=== PATIENT | female | born 1945 | race Caucasian/White ===

== ENCOUNTER 2017-05-23 20:39 | Inpatient (IN) | payer OTHER ==
[~2017-05-23] VITALS: Ht 149.9 cm; Wt 59.0 kg
[~2017-05-23 20:39] MED LIST: AMLO5TAB4 PO; AMOX1TAB43 PO; APR25 PO; ASPI-435 PO; ATOR-26 PO; CHOL1TAB76 PO; CLOP1TAB15 PO; COEN1CAP17 PO; FOLI1TAB8 PO; GEMF600T PO; GLC500 PO; GLIM2TAB2 PO; HYDR25TA4 PO; LSN5 PO; MAGN100T PO; METO50TA16 PO; NRN/300 PO; OMEG1CAP71 PO; ROPI5TAB PO; SITA1TAB27 PO; SOLI5TAB2 PO
[2017-05-23] MEDS ORDERED: SODIUM CHLORIDE 0.9% 1000ML 1,000 ML IV SCH (20:42)
[2017-05-23] MEDS ORDERED: DEXTROSE 50% 50 ML SYR ONE (20:50)
[2017-05-23] MEDS ORDERED: DEXTROSE 50% 50 ML SYR IV STA (20:52)
[2017-05-23] MEDS ORDERED: GLUCOSE 40% GEL 15 GM TUBE ONE (20:54)
[2017-05-23] MEDS ORDERED: SODIUM CHLORIDE 0.9% 1000ML 1,000 ML IV STA (20:58)
[2017-05-23] MEDS ORDERED: OPTIRAY 320 IV PRN (21:00)
--- NOTE | 2017-05-23 21:02 | EMERGENCY ROOM VISIT NOTE ---
History Report prepared by Denisse: Neha Elizondo Under the Supervision of: Dr. Zachary Huston M.D. First contact with patient: 20:42 Chief Complaint: UNRESPONSIVE Stated Complaint: UNRESPONSIVE, TRIES TO TALK CAN'T TALK, SOB History of Present Illness The patient is a 71 year old female who presents to the Emergency Room with complaints of persistent unresponsiveness beginning today. Per the patient's , the patient has old left leg weakness from previous CVAs. He reports that last night the patient was last noted to be normal. Today he notes that the patient has been mostly unresponsive all day and he has been carrying her around today. He states that his daughter visited today and called an ambulance for the patient. The complains of shortness of breath and inability to talk. He denies any new left leg weakness. HPI limited secondary to unresponsiveness. Source of History: patient History Limited By: other (unresponsive) Onset: today Position: other (global) Quality: other (unresponsiveness) Timing: constant Associated Symptoms: + SOB Note: Pt has inability to talk. Pt denies new left leg weakness. Review of Systems See HPI for pertinent positives & negatives. ROS limited secondary to unresponsiveness. Past Medical & Surgical Medical Problems: (1) Diabetes (2) Heart disease (3) History of stroke (4) SVT (supraventricular tachycardia) (5) transient unresponsiveness Surgical Problems: (1) Hx of appendectomy (2) Hx of tonsillectomy Family History No pertinent family history stated. Social History Smoking Status: Never Smoker Drug Use: none Marital Status: Housing Status: lives with family Occupation Status: retired Current/Historical Medications Scheduled Aspirin (Aspirin 81), 81 MG PO QPM Atorvastatin (Lipitor), 80 MG PO DAILY Calcitriol (Calcitriol), 0.25 MG PO 2XWK Calcium Carbonate-Vitamin D (Calcium + D3 600-200 mg-Unit), 1 TAB PO DAILY Clopidogrel (Plavix), 75 MG PO DAILY Coenzyme Q10 (Ubidecarenone) (Co Q 10), 100 MG PO DAILY Folic Acid (Folvite), 1 MG PO QAM Gabapentin (Neurontin), 300 MG PO HS Gabapentin (Neurontin), 300 MG PO QDD Gemfibrozil (Lopid), 600 MG PO BID Glimepiride (Amaryl), 3 MG PO QAM Hydralazine HCl (Hydralazine HCl), 50 MG PO TID Hydrochlorothiazide (Hctz), 25 MG PO DAILY Isosorbide Mononitrate (Isosorbide Mononitrate ER), 60 MG PO QAM Lisinopril (Lisinopril), 10 MG PO DAILY Metformin HCl (Metformin HCl ER), 500 MG PO QDD Metoprolol Tartrate (Lopressor) (Lopressor), 75 MG PO QAM [place] 3 Fatty Acids-[place] 6 Fa ([place] 3-6-9 Complex), 1 CAP PO QAM [place] 3 Fatty Acids-[place] 6 Fa ([place] 3-6-9 Complex), 2 CAP PO QPM Ropinirole (Requip), 5 MG PO HS Sitagliptin (Januvia), 50 MG PO DAILY Scheduled PRN Ropinirole HCl (Ropinirole HCl), 2.5 MG PO DAILY PRN for RESTLESS LEG Allergies Coded Allergies: Niacin (Verified Allergy, Mild, RASH, 05/23/17) Clonidine (Verified Allergy, Unknown, RASH, 05/23/17) Spironolactone (Verified Allergy, Unknown, RASH, 05/23/17) Physical Exam Vital Signs Date Time Temp Pulse Resp B/P (MAP) Pulse Ox O2 Delivery O2 Flow Rate FiO2 05/23/17 22:50 188/90 05/23/17 22:46 76 18 184/101 100 Room Air 05/23/17 21:03 98 Room Air 05/23/17 21:01 55 17 154/65 98 Room Air 05/23/17 20:51 52 Physical Exam GENERAL: Patient is a well-nourished female HEAD: Normocephalic atraumatic EYES: Ocular movements intact pupils equal and react to light OROPHARYNX mucous membranes are moist no exudates present no erythema or edema present NECK: Supple no nuchal rigidity CHEST: Good equal expansion LUNGS: Clear and equal to auscultation CARDIAC: Normal S1 and S2 ABDOMEN: Soft nontender no guarding BACK: No CVA tenderness EXTREMITIES: No pain upon palpation normal muscle strength in all groups no clubbing cyanosis or edema NEURO: Patient is unresponsive and not following commands. Medical Decision & Procedures ER Provider Diagnostic Interpretation: Radiology results as stated below per my review and radiologist interpretation: HEAD WITHOUT CONTRAST (CT). FINDINGS: Gradall Operator topogram: Unremarkable. Proportional ventricular and sulcal prominence, likely age-related parenchymal volume loss. Periventricular and subcortical white matter hypoattenuation, nonspecific but likely indicative of chronic small vessel ischemic change. Lacunar infarcts in the right basal ganglia. No mass effect or midline shift. No hemorrhage or acute territorial infarct. No extra-axial fluid collection. Paranasal sinuses and mastoid air cells clear. Calvarium intact. IMPRESSION: 1. Chronic small vessel ischemic change. No acute intracranial abnormality. Electronically signed by: Daniel Bowen M.D. 05/23/2017 9:36 PM Dictated Date/Time: 05/23/2017 9:34 PM CHEST ONE VIEW PORTABLE FINDINGS: Median sternotomy wires intact. Atherosclerosis of aortic arch. Prominence of the azygos vein. Cardiac silhouette mildly enlarged. This was present on prior exam. Lungs and pleural spaces clear. Osseous structures normal. Upper abdomen normal. IMPRESSION: 1. Cardiomegaly with possible volume overload. Otherwise no acute cardiopulmonary disease. Electronically signed by: Daniel Bowen M.D. 05/23/2017 9:27 PM Dictated Date/Time: 05/23/2017 9:26 PM Laboratory Results 05/23/17 20:56 Red Blood Count 4.69, Mean Corpuscular Volume 87.0, Mean Corpuscular Hemoglobin 29.2, Mean Corpuscular Hemoglobin Concent 33.6, Mean Platelet Volume 10.5, Neutrophils (%) (Auto) 85.5, Lymphocytes (%) (Auto) 8.9, Monocytes (%) (Auto) 5.1, Eosinophils (%) (Auto) 0.1, Basophils (%) (Auto) 0.1, Neutrophils # (Auto) 7.37, Lymphocytes # (Auto) 0.77, Monocytes # (Auto) 0.44, Eosinophils # (Auto) 0.01, Basophils # (Auto) 0.01 05/23/17 20:56 Test 05/23/17 00:00 05/23/17 20:56 05/23/17 21:20 05/23/17 22:02 Influenza Type A Antigen Neg for Influ A (NEG) Influenza Type B Antigen Neg for Influ B (NEG) White Blood Count 8.63 K/uL (4.8-10.8) Red Blood Count 4.69 M/uL (4.2-5.4) Hemoglobin 13.7 g/dL (12.0-16.0) Hematocrit 40.8 % (37-47) Mean Corpuscular Volume 87.0 fL (80-100) Mean Corpuscular Hemoglobin 29.2 pg (25-34) Mean Corpuscular Hemoglobin Concent 33.6 g/dl (32-36) Platelet Count 227 K/uL (130-400) Mean Platelet Volume 10.5 fL (7.4-10.4) Neutrophils (%) (Auto) 85.5 % Lymphocytes (%) (Auto) 8.9 % Monocytes (%) (Auto) 5.1 % Eosinophils (%) (Auto) 0.1 % Basophils (%) (Auto) 0.1 % Neutrophils # (Auto) 7.37 K/uL (1.4-6.5) Lymphocytes # (Auto) 0.77 K/uL (1.2-3.4) Monocytes # (Auto) 0.44 K/uL (0.11-0.59) Eosinophils # (Auto) 0.01 K/uL (0-0.5) Basophils # (Auto) 0.01 K/uL (0-0.2) RDW Standard Deviation 47.6 fL (36.4-46.3) RDW Coefficient of Variation 14.9 % (11.5-14.5) Immature Granulocyte % (Auto) 0.3 % Immature Granulocyte # (Auto) 0.03 K/uL (0.00-0.02) Prothrombin Time 10.2 SECONDS (9.0-12.0) Prothromb Time International Ratio 1.0 (0.9-1.1) Activated Partial Thromboplast Time 28.5 SECONDS (21.0-31.0) Partial Thromboplastin Ratio 1.1 Anion Gap 9.0 mmol/L (3-11) Est Creatinine Clear Calc Drug Dose 28.9 ml/min Estimated GFR () 44.2 Estimated GFR (Non- 38.1 BUN/Creatinine Ratio 21.4 (10-20) Calcium Level 9.3 mg/dl (8.5-10.1) Magnesium Level 2.4 mg/dl (1.8-2.4) Total Creatine Kinase 237 U/L (26-192) Creatine Kinase MB 18.1 ng/ml (0.5-3.6) Creatine Kinase MB Ratio 7.6 (0-3.0) Bedside Glucose 141 mg/dl (70-90) Labs reviewed by ED physician. Medications Administered Medications (Trade) Dose Ordered Sig/Frankie Route Start Time Stop Time Status Last Admin Dose Admin Dextrose (Dextrose 50% 50ML Syringe) 50 ml NOW STAT IV 05/23/17 20:52 05/23/17 20:53 DC 05/23/17 20:52 50 ML Glucose (Glucose 40% Gel) 15 gm STK-MED ONCE .ROUTE 05/23/17 20:54 05/23/17 20:55 DC 05/23/17 20:54 15 GM Sodium Chloride 1,000 ml @ 999 mls/hr Q1H1M STAT IV 05/23/17 20:58 05/23/17 21:58 DC 05/23/17 21:39 999 MLS/HR Potassium Chloride (Antoinette Ciel Elix) 40 meq NOW STAT PO 05/23/17 21:39 05/23/17 21:40 DC 05/23/17 22:08 40 MEQ ECG Indication: weakness Rate (beats per minute): 55 Rhythm: sinus bradycardia Findings: LBBB, no acute ischemic change, no ectopy Comparison ECG Date: 26-DEC-2015 Change: no significant change ED Course 2041: Past medical records reviewed. The patient was evaluated in room B1. A complete history and physical examination was performed. 2041: Sodium Chloride 1000 ml @ 50 mls/hr IV. 2049: Dextrose 50ml, Dextrose 50ml IV. 2053: Glucose 15gm 2138: Antoinette Ciel Elix 40meq PO. 2149: I discussed the patient's case with Dr. Roberto, he has agreed to evaluate the patient for further management and care. 2158: Upon reexamination the patient is doing well. I discussed results and treatment plan with the patient. She verbalizes agreement and understanding. I spoke with Dr. Roberto from the [facility]. The patient will be evaluated for further management. Medical Decision Differential diagnosis: Etiologies such as metabolic, infection, hypo/hyperglycemia, electrolyte abnormalities, cardiac sources, intracerebral event, toxicologic, neurologic, as well as others were entertained. This is a 71-year-old female who presents emergency department is an altered mental status. The patient cannot move the left side of her body and is unable to talk. Due to these findings a stroke alert was initiated however the patient sugar was found to be 28. She was given oral Coke as well as D50. Repeat examination revealed much improvement in the patient's symptoms. The patient was found to be dehydrated and does have a slight elevation in her troponin. I suspect she has been hypoglycemic for an extended amount of time. She was sent for CAT scan of the head which was found to be normal. I did discuss the case with the hospitalist service who agreed to admit the patient. Patient and family were in agreement with the treatment plan. Medication Reconcilliation Current Medication List: was personally reviewed by me Blood Pressure Screening Patient's blood pressure: Elevated blood pressure Blood pressure disposition: Elevated BP felt to be situational Consults Time Called: 2144 Consulting Physician: Dr. Pardeep Arellano Returned Call: 2149 I discussed the patient's case with Dr. Roberto, he has agreed to evaluate the patient for further management and care. Impression Primary Impression: Unresponsive Additional Impressions: Hypoglycemia Dehydration Scribe Attestation The scribe's documentation has been prepared under my direction and personally reviewed by me in its entirety. I confirm that the note above accurately reflects all work, treatment, procedures, and medical decision making performed by me. Departure Information Dispostion Being Evaluated By Hospitalist Referrals Asad Roberts M.D.(MELODIE) (PCP) Patient Instructions [facility] Problem Qualifiers
[2017-05-23 21:11] LABS: BASO % 0.1 %; BASO ABS # 0.01 K/uL (0-0.2); EOS % 0.1 %; EOS ABS # 0.01 K/uL (0-0.5); HEMATOCRIT 40.8 % (37-47); HEMOGLOBIN 13.7 g/dL (12.0-16.0); IG# 0.03 K/uL (0.00-0.02); LYMPH % 8.9 %; LYMPH ABS # 0.77 K/uL (1.2-3.4); MEAN CORPUSCULAR HEMOGLOBIN 29.2 pg (25-34); MEAN CORPUSCULAR HGB CONC 33.6 g/dl (32-36); MEAN PLATELET VOLUME 10.5 fL (7.4-10.4); MONO % 5.1 %; MONO ABS # 0.44 K/uL (0.11-0.59); NEUT % 85.5 %; NEUT ABS # 7.37 K/uL (1.4-6.5); PLATELET COUNT 227 K/uL (130-400); RED CELL DISTRIBUTION WIDTH CV 14.9 % (11.5-14.5); RED CELL DISTRIBUTION WIDTH SD 47.6 fL (36.4-46.3); WHITE BLOOD COUNT 8.63 K/uL (4.8-10.8)
--- NOTE | 2017-05-23 21:29 | DIAGNOSTIC IMAGING REPORT ---
CHEST ONE VIEW PORTABLE CLINICAL HISTORY: 71 years-old Female presenting with Stroke. TECHNIQUE: Portable upright AP view of the chest was obtained. COMPARISON: 12/24/2015. FINDINGS: Median sternotomy wires intact. Atherosclerosis of aortic arch. Prominence of the azygos vein. Cardiac silhouette mildly enlarged. This was present on prior exam. Lungs and pleural spaces clear. Osseous structures normal. Upper abdomen normal. IMPRESSION: 1. Cardiomegaly with possible volume overload. Otherwise no acute cardiopulmonary disease. Electronically signed by: Daniel Bowen M.D. 05/23/2017 9:27 PM Dictated Date/Time: 05/23/2017 9:26 PM
[2017-05-23] MEDS ORDERED: GLIM1TAB PO (21:35)
[2017-05-23] MEDS ORDERED: SITA50TA3 PO (21:35)
[2017-05-23] MEDS ORDERED: ISOS-10 PO (21:35)
[2017-05-23] MEDS ORDERED: ROPI5TAB9 PO (21:35)
[2017-05-23] MEDS ORDERED: APR50 PO (21:35)
[2017-05-23] MEDS ORDERED: LISI-461 PO (21:35)
[2017-05-23] MEDS ORDERED: [UNRECOGNIZED DRUG - CODE] PO (21:35)
[2017-05-23] MEDS ORDERED: GABA-113 PO (21:35)
[2017-05-23] MEDS ORDERED: CALC1CAP36 PO (21:35)
[2017-05-23] MEDS ORDERED: CALC-388 PO (21:35)
[2017-05-23 21:36] LABS: CALCIUM 9.3 mg/dl (8.5-10.1); CKMB 18.1 ng/ml (0.5-3.6); CREATININE 1.38 mg/dl (0.60-1.20); POTASSIUM 3.1 mmol/L (3.5-5.1)
--- NOTE | 2017-05-23 21:38 | DIAGNOSTIC IMAGING REPORT ---
HEAD WITHOUT CONTRAST (CT) CLINICAL HISTORY: 71 years-old Female presenting with Stroke, unresponsive, aphasia, shortness of breath. TECHNIQUE: Multidetector CT imaging of the head was performed without the use of intravenous contrast. IV contrast: None. A dose lowering technique was used consistent with the principles of ALARA (as low as reasonably achievable). COMPARISON: 04/29/2013. CT DOSE (mGy.cm): The estimated cumulative dose is 537.48 mGy.cm. FINDINGS: Impregnating Machine Operator topogram: Unremarkable. Proportional ventricular and sulcal prominence, likely age-related parenchymal volume loss. Periventricular and subcortical white matter hypoattenuation, nonspecific but likely indicative of chronic small vessel ischemic change. Lacunar infarcts in the right basal ganglia. No mass effect or midline shift. No hemorrhage or acute territorial infarct. No extra-axial fluid collection. Paranasal sinuses and mastoid air cells clear. Calvarium intact. IMPRESSION: 1. Chronic small vessel ischemic change. No acute intracranial abnormality. Electronically signed by: Daniel Bowen M.D. 05/23/2017 9:36 PM Dictated Date/Time: 05/23/2017 9:34 PM
[2017-05-23] MEDS ORDERED: POTASSIUM CHLORIDE 20 MEQ/15 ML UDC PO STA (21:39)
[2017-05-23 21:52] LABS: PTT PATIENT 28.5 SECONDS (21.0-31.0)
[2017-05-23 22:56] LABS: INFLUENZA B ANTIGEN Neg for Influ B (NEG)
[2017-05-23] MEDS ORDERED: IV FLUIDS COMPLETED PRN (23:00)
[2017-05-23] MEDS ORDERED: INSULIN ASPART 100 UNITS/ML 3 ML PEN SC ONE (23:16)
[2017-05-23] MEDS ORDERED: CLOPIDOGREL BISULFATE 75 MG TAB PO ONE (23:16)
[2017-05-23] MEDS ORDERED: ASPIRIN 81 MG ECTAB PO ONE (23:16)
[2017-05-23] MEDS ORDERED: NITROGLYCERIN 0.4 MG SL PER TAB CHARGE SL PRN (23:30)
[2017-05-23] MEDS ORDERED: GLUCOSE 10 TABS/TUBE PO PRN (23:30)
[2017-05-23] MEDS ORDERED: PROCHLORPERAZINE INJ 5 MG in SYRINGE 4 ML IV PRN (23:30)
[2017-05-23] MEDS ORDERED: DEXTROSE 50% 50 ML SYR IV PRN (23:30)
[2017-05-23] MEDS ORDERED: OXYCODONE/ACETAMINOPHEN 5-325 TAB PO PRN (23:30)
[2017-05-23] MEDS ORDERED: HYDROmorphone INJ 0.5 MG/0.5 ML SYR IV PRN (23:30)
[2017-05-23] MEDS ORDERED: ACETAMINOPHEN 325 MG TAB PO PRN (23:30)
[2017-05-23] MEDS ORDERED: GLUCAGON FOR INJ 1 MG VIAL SQ PRN (23:30)
[2017-05-23] MEDS ORDERED: GLUCOSE 40% GEL 15 GM TUBE PO PRN (23:30)
[2017-05-23 23:38] VITALS: BP_SYST 198; BP_SYST 207; BP_DIAS 78; BP_DIAS 88; PULSE 79; TEMP 36.5; O2SAT 100; BMI 27.2
[2017-05-24] VITALS (11 sets, daily range): BP systolic 151–180; BP diastolic 66–77; PULSE 69–94; TEMP 36.6–37.6; O2SAT 95–98; Ht 149.9 cm; Wt 59.0 kg
[2017-05-24] MEDS: ROPINIROLE HCL 5 MG TAB PO PRN ×2 (03:25→21:02)
[2017-05-24 05:14] LABS: INFLUENZA A PCR Neg for Influ A (NEG); INFLUENZA B PCR Neg for Influ B (NEG)
[2017-05-24] MEDS ORDERED: ACETAMINOPHEN 325 MG TAB PO ONE (05:16)
[2017-05-24] MEDS: HEPARIN SOD 5000 UNIT/0.5 ML CARP SQ SCH ×3 (05:46→21:07)
[2017-05-24] MEDS: CEFTRIAXONE SOD INJ 1 GM in DEXTROSE 5% ADD-VANTAGE 50ML 50 ML IV SCH (06:08)
[2017-05-24] MEDS: INSULIN ASPART 100 UNITS/ML 3 ML PEN SC SCH ×4 (07:00→21:00)
[2017-05-24] MEDS: ALBUT/IPRATROP 3MG/0.5MG NEB 3 ML VIAL INH SCH ×4 (07:05→19:32)
[2017-05-24 07:14] LABS: HEMOGLOBIN A1C 6.1 % (4.5-5.6)
[2017-05-24 07:18] LABS: BASO % 0.3 %; BASO ABS # 0.02 K/uL (0-0.2); EOS % 0.7 %; EOS ABS # 0.05 K/uL (0-0.5); HEMATOCRIT 35.1 % (37-47); HEMOGLOBIN 11.7 g/dL (12.0-16.0); IG# 0.01 K/uL (0.00-0.02); LYMPH % 14.3 %; LYMPH ABS # 1.01 K/uL (1.2-3.4); MEAN CELL VOLUME 87.1 fL (80-100); MEAN CORPUSCULAR HGB CONC 33.3 g/dl (32-36); MEAN PLATELET VOLUME 11.1 fL (7.4-10.4); MONO % 5.7 %; NEUT % 78.9 %; NEUT ABS # 5.56 K/uL (1.4-6.5); PLATELET COUNT 219 K/uL (130-400); RED CELL DISTRIBUTION WIDTH CV 15.1 % (11.5-14.5); RED CELL DISTRIBUTION WIDTH SD 48.3 fL (36.4-46.3); WHITE BLOOD COUNT 7.05 K/uL (4.8-10.8)
[2017-05-24 07:50] LABS: CALCIUM 8.3 mg/dl (8.5-10.1); CREATININE 1.31 mg/dl (0.60-1.20); POTASSIUM 3.6 mmol/L (3.5-5.1)
[2017-05-24] MEDS: METOPROLOL TARTRATE 25 MG TAB PO SCH ×2 (07:56→21:01)
[2017-05-24] MEDS: GEMFIBROZIL 600 MG TAB PO SCH ×2 (07:57→21:01)
[2017-05-24] MEDS: LISINOPRIL 10 MG TAB PO SCH (07:57)
[2017-05-24] MEDS: CLOPIDOGREL BISULFATE 75 MG TAB PO SCH (07:57)
[2017-05-24] MEDS: ATORVASTATIN 40 MG TAB PO SCH (07:57)
[2017-05-24] MEDS: ISOSORBIDE MONONITRATE 60 MG TABCR PO SCH (07:58)
--- NOTE | 2017-05-24 08:41 | HISTORY & PHYSICAL EXAMINATION ---
DATE OF ADMISSION: 05/23/2017 PRIMARY CARE DOCTOR: Asad Roberts MD. CHIEF COMPLAINT: Unresponsive. HISTORY OF PRESENT ILLNESS: History obtained from patient, family, records. Medical history significant for history of CVA, CAD, HTN, hx HOCM sp myomectomy, SVT as per records, intermittent left bundle branch block, hypertension, hyperlipidemia, DM2 on oral meds, chronic renal insufficiency (baseline creatinine 1.3), history of stress and urge incontinence per records. Recent confinement last December 2015 for non-ST elevation MO. Occluded RCA on diagnostic cardiac cath. Medical management given completed infarct as per notes. Patient noted dry cough symptoms last few days, sick contacts. No chest pain, no shortness of breath. Weight stable. Patient had fallen at home about 2 days ago as per . Unwitnessed event, patient could not remember circumstance. No tongue biting, no unusual urinary incontinence. Early this morning, around 3 a.m. today, the patient's helped her to get upstairs to sleep. Patient noted to be a little disoriented. Around 11:00 a.m. today, the patient not very responsive, blood sugar not checked. As per family, old lip asymmetry from old stroke little more prominent than usual. Patient brought to the Emergency Room. Blood sugars noted to be in the 20s. Patient perked up after given dextrose. Blood sugar currently 141. Patient compliant with diabetes meds. No recent changes w/ medication regimen as per patient. Rare hypoglycemic events though despite habit of not eat breakfast or lunch. MEDICAL HISTORY: As above. A 2D echo from December 2015 showed EF 55%, severe inferior wall hypokinesis. SURGERIES: She has had myomectomy, appendectomy, tonsillectomy, carpal tunnel surgery, shoulder surgery. HOME MEDICATIONS: Include aspirin, Lipitor, calcitriol, Plavix, Folvite, gabapentin, Lopid, Amaryl, Neurontin, HCTZ, omega 3, ropinirole, Requip, Januvia, hydralazine, silver nitrate, lisinopril, metformin, Lopressor. ALLERGIES: CLONIDINE, NIACIN, SPIRONOLACTONE. FAMILY HISTORY: Heart disease. PERSONAL SOCIAL HISTORY: Nonsmoker, no chronic intake of alcoholic beverages. Retired stenographer secretary. REVIEW OF SYSTEMS: As per HPI, all 10 systems reviewed. All other ROS negative. PHYSICAL EXAMINATION: VITAL SIGNS: Blood pressure was noted to be 184/101 later 154/60, pulse rate 55 , RR 17, temperature 36.5, sats 98 on room air. GENERAL: Noted to be pleasant, no respiratory distress. SKIN: Normal color. Warm. HEENT: [place] palpebral conjunctivae. No ptosis. Dry mucosa. Minimal lip symmetry (chronic as per family) NECK: Short neck. No tenderness. CHEST: Healed sternal scar. Clear to auscultation. No tenderness. HEART: Bradycardic. No murmur. ABDOMEN: Soft, nontender. EXTREMITIES: Minimal LE edema, no tenderness. No gross deformities. NEUROLOGIC: Coherent, old lip asymmetry. Gait and stance not assessed. LABORATORY DATA: Hemoglobin was noted to be 13.7, hematocrit 40, white blood cell count 8.6, platelet 227. Sodium noted to be 140, potassium 3.1, chloride 109, CO2 25, BUN 30, creatinine 0.8, glucose 26. Troponin 0.818. Hemoglobin A1c March 2017 was 6.7. EKG as per my interpretation showed rate 55, sinus bradycardia, left bundle branch block. CT head: Old lacunar infarcts. Chest x-ray, cardiomegaly, congestion. ASSESSMENT: 1. Transient unresponsiveness secondary to hypoglycemia. DM2 on oral meds well controlled as of recent outpatient HgA1c. Patient takes an oral hypoglycemic in AM, however does not have meals until later in the day. possibly precipitated by viral respiratory tract infection, no sepsis. 2. possible syncope from a few days ago Unwitnessed fall as per of which patient has no recollection (rule out seizures, cardiac dysfunction, orthostasis) 3. Chronic renal insufficiency, creatinine at baseline. 4. Hx HOCM sp surgery 5. Nonocclusive coronary artery disease as per record. 6. Asymptomatic troponin elevation Multifactorial : Elevated BP, CKD 7. Old cerebrovascular accident. 8. Hypokalemia secondary to poor p.o. intake, home hypoglycemic, diuretics. PLAN: Observation PCU Appropriate to hold oral hypoglycemic meds for now ISS BG goal 140-180, Check hemoglobin A1c. Follow troponin, facilitate home BP meds syncope workup : 2D echo. EEG.; Check orthostatic vitals Decrease home beta blessing dose given bradycardia noted ER vitals. PT, OT evaluation DVT prophylaxis. Heparin subQ. Full code. Patient's requesting updates from providers. Mr. Jacob Kamara at [phone]. [facility]
--- NOTE | 2017-05-24 14:46 | ECHOCARDIOGRAM REPORT ---
*NOTICE TO RECEIVING REPUBLICAN AGENCY This information is strictly Confidential and protected under [place] law. [place] law prohibits you from making any further disclosure of this information unless further disclosure is expressly permitted by the written consent of the person to whom it pertains or is authorized by law. A general authorization for the release of medical or other information is not sufficient for this purpose. Hospital accepts no responsibility if the information is made available to any other person, INCLUDING THE PATIENT. Interpretation Summary * Name: ZACK RIBEIRO Study Date: 05/24/2017 07:17 AM BP: 157/77 mmHg * Patient Location: C.2T\S\S240\S\1 HR: 86 * : 1945 (M/d/yyyy) Gender: Female Height: 59 in * Age: 71 yrs Ethnicity: [place] Weight: 130 lb * Ordering Physician: Homero Roberto * Referring Physician: Self, Referred * Performed By: Ashley Montesinos RDCS * * Reason For Study: Syncope * BSA: 1.5 m2 * -- Conclusions -- * Compared to previous study of 12/24/15: LV chamber is now underfilled, no other changes. * Normal LV chamber size with mild concentric LVH. * Normal LV systolic function, EF 55-60%. * Moderate to severe inferior wall hypokinesis, otherwise, normal/hyperdynamic wall function. * Grade I diastolic dysfunction. * Aortic valve sclerosis mild, without significant aortic valvular stenosis. * Mild to moderate mitral regurgitation. Procedure Details * A complete two-dimensional transthoracic echocardiogram was performed (2D, M-mode, Doppler and color flow Doppler). Left Ventricle * The left ventricular cavity is small. * There is mild concentric left ventricular hypertrophy. * Ejection Fraction = 55-60%. * Left ventricular systolic function is normal. * Moderate to severe inferior wall hypokinesis, otherwise, normal/hyperdynamic wall function. Right Ventricle * The right ventricular cavity size is normal (basal dimension <4.2 cm in right ventricular apical 4-chamber view). * The right ventricular systolic function is normal as assessed by tricuspid annular plane systolic excursion (TAPSE) (normal >1.5 cm). Atria * The left atrial size is normal. * Right atrial size is normal. * No ASD detected; PFO is not assessed. Mitral Valve * There is mild mitral annular calcification. * There is no mitral valve stenosis. * There is mild to moderate mitral regurgitation. Tricuspid Valve * The tricuspid valve is normal in structure and function. Aortic Valve * The aortic valve is trileaflet. * Aortic valve sclerosis mild, without significant aortic valvular stenosis. * There is no significant aortic regurgitation. Pulmonic Valve * The pulmonary valve is not well seen, but the Doppler examination is normal without significant regurgitation or stenosis. Great Vessels * The aortic root and proximal ascending aorta are normal sized. Pericardium/Pleural * There is no pericardial effusion. Left Ventricular Diastolic Function * Grade I diastolic dysfunction, (abnormal relaxation pattern). MMode 2D Measurements and Calculations IVSd 1.1 cm LVIDd 3.8 cm LVIDs 2.8 cm LVPWd 0.97 cm IVS/LVPW 1.1 FS 25.5 % EDV(Teich) 61.7 ml ESV(Teich) 30.2 ml EF(Teich) 51.0 % EDV(cubed) 54.6 ml ESV(cubed) 22.6 ml EF(cubed) 58.6 % LV mass(C)d 123.8 grams LV mass(C)dI 80.6 grams/m\S\2 SV(Teich) 31.5 ml SI(Teich) 20.5 ml/m\S\2 SV(cubed) 32.0 ml SI(cubed) 20.8 ml/m\S\2 Ao root diam 2.3 cm Ao root area 4.2 cm\S\2 ACS 1.5 cm LA dimension 2.7 cm asc Aorta Diam 2.0 cm LA/Ao 1.2 LVAd ap4 28.1 cm\S\2 LVLd ap4 7.9 cm EDV(MOD-sp4) 80.3 ml EDV(sp4-el) 85.0 ml LVAs ap4 15.4 cm\S\2 LVLs ap4 6.5 cm ESV(MOD-sp4) 31.1 ml ESV(sp4-el) 31.1 ml EF(MOD-sp4) 61.2 % EF(sp4-el) 63.4 % LVAd ap2 29.2 cm\S\2 LVLd ap2 8.8 cm EDV(MOD-sp2) 84.5 ml EDV(sp2-el) 82.0 ml LVAs ap2 15.5 cm\S\2 LVLs ap2 6.4 cm ESV(MOD-sp2) 35.1 ml ESV(sp2-el) 32.0 ml EF(MOD-sp2) 58.5 % EF(sp2-el) 61.0 % LVLd %diff 10.5 % EDV(MOD-bp) 85.1 ml LVLs %diff -1.81 % ESV(MOD-bp) 32.5 ml EF(MOD-bp) 61.8 % SV(MOD-sp4) 49.1 ml SI(MOD-sp4) 32.0 ml/m\S\2 SV(MOD-sp2) 49.4 ml SI(MOD-sp2) 32.2 ml/m\S\2 SV(MOD-bp) 52.6 ml SI(MOD-bp) 34.3 ml/m\S\2 SV(sp4-el) 53.9 ml SI(sp4-el) 35.1 ml/m\S\2 SV(sp2-el) 50.0 ml SI(sp2-el) 32.6 ml/m\S\2 Doppler Measurements and Calculations MV E max pritesh 124.0 cm/sec MV A max pritesh 207.2 cm/sec MV E/A 0.60 MV V2 max 237.5 cm/sec MV max PG 22.6 mmHg MV V2 mean 134.9 cm/sec MV mean PG 8.8 mmHg MV V2 VTI 51.8 cm MV dec time 0.40 sec Ao V2 max 184.2 cm/sec Ao max PG 13.6 mmHg Ao max PG (full) 5.0 mmHg LV V1 max PG 8.6 mmHg LV V1 max 146.7 cm/sec PA V2 max 138.5 cm/sec PA max PG 7.7 mmHg PA acc slope 547.3 cm/sec\S\2 PA acc time 0.13 sec TR max pritesh 252.0 cm/sec PA pr(Accel) 20.4 mmHg
--- NOTE | 2017-05-24 16:54 | Progress Note ---
Medicine Progress Note Date & Time of Visit: May 24, 2017 at 14:47. Subjective 71 yo F presents to the ER after unresponsiveness at home overnight. Found to have UTI and severe hypoglycemia. Recent syncopal episode described 3-4 days ago. Has h/o SVT. Pt feels well today, tolerating PO, denies CP, lightheadedness, numbness, tingling, stroke symptoms, or UTI symptoms. Denies back pain. Family at bedside-all questions were answered. Objective Last 8 Hrs Date Time Temp Pulse Resp B/P (MAP) Pulse Ox O2 Delivery O2 Flow Rate FiO2 05/24/17 12:00 Room Air 05/24/17 11:47 36.8 89 18 180/73 (108) 95 Room Air 05/24/17 11:22 73 16 97 Room Air 05/24/17 08:06 37.5 84 18 152/69 (96) 95 Room Air 05/24/17 08:00 Room Air 05/24/17 07:20 78 16 95 Room Air Physical Exam: GEN: WNWD, in no acute distress, alert and appropriate HEENT: NC/AT, PERRL, normal sclerae, EOMI, MMM CARDIO: reg rate, S1/2 heard without m/g/r LUNGS: CTA bilaterally, no crackles, rales or wheezes, good diaphragmatic excursion ABD: soft, non-tender, non-distended, no rebound or guarding, +BS EXTREMITY: RP and DP palpable 2+ bilat, no LE swelling or edema, extremities are warm and well-perfused NEURO: CN 2-12 intact, sensation intact throughout, no gross focal deficits. MUSC: 5/5 strength throughout, no focal deficits noted on exam SKIN: warm and dry Laboratory Results: 05/24/17 06:56 Red Blood Count 4.03, Mean Corpuscular Volume 87.1, Mean Corpuscular Hemoglobin 29.0, Mean Corpuscular Hemoglobin Concent 33.3, Mean Platelet Volume 11.1, Neutrophils (%) (Auto) 78.9, Lymphocytes (%) (Auto) 14.3, Monocytes (%) (Auto) 5.7, Eosinophils (%) (Auto) 0.7, Basophils (%) (Auto) 0.3, Neutrophils # (Auto) 5.56, Lymphocytes # (Auto) 1.01, Monocytes # (Auto) 0.40, Eosinophils # (Auto) 0.05, Basophils # (Auto) 0.02 05/24/17 06:56 Test 05/23/17 00:00 05/23/17 20:56 05/23/17 23:20 05/23/17 23:55 Influenza Type A Antigen Neg for Influ A (NEG) Influenza Type B Antigen Neg for Influ B (NEG) Prothrombin Time 10.2 SECONDS (9.0-12.0) Prothromb Time International Ratio 1.0 (0.9-1.1) Activated Partial Thromboplast Time 28.5 SECONDS (21.0-31.0) Partial Thromboplastin Ratio 1.1 Magnesium Level 2.4 mg/dl (1.8-2.4) Total Creatine Kinase 237 U/L (26-192) Creatine Kinase MB 18.1 ng/ml (0.5-3.6) Creatine Kinase MB Ratio 7.6 (0-3.0) Thyroid Stimulating Hormone (TSH) 0.823 uIu/ml (0.300-4.500) Urine Color YELLOW Urine Appearance CLEAR (CLEAR) Urine pH 5.0 (4.5-7.5) Urine Specific [place] 1.017 (1.000-1.030) Urine Protein 1+ (NEG) Urine Glucose (UA) 1+ (NEG) Urine Ketones NEG (NEG) Urine Occult Blood NEG (NEG) Urine Nitrite POS (NEG) Urine Bilirubin NEG (NEG) Urine Urobilinogen NEG (NEG) Urine Leukocyte Esterase MODERATE (NEG) Urine WBC (Auto) 10-30 /hpf (0-5) Urine RBC (Auto) 0-4 /hpf (0-4) Urine Hyaline Casts (Auto) 1-5 /lpf (0-5) Urine Epithelial Cells (Auto) 5-10 /lpf (0-5) Urine Bacteria (Auto) 3+ (NEG) Estimated Average Glucose 128 mg/dl Hemoglobin A1c 6.1 % (4.5-5.6) Troponin I 0.653 ng/ml (0-0.045) Test 05/24/17 00:00 05/24/17 06:56 05/24/17 16:22 Influenza Type A (RT-PCR) Neg for Influ A (NEG) Influenza Type B (RT-PCR) Neg for Influ B (NEG) White Blood Count 7.05 K/uL (4.8-10.8) Red Blood Count 4.03 M/uL (4.2-5.4) Hemoglobin 11.7 g/dL (12.0-16.0) Hematocrit 35.1 % (37-47) Mean Corpuscular Volume 87.1 fL (80-100) Mean Corpuscular Hemoglobin 29.0 pg (25-34) Mean Corpuscular Hemoglobin Concent 33.3 g/dl (32-36) Platelet Count 219 K/uL (130-400) Mean Platelet Volume 11.1 fL (7.4-10.4) Neutrophils (%) (Auto) 78.9 % Lymphocytes (%) (Auto) 14.3 % Monocytes (%) (Auto) 5.7 % Eosinophils (%) (Auto) 0.7 % Basophils (%) (Auto) 0.3 % Neutrophils # (Auto) 5.56 K/uL (1.4-6.5) Lymphocytes # (Auto) 1.01 K/uL (1.2-3.4) Monocytes # (Auto) 0.40 K/uL (0.11-0.59) Eosinophils # (Auto) 0.05 K/uL (0-0.5) Basophils # (Auto) 0.02 K/uL (0-0.2) RDW Standard Deviation 48.3 fL (36.4-46.3) RDW Coefficient of Variation 15.1 % (11.5-14.5) Immature Granulocyte % (Auto) 0.1 % Immature Granulocyte # (Auto) 0.01 K/uL (0.00-0.02) Anion Gap 11.0 mmol/L (3-11) Est Creatinine Clear Calc Drug Dose 30.4 ml/min Estimated GFR () 47.0 Estimated GFR (Non- 40.6 BUN/Creatinine Ratio 21.2 (10-20) Calcium Level 8.3 mg/dl (8.5-10.1) Hepatitis C Antibody Screen NEG (NEG) Bedside Glucose 134 mg/dl (70-90) Date/Time Source Procedure Growth Status 05/23/17 23:20 Urine , Random Urine Culture Pending Received Last 24 Hours Test 05/23/17 20:52 05/23/17 20:56 05/23/17 21:20 05/23/17 23:20 Bedside Glucose 30 mg/dl 141 mg/dl White Blood Count 8.63 K/uL Red Blood Count 4.69 M/uL Hemoglobin 13.7 g/dL Hematocrit 40.8 % Mean Corpuscular Volume 87.0 fL Mean Corpuscular Hemoglobin 29.2 pg Mean Corpuscular Hemoglobin Concent 33.6 g/dl Platelet Count 227 K/uL Mean Platelet Volume 10.5 fL Neutrophils (%) (Auto) 85.5 % Lymphocytes (%) (Auto) 8.9 % Monocytes (%) (Auto) 5.1 % Eosinophils (%) (Auto) 0.1 % Basophils (%) (Auto) 0.1 % Neutrophils # (Auto) 7.37 K/uL Lymphocytes # (Auto) 0.77 K/uL Monocytes # (Auto) 0.44 K/uL Eosinophils # (Auto) 0.01 K/uL Basophils # (Auto) 0.01 K/uL RDW Standard Deviation 47.6 fL RDW Coefficient of Variation 14.9 % Immature Granulocyte % (Auto) 0.3 % Immature Granulocyte # (Auto) 0.03 K/uL Prothrombin Time 10.2 SECONDS Prothromb Time International Ratio 1.0 Activated Partial Thromboplast Time 28.5 SECONDS Partial Thromboplastin Ratio 1.1 Sodium Level 143 mmol/L Potassium Level 3.1 mmol/L Chloride Level 109 mmol/L Carbon Dioxide Level 25 mmol/L Anion Gap 9.0 mmol/L Blood Urea Nitrogen 30 mg/dl Creatinine 1.38 mg/dl Est Creatinine Clear Calc Drug Dose 28.9 ml/min Estimated GFR () 44.2 Estimated GFR (Non- 38.1 BUN/Creatinine Ratio 21.4 Random Glucose 26 mg/dl Calcium Level 9.3 mg/dl Magnesium Level 2.4 mg/dl Total Creatine Kinase 237 U/L Creatine Kinase MB 18.1 ng/ml Creatine Kinase MB Ratio 7.6 Troponin I 0.818 ng/ml Thyroid Stimulating Hormone (TSH) 0.823 uIu/ml Urine Color YELLOW Urine Appearance CLEAR Urine pH 5.0 Urine Specific [place] 1.017 Urine Protein 1+ Urine Glucose (UA) 1+ Urine Ketones NEG Urine Occult Blood NEG Urine Nitrite POS Urine Bilirubin NEG Urine Urobilinogen NEG Urine Leukocyte Esterase MODERATE Urine WBC (Auto) 10-30 /hpf Urine RBC (Auto) 0-4 /hpf Urine Hyaline Casts (Auto) 1-5 /lpf Urine Epithelial Cells (Auto) 5-10 /lpf Urine Bacteria (Auto) 3+ Test 05/23/17 23:55 05/24/17 00:00 05/24/17 00:43 05/24/17 05:39 Estimated Average Glucose 128 mg/dl Hemoglobin A1c 6.1 % Troponin I 0.653 ng/ml Influenza Type A (RT-PCR) Neg for Influ A Influenza Type B (RT-PCR) Neg for Influ B Bedside Glucose 232 mg/dl 62 mg/dl Test 05/24/17 06:01 05/24/17 06:16 05/24/17 06:56 05/24/17 11:09 Bedside Glucose 63 mg/dl 141 mg/dl 117 mg/dl White Blood Count 7.05 K/uL Red Blood Count 4.03 M/uL Hemoglobin 11.7 g/dL Hematocrit 35.1 % Mean Corpuscular Volume 87.1 fL Mean Corpuscular Hemoglobin 29.0 pg Mean Corpuscular Hemoglobin Concent 33.3 g/dl Platelet Count 219 K/uL Mean Platelet Volume 11.1 fL Neutrophils (%) (Auto) 78.9 % Lymphocytes (%) (Auto) 14.3 % Monocytes (%) (Auto) 5.7 % Eosinophils (%) (Auto) 0.7 % Basophils (%) (Auto) 0.3 % Neutrophils # (Auto) 5.56 K/uL Lymphocytes # (Auto) 1.01 K/uL Monocytes # (Auto) 0.40 K/uL Eosinophils # (Auto) 0.05 K/uL Basophils # (Auto) 0.02 K/uL RDW Standard Deviation 48.3 fL RDW Coefficient of Variation 15.1 % Immature Granulocyte % (Auto) 0.1 % Immature Granulocyte # (Auto) 0.01 K/uL Sodium Level 144 mmol/L Potassium Level 3.6 mmol/L Chloride Level 112 mmol/L Carbon Dioxide Level 21 mmol/L Anion Gap 11.0 mmol/L Blood Urea Nitrogen 28 mg/dl Creatinine 1.31 mg/dl Est Creatinine Clear Calc Drug Dose 30.4 ml/min Estimated GFR () 47.0 Estimated GFR (Non- 40.6 BUN/Creatinine Ratio 21.2 Random Glucose 137 mg/dl Calcium Level 8.3 mg/dl Hepatitis C Antibody Screen NEG Date/Time Source Procedure Growth Status 12/17/17 23:20 Urine , Random Urine Culture Pending Received Assessment & Plan 71 yo F presents to the ER after unresponsiveness at home overnight. Found to have UTI and severe hypoglycemia. Recent syncopal episode described 3-4 days ago. Has h/o SVT. Pt feels well today, tolerating PO, denies CP, lightheadedness, numbness, tingling, stroke symptoms, or UTI symptoms. Denies back pain. Family at bedside-all questions were answered. 1. Metabolic encephalopathy 2/2 diabetic [id number] is on metformin, januvia and glipizide as outpatient and reports typically not eating breakfast or lunch. She is improved with dextrose and food today, now with normal mentation. She reports falling last night and remembers falling and hitting her head on the shower. Her found her and said she was not down very long. He and daughters carried her to the ER. Cont ISS as inpatient. Pt is tolerating PO. Would suggest holding/stopping glipizide on discharge to avoid future hypoglycemic events at home and follow-up w PCP. Of note, this event was also in the context of a UTI. 2. UTI-chronic incontinence, no fevers, chills, flank pain, dysuria or other symptoms at this time. No CVA tenderness on exam. 3. Syncope-3-4 days ago, pt doesn't remember the fall. No h/o seizure--EEG performed this morning. Has h/o stroke but no new stroke symptoms at this time and CT head revealed no acute abnormality. Troponins were elevated, intermittent SVT on telemetry, and there were some wall motion abnormalities on echo performed today so Cardiology was consulted for formal evaluation and recs. Pt has a h/o HOCM. 4. KASSANDRA on CKD III-baseline creat 1.0 (GFR 40s) Improved with some IVF. PRP in am. 5. CAD/CVD-cont medical management. 6. h/o CVA-pt has some residual L sided weakness in arm and leg that is chronic , not much different than baseline. Some mouth droop also at baseline. DVT proph: heparin Full Code Dispo: cont telemetry Shilpa Montgomery DO [facility] Hospitalist Current Inpatient Medications: Current Inpatient Medications Medications (Trade) Dose Ordered Sig/Frankie Route Start Time Stop Time Status Last Admin Dose Admin Ioversol (Optiray 320) 100 ml UD PRN IV 05/23/17 21:00 05/27/17 20:59 Miscellaneous (Iv Fluids Completed) 1 ea PRN PRN N/A 05/23/17 23:00 05/23/18 22:59 Aspirin (Ecotrin Tab) 81 mg QPM PO 05/24/17 21:00 06/23/17 20:59 Atorvastatin Calcium (Lipitor Tab) 80 mg DAILY PO 05/24/17 09:00 06/23/17 08:59 05/24/17 07:57 80 MG Clopidogrel Bisulfate (plAVix TAB) 75 mg DAILY PO 05/24/17 12:00 06/23/17 11:59 05/24/17 07:57 75 MG Folic Acid (Folvite Tab) 1 mg QAM PO 05/24/17 09:00 06/23/17 08:59 05/24/17 07:57 1 MG Gabapentin (Neurontin Cap) 300 mg HS PO 05/24/17 21:00 06/23/17 20:59 Gabapentin (Neurontin Cap) 300 mg QDD PO 05/24/17 18:00 06/23/17 17:59 Gemfibrozil (Lopid Tab) 600 mg BID PO 05/24/17 09:00 06/23/17 08:59 05/24/17 07:57 600 MG Hydralazine HCl (Apresoline Tab) 50 mg TID PO 05/24/17 09:00 06/23/17 08:59 05/24/17 14:09 50 MG Isosorbide Mononitrate (Imdur Ext Rel Tab) 60 mg QAM PO 05/24/17 09:00 06/23/17 08:59 05/24/17 07:58 60 MG Lisinopril (Zestril Tab) 10 mg DAILY PO 05/24/17 09:00 06/23/17 08:59 05/24/17 07:57 10 MG Ropinirole HCl (Requip Tab) 5 mg HS PO 05/24/17 21:00 06/23/17 20:59 Ropinirole HCl (Requip Tab) 2.5 mg DAILY PRN PO 05/23/17 23:30 06/22/17 23:29 05/24/17 03:25 2.5 MG Hydromorphone HCl (Dilaudid Inj) 0.5 mg Q3H PRN IV 05/23/17 23:30 06/06/17 23:29 Oxycodone/ Acetaminophen (Percocet 5-325mg Tab) 1 tab Q6H PRN PO 05/23/17 23:30 06/06/17 23:29 Prochlorperazine Edisylate 5 mg/ Syringe 5 ml @ 5 mls/min Q6H PRN IV 05/23/17 23:30 06/22/17 23:29 Albuterol/ Ipratropium (Duoneb) 3 ml QIDR INH 05/24/17 08:00 06/23/17 07:59 05/24/17 11:09 3 ML Heparin Sodium (Porcine) (Heparin Sq 5000 Unit/0.5ml) 5,000 unit Q8 SQ 05/24/17 06:00 06/23/17 05:59 05/24/17 14:11 5,000 UNIT Acetaminophen (Tylenol Tab) 650 mg Q4H PRN PO 05/23/17 23:30 06/22/17 23:29 Nitroglycerin (Nitrostat Tab) 0.4 mg UD PRN SL 05/23/17 23:30 06/22/17 23:29 Insulin Aspart (novoLOG ASPART) SLIDING SCALE If C... ACHS SC 05/24/17 07:00 06/23/17 06:59 Glucose (Glucose 40% Gel) 15-30 GRAMS 15 GRAMS... UD PRN PO 05/23/17 23:30 06/22/17 23:29 Glucose (Glucose Chew Tab) 4-8 Tablets 4 Tabl... UD PRN PO 05/23/17 23:30 06/22/17 23:29 05/24/17 05:44 4 TABS Dextrose (Dextrose 50% 50ML Syringe) 25-50ML OF 50% DW IV FOR... UD PRN IV 05/23/17 23:30 06/22/17 23:29 05/24/17 06:09 25 ML Glucagon (Glucagon Inj) 1 mg UD PRN SQ 05/23/17 23:30 06/22/17 23:29 Metoprolol Tartrate (Lopressor Tab) 12.5 mg BID PO 05/24/17 09:00 06/23/17 08:59 05/24/17 07:56 12.5 MG Ceftriaxone Sodium 1 gm/ Dextrose 50 ml @ 100 mls/hr Q24H IV 05/24/17 06:00 06/03/17 05:59 05/24/17 06:08 100 MLS/HR
[2017-05-24] MEDS: GABAPENTIN 300 MG CAP PO SCH ×2 (18:33→21:02)
[2017-05-24] MEDS: ASPIRIN 81 MG ECTAB PO SCH (21:02)
[2017-05-24] MEDS: ROPINIROLE HCL 5 MG TAB PO SCH (21:02)
[2017-05-24] MEDS: GUAIFENESIN 600 MG TABCR PO SCH (21:02)
[2017-05-25] VITALS (11 sets, daily range): BP systolic 139–180; BP diastolic 64–78; PULSE 67–88; TEMP 36.6–37.8; O2SAT 92–98
[2017-05-25] MEDS ORDERED: METOPROLOL TARTRATE 25 MG TAB PO ONE (04:20)
[2017-05-25] MEDS: CEFTRIAXONE SOD INJ 1 GM in DEXTROSE 5% ADD-VANTAGE 50ML 50 ML IV SCH (05:37)
[2017-05-25] MEDS: HEPARIN SOD 5000 UNIT/0.5 ML CARP SQ SCH ×3 (05:57→20:20)
[2017-05-25] MEDS: INSULIN ASPART 100 UNITS/ML 3 ML PEN SC SCH ×4 (07:00→20:09)
--- NOTE | 2017-05-25 07:02 | ELECTROENCEPHALOGRAPH REPORT ---
FOR: Homero Roberto MD CLINICAL DIAGNOSIS: Syncope. EEG DIAGNOSIS: Essentially normal during wakefulness. DESCRIPTION OF TRACING: This EEG was done as a bedside recording. With photic stimulation a simultaneous video analysis of patient movement and behavior was also obtained. During wakefulness, there is evidence for a background alpha rhythm of about 9-10 Hz of maximum frequency and 30 microvolts of maximum amplitude which is maximum in posterior head regions bilaterally symmetrical. Polymorphic mid frequency theta activity is seen over all head regions without clear focal or regional predominance. Anterior head region maximum bilaterally symmetrical low voltage fast activity in the beta range is present. Early on the tracing, there were some bursts of high amplitude activity seemingly originating from T5 and P3 electrodes, and the T5 electrode continues to demonstrate some mild artifacts throughout the remainder of the tracing, but further activity of this type is not seen again and is likely artifactual. Otherwise, the tracing is free of any paroxysmal behavior and certainly reveals no evidence for potentially epileptogenic activity either during photic stimulation or during wakefulness. INTERPRETATION: This EEG is essentially normal during wakefulness without evidence for focal or generalized encephalopathy and without evidence for potentially epileptogenic activity.
[2017-05-25] MEDS: ALBUT/IPRATROP 3MG/0.5MG NEB 3 ML VIAL INH SCH ×4 (07:27→19:12)
[2017-05-25 07:37] LABS: HEMATOCRIT 35.1 % (37-47); HEMOGLOBIN 11.2 g/dL (12.0-16.0); MEAN CELL VOLUME 88.2 fL (80-100); MEAN CORPUSCULAR HEMOGLOBIN 28.1 pg (25-34); MEAN CORPUSCULAR HGB CONC 31.9 g/dl (32-36); MEAN PLATELET VOLUME 11.1 fL (7.4-10.4); PLATELET COUNT 212 K/uL (130-400); RED CELL DISTRIBUTION WIDTH CV 15.3 % (11.5-14.5); RED CELL DISTRIBUTION WIDTH SD 50.1 fL (36.4-46.3); WHITE BLOOD COUNT 6.33 K/uL (4.8-10.8)
[2017-05-25] MEDS: CLOPIDOGREL BISULFATE 75 MG TAB PO SCH (07:38)
[2017-05-25] MEDS: GEMFIBROZIL 600 MG TAB PO SCH ×2 (07:39→20:17)
[2017-05-25] MEDS: ATORVASTATIN 40 MG TAB PO SCH (07:39)
[2017-05-25] MEDS: ISOSORBIDE MONONITRATE 60 MG TABCR PO SCH (07:39)
[2017-05-25] MEDS: GUAIFENESIN 600 MG TABCR PO SCH ×2 (07:40→20:17)
[2017-05-25] MEDS: LISINOPRIL 10 MG TAB PO SCH (07:40)
[2017-05-25 08:03] LABS: CALCIUM 8.8 mg/dl (8.5-10.1); CREATININE 1.48 mg/dl (0.60-1.20)
[2017-05-25] MEDS ORDERED: CLOPIDOGREL BISULFATE 75 MG TAB PO SCH (09:00)
--- NOTE | 2017-05-25 10:02 | Clinical Documentation Query ---
QUERY 1 OF [address] JIMÉNEZ, In your clinical opinion is this patient being managed for: ( x ) Metabolic encephalopathy due to diabetic hypoglycemia ( ) Not Agree ( ) Other explanation of clinical findings (Please Explain) ( ) Unable to determine (Please Define) ( ) Need to Discuss The medical record reflects the following clinical findings, treatment, and risk factors. Clinical Indicators: 71 yo female presenting with unresponsiveness and found to have severe hypoglycemia with glucose of 26. CT head without acute findings Treatment: D50 IV, glucose tabs, hold metformin, A1C, CT head Risk Factors: hypoglycemia QUERY 2 OF 2 In your clinical opinion is this patient being managed for: ( x ) Chronic kidney disease, stage 3 ( ) Not Agree ( ) Other explanation of clinical findings (Please Explain) ( ) Unable to determine (Please Define) ( ) Need to Discuss The medical record reflects the following clinical findings, treatment, and risk factors. Clinical Indicators: 71 yo female presenting with hypoglycemia and UTI. H/P indicates pt with chronic renal insufficiency. Review of GFR range of 35-68.1 over the past 2 years Treatment: monitor PRP's, treat comorbid conditions Risk Factors: DM, HTN, CAD, CVA Please clarify and document your clinical opinion in the progress notes and discharge summary. Terms such as "probable", "suspected", "likely", "questionable", "possible", or "still to be ruled out" are acceptable. IF IN AGREEMENT, YOU MUST DOCUMENT ABOVE DIAGNOSTIC STATEMENT IN DAILY PROGRESS NOTES AND DISCHARGE SUMMARY. This document is not part of the patient's record. Thank You, Katie Weeks, JAYSON [phone]
--- NOTE | 2017-05-25 15:50 | CARDIOLOGY CONSULTATION ---
DATE OF CONSULTATION: 05/25/2017 DATE OF CONSULTATION: 05/25/2017 REASON FOR CONSULTATION: Abnormal echocardiogram and syncope. HISTORY OF PRESENT ILLNESS: Mrs. Kamara is a very pleasant 71-year-old woman who normally follows with Dr. Andre of our cardiology practice. She presented to [facility] on 05/24/2017 with report of syncopal event. Upon arrival to the Emergency Room, her blood sugar was found to be in the 20s. She was given dextrose then quickly returned to her normal mental state. The patient was noted to have a syncopal event approximately 2 days prior at home as well that was noted by her ; however, the patient states that she does not remember these episodes at all. She also did not check her blood sugars at home when these happened. Currently, she states that she feels fine. She denies any recent complaints of chest pain, shortness of breath, lightheadedness, dizziness or palpitations. She states that now her blood sugars are back under control she feels fine. PAST SURGICAL HISTORY: 1. Septal myomectomy for hypertrophic obstructive cardiomyopathy in the year 1999. 2. Diagnostic cardiac catheterization in 2005. 3. Appendectomy. 4. Tonsillectomy. 5. Shoulder surgery. 6. Carpal tunnel surgery. MEDICAL ILLNESSES: 1. Hypertrophic obstructive cardiomyopathy, status post septal myomectomy. 2. 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 3. Diabetes. 4. History of CVA. 5. Hypertension. 6. History of paroxysmal SVT. 7. Intermittent left bundle branch block. 8. Chronic renal sufficiency. 9. Hypertension. 10. Urinary incontinence. FAMILY HISTORY: Noncontributory. SOCIAL HISTORY: Denies any alcohol, tobacco or recreational drug use. She is ; she lives at home with her . She is a retired private secretary. REVIEW OF SYSTEMS: As per HPI. All other review of systems reviewed and negative at this time. ALLERGIES: 1. SPIRONOLACTONE. 2. NIACIN. 3. CLONIDINE. MEDICATIONS OUTPATIENT: 1. Aspirin 81 mg daily. 2. Plavix 75 mg daily. 3. Lisinopril 10 mg daily. 4. Gemfibrozil 600 mg b.i.d. 5. Atorvastatin 80 mg daily. 6. Metoprolol tartrate 75 mg q.a.m. and 50 mg q.p.m. 7. Hydrochlorothiazide 25 mg daily. 8. Hydralazine 50 mg 3 times a day. 9. Imdur 60 mg daily. 10. Amaryl daily. 11. Metformin daily. 12. Januvia daily. 13. Neurontin as needed. PHYSICAL EXAMINATION: VITAL SIGNS: Temperature 36.8, pulse 74, respiratory rate 12, blood pressure 139/68. GENERAL: Awake, alert, oriented x3. No acute distress. HEAD, EYES, EARS, NOSE, AND THROAT: Normocephalic, atraumatic. Pupils equal, round and react to light and accommodation. Extraocular muscles intact. Anicteric sclerae. Moist mucous membranes. NECK: No JVD, no bruit. HEART: Regular, positive S4. Normal S1, S2, no S3. No murmurs or rubs. PULMONARY: Clear to auscultation bilaterally. No rales, rhonchi or wheezing. ABDOMEN: Bowel sounds x4, soft. No rebound, guarding, tenderness, or organomegaly. EXTREMITIES: No clubbing, cyanosis or edema. +2 pedal pulses bilaterally. SKIN: Warm and dry. TEST RESULTS: 2D echocardiogram performed 05/24/2017 was read as compared to previous study of 12/24/2015, LV chamber is now under filled, no other changes, normal LV chamber size with mild concentric LVH, normal LV systolic function, EF 55-60%, moderate to severe inferior wall hypokinesis, otherwise normal/hyperdynamic wall function, grade 1 diastolic dysfunction, mild aortic valve sclerosis without stenosis, mild to moderate mitral regurgitation. LABORATORY STUDIES OF SIGNIFICANCE: Point of care glucose upon presentation of 30. A 12-lead EKG performed in the Emergency Department independently reviewed at this time shows normal sinus rhythm with first degree AV block, left bundle branch block, no significant change compared to previous studies. IMPRESSION: 1. Syncope secondary to hypoglycemia 2. Coronary artery disease with inferior wall hypokinesis on echocardiogram unchanged. 3. History of hypertrophic cardiomyopathy status post myomectomy, stable. 4. Hypertension, controlled. RECOMMENDATIONS: It was my pleasure to see Mrs. Kamara in consultation today. From a cardiac standpoint the patient was counseled that her hypoglycemic events easily explain her syncope especially given her profound hypoglycemia upon presentation here in the Emergency Department so no further cardiac testing or intervention is necessary at this time. Her telemetry monitoring has been unremarkable except for short 9-beat run of nonsustained ventricular tachycardia, but again I believe the hypoglycemia explains her syncope. Otherwise, her echocardiogram was unchanged as it was listed in the report so no further changes are necessary at this time. No further cardiac testing or intervention is necessary. It is okay to discharge the patient home from a cardiac standpoint. She is to follow up as an outpatient on a regular scheduled basis.
[2017-05-25] MEDS: GABAPENTIN 300 MG CAP PO SCH ×2 (17:16→20:17)
--- NOTE | 2017-05-25 17:55 | Progress Note ---
Internal Med Progress Note Date of Service: May 25, 2017. Provider Documentation: SUBJECTIVE: resting comfortably on the chair has some cough afebrile eating ok slept ok OBJECTIVE: Vital Signs-as noted below Exam: General-alert and oriented. not in distress ENT-Normal hearing Neck-no neck masses Lungs-Cta b/l no wheezing or crackles Heart-S1 and S2 heard regular No murmurs Abdomen-Soft Bowel sounds present Non tender No distension Extremities-No edema No erythema Neuro-alert and awake moves extremities Lab data as noted below. ASSESSMENT & PLAN: 71 yo F presents to the ER after unresponsiveness at home overnight. Found to have UTI and severe hypoglycemia. Recent syncopal episode described 3-4 days ago. Has h/o SVT. 1. Transient unresponsiveness 2/2 hypoglycemic event-pt is on metformin, januvia and glipizide as outpatient and reports typically not eating breakfast or lunch. Improved now. Hba1c 6.1. Will d/c glipizide and Januvia and ff/u with pcp. 2. UTI-chronic incontinence, e.coli. on roceohin. 3. Syncope-3-4 days ago, pt doesn't remember the fall. No h/o seizure--EEG unremarkable.. CT head revealed no acute abnormality. Pt has a h/o HOCM.Seen by cardiology and thinks hypoglycemia is the culprit. 4. KASSANDRA -baseline creat 1.0. Improved with some IVF. PRP in am. 5. CAD/CVD-cont medical management. 6. h/o CVA-pt has some residual L sided weakness in arm and leg that is chronic , not much different than baseline. Some mouth droop also at baseline. DVT proph: heparin Full Code Dispo: cont telemetry pt/ot possible d/c in am Vital Signs: Date Time Temp Pulse Resp B/P (MAP) Pulse Ox O2 Delivery O2 Flow Rate FiO2 05/25/17 16:00 Room Air 05/25/17 15:25 72 14 98 Room Air 05/25/17 15:23 36.6 80 18 165/71 (102) 95 Room Air 05/25/17 12:00 Room Air 05/25/17 11:43 36.8 74 18 139/68 (91) 96 05/25/17 11:19 67 15 98 Room Air 12/19/17 08:00 Room Air 05/25/17 07:27 73 16 97 Room Air 05/25/17 07:19 37.2 73 18 157/73 (101) 92 05/25/17 04:00 Room Air 05/25/17 03:38 37.8 81 18 156/74 (101) 96 Room Air 05/25/17 01:23 88 180/64 (102) 05/25/17 00:05 Room Air 05/24/17 23:38 37.6 86 18 175/72 (106) 97 Room Air 05/24/17 20:00 Room Air 05/24/17 19:45 36.9 94 20 170/70 (103) 96 Room Air 05/24/17 19:32 90 16 98 Room Air Lab Results: Results Past 24 Hours Test 05/24/17 20:43 05/25/17 06:20 05/25/17 07:09 05/25/17 11:56 Range/Units Bedside Glucose 160 95 104 70-90 mg/dl White Blood Count 6.33 4.8-10.8 K/uL Red Blood Count 3.98 4.2-5.4 M/uL Hemoglobin 11.2 12.0-16.0 g/dL Hematocrit 35.1 37-47 % Mean Corpuscular Volume 88.2 80-100 fL Mean Corpuscular Hemoglobin 28.1 25-34 pg Mean Corpuscular Hemoglobin Concent 31.9 32-36 g/dl RDW Standard Deviation 50.1 36.4-46.3 fL RDW Coefficient of Variation 15.3 11.5-14.5 % Platelet Count 212 130-400 K/uL Mean Platelet Volume 11.1 7.4-10.4 fL Sodium Level 139 136-145 mmol/L Potassium Level 4.0 3.5-5.1 mmol/L Chloride Level 109 98-107 mmol/L Carbon Dioxide Level 22 21-32 mmol/L Anion Gap 8.0 3-11 mmol/L Blood Urea Nitrogen 28 7-18 mg/dl Creatinine 1.48 0.60-1.20 mg/dl Est Creatinine Clear Calc Drug Dose 27.3 ml/min Estimated GFR () 40.6 Estimated GFR (Non- 35.0 BUN/Creatinine Ratio 18.6 10-20 Random Glucose 94 70-99 mg/dl Calcium Level 8.8 8.5-10.1 mg/dl
[2017-05-25] MEDS: ASPIRIN 81 MG ECTAB PO SCH (20:17)
[2017-05-25] MEDS: ROPINIROLE HCL 5 MG TAB PO SCH (20:18)
[2017-05-25] MEDS: ROPINIROLE HCL 5 MG TAB PO PRN (20:18)
[2017-05-25] MEDS ORDERED: METOPROLOL TARTRATE 25 MG TAB PO SCH (21:00)
[2017-05-25] MEDS ORDERED: ASPIRIN 81 MG ECTAB PO SCH (21:00)
[2017-05-26] VITALS (8 sets, daily range): BP systolic 144–209; BP diastolic 72–94; PULSE 61–73; TEMP 36.6–37.2; O2SAT 94–98
[2017-05-26] MEDS: CEFTRIAXONE SOD INJ 1 GM in DEXTROSE 5% ADD-VANTAGE 50ML 50 ML IV SCH (05:10)
[2017-05-26] MEDS: HEPARIN SOD 5000 UNIT/0.5 ML CARP SQ SCH ×3 (05:15→21:01)
--- NOTE | 2017-05-26 06:27 | Clinical Documentation Query ---
CLINICAL DOCUMENTATION QUERY Dr. 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 Montgomery on 05/24. These diagnoses have not been carried through on subsequent progress notes and risk not being coded in the final record. In your clinical opinion, is this patient being treated for: ( ) Metabolic encephalopathy due to diabetic hypoglycemia ( ) CKD stage III ( ) Not Agree ( ) Other explanation of clinical findings (Please Explain) ( ) Unable to determine (Please Define) ( ) Need to Discuss Please clarify and document your clinical opinion in the progress notes and discharge summary. Terms such as "probable", "suspected", "likely", "questionable", "possible", or "still to be ruled out" are acceptable. IF IN AGREEMENT, YOU MUST DOCUMENT ABOVE DIAGNOSTIC STATEMENT IN DAILY PROGRESS NOTES AND DISCHARGE SUMMARY. This document is not part of the patient's record. Thank You, Katie Weeks, RN [phone]
[2017-05-26] MEDS: INSULIN ASPART 100 UNITS/ML 3 ML PEN SC SCH ×4 (07:00→20:58)
[2017-05-26] MEDS: ALBUT/IPRATROP 3MG/0.5MG NEB 3 ML VIAL INH SCH (07:08)
[2017-05-26 07:27] LABS: CALCIUM 9.1 mg/dl (8.5-10.1); CREATININE 1.64 mg/dl (0.60-1.20); POTASSIUM 3.9 mmol/L (3.5-5.1)
[2017-05-26] MEDS ORDERED: AMLODIPINE BESYLATE 5 MG TAB PO SCH (09:00)
[2017-05-26] MEDS ORDERED: METOPROLOL SUCC 25MG EXT REL TAB PO SCH (09:00)
[2017-05-26] MEDS: GUAIFENESIN 600 MG TABCR PO SCH ×2 (09:07→20:57)
[2017-05-26] MEDS: GEMFIBROZIL 600 MG TAB PO SCH ×2 (09:07→20:57)
[2017-05-26] MEDS: CLOPIDOGREL BISULFATE 75 MG TAB PO SCH (09:07)
[2017-05-26] MEDS: ATORVASTATIN 40 MG TAB PO SCH (09:07)
[2017-05-26] MEDS: ISOSORBIDE MONONITRATE 60 MG TABCR PO SCH (09:07)
--- NOTE | 2017-05-26 09:21 | DIAGNOSTIC IMAGING REPORT ---
CHEST ONE VIEW PORTABLE CLINICAL HISTORY: cough COMPARISON STUDY: 05/23/2017 FINDINGS: The heart is mildly enlarged. There are postsurgical changes of midline sternotomy. There is no focal pulmonary consolidation. There is no overt failure. There are no pleural effusions.[ IMPRESSION: Mild cardiomegaly. No acute findings. Electronically signed by: Rip Lantigua M.D. 05/26/2017 9:20 AM Dictated Date/Time: 05/26/2017 9:19 AM
[2017-05-26] MEDS ORDERED: METOPROLOL TARTRATE 25 MG TAB PO ONE (09:28)
[2017-05-26] MEDS ORDERED: AMLODIPINE BESYLATE 5 MG TAB PO ONE (09:30)
[2017-05-26] MEDS: LEVOFLOXACIN 750 MG TAB PO SCH (10:20)
[2017-05-26] MEDS: SODIUM CHLORIDE 0.9% 1000ML 1,000 ML IV SCH (10:21)
--- NOTE | 2017-05-26 10:34 | Cardiology Follow-Up ---
Subjective Subjective Date of Service: May 26, 2017. Pt evaluation today including: conversation w/ patient, physical exam, chart review, lab review, review of studies, review of inpatient medication list Additional Details: Pt seen and examined, states that she feels well. Blood sugars well controlled. Denies cp, sob, palpitations, lightheadedness or dizziness. Tele reviewed: sinus rhythm without arrhythmia or significant ectopy. Problem List Medical Problems: (1) Dehydration Status: Acute (2) Elevated troponin Status: Acute (3) Hypoglycemia Status: Acute (4) Substernal chest pain Status: Acute (5) Unresponsive Status: Acute Review of Systems Respiratory: No see HPI, No cough, No sputum, No wheezing, No shortness of breath, No dyspnea on exertion, No dyspnea at rest, No hemoptysis, No problem reported Cardiac: No see HPI, No chest pain, No orthopnea, No PND, No edema, No claudication, No palpitations, No problem reported Neurologic: + see HPI, + weakness, + numbness/tingling, + balance problems Objective Vital Signs Last Vital Signs Documentation Date Time Temp Pulse Resp B/P (MAP) Pulse Ox O2 Delivery O2 Flow Rate FiO2 05/26/17 08:00 Room Air 05/26/17 07:09 37.0 72 19 195/94 (127) 95 Physical Exam: General Appearance: WD/WN, no apparent distress Eyes: bilateral eyes normal inspection, bilateral eyes PERRL, bilateral eyes EOMI ENT: normal ENT inspection, hearing grossly normal, pharynx normal Neck: supple, no adenopathy, thyroid normal, no JVD, no carotid bruits, trachea midline Respiratory/Chest: chest non-tender, lungs clear, normal breath sounds, no respiratory distress, no accessory muscle use Cardiovascular: regular rate, rhythm, no edema, no JVD, no murmur, + gallop/S4 Abdomen: normal bowel sounds, non tender, soft, no organomegaly, no pulsatile mass Extremities: normal inspection, no pedal edema, no calf tenderness Neurologic/Psychiatric: double end sewer II-XII nml as tested, no motor/sensory deficits, alert, normal mood/affect, oriented x 3 Skin: normal color, warm/dry, no rash Lymphatic: no adenopathy Assessment and Plan 1. HTN uncontrolled I restarted outpatient metoprolol dose will give amlodipine this AM HCTZ held due to creat increase cont imdur/hydralazine can uptitrate amlodipine or hydralazine as necessary.
[2017-05-26] MEDS: IPRATROPIUM BROMIDE/ALBUTEROL respimat INH INH SCH ×3 (11:05→20:55)
[2017-05-26] MEDS: GABAPENTIN 300 MG CAP PO SCH ×2 (16:36→20:58)
--- NOTE | 2017-05-26 17:22 | Progress Note ---
Internal Med Progress Note Date of Service: May 26, 2017. Provider Documentation: SUBJECTIVE: resting comfortably denies any sob or chest pain afebrile eating ok no complaints OBJECTIVE: Vital Signs-as noted below Exam: General-alert and oriented. not in distress ENT-Normal hearing Neck-no neck masses Lungs-Cta b/l no wheezing or crackles Heart-S1 and S2 heard regular No murmurs Abdomen-Soft Bowel sounds present Non tender No distension Extremities-No edema No erythema Neuro-alert and awake moves extremities Lab data as noted below. ASSESSMENT & PLAN: 71 yo F presents to the ER after unresponsiveness at home overnight. Found to have UTI and severe hypoglycemia. Recent syncopal episode described 3-4 days ago. Has h/o SVT. 1. Transient unresponsiveness 2/2 hypoglycemic event-pt is on metformin, januvia and glipizide as outpatient and reports typically not eating breakfast or lunch. Improved now. Hba1c 6.1. Will d/c glipizide and Januvia and ff/u with pcp.Stable currently 2. UTI-chronic incontinence, e.coli. was on Rocephin.currently on Levaquin 3. Syncope-3-4 days ago, pt doesn't remember the fall. No h/o seizure--EEG unremarkable.. CT head revealed no acute abnormality. Pt has a h/o HOCM.Seen by cardiology and thinks hypoglycemia is the culprit.Stable 4. KASSANDRA -baseline creat 1.0. Cr 1.6 today. On gentle fluids. PRP in am. 5. HTN elevated today. continue home meds, hydralazine, Imdur. Lopressor dose adjustment . holding lisinopril/hctz for arf and amlodipine given. will monitor 5. CAD/CVD-cont medical management. 6. h/o CVA-pt has some residual L sided weakness in arm and leg that is chronic , not much different than baseline. Some mouth droop also at baseline. DVT proph: heparin Full Code Dispo: cont telemetry pt/ot possible d/c in am if stable Vital Signs: Date Time Temp Pulse Resp B/P (MAP) Pulse Ox O2 Delivery O2 Flow Rate FiO2 05/26/17 15:35 36.7 61 18 144/74 (97) 98 Room Air 05/26/17 12:00 Room Air 05/26/17 10:41 36.6 72 20 163/80 (107) 94 Room Air 05/26/17 08:00 Room Air 05/26/17 07:09 37.0 72 19 195/94 (127) 95 05/26/17 07:08 68 16 96 Room Air 05/26/17 04:00 Room Air 05/26/17 03:18 37.2 69 18 167/79 (108) 94 Room Air 05/26/17 00:05 Room Air 05/25/17 23:58 37.3 82 16 171/78 (109) 95 Room Air 05/25/17 20:00 Room Air 05/25/17 19:23 37.1 77 16 178/77 (110) 98 Room Air 05/25/17 19:13 85 14 98 Room Air Lab Results: Results Past 24 Hours Test 05/25/17 20:00 05/26/17 06:21 05/26/17 06:28 05/26/17 11:13 Range/Units Bedside Glucose 135 94 125 70-90 mg/dl Sodium Level 135 136-145 mmol/L Potassium Level 3.9 3.5-5.1 mmol/L Chloride Level 106 98-107 mmol/L Carbon Dioxide Level 23 21-32 mmol/L Anion Gap 6.0 3-11 mmol/L Blood Urea Nitrogen 31 7-18 mg/dl Creatinine 1.64 0.60-1.20 mg/dl Est Creatinine Clear Calc Drug Dose 24.6 ml/min Estimated GFR () 35.8 Estimated GFR (Non- 30.9 BUN/Creatinine Ratio 18.8 10-20 Random Glucose 94 70-99 mg/dl Calcium Level 9.1 8.5-10.1 mg/dl Test 05/26/17 16:03 Range/Units Bedside Glucose 106 70-90 mg/dl
[2017-05-26] MEDS: ROPINIROLE HCL 5 MG TAB PO SCH (20:02)
[2017-05-26] MEDS: ROPINIROLE HCL 5 MG TAB PO PRN (20:04)
[2017-05-26] MEDS: ASPIRIN 81 MG ECTAB PO SCH (20:56)
[2017-05-26] MEDS ORDERED: METOPROLOL TARTRATE 50 MG TAB PO SCH (21:00)
[2017-05-26] MEDS: HydrALAZINE HCL 20 MG/ML VIAL IV. PRN (23:43)
[2017-05-27] VITALS (11 sets, daily range): BP systolic 150–178; BP diastolic 64–80; PULSE 54–66; TEMP 36.3–36.9; O2SAT 93–96
[2017-05-27] MEDS: SODIUM CHLORIDE 0.9% 1000ML 1,000 ML IV SCH (06:00)
[2017-05-27] MEDS: HEPARIN SOD 5000 UNIT/0.5 ML CARP SQ SCH ×3 (06:01→22:13)
[2017-05-27] MEDS: INSULIN ASPART 100 UNITS/ML 3 ML PEN SC SCH ×4 (07:35→20:38)
[2017-05-27] MEDS: IPRATROPIUM BROMIDE/ALBUTEROL respimat INH INH SCH ×4 (08:04→20:34)
[2017-05-27] MEDS: ATORVASTATIN 40 MG TAB PO SCH (08:05)
[2017-05-27] MEDS: ISOSORBIDE MONONITRATE 60 MG TABCR PO SCH (08:06)
[2017-05-27] MEDS: GUAIFENESIN 600 MG TABCR PO SCH ×2 (08:06→20:37)
[2017-05-27] MEDS: GEMFIBROZIL 600 MG TAB PO SCH ×2 (08:06→20:36)
[2017-05-27] MEDS: CLOPIDOGREL BISULFATE 75 MG TAB PO SCH (08:07)
[2017-05-27 08:17] LABS: BASO % 0.3 %; BASO ABS # 0.02 K/uL (0-0.2); EOS % 3.5 %; EOS ABS # 0.22 K/uL (0-0.5); HEMATOCRIT 39.2 % (37-47); HEMOGLOBIN 12.8 g/dL (12.0-16.0); IG# 0.02 K/uL (0.00-0.02); LYMPH % 28.5 %; LYMPH ABS # 1.79 K/uL (1.2-3.4); MEAN CELL VOLUME 87.9 fL (80-100); MEAN CORPUSCULAR HEMOGLOBIN 28.7 pg (25-34); MEAN CORPUSCULAR HGB CONC 32.7 g/dl (32-36); MEAN PLATELET VOLUME 10.9 fL (7.4-10.4); MONO % 6.7 %; MONO ABS # 0.42 K/uL (0.11-0.59); NEUT % 60.7 %; NEUT ABS # 3.82 K/uL (1.4-6.5); PLATELET COUNT 236 K/uL (130-400); RED CELL DISTRIBUTION WIDTH CV 14.8 % (11.5-14.5); RED CELL DISTRIBUTION WIDTH SD 47.3 fL (36.4-46.3); WHITE BLOOD COUNT 6.29 K/uL (4.8-10.8)
[2017-05-27 08:51] LABS: CALCIUM 9.5 mg/dl (8.5-10.1); CREATININE 1.52 mg/dl (0.60-1.20)
[2017-05-27] MEDS ORDERED: AMLODIPINE BESYLATE 5 MG TAB PO SCH (09:00)
[2017-05-27] MEDS ORDERED: METOPROLOL TARTRATE 25 MG TAB PO SCH (09:00)
[2017-05-27] MEDS ORDERED: AMLODIPINE BESYLATE 5 MG TAB PO ONE (09:04)
--- NOTE | 2017-05-27 10:51 | Cardiology Follow-Up ---
Subjective Subjective Date of Service: May 27, 2017. Pt evaluation today including: conversation w/ patient, physical exam, chart review, lab review, review of studies, review of inpatient medication list Additional Details: Pt seen and examined, states that she feels well. Denies cp, sob, palpitations, lightheadedness or dizziness. Tele reviewed: sinus rhythm without arrhythmia or significant ectopy. Problem List Medical Problems: (1) Dehydration Status: Acute (2) Elevated troponin Status: Acute (3) Hypoglycemia Status: Acute (4) Substernal chest pain Status: Acute (5) Unresponsive Status: Acute Review of Systems Respiratory: No see HPI, No cough, No sputum, No wheezing, No shortness of breath, No dyspnea on exertion, No dyspnea at rest, No hemoptysis, No problem reported Cardiac: No see HPI, No chest pain, No orthopnea, No PND, No edema, No claudication, No palpitations, No problem reported Neurologic: + see HPI, + weakness, + numbness/tingling, + balance problems Objective Vital Signs Last Vital Signs Documentation Date Time Temp Pulse Resp B/P (MAP) Pulse Ox O2 Delivery O2 Flow Rate FiO2 05/27/17 10:39 36.3 54 20 167/77 (107) 96 Room Air Physical Exam: General Appearance: WD/WN, no apparent distress Eyes: bilateral eyes normal inspection, bilateral eyes PERRL, bilateral eyes EOMI ENT: normal ENT inspection, hearing grossly normal, pharynx normal Neck: supple, no adenopathy, thyroid normal, no JVD, no carotid bruits, trachea midline Respiratory/Chest: chest non-tender, lungs clear, normal breath sounds, no respiratory distress, no accessory muscle use Cardiovascular: regular rate, rhythm, no edema, no JVD, no murmur, + gallop/S4 Abdomen: normal bowel sounds, non tender, soft, no organomegaly, no pulsatile mass Extremities: normal inspection, no pedal edema, no calf tenderness Neurologic/Psychiatric: stars specialist II-XII nml as tested, no motor/sensory deficits, alert, normal mood/affect, oriented x 3 Skin: normal color, warm/dry, no rash Lymphatic: no adenopathy Assessment and Plan 1. HTN remains uncontrolled will uptitrate amlodipine to 10mg now creat at 1.5 today outpatient hctz held if bp does not improve with higher dose amlodipine would recommend nephrology eval given CKD ok to d/c to home once bp relatively controlled.
--- NOTE | 2017-05-27 16:20 | Progress Note ---
Internal Med Progress Note Date of Service: May 27, 2017. Provider Documentation: SUBJECTIVE: resting comfortably slept ok afebrile denies any pain denies any complaints OBJECTIVE: Vital Signs-as noted below Exam: General-alert and oriented. not in distress ENT-Normal hearing Neck-no neck masses Lungs-Cta b/l no wheezing or crackles Heart-S1 and S2 heard regular No murmurs Abdomen-Soft Bowel sounds present Non tender No distension Extremities-No edema No erythema Neuro-alert and awake moves extremities Lab data as noted below. ASSESSMENT & PLAN: 71 yo F presents to the ER after unresponsiveness at home overnight. Found to have UTI and severe hypoglycemia. Recent syncopal episode described 3-4 days ago. Has h/o SVT. 1. Transient unresponsiveness 2/2 hypoglycemic event-pt is on metformin, januvia and glipizide as outpatient and reports typically not eating breakfast or lunch. Improved now. Hba1c 6.1. Will d/c glipizide and Januvia and ff/u with pcp.Stable currently 2. Cough. bronchitis. on Levaquin 3. UTI-chronic incontinence, e.coli. was on Rocephin.currently on Levaquin 3. Syncope-3-4 days ago, pt doesn't remember the fall. No h/o seizure--EEG unremarkable.. CT head revealed no acute abnormality. Pt has a h/o HOCM.Seen by cardiology and thinks hypoglycemia is the culprit.Stable 4. KASSANDRA -baseline creat 1.0. Cr 1.5 today. On gentle fluids. PRP in am. 5. HTN elevated today. continue home meds, hydralazine, Imdur. Lopressor dose adjustment . holding lisinopril/hctz for arf and amlodipine given. will monitor.Amlodipine dose incesded to 10mg . continue to monitor 5. CAD/CVD-cont medical management. 6. h/o CVA-pt has some residual L sided weakness in arm and leg that is chronic , not much different than baseline. Some mouth droop also at baseline. DVT proph: heparin Full Code Dispo: cont telemetry pt/ot possible d/c in am if BP stable Vital Signs: Date Time Temp Pulse Resp B/P (MAP) Pulse Ox O2 Delivery O2 Flow Rate FiO2 05/27/17 15:07 36.5 57 18 153/64 (93) 96 Room Air 05/27/17 13:25 61 150/70 (96) 05/27/17 12:00 Room Air 05/27/17 10:39 36.3 54 20 167/77 (107) 96 Room Air 05/27/17 09:36 58 162/69 (100) 05/27/17 08:00 Room Air 05/27/17 07:26 36.9 61 20 178/74 (108) 96 Room Air 05/27/17 04:00 Room Air 05/27/17 03:15 36.5 66 18 163/65 (97) 96 Room Air 05/27/17 00:02 64 18 157/80 (105) 95 Room Air 05/27/17 00:01 Room Air 05/26/17 23:15 36.7 65 20 209/72 (117) 96 Room Air 05/26/17 20:00 96 Room Air 05/26/17 19:01 36.6 73 19 173/94 (120) 96 Room Air Lab Results: Results Past 24 Hours Test 05/26/17 20:01 05/27/17 06:49 05/27/17 07:45 05/27/17 09:29 Range/Units Bedside Glucose 111 93 70-90 mg/dl White Blood Count 6.29 4.8-10.8 K/uL Red Blood Count 4.46 4.2-5.4 M/uL Hemoglobin 12.8 12.0-16.0 g/dL Hematocrit 39.2 37-47 % Mean Corpuscular Volume 87.9 80-100 fL Mean Corpuscular Hemoglobin 28.7 25-34 pg Mean Corpuscular Hemoglobin Concent 32.7 32-36 g/dl Platelet Count 236 130-400 K/uL Mean Platelet Volume 10.9 7.4-10.4 fL Neutrophils (%) (Auto) 60.7 % Lymphocytes (%) (Auto) 28.5 % Monocytes (%) (Auto) 6.7 % Eosinophils (%) (Auto) 3.5 % Basophils (%) (Auto) 0.3 % Neutrophils # (Auto) 3.82 1.4-6.5 K/uL Lymphocytes # (Auto) 1.79 1.2-3.4 K/uL Monocytes # (Auto) 0.42 0.11-0.59 K/uL Eosinophils # (Auto) 0.22 0-0.5 K/uL Basophils # (Auto) 0.02 0-0.2 K/uL RDW Standard Deviation 47.3 36.4-46.3 fL RDW Coefficient of Variation 14.8 11.5-14.5 % Immature Granulocyte % (Auto) 0.3 % Immature Granulocyte # (Auto) 0.02 0.00-0.02 K/uL Sodium Level 135 136-145 mmol/L Potassium Level 3.7 3.5-5.1 mmol/L Chloride Level 106 98-107 mmol/L Carbon Dioxide Level 20 21-32 mmol/L Anion Gap 9.0 3-11 mmol/L Blood Urea Nitrogen 30 7-18 mg/dl Creatinine 1.52 0.60-1.20 mg/dl Est Creatinine Clear Calc Drug Dose 26.4 ml/min Estimated GFR () 39.3 Estimated GFR (Non- 33.9 BUN/Creatinine Ratio 19.9 10-20 Random Glucose 96 70-99 mg/dl Calcium Level 9.5 8.5-10.1 mg/dl Test 05/27/17 10:59 05/27/17 15:52 Range/Units Bedside Glucose 125 109 70-90 mg/dl
[2017-05-27] MEDS: GABAPENTIN 300 MG CAP PO SCH ×2 (16:31→20:38)
[2017-05-27] MEDS: ASPIRIN 81 MG ECTAB PO SCH (20:35)
[2017-05-27] MEDS: METOPROLOL TARTRATE 50 MG TAB PO SCH (20:37)
[2017-05-27] MEDS: ROPINIROLE HCL 5 MG TAB PO SCH (20:38)
[2017-05-27] MEDS: HydrALAZINE HCL 20 MG/ML VIAL IV. PRN (23:51)
[2017-05-28] VITALS (7 sets, daily range): BP systolic 142–185; BP diastolic 69–80; PULSE 50–54; TEMP 36.4–36.6; O2SAT 95–97
[2017-05-28] MEDS: SODIUM CHLORIDE 0.9% 1000ML 1,000 ML IV SCH (00:43)
[2017-05-28] MEDS: HEPARIN SOD 5000 UNIT/0.5 ML CARP SQ SCH ×2 (06:09→12:59)
[2017-05-28] MEDS: INSULIN ASPART 100 UNITS/ML 3 ML PEN SC SCH ×2 (07:00→11:00)
[2017-05-28 07:31] LABS: CALCIUM 9.6 mg/dl (8.5-10.1); CREATININE 1.56 mg/dl (0.60-1.20); POTASSIUM 3.8 mmol/L (3.5-5.1)
[2017-05-28] MEDS: IPRATROPIUM BROMIDE/ALBUTEROL respimat INH INH SCH ×2 (07:41→12:59)
[2017-05-28] MEDS: CLOPIDOGREL BISULFATE 75 MG TAB PO SCH (07:41)
[2017-05-28] MEDS: ATORVASTATIN 40 MG TAB PO SCH (07:41)
[2017-05-28] MEDS: GEMFIBROZIL 600 MG TAB PO SCH (07:42)
[2017-05-28] MEDS: METOPROLOL TARTRATE 50 MG TAB PO SCH (07:42)
[2017-05-28] MEDS: GUAIFENESIN 600 MG TABCR PO SCH (07:42)
[2017-05-28] MEDS: ISOSORBIDE MONONITRATE 60 MG TABCR PO SCH (07:42)
[2017-05-28] MEDS ORDERED: AMLODIPINE BESYLATE 5 MG TAB PO SCH (09:00)
[2017-05-28] MEDS ORDERED: LISINOPRIL 10 MG TAB PO SCH (09:15)
--- NOTE | 2017-05-28 09:50 | NEPHROLOGY CONSULTATION ---
DATE OF CONSULTATION: 05/28/2017 DATE OF CONSULTATION: 05/28/2017 ATTENDING OF RECORD: Dr. Gonzalez. REASON FOR CONSULTATION: Hypertension and KASSANDRA. HISTORY OF PRESENT ILLNESS: This is a 71-year-old female who follows with me for CKD stage III, last seen in March of this year, CKD stage III with proteinuria with creatinine of 1.4 with 300 mg of proteinuria with a right kidney of 11.1 cm and the left kidney 11.3 cm with normal size and echogenicity. The patient with history of diabetes for about 10 years with hemoglobin A1c in the low 8s who also has heart disease with hypertrophic obstructive cardiomyopathy with a myomectomy in 1999 in [place], has had 3 strokes in the past in 2007, 2011 and 2012 with some left-sided weakness and has had hypertension for about 10 years. Did have a stent to her heart in the summer of last year. No tobacco, no NSAIDs. At the time that I saw the patient, creatinine was around 1.3 to 1.4. Blood pressure was good at 132/74 on Lisinopril 10 mg a day, Norvasc 2.5 mg a day, hydralazine 50 mg t.i.d., Lopressor 75 mg a day, and hydrochlorothiazide 25 mg a day, Imdur 60 mg a day. The patient presents to this hospital with episode of unresponsiveness secondary to low blood sugars. The patient's blood pressures have been difficult to control in the 180s to 200s. This morning it is 185/70. Cardiology has been following. Currently on Norvasc 10 mg a day, Lopressor 50 mg p.o. b.i.d., hydralazine 50 mg t.i.d., Imdur 60 mg a day. The patient's creatinine was 1.3, trended up to 1.64, is now 1.56. The patient is comfortable and hoping to go home today. PAST MEDICAL HISTORY: Hypertrophic obstructive cardiomyopathy, history of stroke, CKD stage III with baseline creatinine of 1.5, hypertension, urinary incontinence, diabetes. PAST SURGICAL HISTORY: Septal myomectomy in 1999, appendectomy, tonsillectomy, carpal tunnel surgery. FAMILY HISTORY: No renal disease in family. SOCIAL HISTORY: No smoking, alcohol or tobacco or drugs. Lives at home with family. CURRENT MEDICATIONS: Reviewed. REVIEW OF SYSTEMS: No headaches. No blurry vision. No chest pain, no nausea or vomiting, no dysphagia. No diarrhea, no constipation. No rash. No itching. All other review of systems otherwise negative. PHYSICAL EXAMINATION: VITAL SIGNS: Temperature is 36.4, pulse 51, respiratory rate 18, blood pressure 185/70, satting 95% on room air. GENERAL: Awake, alert, oriented x3. EYES: No scleral icterus. EARS, NOSE, THROAT: Moist mucous membranes. NECK: Supple. PULMONARY: Clear to auscultation. CARDIAC: Regular rate and rhythm. 2/6 systolic murmur ABDOMEN: Bowel sounds positive, soft, nontender, nondistended. EXTREMITIES: No clubbing, cyanosis or edema. NEUROLOGICALLY: Nonfocal. DERM: No rash or ulcers noted. LABORATORY DATA: Sodium level is 138, potassium 3.8, chloride is 109, bicarbonate is 20, BUN is 35, creatinine is 1.56, glucose 109, calcium is 9.6, white count 6.29, H&H 12 and 39, platelet count is 236. ASSESSMENT AND PLAN: Chronic kidney disease stage III, baseline creatinine more 1.3 to 1.5. Okay with a creatinine of 1.5 and feel the patient needs tighter blood pressure control, currently on Norvasc 10 mg a day, Lopressor 50 mg p.o. b.i.d., hydralazine 50 mg p.o. t.i.d., and Imdur 60 mg a day. The patient was on lisinopril 10 mg a day as well as hydrochlorothiazide. I would like to restart the lisinopril 10 mg a day. Okay with creatinine at the current rate and would recommend repeat BMP in about a week on the lisinopril to see if we can get the blood pressure down under 150/90 dimas, preferably eventually under the 130s over 80s. I did speak with cardiology who is in agreement with the plan. Will give lisinopril 10 mg a day this morning and stop the IV fluids which are not helping with the blood pressure. Appreciate consultation. LUPE
[2017-05-28] MEDS: LEVOFLOXACIN 750 MG TAB PO SCH (11:26)
[2017-05-28] MEDS ORDERED: AMLO-114 PO (13:30)
[2017-05-28] MEDS ORDERED: METO50TA16 PO (13:30)
[2017-05-28] MEDS ORDERED: LVQ750 PO (13:30)
--- NOTE | 2017-05-28 13:38 | Discharge Instructions ---
Discharge Instructions Date of Service May 28, 2017. Admission Reason for Admission: Transient Unresponsiveness; Unresponsive Discharge Discharge Diagnosis / Problem: Unresponsiveness, syncope, hypoglcemia, uncontrolled htn Discharge Goals Goal(s): Decrease discomfort, Improve function Activity Recommendations Activity Limitations: resume your previous activity . Instructions / Follow-Up Instructions / Follow-Up FOLLOWUP WITH FAMILY DOCTOR Asad Miles ON May AT 10:45AM. FOLLOWUP BLOOD PRESSURE AND DIABETES WITH FAMILY DOCTOR. STOPPING GLIPIZIDE AND JANUVIA BECAUSE OF LOW BLOOD SUGARS( HYPOGLYCEMIA LEADING TO SYNCOPE)ON PRESENTATION. HBA1C 6.1 TO CONTINUE METFORMIN. TO CHECK BLOOD SEGARD TWICE DAILY BEFORE BREAKFAST, LUNCH OR DINNER OR BEFORE GOING TO SLEEP AND NOT THE READINGS ON A LOG BOOK AD SHOW TO FAMILY DOCTOR. TO CALL FAMILY DOCTOR IF BLOOD SUGARS GREATER THAN 300 OR LESS THAN 80. IF BLOOD SUGARS LESS THAN 80 TO TAKE ORANGE JUICE OR SUGAR AND TO CALL FAMILY DOCTOR. BLOOD PRESSURE MEDICATIONS ADJUSTED. PLEASE GO THOUGH MEDICATIONS CAREFULLY. CHANGED LOPRESSOR TO 50MG TWICE DAILY ADDED AMLODIPINE 10MG DAILY STOPPED HCTZ(HYDROCHLOROTHIAZIDE) ANTIBIOTIC LEVAQUIN 750MG EVERY OTHER DAY ( TWO MORE DOSES) FOR URINARY TRACT INFECTION AND BRONCHITIS. LAB: BMP IN ONE WEEK AND FOLLOW RESULTS WITH FAMILY DOCTOR AND NEPHROLOGY. Current Hospital Diet Patient's current hospital diet: Diabetes Type 2 Diet, AHA Diet (Heart Healthy) Discharge Diet Recommended Diet: AHA Diet (Heart Healthy), Diabetes Type 2 Diet Pending Studies Studies pending at discharge: no Laboratory Results Hemoglobin A1c Test 05/23/17 23:55 Range/Units Estimated Average Glucose 128 mg/dl Hemoglobin A1c 6.1 H 4.5-5.6 % Medical Emergencies . Who to Call and When: Medical Emergencies: If at any time you feel your situation is an emergency, please call 911 immediately. . Non-Emergent Contact Non-Emergency issues call your: Primary Care Provider . . "Provider Documentation" section prepared by Felipe Gonzalez. . VTE Core Measure Inpt VTE Proph given/why not?: Unfractionated heparin SQ (REFUSED)
--- NOTE | 2017-05-28 19:13 | Progress Note ---
Internal Med Progress Note Date of Service: May 28, 2017. Provider Documentation: SUBJECTIVE: resting comfortably denies any pain or sob want to go home OBJECTIVE: Vital Signs-as noted below Exam: General-alert and oriented. not in distress ENT-Normal hearing Neck-no neck masses Lungs-Cta b/l no wheezing or crackles Heart-S1 and S2 heard regular No murmurs Abdomen-Soft Bowel sounds present Non tender No distension Extremities-No edema No erythema Neuro-alert and awake moves extremities Lab data as noted below. ASSESSMENT & PLAN: 71 yo F presents to the ER after unresponsiveness at home overnight. Found to have UTI and severe hypoglycemia. Recent syncopal episode described 3-4 days ago. Has h/o SVT. 1. Transient unresponsiveness 2/2 hypoglycemic event-pt is on metformin, januvia and glipizide as outpatient and reports typically not eating breakfast or lunch. Improved now. Hba1c 6.1. Will d/c glipizide and Januvia and continue metformin ff/u with pcp.Stable currently 2. Cough. bronchitis. on Levaquin. to complete one week course 3. UTI-chronic incontinence, e.coli. was on Rocephin.currently on Levaquin 3. Syncope-3-4 days ago, pt doesn't remember the fall. No h/o seizure--EEG unremarkable.. CT head revealed no acute abnormality. Pt has a h/o HOCM.Seen by cardiology and thinks hypoglycemia is the culprit.Stable 4. KASSANDRA -baseline creat around 1.5. Cr 1.5 today. seen by nephrology. f/u bmp in one week 5. HTN elevated today. continue home meds, hydralazine, Imdur. Lopressor dose adjustment 50mg bid .Started on amlodipine 10mg daily. restarted lisnopril 10mg daily. stopped hctz. f/u with pcp. 5. CAD/CVD-cont medical management. 6. h/o CVA-pt has some residual L sided weakness in arm and leg that is chronic , not much different than baseline. Some mouth droop also at baseline. discharged home with home health Vital Signs: Date Time Temp Pulse Resp B/P (MAP) Pulse Ox O2 Delivery O2 Flow Rate FiO2 05/28/17 13:59 36.5 50 18 95 Room Air 05/28/17 12:00 95 Room Air 05/28/17 11:57 50 96 05/28/17 11:03 36.5 50 18 154/69 (97) 95 Room Air 05/28/17 08:00 95 Room Air 05/28/17 07:42 36.4 51 18 185/70 (108) 95 Room Air 05/28/17 03:00 Room Air 05/28/17 02:52 36.6 54 19 142/76 (98) 97 Room Air 05/27/17 23:40 36.6 54 17 175/77 (109) 93 Room Air 05/27/17 23:10 Room Air 05/27/17 20:00 94 Room Air 05/27/17 19:48 36.6 60 18 177/76 (109) 94 Room Air Lab Results: Results Past 24 Hours Test 05/27/17 20:21 05/28/17 06:27 05/28/17 06:37 05/28/17 11:02 Range/Units Bedside Glucose 109 102 129 70-90 mg/dl Sodium Level 138 136-145 mmol/L Potassium Level 3.8 3.5-5.1 mmol/L Chloride Level 109 98-107 mmol/L Carbon Dioxide Level 20 21-32 mmol/L Anion Gap 9.0 3-11 mmol/L Blood Urea Nitrogen 35 7-18 mg/dl Creatinine 1.56 0.60-1.20 mg/dl Est Creatinine Clear Calc Drug Dose 25.5 ml/min Estimated GFR () 38.1 Estimated GFR (Non- 32.9 BUN/Creatinine Ratio 22.4 10-20 Random Glucose 109 70-99 mg/dl Calcium Level 9.6 8.5-10.1 mg/dl
--- NOTE | 2017-05-28 19:23 | Discharge Summary ---
Discharge Summary Date of Service May 28, 2017. Discharge Summary Admission Date: May 24, 2017 at 17:45 Discharge Date: May 28, 2017 Discharge Disposition: Home with services Principal Diagnosis: SYNCOPE HYPOGLYCEMIA UNCONTROLLED HTN Secondary Diagnoses/Problems: of CVA, CAD, HTN, hx HOCM sp myomectomy, SVT as per records, intermittent left bundle branch block, hypertension, hyperlipidemia, DM2 on oral meds, chronic renal insufficiency (baseline creatinine 1.3), history of stress and urge incontinence per records. Procedures: CT HEAD: . Chronic small vessel ischemic change. No acute intracranial abnormality CXR: 1. Cardiomegaly with possible volume overload. Otherwise no acute cardiopulmonary disease. Consultations: CARDIOLOGY NEPHROLOGY Medication Reconciliation New Medications: Amlodipine (Norvasc) 10 Mg Tab 10 MG PO DAILY, #30 TAB 1 Refill Levofloxacin (Levofloxacin) 750 Mg Tab 750 MG PO Q2D@1100, #2 TAB Metoprolol Tartrate (Lopressor) (Lopressor) 50 Mg Tab 50 MG PO BID, #60 TAB 1 Refill Continued Medications: Aspirin (Aspirin 81) 81 Mg Tab 81 MG PO QPM Atorvastatin (Lipitor) 80 Mg Tab 80 MG PO DAILY Calcitriol (Calcitriol) 0.25 Mcg Cap 0.25 MG PO 2XWK Calcium Carbonate-Vitamin D (Calcium + D3 600-200 mg-Unit) 1 Tab Tab 1 TAB PO DAILY Clopidogrel (Plavix) 75 Mg Tab 75 MG PO DAILY, 0 Refills Coenzyme Q10 (Ubidecarenone) (Co Q 10) 100 Mg Cap 100 MG PO DAILY Folic Acid (Folvite) 1 Mg Tab 1 MG PO QAM Gabapentin (Neurontin) 300 Mg Cap 300 MG PO HS Gabapentin (Neurontin) 300 Mg Cap 300 MG PO QDD, CAP Gemfibrozil (Lopid) 600 Mg Tab 600 MG PO BID Hydralazine HCl (Hydralazine HCl) 50 Mg Tab 50 MG PO TID Isosorbide Mononitrate (Isosorbide Mononitrate ER) 60 Mg Tabcr 60 MG PO QAM Lisinopril (Lisinopril) 10 Mg Tab 10 MG PO DAILY Metformin HCl (Metformin HCl ER) 500 Mg Tab 500 MG PO QDD [place] 3 Fatty Acids-[place] 6 Fa ([place] 3-6-9 Complex) 1 Cap Cap 1 CAP PO QAM [place] 3 Fatty Acids-[place] 6 Fa ([place] 3-6-9 Complex) 1 Cap Cap 2 CAP PO QPM Ropinirole (Requip) 5 Mg Tab 5 MG PO HS MAY ADD 1/2 TABLET NEEDED FOR RLS Ropinirole HCl (Ropinirole HCl) 5 Mg Tab 2.5 MG PO DAILY PRN for RESTLESS LEG Discontinued Medications: Glimepiride (Amaryl) 1 Mg Tab 3 MG PO QAM, TAB Hydrochlorothiazide (Hctz) 25 Mg Tab 25 MG PO DAILY Metoprolol Tartrate (Lopressor) (Lopressor) 50 Mg Tab 75 MG PO QAM 1 & 1/2 TABLET DOSE Sitagliptin (Januvia) 50 Mg Tab 50 MG PO DAILY, TAB Admission Information HPI (per Admitting provider): History obtained from patient, family, records. Medical history significant for history of CVA, CAD, HTN, hx HOCM sp myomectomy, SVT as per records, intermittent left bundle branch block, hypertension, hyperlipidemia, DM2 on oral meds, chronic renal insufficiency (baseline creatinine 1.3), history of stress and urge incontinence per records. Recent confinement last December 2015 for non-ST elevation MT. Occluded RCA on diagnostic cardiac cath. Medical management given completed infarct as per notes. Patient noted dry cough symptoms last few days, sick contacts. No chest pain, no shortness of breath. Weight stable. Patient had fallen at home about 2 days ago as per . Unwitnessed event, patient could not remember circumstance. No tongue biting, no unusual urinary incontinence. Early this morning, around 3 a.m. today, the patient's helped her to get upstairs to sleep. Patient noted to be a little disoriented. Around 11:00 a.m. today, the patient not very responsive, blood sugar not checked. As per family, old lip asymmetry from old stroke little more prominent than usual. Patient brought to the Emergency Room. Blood sugars noted to be in the 20s. Patient perked up after given dextrose. Blood sugar currently 141. Patient compliant with diabetes meds. No recent changes w/ medication regimen as per patient. Rare hypoglycemic events though despite habit of not eat breakfast or lunch. Physical Exam (per Admitting): VITAL SIGNS: Blood pressure was noted to be 184/101 later 154/60, pulse rate 55 , RR 17, temperature 36.5, sats 98 on room air. GENERAL: Noted to be pleasant, no respiratory distress. SKIN: Normal color. Warm. HEENT: [place] palpebral conjunctivae. No ptosis. Dry mucosa. Minimal lip symmetry (chronic as per family) NECK: Short neck. No tenderness. CHEST: Healed sternal scar. Clear to auscultation. No tenderness. HEART: Bradycardic. No murmur. ABDOMEN: Soft, nontender. EXTREMITIES: Minimal LE edema, no tenderness. No gross deformities. NEUROLOGIC: Coherent, old lip asymmetry. Gait and stance not assessed Hospital Course 71 yo F presents to the ER after unresponsiveness at home overnight. Found to have UTI and severe hypoglycemia. Recent syncopal episode described 3-4 days ago. Has h/o SVT. 1. Transient unresponsiveness 2/2 hypoglycemic event-pt is on metformin, januvia and glipizide as outpatient and reports typically not eating breakfast or lunch. Improved now. Hba1c 6.1. Will d/c glipizide and Januvia and continue metformin ff/u with pcp.Stable currently 2. Cough. bronchitis. on Levaquin. to complete one week course 3. UTI-chronic incontinence, e.coli. was on Rocephin.currently on Levaquin 3. Syncope-3-4 days ago, pt doesn't remember the fall. No h/o seizure--EEG unremarkable.. CT head revealed no acute abnormality. Pt has a h/o HOCM.Seen by cardiology and thinks hypoglycemia is the culprit.Stable 4. KASSANDRA -baseline creat around 1.5. Cr 1.5 today. seen by nephrology. f/u bmp in one week 5. HTN elevated today. continue home meds, hydralazine, Imdur. Lopressor dose adjustment 50mg bid .Started on amlodipine 10mg daily. restarted lisnopril 10mg daily. stopped hctz. f/u with pcp. 5. CAD/CVD-cont medical management. 6. h/o CVA-pt has some residual L sided weakness in arm and leg that is chronic , not much different than baseline. Some mouth droop also at baseline. discharged home with home health Total time spent on discharge = 35MINUTES This includes examination of the patient, discharge planning, medication reconciliation, and communication with other providers. Discharge Instructions Discharge Instructions Date of Service May 28, 2017. Admission Reason for Admission: Transient Unresponsiveness; Unresponsive Discharge Discharge Diagnosis / Problem: Unresponsiveness, syncope, hypoglcemia, uncontrolled htn Discharge Goals Goal(s): Decrease discomfort, Improve function Activity Recommendations Activity Limitations: resume your previous activity . Instructions / Follow-Up Instructions / Follow-Up FOLLOWUP WITH FAMILY DOCTOR Asad Miles ON May AT 10:45AM. FOLLOWUP BLOOD PRESSURE AND DIABETES WITH FAMILY DOCTOR. STOPPING GLIPIZIDE AND JANUVIA BECAUSE OF LOW BLOOD SUGARS( HYPOGLYCEMIA LEADING TO SYNCOPE)ON PRESENTATION. HBA1C 6.1 TO CONTINUE METFORMIN. TO CHECK BLOOD SEGARD TWICE DAILY BEFORE BREAKFAST, LUNCH OR DINNER OR BEFORE GOING TO SLEEP AND NOT THE READINGS ON A LOG BOOK AD SHOW TO FAMILY DOCTOR. TO CALL FAMILY DOCTOR IF BLOOD SUGARS GREATER THAN 300 OR LESS THAN 80. IF BLOOD SUGARS LESS THAN 80 TO TAKE ORANGE JUICE OR SUGAR AND TO CALL FAMILY DOCTOR. BLOOD PRESSURE MEDICATIONS ADJUSTED. PLEASE GO THOUGH MEDICATIONS CAREFULLY. CHANGED LOPRESSOR TO 50MG TWICE DAILY ADDED AMLODIPINE 10MG DAILY STOPPED HCTZ(HYDROCHLOROTHIAZIDE) ANTIBIOTIC LEVAQUIN 750MG EVERY OTHER DAY ( TWO MORE DOSES) FOR URINARY TRACT INFECTION AND BRONCHITIS. LAB: BMP IN ONE WEEK AND FOLLOW RESULTS WITH FAMILY DOCTOR AND NEPHROLOGY. Current Hospital Diet Patient's current hospital diet: Diabetes Type 2 Diet, AHA Diet (Heart Healthy) Discharge Diet Recommended Diet: AHA Diet (Heart Healthy), Diabetes Type 2 Diet Pending Studies Studies pending at discharge: no Laboratory Results Hemoglobin A1c Test 05/23/17 23:55 Range/Units Estimated Average Glucose 128 mg/dl Hemoglobin A1c 6.1 H 4.5-5.6 % Medical Emergencies . Who to Call and When: Medical Emergencies: If at any time you feel your situation is an emergency, please call 911 immediately. . Non-Emergent Contact Non-Emergency issues call your: Primary Care Provider . . "Provider Documentation" section prepared by Felipe Gonzalez. . VTE Core Measure Inpt VTE Proph given/why not?: Unfractionated heparin SQ (REFUSED)
== END 2017-05-28 14:18 | disposition home health service (06) | DRG 637 ==
LOC: C.EDB 20:40 → C.2T 22:41 → ENRESERV 22:52 → OBSVTOIN 05-24 17:45
PROVIDERS: ADMIT Hospitalist; ATTEND Internal Medicine
DX: E11.649 Type 2 diabetes mellitus with hypoglycemia without coma (principal); G93.41 Metabolic encephalopathy; N39.0 Urinary tract infection, site not specified; I42.2 Other hypertrophic cardiomyopathy; G81.94 Hemiplegia, unspecified affecting left nondominant side; I25.10 Atherosclerotic heart disease of native coronary artery without angina pectoris; E86.0 Dehydration; I12.9 Hypertensive chronic kidney disease with stage 1 through stage 4 chronic kidney disease, or unspecified chronic kidney disease; E78.5 Hyperlipidemia, unspecified; N39.46 Mixed incontinence; E87.6 Hypokalemia; I25.2 Old myocardial infarction; B96.20 Unspecified Escherichia coli [E. coli] as the cause of diseases classified elsewhere; N17.9 Acute kidney failure, unspecified; N18.3 Chronic kidney disease, stage 3 (moderate); Z79.84 Long term (current) use of oral hypoglycemic drugs; Z86.73 Personal history of transient ischemic attack (TIA), and cerebral infarction without residual deficits

== ENCOUNTER 2018-08-01 16:38 | Observation (INO) ==
[2018-08-01] MEDS ORDERED: SODIUM CHLORIDE 0.9% 1000ML 1,000 ML IV SCH (17:15)
[2018-08-01 17:46] LABS: Basophils # (auto) 0.03 K/uL (0-0.2); Basophils % (auto) 0.3 %; Eosinophils # (auto) 0.16 K/uL (0-0.5); Eosinophils % (auto) 1.8 %; Hematocrit (blood only) 38.3 % (37-47); Immature Granulocytes # (auto) 0.02 K/uL (0.00-0.02); Immature Granulocytes % (auto) 0.2 %; Lymphocytes # (auto) 2.05 K/uL (1.2-3.4); Lymphocytes % (auto) 22.9 %; Mean Corpuscular Hgb Conc 33.9 g/dL (32-36); Mean Corpuscular Volume 86.1 fL (80-100); Mean Platelet Volume 10.7 fL (7.4-10.4); Monocytes % (auto) 5.6 %; Neutrophils # (auto) 6.21 K/uL (1.4-6.5); Neutrophils % (auto) 69.2 %; Platelet Count 236 K/uL (130-400); RDW Coefficient of Variation 13.5 % (11.5-14.5); RDW Standard Deviation 42.7 fL (36.4-46.3); Red Blood Count 4.45 M/uL (4.2-5.4); White Blood Count 8.97 K/uL (4.8-10.8)
--- NOTE | 2018-08-01 17:59 | XRay Report ---
SINGLE VIEW CHEST CLINICAL HISTORY: Generalized weakness. FINDINGS: An AP, portable, upright chest radiograph is compared to study dated 05/26/2017. The examin ation is degraded by portable technique and apical lordotic positioning. The patient is status post midline sternotomy. The heart is enlarged and there is atherosclerotic calcification of the thoracic aorta. The pulmonary vasculature is noncongested. Chronic interstitial thickening is similar to previ ous. There is mild bibasilar atelectasis. No airspace consolidation or large pleural effusion is iden tified. No pneumothorax is seen. The skeletal structures are osteopenic. The bony thorax is grossly i ntact. Arthritic change is noted in the shoulders. IMPRESSION: Cardiomegaly with no active disease in the chest. Electronically signed by: Gilson Ramesh M.D. 08/01/2018 5:58 PM
--- NOTE | 2018-08-01 18:02 | CT Scan Report ---
CT SCAN OF THE BRAIN WITHOUT IV CONTRAST CLINICAL HISTORY: Diplopia. Dizziness. COMPARISON STUDY: CT of the brain dated 05/23/2017. TECHNIQUE: Unenhanced axial CT scan of the brain is performed from the vertex to the skull base. A do se lowering technique was utilized adhering to the principles of ALARA. CT DOSE: 537.48 mGy.cm FINDINGS: Brain parenchyma: There are age-related involutional changes noting mild subcortical and periventric ular microangiopathic change. A chronic lacunar infarct is noted in the anterior limb of the right in ternal capsule. There is no hemorrhage, mass effect, or evidence of acute territorial ischemia by CT criteria. Law-white matter differentiation is preserved. No extra-axial fluid collection is seen. Ventricles, sulci, cisterns: Prominent secondary to involutional change. Intracranial vasculature: There is atherosclerotic calcification of the cavernous carotid and vertebr al arteries. Calvarium: Unremarkable. Sinuses and mastoids: The visualized paranasal sinuses are clear. The mastoid air cells are well pneu matized. Orbits: The bony orbits are grossly intact. IMPRESSION: There is no hemorrhage, mass effect, or evidence of acute territorial ischemia by CT julián angela. Electronically signed by: Gilson Ramesh M.D. 08/01/2018 6:01 PM
[2018-08-01 18:06] LABS: Alanine Aminotransferase 25 U/L (12-78); Albumin Level 3.7 gm/dl (3.4-5.0); Aspartate Aminotransferase 17 U/L (15-37); BUN Creatinine Ratio 14.5 (10-20); Blood Urea Nitrogen 24 mg/dl (7-18); Calcium 9.4 mg/dl (8.5-10.1); Carbon Dioxide 27 mmol/L (21-32); Chloride 103 mmol/L (98-107); Est GFR (African American) 36.1; Est GFR (Non-African American) 31.2; Glucose 134 mg/dl (70-99); Magnesium 2.1 mg/dl (1.8-2.4); Potassium 3.8 mmol/L (3.5-5.1); Sodium 136 mmol/L (136-145)
[2018-08-01 18:17] LABS: Alkaline Phosphatase 91 U/L (45-117); Bilirubin,Total 0.5 mg/dl (0.2-1); Globulin 3.8 gm/dl (2.5-4.0); Total Protein 7.5 gm/dl (6.4-8.2); Troponin I 0.019 ng/ml (0-0.045)
--- NOTE | 2018-08-01 18:38 | Emergency Department Note ---
Entered by Ila Mercer acting as a scribe for Hayden Gonzalez MD ED Provider Note CHIEF COMPLAINT: Blurred vision HISTORY OF PRESENT ILLNESS: The patient is a 72 year old female presenting to the Emergency Department complaining of an episode of blurred vision starting 5 hours ago. The patient reports that she had an episode of blurred, double vision that lasted 30 minutes. She states that she was dizzy [employer] and that her head still �feels funny. � The patient reports that she has had 3 strokes in the past with the most recent being April of 2013. She states that the symptoms she experienced earlier today were the same that she experienced when she had her first stroke. She notes that nothing worsens her symptoms. She notes that she sees Dr. Alejandra Arellano PCP. She adds that she regularly takes Clopidogrel and Aspirin. Pt denies LOC, fevers, chills, diaphoresis, neck pain, chest pain, breathing difficulties, nausea, vomiting, abdominal pain, back pain, melena, hematochezia , urinary symptoms, numbness, lymphadenopathy, rash, or other complaints. REVIEW OF SYSTEMS: See HPI for pertinent positives and negatives. A total of ten systems were reviewed and were otherwise negative. PMHx/PSHx: Heart disease, DM, CVA. Tonsillectomy, appendectomy. SOCIAL HISTORY: Patient lives at home. Never a smoker. PHYSICAL EXAM: GENERAL: Awake, alert, well-appearing, in no distress HENT: Normocephalic, atraumatic. Oropharynx unremarkable. Mild lateral nystagmus. EYES: Normal conjunctiva. Sclera non-icteric. NECK: Inspection normal. Non-tender. Supple. No nuchal rigidity. FROM. No masses. RESPIRATORY: Clear to auscultation. No wheezes. No rales. Normal respiratory effort. CARDIAC: Bradycardic rate. Normal rhythm. No murmurs. No rubs. Extremities warm and well perfused. Pulses equal. No JVD. GI: Soft, non-distended. No tenderness to palpation. No rebound or guarding. No masses. RECTAL: Deferred. MUSCULOSKELETAL: Atraumatic. Chest examination reveals no tenderness. The back is symmetrical on inspection without obvious abnormality. There is no CVA tenderness to palpation. No joint edema. LOWER EXTREMITIES: Calves are equal size bilaterally and non-tender. No discoloration. 1+ lower extremity edema. NEURO: Normal sensorium. No sensory or motor deficits noted. SKIN: No rash or jaundice noted. EMERGENCY DEPARTMENT COURSE: 1712: Past medical records reviewed. The patient was evaluated in room C7, and a complete history and physical examination were performed. 1839: I reevaluated the patient at this time and updated she and her family on her disposition. 1899: I reviewed the patient's case with Dr. Heath Arellano Hospitalist. He will evaluate the patient for further management. MEDICAL DECISION MAKING: Prior records/ancillary studies reviewed. Prior CVA. Nursing notes reviewed and agree them. Additional history obtained from the patient's . The patient's history was concerning for dizziness and double vision. Differential diagnosis: Etiologies such as CVA, TIA, metabolic, infection, hypo/hyperglycemia, electrolyte abnormalities, cardiac sources, intracerebral event, toxicologic, neurologic, as well as others were entertained. Physical examination: As above. ER treatment provided: IV Lock Oral aspirin On reassessment the patient felt well Diagnostics interpretation by me: ECG: Sinus bradycardia. The labs revealed an unremarkable CBC and chemistry panel. Imaging studies: Chest x-ray negative. CT scan of the head was negative for acute pathology. Old appearing infarct noted. The patient has a significant history for TIA and CVA. Given her symptoms mimicking a prior stroke this is concerning. I discussed further management and workup in the hospital. The patient was in agreement. Consultation: A consultation was placed with the hospitalist. The case was discussed and diagnostics were reviewed. The patient was evaluated in the ER for further treatment. IMPRESSION: Dizziness Double vision History of CVA PLAN: Admit The scribe's documentation has been prepared under my direction and personally reviewed by me in its entirety. I confirm that the note above accurately reflects all work, treatment, procedures, and medical decision making performed by me. Impression & Plan Dizziness, History of CVA (cerebrovascular accident), Double vision Past Med/Surg History Medical History History of stroke (Chronic) Heart disease (Chronic) Diabetes (Chronic) CVA (cerebral vascular accident) (Acute) Surgical History Hx of appendectomy (Resolved) Hx of tonsillectomy (Resolved) Social History Current Living Situation: Spouse Other Information That Helps Us Care for You: No Feels Safe at Home: Yes Safety Concerns: Feels Safe At This Time Smoking Status: Never smoker Do You Dip or Chew Tobacco: No Second Hand Exposure: No Tobacco Cessation Education Requested by Patient: No Hx Alcohol Use: No Hx Substance Use: No Beliefs That Will Affect Care: None Preferred Language: [place] Citizen Communication Ability: Effective Homicide Squad Captain Required: No Results & Data Vital Signs Vital Signs - 24 hr 08/01/18 16:50 08/01/18 18:32 08/01/18 18:36 Temperature 36.5 C Temperature Source Oral Sepsis Recent Fever Within 48 Hours No Sepsis New/Unexplained Change in Mental Status No Sepsis Action Taken by Nursing No Action Required Pulse Rate 55 L 51 L 55 L Pulse Rate [Left Brachial] Pulse Rate from SpO2 Sensor 51 L Pulse Rhythm Regular Regular Pulse Rhythm [Left Brachial] Pulse Strength Normal Pulse Strength [Left Brachial] Respiratory Rate 20 16 20 Respiratory Effort / Characteristics Non-Labored Spontaneous Respiratory Depth Normal Respiratory Pattern Agonal Blood Pressure 135/63 160/67 H Blood Pressure [Left Arm] Blood Pressure Mean 87 98 Blood Pressure Mean [Left Arm] Blood Pressure Position Sitting Blood Pressure Position [Left Arm] Pulse Oximetry 99 98 99 Oxygen Delivery Method Room Air Room Air Room Air 08/01/18 20:43 08/01/18 22:18 Temperature 37.0 C Temperature Source Oral Sepsis Recent Fever Within 48 Hours Sepsis New/Unexplained Change in Mental Status Sepsis Action Taken by Nursing Pulse Rate 52 L Pulse Rate [Left Brachial] 50 L Pulse Rate from SpO2 Sensor Pulse Rhythm Pulse Rhythm [Left Brachial] Regular Pulse Strength Pulse Strength [Left Brachial] Normal Respiratory Rate 16 16 Respiratory Effort / Characteristics Non-Labored Spontaneous Respiratory Depth Normal Respiratory Pattern Regular Blood Pressure 160/67 H Blood Pressure [Left Arm] 178/97 H Blood Pressure Mean Blood Pressure Mean [Left Arm] 124 Blood Pressure Position Blood Pressure Position [Left Arm] Lying Pulse Oximetry 95 97 Oxygen Delivery Method Room Air Room Air Home Medications Current Medication List: was personally reviewed by me Laboratory Data Attestation: I reviewed the patient's lab results. Result diagrams: 08/01/18 17:31 08/01/18 17:31 Lab Results 08/01/18 08/01/18 08/01/18 Range/Units 17:31 17:31 21:01 WBC 8.97 (4.8-10.8) K/uL RBC 4.45 (4.2-5.4) M/uL Hgb 13.0 (12.0-16.0) g/dL Hct 38.3 (37-47) % MCV 86.1 (80-100) fL MCH 29.2 (25-34) pg MCHC 33.9 (32-36) g/dL RDW Std Deviation 42.7 (36.4-46.3) fL RDW Coeff of Sara 13.5 (11.5-14.5) % Plt Count 236 (130-400) K/uL MPV 10.7 H (7.4-10.4) fL Immature Gran % (Auto) 0.2 % Neut % (Auto) 69.2 % Lymph % (Auto) 22.9 % [place] % (Auto) 5.6 % Eos % (Auto) 1.8 % Baso % (Auto) 0.3 % Immature Gran # (Auto) 0.02 (0.00-0.02) K/uL Neut # (Auto) 6.21 (1.4-6.5) K/uL Lymph # (Auto) 2.05 (1.2-3.4) K/uL [place] # (Auto) 0.50 (0.11-0.59) K/uL Eos # (Auto) 0.16 (0-0.5) K/uL Baso # (Auto) 0.03 (0-0.2) K/uL Sodium 136 (136-145) mmol/L Potassium 3.8 (3.5-5.1) mmol/L Chloride 103 (98-107) mmol/L Carbon Dioxide 27 (21-32) mmol/L Anion Gap 7.0 (3-11) BUN 24 H (7-18) mg/dl Creatinine 1.62 H (0.6-1.2) mg/dl Est Cr Clr Drug Dosing Not Reportable Est GFR ( Amer) 36.1 Est GFR (Non-Af Amer) 31.2 BUN/Creatinine Ratio 14.5 (10-20) Glucose 134 H (70-99) mg/dl POC Glucose 110 H (70-99) Calcium 9.4 (8.5-10.1) mg/dl Magnesium 2.1 (1.8-2.4) mg/dl Total Bilirubin 0.5 (0.2-1) mg/dl AST 17 (15-37) U/L ALT 25 (12-78) U/L Alkaline Phosphatase 91 (45-117) U/L Troponin I 0.019 (0-0.045) ng/ml Total Protein 7.5 (6.4-8.2) gm/dl Albumin 3.7 (3.4-5.0) gm/dl Globulin 3.8 (2.5-4.0) gm/dl Albumin/Globulin Ratio 1.0 (0.9-2) TSH 1.890 (0.300-4.500) uIu/ml Administered Medications Gemfibrozil (Lopid) 600 mg PO BID LENO Stop: 08/31/18 21:01 Last Admin: 08/01/18 22:15 Dose: 600 mg Hydralazine HCl (Apresoline) 50 mg PO TID LENO Stop: 08/31/18 21:01 Last Admin: 08/01/18 22:15 Dose: 50 mg Ropinirole HCl (Requip) 5 mg PO HS LENO Stop: 08/31/18 21:01 Last Admin: 08/01/18 22:15 Dose: 5 mg Discontinued Medications Aspirin (Aspirin) 324 mg PO NOW STA Stop: 08/01/18 18:45 Last Admin: 08/01/18 19:02 Dose: 324 mg Sodium Chloride (Nss 1000ml) 1,000 mls @ 125 mls/hr IV .Q8H LENO Stop: 08/02/18 01:14 Last Infusion: 08/01/18 22:03 Dose: 0 mls/hr Admin: 08/01/18 18:37 Dose: 125 mls/hr Imaging Data Radiologist's Impression: Radiology results as stated below per my review and the radiologist's interpretation: CT SCAN OF THE BRAIN WITHOUT IV CONTRAST CLINICAL HISTORY: Diplopia. Dizziness. COMPARISON STUDY: CT of the brain dated 05/23/2017. TECHNIQUE: Unenhanced axial CT scan of the brain is performed from the vertex to the skull base. A dose lowering technique was utilized adhering to the principles of ALARA. CT DOSE: 537.48 mGy.cm FINDINGS: Brain parenchyma: There are age-related involutional changes noting mild subcortical and periventricular microangiopathic change. A chronic lacunar infarct is noted in the anterior limb of the right internal capsule. There is no hemorrhage, mass effect, or evidence of acute territorial ischemia by CT criteria. Law-white matter differentiation is preserved. No extra-axial fluid collection is seen. Ventricles, sulci, cisterns: Prominent secondary to involutional change. Intracranial vasculature: There is atherosclerotic calcification of the cavernous carotid and vertebral arteries. Calvarium: Unremarkable. Sinuses and mastoids: The visualized paranasal sinuses are clear. The mastoid air cells are well pneumatized. Orbits: The bony orbits are grossly intact. IMPRESSION: There is no hemorrhage, mass effect, or evidence of acute territorial ischemia by CT criteria. Electronically signed by: Gilson Ramesh M.D. 08/01/2018 6:01 PM SINGLE VIEW CHEST CLINICAL HISTORY: Generalized weakness. FINDINGS: An AP, portable, upright chest radiograph is compared to study dated 05/26/2017. The examination is degraded by portable technique and apical lordotic positioning. The patient is status post midline sternotomy. The heart is enlarged and there is atherosclerotic calcification of the thoracic aorta. The pulmonary vasculature is noncongested. Chronic interstitial thickening is similar to previous. There is mild bibasilar atelectasis. No airspace consolidation or large pleural effusion is identified. No pneumothorax is seen. The skeletal structures are osteopenic. The bony thorax is grossly intact. Arthritic change is noted in the shoulders. IMPRESSION: Cardiomegaly with no active disease in the chest. Electronically signed by: Gilson Ramesh M.D. 08/01/2018 5:58 PM ECG Data Attestation: I personally reviewed and interpreted this ECG as follows: Indication: other (TIA symptoms) Rate (beats per minute): 50 Rhythm: sinus bradycardia Findings: + 1st degree AV block, + LBBB and + PVC; no PAC and no ST elevation Blood Pressure Blood Pressure Findings: Elevated blood pressure Blood Pressure Disposition: further management by hospitalist Discharge Plan Visit Data *Final* Discharge Date/Time: 08/01/18 20:43 Chief Complaint: TIA Symptoms Stated Complaint: SYMPTOMS OF A TIA ED Provider: Hayden Gonzalez Discharge Problem: Dizziness, History of CVA (cerebrovascular accident), Double vision Patient Disposition: Admitted As Inpatient Discharge Instructions Interventions: ED Discharge Assessment Last Done: 08/01/18 20:43 The scribe's documentation has been prepared under my direction and personally reviewed by me in its entirety. I confirm that the note above accurately reflects all work, treatment, procedures, and medical decision making performed by me.
[2018-08-01] MEDS ORDERED: ASPIRIN CHEW 324 MG PO STA (18:44)
--- NOTE | 2018-08-01 20:37 | History & Physical Report ---
Date of Service August 01, 2018 Assessment & Plan (1) Stroke-like symptoms: History of lacunar stroke and TIA in past with residual mild left lower extremity weakness. Experienced 30-minute episode of diplopia today, possible TIA. Not candidate for thrombolytic therapy because of delayed presentation to ED and improvement of neuro symptoms. CT of head demonstrated chronic changes as noted. Check MRI of brain. Check carotid duplex and echocardiogram. Monitor for arrhythmias. Continue antiplatelet therapy with aspirin and clopidogrel. Continue management of hypertension, dyslipidemia, and diabetes as discussed below. PT/OT eval's. Consult Neurology. (2) Cerebrovascular disease: As discussed above. (3) Coronary artery disease: History of non-STEMI in 2016 with occluded RCA. Continue aspirin, clopidogrel, metoprolol, amlodipine, lisinopril, and lipid- lowering medications. (4) Hypertrophic cardiomyopathy: Status post myomectomy. Continue cardiovascular medications as noted above. (5) History of paroxysmal supraventricular tachycardia: Currently in sinus rhythm with PVCs. Continue metoprolol. (6) Essential hypertension: History of labile hypertension. Continue metoprolol, amlodipine, lisinopril, isosorbide mononitrate. Avoid excessive lowering of BP in light of possible TIA. (7) Diabetes mellitus type 2 with complications: Oral agents discontinued about 1 year ago because of profound hypoglycemia. Check hemoglobin A1c. Follow blood sugars and initiate insulin coverage if necessary. (8) Dyslipidemia: Check lipid profile. Continue atorvastatin and gemfibrozil. (9) Restless leg syndrome: Continue ropinirole. (10) DVT prophylaxis: SQ heparin. Ambulate. (11) Discharge planning issues: Anticipated discharge to home. Family Medicine follow-up with Dr. Roberts. Neurology follow-up with Dr. Fuentes. Cardiology follow-up with Feliz Dee PA-C and Dr. Andre. History of Present Illness Chief Complaint: double vision Primary Care Provider: Asad Roberts MD 72-year-old female followed by Dr. Roberts. History of cerebrovascular disease, hypertension, diabetes mellitus type 2, and other problems noted below. Experienced diplopia around noon today while eating her lunch. Symptoms lasted for about 30 minutes. No associated headache. Possible transient vertigo. No definite visual field defects. No dysarthria, aphasia, dysphagia. No change in chronic mild left lower extremity residual weakness from prior events. No change in chronic ataxia. Came to ED for evaluation several hours after the onset of her symptoms. Received aspirin 324 mg in the ED. Allergies Allergy/AdvReac Type Severity Reaction Status Date / Time niacin Allergy Mild RASH Verified 08/01/18 17:47 clonidine Allergy Unknown RASH Verified 08/01/18 17:47 spironolactone Allergy Unknown RASH Verified 08/01/18 17:47 Home Medications Home Medications Medication Instructions Recorded Confirmed Type amlodipine 5 mg PO QDL 08/01/18 08/01/18 History aspirin [Aspirin Low Dose] 81 mg PO DAILY 08/01/18 08/01/18 History atorvastatin 80 mg PO DAILY 08/01/18 08/01/18 History calcitriol 0.25 mg PO 2XWK 08/01/18 08/01/18 History clopidogrel [Plavix] 75 mg PO QAM 08/01/18 08/01/18 History fish,bora,flax oils-om3,6,9no1 1 cap PO TID 08/01/18 08/01/18 History [[place] 3-6-9 Complex] folic acid 1 mg PO QAM 08/01/18 08/01/18 History gemfibrozil 600 mg PO BID 08/01/18 08/01/18 History hydralazine 50 mg PO TID 08/01/18 08/01/18 History hydrochlorothiazide 12.5 mg PO Q2D 08/01/18 08/01/18 History isosorbide mononitrate 60 mg PO QAM 08/01/18 08/01/18 History lisinopril 10 mg PO DAILY 08/01/18 08/01/18 History metoprolol tartrate 50 mg PO BID 08/01/18 08/01/18 History ropinirole 5 mg PO HS 08/01/18 08/01/18 History Past Med/Surg History Medical History History of paroxysmal supraventricular tachycardia (Chronic) Restless leg syndrome (Chronic) Urinary, incontinence, stress female (Chronic) Coronary artery disease (Chronic) status post non-STEMI 2015; cath showed RCA occlusion CKD (chronic kidney disease), stage III (Chronic) Essential hypertension (Chronic) Diabetes mellitus type 2 with complications (Chronic) Dyslipidemia (Chronic) Mitral insufficiency (Chronic) Hypertrophic cardiomyopathy (Chronic) Cerebrovascular disease (Chronic) status post ischemic stroke Surgical History Status post myomectomy (Chronic) Status post tonsillectomy (Chronic) Status post appendectomy (Chronic) Status post cardiac catheterization (Chronic) 2016, occlusion RCA Family History Father Coronary artery disease Mother Heart disease Hypertension Social History Current Living Situation: Spouse Other Information That Helps Us Care for You: No Feels Safe at Home: Yes Safety Concerns: Feels Safe At This Time Smoking Status: Never smoker Do You Dip or Chew Tobacco: No Second Hand Exposure: No Tobacco Cessation Education Requested by Patient: No Hx Alcohol Use: No Hx Substance Use: No Beliefs That Will Affect Care: None Preferred Language: Yi Communication Ability: Effective Marketing Finance Specialist Required: No Review of Systems Constitutional: no fever and no weight loss Eyes: as per Subjective / HPI Ear, Nose, Mouth, Throat: + nasal congestion; no sore throat Respiratory: no cough and no dyspnea Cardiovascular: + edema; no chest pain and no palpitations Gastrointestinal: + diarrhea/loose stools (occasional, chronic); no nausea, no vomiting, no constipation, no blood in stools and no melena Genitourinary (Female): + urinary incontinence (chronic); no dysuria and no hematuria Musculoskeletal: + joint pain (bilat shoulders, chronic); no myalgia Integumentary: no rash and no new lesions Neurologic: as per Subjective / HPI Endocrine: no polydipsia and no polyuria Hematologic / Lymphatic: + easy bruising; no easy bleeding and no lymphadenopathy Physical Exam 2 Vital Signs (Past 24 Hours): Last Vital Signs Temp 36.5 C 08/01/18 16:50 Pulse 55 L 08/01/18 18:36 Resp 20 08/01/18 18:36 BP 160/67 H 08/01/18 18:32 Pulse Ox 99 08/01/18 18:36 Constitutional: WD/WN, vitals as above no acute distress Eyes: PERRL, conjunctivae normal, anicteric sclerae ENMT: external ear and nose normal, oropharynx normal Neck: trachea midline, no thyromegaly Respiratory: normal respiratory effort, lungs clear to auscultation Cardiovascular: Rate/Rhythm: regular rate Heart Sounds: + murmur (II/ sys murmur LSB); no gallop and no cardiac rub Vessels: no JVD Extremities : normal capillary refill and + edema (trace pretibial); no calf tenderness Gastrointestinal (Abdomen): normal bowel sounds, soft, nontender, no hepatosplenomegaly Musculoskeletal: Head/Neck/Chest: neck supple Extremities: strength 5/5 throughout; no cyanosis and no clubbing Skin: no rashes, warm and dry Neurologic: PERRL, EOMI, no nystagmus, visual stoctkon grossly intact no facial palsy no dysarthria or aphasia patellar DTR's 1/2 on right, 2/2 on left plantar reflexes upgoing bilat no significant difficulty with finger to nose or heel to stahl bilat Psychiatric: Orientation: alert and oriented x 3 Affect: euthymic affect Lymphatic: no cervical lymphadenopathy Results & Data Laboratory Results Laboratory Results - last 24 hr 08/01/18 08/01/18 08/01/18 17:31 17:31 21:01 WBC 8.97 RBC 4.45 Hgb 13.0 Hct 38.3 MCV 86.1 MCH 29.2 MCHC 33.9 RDW Std Deviation 42.7 RDW Coeff of Sara 13.5 Plt Count 236 MPV 10.7 H Immature Gran % (Auto) 0.2 Neut % (Auto) 69.2 Lymph % (Auto) 22.9 [place] % (Auto) 5.6 Eos % (Auto) 1.8 Baso % (Auto) 0.3 Immature Gran # (Auto) 0.02 Neut # (Auto) 6.21 Lymph # (Auto) 2.05 [place] # (Auto) 0.50 Eos # (Auto) 0.16 Baso # (Auto) 0.03 Sodium 136 Potassium 3.8 Chloride 103 Carbon Dioxide 27 Anion Gap 7.0 BUN 24 H Creatinine 1.62 H Est Cr Clr Drug Dosing Not Reportable Est GFR ( Amer) 36.1 Est GFR (Non-Af Amer) 31.2 BUN/Creatinine Ratio 14.5 Glucose 134 H POC Glucose 110 H Calcium 9.4 Magnesium 2.1 Total Bilirubin 0.5 AST 17 ALT 25 Alkaline Phosphatase 91 Troponin I 0.019 Total Protein 7.5 Albumin 3.7 Globulin 3.8 Albumin/Globulin Ratio 1.0 TSH 1.890 Diagnostic Findings Chest x-ray demonstrated postsurgical changes, cardiomegaly, calcification of thoracic aorta, no acute findings. CT of head without contrast demonstrated age-related atrophy and periventricular white matter changes, old lacunar infarct in the anterior limb of the right internal capsule, no acute events. ECG Additional Comments: EKG performed at 1715 reviewed and demonstrated sinus bradycardia at 50/minute, PVCs, left bundle branch block, repolarization abnormalities.
[2018-08-01] MEDS ORDERED: ROPINIROLE HCL 5 MG TABLET PO SCH (21:02)
[2018-08-01] MEDS ORDERED: PHARMACIST DISCHARGE MED REC CONSULT PRN (21:02)
[2018-08-01] MEDS: GEMFIBROZIL 600 MG TAB PO SCH (22:15)
[2018-08-01] MEDS: HydrALAZINE TAB 50 MG TAB PO SCH (22:15)
[2018-08-02 02:15] LABS: Appearance Urine Clear (Clear); Bacteria Urine Automated 3+ (Negative); Bilirubin Urine Negative (Negative); Blood Urine Negative (Negative); Color Urine Yellow; Epithelial Cell Urine Auto 0-5 /lpf (0-5); Glucose Urine UA Negative (Negative); Ketones Urine Negative (Negative); Leukocyte Esterase Urine 1+ (Negative); Nitrite Urine Positive (Negative); RBC Urine Automated 0-4 /hpf (0-4); Urobilinogen Urine Negative (Negative); WBC Urine Automated >30 /hpf (0-5); pH Urine 7.5 (4.5-7.5)
[2018-08-02 02:24] LABS: Protein Urine Negative (Negative)
[2018-08-02 05:13] LABS: Estimated Average Glucose 169 mg/dl; Hemoglobin A1C 7.5 % (4.5-5.6)
--- NOTE | 2018-08-02 06:35 | Ultrasound Report ---
US carotid doppler BI HISTORY: Mental status change diplopia COMPARISON: None. TECHNIQUE: Real-time, grayscale, and color Doppler sonography of the carotid arteries was performed. Imaging reviewed in the transverse and longitudinal planes. All measurements were calculated based on NASCET criteria. FINDINGS: Antegrade flow is seen in the bilateral vertebral arteries. The brachial pressures are hemodynamically similar. Mild plaque formation bilaterally The peak systolic velocity within the right ICA is 106. The right systolic ratio is 1.0. The peak systolic velocity within the left ICA is 75. The left systolic ratio is 1.1. IMPRESSION: No hemodynamically significant stenosis seen within the carotid arteries. The above report was generated using voice recognition software. It may contain grammatical, syntax or spelling errors. Electronically signed by: Feliz Marquis M.D. 08/02/2018 6:33 AM
[2018-08-02 07:29] LABS: Partial Thromboplastin Time 26.5 Seconds (21.0-31.0); Prothrombin Time 10.3 Seconds (9.0-12.0)
--- NOTE | 2018-08-02 07:31 | Magnetic Resonance Report ---
MR brain wo con HISTORY: 72 years-old Female diplopia. Acute blurred vision with TIA symptoms. COMPARISON: CT head 08/01/2018. TECHNIQUE: Multiplanar multisequence MRI of the brain was obtained without the use of IV contrast. FINDINGS: Photo Finish Photographer localizer images demonstrate no gross abnormality. The midline structures including the corpus callosum, brainstem, optic chiasm, pituitary and pineal glands appear unremarkable on the sagittal T1 series. No cerebellar tonsillar herniation. There is no restricted diffusion to suggest acute or subacute infarction. There is no acute intracran ial hemorrhage, midline shift, abnormal extra-axial collections, hydrocephalus or intracranial mass. Age-related involutional changes with mild ex vacuo ventriculomegaly. Moderate T2/FLAIR hyperintensit ies about the white matter suggestive of chronic microvascular ischemic changes. Encephalomalacia fro m remote infarct involves the coronal radiata of the right frontal lobe. There is a punctate focus of blooming artifact about the right temporal lobe with additional punctate foci noted about the right cerebellar hemisphere suggesting areas of chronic hemorrhage. The major flow voids appear patent. Mastoid air cells are clear. The paranasal sinuses are also gener ally clear. Bilateral internal auditory canals are unremarkable. The skull, soft tissues and orbits a re within normal limits. IMPRESSION: 1. No acute intracranial abnormality, specifically no acute or subacute infarction. 2. Age-related involutional changes with chronic microvascular ischemic changes. 3. Encephalomalacia from remote infarction about the coronal radiata of the right frontal lobe. The above report was generated using voice recognition software. It may contain grammatical, syntax o r spelling errors. Dictated: 08/02/2018 7:15 AM Transcribed: 08/02/2018 7:31 AM Deja [id number] [email or web address] Electronically signed by: Azael Espinosa M.D. 08/02/2018 7:33 AM
[2018-08-02 07:48] LABS: BUN Creatinine Ratio 16.2 (10-20); Creatinine Clr Calc Pharmacy 28.3 ml/min; Est GFR (African American) 43.8; Est GFR (Non-African American) 37.8; Potassium 3.8 mmol/L (3.5-5.1)
[2018-08-02] MEDS: HydrALAZINE TAB 50 MG TAB PO SCH ×2 (08:10→13:35)
[2018-08-02] MEDS: METOPROLOL TARTRATE 50 MG TAB PO SCH ×2 (08:11→12:55)
[2018-08-02] MEDS: GEMFIBROZIL 600 MG TAB PO SCH (08:11)
[2018-08-02] MEDS ORDERED: ASPIRIN 81 MG ECTAB PO SCH (09:00)
[2018-08-02] MEDS ORDERED: ATORVASTATIN 40 MG TAB PO SCH (09:00)
[2018-08-02] MEDS ORDERED: HEPARIN SOD 5,000 UNIT/0.5 ML VIAL SQ SCH (09:00)
[2018-08-02] MEDS ORDERED: FOLIC ACID 1 MG TAB PO SCH (09:00)
[2018-08-02] MEDS ORDERED: CLOPIDOGREL BISULFATE 75 MG TAB PO SCH (09:00)
[2018-08-02] MEDS ORDERED: LISINOPRIL 10 MG TAB PO SCH (09:00)
[2018-08-02] MEDS ORDERED: ISOSORBIDE MONO EXTENDED REL 60 MG TABCR PO SCH (09:00)
[2018-08-02] MEDS ORDERED: AMLODIPINE BESYLATE 5 MG TAB PO SCH (11:30)
--- NOTE | 2018-08-02 13:41 | Neurology Consultation ---
Date of Consultation August 02, 2018 Assessment & Plan (1) Stroke-like symptoms: 1. TTE - no significant changes with comparing previous studies EF 50-54% no thrombus no ASD 2. MRI brain no new stroke seen 3. carotid doppler no significant stenosis 4. PT/OT for any discharge needs 5. optimize HTN, HLD, DM LDL <70 current triglycerides 427 6. UTI - +bacteria culture pending 7. currently on aspirin 81 mg and plavix 75 mg would continue 8. should follow up with Dr Fuentes, neurology as scheduled Supervising Physician Co-Signing Physician Notes I have seen and discussed above patient with Dr Elmer Ireland. Patient was seen and examined. Discussed and agree with Marsha Sims As noted below. Patient repors having intermittent horizontal binoccular diplopia yesterday. Symptoms last 20-30 minutes and resolved. Denies any symptoms currently. She is on dual antiplatlet therapy. Reports compliance with medications. MRI brain reviewed. My impression is no evidence of acute ishcemic stroke. Chronic micrvacular ischemic changes and chronic right sided lacunar infarct. Carotid US negative for any significant stenosis. On examine EOMI. No ptosis or diplopia with sustained upgaze. Recommend to continue current home medications. Ok to discharge to home with follow up as plan with neurology. History of Present Illness Reason for Consultation: possible TIA Requesting Physician: Primitivo Carvajal MD Attending Physician: Primitivo Carvajal MD History of Present Illness Najma is a 72 year old female with a PMH paroxysmal SVT, RLS, urinary incontinence ,CAD, CKD III, HTN, HLD, hypertrophy cardiomyopathy, elisha arrhythmia, stroke, previous myomectomy. She was reading her book yesterday and the pages started to double. She states this lasted about 30 minutes and then she did have some blurred vision. If she covered one eye it would go away. She was concerned because when she had her stroke she had the same things happen and she was afraid she was going to have increase in symptoms. She states she had no slurred speech, swallowing issues, one sided weakness, numbness tingling , headache, and has no history of migraines. She saw Dr Fuetnes in our office yesterday and she was told to follow up in 1 year. She called the office yesterday and was advised to come to the ED for evaluation. She is also followed by cardiology and states she has TTEs every 6 months. She saw Feliz CANDELARIA, cardiology on 07/18/2018 and at that point she was not taking her Lipitor or the gemfibrozil. Allergies Allergy/AdvReac Type Severity Reaction Status Date / Time niacin Allergy Mild RASH Verified 08/01/18 17:47 clonidine Allergy Unknown RASH Verified 08/01/18 17:47 spironolactone Allergy Unknown RASH Verified 08/01/18 17:47 Home Medications Home Medications Medication Instructions Recorded Confirmed Type amlodipine 5 mg PO QDL 08/01/18 08/01/18 History aspirin [Aspirin Low Dose] 81 mg PO DAILY 08/01/18 08/01/18 History atorvastatin 80 mg PO DAILY 08/01/18 08/01/18 History calcitriol 0.25 mg PO 2XWK 08/01/18 08/01/18 History clopidogrel [Plavix] 75 mg PO QAM 08/01/18 08/01/18 History fish,bora,flax oils-om3,6,9no1 1 cap PO TID 08/01/18 08/01/18 History [[place] 3-6-9 Complex] folic acid 1 mg PO QAM 08/01/18 08/01/18 History gemfibrozil 600 mg PO BID 08/01/18 08/01/18 History hydralazine 50 mg PO TID 08/01/18 08/01/18 History hydrochlorothiazide 12.5 mg PO Q2D 08/01/18 08/01/18 History isosorbide mononitrate 60 mg PO QAM 08/01/18 08/01/18 History lisinopril 10 mg PO DAILY 08/01/18 08/01/18 History metoprolol tartrate 50 mg PO BID 08/01/18 08/01/18 History ropinirole 5 mg PO HS 08/01/18 08/01/18 History Patient History Medical History History of paroxysmal supraventricular tachycardia (Chronic) Restless leg syndrome (Chronic) Urinary, incontinence, stress female (Chronic) Coronary artery disease (Chronic) status post non-STEMI 2015; cath showed RCA occlusion CKD (chronic kidney disease), stage III (Chronic) Essential hypertension (Chronic) Diabetes mellitus type 2 with complications (Chronic) Dyslipidemia (Chronic) Mitral insufficiency (Chronic) Hypertrophic cardiomyopathy (Chronic) Cerebrovascular disease (Chronic) status post ischemic stroke Surgical History Status post myomectomy (Chronic) Status post tonsillectomy (Chronic) Status post appendectomy (Chronic) Status post cardiac catheterization (Chronic) 2016, occlusion RCA Family History Father Coronary artery disease Mother Heart disease Hypertension Social History Current Living Situation: Spouse Other Information That Helps Us Care for You: No Feels Safe at Home: Yes Safety Concerns: Feels Safe At This Time Smoking Status: Never smoker Do You Dip or Chew Tobacco: No Second Hand Exposure: No Tobacco Cessation Education Requested by Patient: No Hx Alcohol Use: No Hx Substance Use: No Beliefs That Will Affect Care: None Preferred Language: Yakut Physical Exam 2 Vital Signs (Past 24 Hours): Last Vital Signs Temp 36.3 C L 08/02/18 12:09 Pulse 56 L 08/02/18 12:09 Resp 17 08/02/18 12:09 BP 152/72 H 08/02/18 12:09 Pulse Ox 98 08/02/18 12:09 Physical Exam: Constitutional: appearance nourished, healthy and normal Ears, Nose, Mouth and Throat: mucous membranes moist, no injection and skin normal, eyes normal Cardiovascular: normal rhythm Respiratory: clear to auscultation (CTA) and no rales, ronchi or wheeze Musculoskeletal: no peripheral edema and good distal pulses Skin: no stigmata of neurocutaneous disease noted and normal and intact Eyes: extraocular muscles intact (EOMI) and pupils equal, round and reactive to light (PERRL), peripheral vision intact grossly NEUROLOGIC EXAMINATION: Mental status: Alert and interactive Oriented to full date and location Oriented to person Speech fluent with no evidence of aphasia Cranial Nerves smile eye brow raise symmetric Reflexes: Deep tendon reflexes were symmetrical and graded 2/5. Plantar responses were flexor. Sensory: intact to vibration and cool light touch Coordination: finger to nose no bi pass Gait/Stance: Posture sitting up in bed Motor: Negative for pronator drift of out stretched arms with eyes closed. 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 ,hip flex patellar plantar flex ext 5/ 5 bilaterally Results & Data Laboratory Results Abnormal lab results 08/01/18 08/01/18 08/01/18 Range/Units 17:31 17:31 17:31 MPV 10.7 H (7.4-10.4) fL BUN 24 H (7-18) mg/dl Creatinine 1.62 H (0.6-1.2) mg/dl Glucose 134 H (70-99) mg/dl POC Glucose (70-99) Hemoglobin A1c 7.5 H (4.5-5.6) % Triglycerides (0-150) mg/dl Urine Nitrite (Negative) Ur Leukocyte Esterase (Negative) Urine WBC (Auto) (0-5) /hpf Urine Bacteria (Auto) (Negative) 08/01/18 08/02/18 08/02/18 Range/Units 21:01 01:50 06:35 MPV (7.4-10.4) fL BUN 22 H (7-18) mg/dl Creatinine 1.38 H (0.6-1.2) mg/dl Glucose 155 H (70-99) mg/dl POC Glucose 110 H (70-99) Hemoglobin A1c (4.5-5.6) % Triglycerides 427 H (0-150) mg/dl Urine Nitrite Positive H (Negative) Ur Leukocyte Esterase 1+ H (Negative) Urine WBC (Auto) >30 H (0-5) /hpf Urine Bacteria (Auto) 3+ H (Negative) Diagnostic Findings CT head-There is no hemorrhage, mass effect, or evidence of acute territorial ischemia by CT criteria. CXR- : Cardiomegaly with no active disease in the chest. carotid doppler- No hemodynamically significant stenosis seen within the carotid arteries. MRI brain-. No acute intracranial abnormality, specifically no acute or subacute infarction. Age-related involutional changes with chronic microvascular ischemic changes. Encephalomalacia from remote infarction about the coronal radiata of the right frontal lobe.
--- NOTE | 2018-08-02 15:09 | Hospitalist Progress Note ---
Date of Service August 02, 2018 Assessment & Plan (1) Stroke-like symptoms: History of lacunar stroke and TIA in past with residual mild left lower extremity weakness. Experienced 30-minute episode of diplopia on the day of admission, possible TIA. Not candidate for thrombolytic therapy because of delayed presentation to ED and improvement of neuro symptoms. CT of head demonstrated chronic changes as noted. Check MRI of brain-no new stroke and/or hemorrhage Check carotid duplex -no significant stenosis and echocardiogram.-No atrial fibrillation and/or PFO Monitor for arrhythmias.-No arrhythmia noted Continue antiplatelet therapy with aspirin and clopidogrel. Continue management of hypertension, dyslipidemia, and diabetes as discussed below. PT/OT eval's-did very well Consult Neurology-appreciate input and recommendation Likely discharge this afternoon (2) Cerebrovascular disease: As discussed above. (3) Coronary artery disease: History of non-STEMI in 2016 with occluded RCA. Continue aspirin, clopidogrel, metoprolol, amlodipine, lisinopril, and lipid- lowering medications. No acute symptoms (4) Hypertrophic cardiomyopathy: Status post myomectomy. Continue cardiovascular medications as noted above. Denies any chest pain, palpitation or shortness of breath (5) History of paroxysmal supraventricular tachycardia: Currently in sinus rhythm with PVCs. Continue metoprolol. Heart rate is controlled (6) Essential hypertension: History of labile hypertension. Continue metoprolol, amlodipine, lisinopril, isosorbide mononitrate. Avoid excessive lowering of BP in light of possible TIA. (7) Diabetes mellitus type 2 with complications: Oral agents discontinued about 1 year ago because of profound hypoglycemia. Check hemoglobin A1c-7.5 Follow blood sugars and initiate insulin coverage if necessary. (8) Dyslipidemia: Check lipid profile. Continue atorvastatin and gemfibrozil. (9) Restless leg syndrome: Continue ropinirole. (10) DVT prophylaxis: SQ heparin. Ambulate. (11) Discharge planning issues: The examination is suggestive of UTI Patient denies any symptoms Urine has been sent for culture Advised to drink more fluid and will give oral antibiotic for 3 days after discussing with the patient Anticipated discharge to home. Family Medicine follow-up with Dr. Roberts. Neurology follow-up with Dr. Fuentes. Cardiology follow-up with Feliz Dee PA-C and Dr. Andre. Subjective She is a 72-year-old female with history of cerebrovascular disease, hypertension, diabetes mellitus type 2, and other problems noted below, was admitted with strokelike symptoms notable for diplopia which resolved as of this morning. 08/02 Denies any symptoms as of today Although for neuro symptoms have resolved Remains hemodynamically stable and wants to go home Eyes: as per Subjective / HPI Ear, Nose, Mouth, Throat: + nasal congestion; no sore throat Cardiovascular: + edema; no chest pain and no palpitations Gastrointestinal: + diarrhea/loose stools (occasional, chronic); no nausea, no vomiting, no constipation, no blood in stools and no melena Genitourinary (Female): + urinary incontinence (chronic); no dysuria and no hematuria Musculoskeletal: + joint pain (bilat shoulders, chronic); no myalgia Neurologic: as per Subjective / HPI Hematologic / Lymphatic: + easy bruising; no easy bleeding and no lymphadenopathy Physical Exam 2 Vital Signs (Past 24 Hours): Last Vital Signs Temp 36.3 C L 08/02/18 12:09 Pulse 56 L 08/02/18 12:09 Resp 17 08/02/18 12:09 BP 152/72 H 08/02/18 12:09 Pulse Ox 98 08/02/18 12:09 Physical Exam: No apparent distress at rest Constitutional: WD/WN, vitals as above Eyes: PERRL, conjunctivae normal, anicteric sclerae ENMT: external ear and nose normal, oropharynx normal Neck: trachea midline, no thyromegaly Respiratory: normal respiratory effort; no respiratory distress and no labored breathing Auscultation: lungs clear to auscultation bilaterally Cardiovascular: RRR, no murmur, no edema Gastrointestinal (Abdomen): normal bowel sounds, soft, nontender, no hepatosplenomegaly Neurologic: PERRL, EOMI, accommodation nl, no face palsy, no dysarthria Results & Data Laboratory Results Short CBC 08/01/18 Range/Units 17:31 WBC 8.97 (4.8-10.8) K/uL Hgb 13.0 (12.0-16.0) g/dL Hct 38.3 (37-47) % Plt Count 236 (130-400) K/uL BMP 08/01/18 08/02/18 17:31 06:35 Sodium 136 138 Potassium 3.8 3.8 Chloride 103 104 Carbon Dioxide 27 28 BUN 24 H 22 H Creatinine 1.62 H 1.38 H Glucose 134 H 155 H Calcium 9.4 9.0 Cardiac Enzymes 08/01/18 Range/Units 17:31 Troponin I 0.019 (0-0.045) ng/ml Liver Function 08/01/18 Range/Units 17:31 Total Bilirubin 0.5 (0.2-1) mg/dl AST 17 (15-37) U/L ALT 25 (12-78) U/L Alkaline Phosphatase 91 (45-117) U/L Albumin 3.7 (3.4-5.0) gm/dl Urine 08/02/18 Range/Units 01:50 Urine Color Yellow Urine Appearance Clear (Clear) Urine pH 7.5 (4.5-7.5) Ur Specific [place] 1.010 (1.000-1.030) Urine Protein Negative (Negative) Urine Glucose (UA) Negative (Negative) Medications Administered Current Inpatient Medications Amlodipine Besylate (Norvasc) 5 mg PO QDL [facility] Stop: 09/01/18 11:29 Last Admin: 08/02/18 11:13 Dose: 5 mg Aspirin (Ecotrin Ectab) 81 mg PO DAILY [facility] Stop: 09/01/18 08:59 Last Admin: 08/02/18 08:11 Dose: 81 mg Atorvastatin Calcium (Lipitor) 80 mg PO DAILY [facility] Stop: 09/01/18 08:59 Last Admin: 08/02/18 08:11 Dose: 80 mg Clopidogrel Bisulfate (Plavix) 75 mg PO QAM [facility] Stop: 09/01/18 08:59 Last Admin: 08/02/18 08:12 Dose: 75 mg Folic Acid (Folvite) 1 mg PO QAM [facility] Stop: 09/01/18 08:59 Last Admin: 08/02/18 08:11 Dose: 1 mg Gemfibrozil (Lopid) 600 mg PO BID [facility] Stop: 08/31/18 21:01 Last Admin: 08/02/18 08:11 Dose: 600 mg Heparin Sodium (Porcine) (Heparin Sodium (Porcine)) 5,000 units SQ Q12 [facility] Stop: 09/01/18 08:59 Last Admin: 08/02/18 08:12 Dose: 5,000 units Hydralazine HCl (Apresoline) 50 mg PO TID [facility] Stop: 08/31/18 21:01 Last Admin: 08/02/18 13:35 Dose: 50 mg Isosorbide Mononitrate (Imdur Extended Rel) 60 mg PO QAM [facility] Stop: 09/01/18 08:59 Last Admin: 08/02/18 08:11 Dose: 60 mg Lisinopril (Zestril) 10 mg PO DAILY [facility] Stop: 09/01/18 08:59 Last Admin: 08/02/18 08:12 Dose: 10 mg Metoprolol Tartrate (Lopressor) 50 mg PO BID@,13 [facility] Stop: 09/01/18 08:59 Last Admin: 08/02/18 12:55 Dose: Not Given Miscellaneous Information (Pharmacist Discharge Med Rec Consult) 1 ea N/A UD PRN PRN Reason: Consult Stop: 08/31/18 21:01 Ropinirole HCl (Requip) 5 mg PO HS [facility] Stop: 08/31/18 21:01 Last Admin: 08/01/18 22:15 Dose: 5 mg
[2018-08-02] MEDS ORDERED: STROKE PATIENT DISCHARGE STA (17:21)
--- NOTE | 2018-08-02 18:09 | Discharge Summary ---
Date of Service August 02, 2018 Admission HPI Per Admitting Provider 72-year-old female followed by Dr. Roberts. History of cerebrovascular disease, hypertension, diabetes mellitus type 2, and other problems noted below. Experienced diplopia around noon today while eating her lunch. Symptoms lasted for about 30 minutes. No associated headache. Possible transient vertigo. No definite visual field defects. No dysarthria, aphasia, dysphagia. No change in chronic mild left lower extremity residual weakness from prior events. No change in chronic ataxia. Came to ED for evaluation several hours after the onset of her symptoms. Received aspirin 324 mg in the ED. Admission Exam Per Admitting Provider Vital Signs (Past 24 Hours): Last Vital Signs Temp 36.5 C 08/01/18 16:50 Pulse 55 L 08/01/18 18:36 Resp 20 08/01/18 18:36 BP 160/67 H 08/01/18 18:32 Pulse Ox 99 08/01/18 18:36 Constitutional: WD/WN, vitals as above no acute distress Eyes: PERRL, conjunctivae normal, anicteric sclerae ENMT: external ear and nose normal, oropharynx normal Neck: trachea midline, no thyromegaly Respiratory: normal respiratory effort, lungs clear to auscultation Cardiovascular: Rate/Rhythm: regular rate Heart Sounds: + murmur (II/ sys murmur LSB); no gallop and no cardiac rub Vessels: no JVD Extremities: normal capillary refill and + edema (trace pretibial); no calf tenderness Gastrointestinal (Abdomen): normal bowel sounds, soft, nontender, no hepatosplenomegaly Musculoskeletal: Head/Neck/Chest: neck supple Extremities: strength 5/5 throughout; no cyanosis and no clubbing Skin: no rashes, warm and dry Neurologic: PERRL, EOMI, no nystagmus, visual [place] grossly intact no facial palsy no dysarthria or aphasia patellar DTR's 1/2 on right, 2/2 on left plantar reflexes upgoing bilat no significant difficulty with finger to nose or heel to stahl bilat Psychiatric: Orientation: alert and oriented x 3 Affect: euthymic affect Lymphatic: no cervical lymphadenopathy Principal Diagnosis Strokelike symptoms-resolved and no stroke found on further test. Discharge Exam Constitutional WD/WN, vitals as above Eyes PERRL, conjunctivae normal, anicteric sclerae ENMT external ear and nose normal, oropharynx normal Neck trachea midline, no thyromegaly Respiratory normal respiratory effort; no respiratory distress and no labored breathing Auscultation: lungs clear to auscultation bilaterally Cardiovascular RRR, no murmur, no edema Gastrointestinal (Abdomen) normal bowel sounds, soft, nontender, no hepatosplenomegaly Neurologic PERRL, EOMI, accommodation nl, no face palsy, no dysarthria Discharge Data Allergies Allergy/AdvReac Type Severity Reaction Status Date / Time niacin Allergy Mild RASH Verified 08/01/18 17:47 clonidine Allergy Unknown RASH Verified 08/01/18 17:47 spironolactone Allergy Unknown RASH Verified 08/01/18 17:47 Consultations 08/01/18 19:03 ED Decision to Admit Stat 08/01/18 21:02 Consult Case Management - Discharge Planning Routine Consult Neurology Routine Ordered Studies 08/01/18 17:14 CT head/brain wo con Stat 08/02/18 US carotid doppler BI Routine 08/02/18 00:08 MR brain wo con Routine Hospital Course (1) Stroke-like symptoms: History of lacunar stroke and TIA in past with residual mild left lower extremity weakness. Experienced 30-minute episode of diplopia on the day of admission, possible TIA. Not candidate for thrombolytic therapy because of delayed presentation to ED and improvement of neuro symptoms. CT of head demonstrated chronic changes as noted. Check MRI of brain-no new stroke and/or hemorrhage Check carotid duplex -no significant stenosis and echocardiogram.-No atrial fibrillation and/or PFO Monitor for arrhythmias.-No arrhythmia noted Continue antiplatelet therapy with aspirin and clopidogrel. Continue management of hypertension, dyslipidemia, and diabetes as discussed below. PT/OT eval's-did very well Consult Neurology-appreciate input and recommendation Likely discharge this afternoon (2) Cerebrovascular disease: As discussed above. (3) Coronary artery disease: History of non-STEMI in 2016 with occluded RCA. Continue aspirin, clopidogrel, metoprolol, amlodipine, lisinopril, and lipid- lowering medications. No acute symptoms (4) Hypertrophic cardiomyopathy: Status post myomectomy. Continue cardiovascular medications as noted above. Denies any chest pain, palpitation or shortness of breath (5) History of paroxysmal supraventricular tachycardia: Currently in sinus rhythm with PVCs. Continue metoprolol. Heart rate is controlled (6) Essential hypertension: History of labile hypertension. Continue metoprolol, amlodipine, lisinopril, isosorbide mononitrate. Avoid excessive lowering of BP in light of possible TIA. (7) Diabetes mellitus type 2 with complications: Oral agents discontinued about 1 year ago because of profound hypoglycemia. Check hemoglobin A1c-7.5 Follow blood sugars and initiate insulin coverage if necessary. (8) Dyslipidemia: Check lipid profile. Continue atorvastatin and gemfibrozil. (9) Restless leg syndrome: Continue ropinirole. (10) DVT prophylaxis: SQ heparin. Ambulate. (11) Discharge planning issues: The examination is suggestive of UTI Patient denies any symptoms Urine has been sent for culture Advised to drink more fluid and will give oral antibiotic for 3 days after discussing with the patient Anticipated discharge to home. Family Medicine follow-up with Dr. Roberts. Neurology follow-up with Dr. Fuentes. Cardiology follow-up with Feliz Dee PA-C and Dr. Andre. Total Time Total Time Spent Total Time Spent (In Minutes): 35 minutes Total Time Includes: Examination of the Patient, Discharge Planning, Medication Reconciliation and Communication With Other Providers Discharge Plan Discharge Items Patient Disposition: Home - Self-Care Reason For Visit: STROKE LIKE SYMPTOMS Discharge Diagnosis: Strokelike symptoms-resolved and no stroke found on further test. Condition: Good Discharge Goals: Decrease discomfort and Improve function Activity: Resume your previous activity Non-emergency contact: Primary Care Provider Call non-emergency contact if: you have any medication questions and your symptoms worsen Follow-up/Referrals: Asad Roberts MD [Primary Care Provider] - 08/05/18 11:05 am (Appointment he is with Dr. Smith. Dr. Roberts is out of office) Diet: Heart Healthy Addtl Provider Instructions: Please take precaution to avoid falls. Risk Factors for Stroke: You can reduce your chances of stroke by working with your medical provider to adopt a healthy lifestyle. Some specific ways to lower your chance of stroke are: * If you are a smoker, now is the time to stop smoking cigarettes * If you are diabetic, improve the control of your blood sugars * Avoid excessive amounts of alcohol * Control high blood pressure * Lose weight if you are overweight * Be sure to lead an active lifestyle * Eat a healthy diet low in salt, cholesterol and fat You should know about other risk factors for stroke that you are unable to control. These include: * Age 55 years or older * Male gender * Certain racial groups: , or / * Family History of Stroke, Mini stroke or Heart Attack * Sickle Cell Disease Follow Up: It is important for you to keep your follow up appointments with your medical provider. Who to Call and When: Medical Emergencies: Call 911 immediately if you experience any of the following warning signs and symptoms of Stroke: * Sudden numbness or weakness of the face, arm or leg, especially on one side of the body * Sudden confusion, trouble speaking or understanding * Sudden trouble seeing in one or both eyes * Sudden trouble walking, dizziness, loss of balance or coordination * Sudden severe headache with no cause Do not delay calling 911 if you experience any warning signs or symptoms of a stroke. Delay in seeking medical attention may affect what treatments can be given to you. . Prescriptions: Continue atorvastatin 80 mg Tablet 80 mg PO DAILY RF: 0 clopidogrel [Plavix] 75 mg Tablet 75 mg PO QAM RF: 0 aspirin [Aspirin Low Dose] 81 mg Tablet,Delayed Release (Dr/Ec) 81 mg PO DAILY RF: 0 isosorbide mononitrate 60 mg Tablet Extended Release 24 Hr 60 mg PO QAM RF: 0 amlodipine 10 mg Tablet 5 mg PO QDL RF: 0 gemfibrozil 600 mg Tablet 600 mg PO BID RF: 0 lisinopril 10 mg Tablet 10 mg PO DAILY RF: 0 metoprolol tartrate 50 mg Tablet 50 mg PO BID RF: 0 folic acid 1 mg Tablet 1 mg PO QAM RF: 0 hydralazine 50 mg tablet 50 mg PO TID RF: 0 ropinirole 5 mg tablet 5 mg PO HS RF: 0 calcitriol 0.25 mcg capsule 0.25 mg PO 2XWK RF: 0 fish,bora,flax oils-om3,6,9no1 [[place] 3-6-9 Complex] 400-400-400 mg Capsule 1 cap PO TID RF: 0 hydrochlorothiazide 12.5 mg Tablet 12.5 mg PO Q2D RF: 0 Stand-Alone Forms: Medications to Prevent Stroke, [facility] Discharge Orders: Discharge Order (Routine); Ordered 08/02/18 Ordered By: Primitivo Carvajal Admission Data Admit Date/Time: 08/01/18 19:47 Attending Provider: Primitivo Carvajal Admit Provider: Hayden Joe Primary Care Provider: Asad Roberts Other Providers: Hayden Joe ; Elmer Ireland. Service: Telemetry
--- NOTE | 2018-08-02 18:15 | Pharmacy Report ---
Pharmacist Stroke Counseling - Date of Service August 02, 2018 - Scope: Pharmacy has been consulted to provide medication discharge counseling for this patient admitted with [ischemic stroke] [hemorrhagic stroke] [transient ischemic attack] as per the Pharmacist Discharge Counseling for Stroke Patients Protocol. - Medications on Discharge: Home Medications Medication Instructions Recorded Confirmed amlodipine 5 mg PO QDL 08/01/18 08/01/18 aspirin [Aspirin Low Dose] 81 mg PO DAILY 08/01/18 08/01/18 atorvastatin 80 mg PO DAILY 08/01/18 08/01/18 calcitriol 0.25 mg PO 2XWK 08/01/18 08/01/18 clopidogrel [Plavix] 75 mg PO QAM 08/01/18 08/01/18 fish,bora,flax oils-om3,6,9no1 1 cap PO TID 08/01/18 08/01/18 [[place] 3-6-9 Complex] folic acid 1 mg PO QAM 08/01/18 08/01/18 gemfibrozil 600 mg PO BID 08/01/18 08/01/18 hydralazine 50 mg PO TID 08/01/18 08/01/18 hydrochlorothiazide 12.5 mg PO Q2D 08/01/18 08/01/18 isosorbide mononitrate 60 mg PO QAM 08/01/18 08/01/18 lisinopril 10 mg PO DAILY 08/01/18 08/01/18 metoprolol tartrate 50 mg PO BID 08/01/18 08/01/18 ropinirole 5 mg PO HS 08/01/18 08/01/18 - Action: The above medications, specifically ones for stroke treatment/prophylaxis, have been reviewed in detail with the patient and/or patient senior patient account representative(s) prior to discharge. This includes indication, common adverse reactions, drug interactions, and medication administration. Medication counseling has been employed using the teach-back method to ensure understanding. - Outcome: The patient and have demonstrated understanding of the medications. Please note, they are aware that the pharmacist will call them within 72 hours post-discharge to confirm that the appropriate medications are being taken and answer any further medication related questions the patient might have at that time. --They have declined this free service as a senior patient account representative from [facility] is coming to their home 08/08/18 (post-discharge) to provide transition of care. Thank you for allowing pharmacy to be involved in the care of this patient. Please call [phone] or [phone] with any additional questions
== END 2018-08-02 17:15 | disposition home or self-care (01) ==
LOC: 2N 16:38 → ED 16:38 → 2N 20:43

== ENCOUNTER 2018-10-28 13:43 | Inpatient (IN) ==
[2018-10-28] MEDS ORDERED: AMIODARONE IV BOLUS / DRIP IV STA (14:07)
[2018-10-28] MEDS ORDERED: AMIODARONE / D5W 150 MG/100 ML BAG IV STA (14:07)
[2018-10-28] MEDS ORDERED: ETOMIDATE 2 MG/ML 20 ML VIAL IV ONE ×3 (14:08→14:15)
[2018-10-28 14:10] LABS: Basophils # (auto) 0.03 K/uL (0-0.2); Basophils % (auto) 0.3 %; Hematocrit (blood only) 38.9 % (37-47); Hemoglobin 13.8 g/dL (12.0-16.0); Immature Granulocytes # (auto) 0.01 K/uL (0.00-0.02); Immature Granulocytes % (auto) 0.1 %; Lymphocytes # (auto) 1.67 K/uL (1.2-3.4); Lymphocytes % (auto) 16.9 %; Mean Corpuscular Hgb Conc 35.5 g/dL (32-36); Mean Corpuscular Volume 83.7 fL (80-100); Mean Platelet Volume 10.9 fL (7.4-10.4); Monocytes # (auto) 0.57 K/uL (0.11-0.59); Monocytes % (auto) 5.8 %; Neutrophils # (auto) 7.53 K/uL (1.4-6.5); Neutrophils % (auto) 75.9 %; Platelet Count 250 K/uL (130-400); RDW Coefficient of Variation 14.8 % (11.5-14.5); RDW Standard Deviation 45.6 fL (36.4-46.3); Red Blood Count 4.65 M/uL (4.2-5.4); White Blood Count 9.91 K/uL (4.8-10.8)
[2018-10-28] MEDS ORDERED: AMIODARONE / D5W 360 MG/200 ML BAG IV SCH ×2 (14:15→20:07)
[2018-10-28] MEDS ORDERED: METOPROLOL TARTRATE 1 MG/ML VIAL IV STA ×3 (14:19→22:02)
[2018-10-28 14:27] LABS: Albumin Level 3.6 gm/dl (3.4-5.0); BUN Creatinine Ratio 19.3 (10-20); Calcium 9.4 mg/dl (8.5-10.1); Creatinine Clr Calc Pharmacy 20.4 ml/min; Est GFR (Non-African American) 25.9; Potassium 3.1 mmol/L (3.5-5.1)
[2018-10-28] MEDS ORDERED: MAGNESIUM SULFATE / D5W 1 GM/100 ML BAG IV STA (14:29)
--- NOTE | 2018-10-28 14:29 | Cardiology Consultation ---
Date of Consultation October 28, 2018 Assessment & Plan (1) Wide-complex tachycardia: Rhythm once again appears to be SVT with aberrant conduction. 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 Will manage by supplementing electrolytes and resuming oral metoprolol. Repeat return of arrhythmia in ER was converted with adenosine after single dose of IV metoprolol. Amiodarone will be held initially has concerns that this may worsen patient's underlying conduction issues already borderline bradycardic at baseline. We will continue oral metoprolol at reduced dose after usual dose given in ER, i.e. 25 mill grams twice per day Troponins are elevated on presentation possibly secondary to tachyarrhythmias versus demand based ischemia known chronic right coronary occlusion. Will initiate IV heparin (2) History of paroxysmal supraventricular tachycardia: As above (3) LBBB (left bundle branch block): Patient with first-degree AV block as well will need to monitor closely for significant bradycardia arrhythmias recent symptoms of dizziness question tachycardia versus bradycardia mediated (4) Coronary artery disease: Continue beta-blessing, clopidogrel with addition of IV heparin initially. Hold aspirin after 24 hours (5) CKD (chronic kidney disease), stage III: (6) Mitral insufficiency: (7) Hypertrophic cardiomyopathy: (8) Status post myomectomy: (9) History of CVA (cerebrovascular accident): (10) Dizziness: Patient has a history of long-standing labile hypertension brittle. Notes blood pressures been recently controlled as well as have been lower extremity edema issues History of Present Illness Reason for Consultation: Wide-complex tachycardia Requesting Physician: Dr. Huston History of Present Illness Patient is a 72-year-old female with past cardiac issues 1. 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 2. Longstanding labile hypertension 3. Intermittent left bundle branch block. 4. Marked hyperlipidemia with elevated triglycerides. 5. History of recurrent lacunar stroke, most recent January 2012. 6. Diabetes mellitus. 7. History restless leg syndrome 8. Hospitalization with [id number] elevation myocardial infarction on 12/24/2015, after presenting with supraventricular tachycardia, rates 170-180. 9. Cardiac catheterization demonstrating occlusion of the right coronary artery with retrograde fill via left collaterals. She presents now noting several weeks or longer of intermittent episodes of dizziness and fullness in her head. She was seen in the outpatient clinic by primary care physician yesterday and hydralazine dose reduced. Today patient developed symptoms of heart pounding in addition to above complaints fatigue and dizziness and presented to the emergency room where she was found to be in wide- complex tachycardia. She was begun initially on IV amiodarone with intermittent conversion. She denies any chest pains or worsening shortness of breath. Notes no edema. Did not take medications this morning. Notes no fevers chills or productive cough. Notes no acute weight loss or gain notes no melena hematochezia dysuria hematuria no recent falls or injuries has difficulties with chronic urinary incontinence.Notes no acute neurologic complaints but was evaluated for TIA in July 2018.Appetite's been fair no overt dysphasia no postprandial cough Allergies Allergy/AdvReac Type Severity Reaction Status Date / Time niacin Allergy Mild RASH Verified 10/28/18 14:57 clonidine Allergy Unknown RASH Verified 10/28/18 14:57 spironolactone Allergy Unknown RASH Verified 10/28/18 14:57 Home Medications Home Medications Medication Instructions Recorded Confirmed Type aspirin [Aspirin Low Dose] 81 mg PO DAILY 08/01/18 10/10/18 History atorvastatin 80 mg PO DAILY 08/01/18 10/10/18 History calcitriol 0.25 mg PO 2XWK 08/01/18 10/10/18 History clopidogrel [Plavix] 75 mg PO QAM 08/01/18 10/10/18 History fish,bora,flax oils-om3,6,9no1 1 cap PO TID 08/01/18 10/10/18 History [[place] 3-6-9 Complex] folic acid 1 mg PO QAM 08/01/18 10/10/18 History gemfibrozil 600 mg PO QAM 08/01/18 10/10/18 History hydralazine 50 mg PO TID 08/01/18 10/10/18 History isosorbide mononitrate 60 mg PO QAM 08/01/18 10/10/18 History metoprolol tartrate 50 mg PO BID 08/01/18 10/10/18 History ropinirole 5 mg PO HS 08/01/18 10/10/18 History gemfibrozil 300 mg PO QPM 10/10/18 10/10/18 History losartan-hydrochlorothiazide 1 tab PO DAILY 10/10/18 10/10/18 History [Hyzaar] Lactobacillus acidoph-L.bulgar 1 packet PO TID 10/28/18 10/28/18 History [Floranex] calcium carbonate-vitamin D3 1 cap PO DAILY 10/28/18 10/28/18 History [Calcium 600 + D(3)] coenzyme Q10 [CoQ-10] 100 mg PO DAILY 10/28/18 10/28/18 History fish,bora,flax oils-om3,6,9no1 2 cap PO HS 10/28/18 10/28/18 History glimepiride [Amaryl] 1 mg PO QAM 10/28/18 10/28/18 History Patient History Medical History History of paroxysmal supraventricular tachycardia (Chronic) Restless leg syndrome (Chronic) Urinary, incontinence, stress female (Chronic) Coronary artery disease (Chronic) status post non-STEMI 2015; cath showed RCA occlusion CKD (chronic kidney disease), stage III (Chronic) Essential hypertension (Chronic) Diabetes mellitus type 2 with complications (Chronic) Dyslipidemia (Chronic) Mitral insufficiency (Chronic) Hypertrophic cardiomyopathy (Chronic) Cerebrovascular disease (Chronic) status post ischemic stroke Surgical History Status post myomectomy (Chronic) Status post tonsillectomy (Chronic) Status post appendectomy (Chronic) Status post cardiac catheterization (Chronic) 2015, occlusion RCA Family History Father Coronary heart disease Mother Heart disease Hypertension Social History Preferred Language: Mexican Communication Ability: Effective Beliefs That Will Affect Care: None Current Living Situation: Spouse Feels Safe at Home: Yes Smoking Status: Never smoker Second Hand Exposure: No Hx Alcohol Use: No Hx Substance Use: No Review of Systems Review of Systems: As per HPI and otherwise negative Physical Exam Constitutional: WD/WN, vitals as above no acute distress Tachycardic Eyes: PERRL, conjunctivae normal, anicteric sclerae ENMT: external ear and nose normal, oropharynx normal Neck: trachea midline, no thyromegaly Respiratory: normal respiratory effort, lungs clear to auscultation Cardiovascular: Rate/Rhythm: + tachycardic Heart Sounds: normal S1, normal S2 and + murmur (Grade 1/6 systolic); no gallop Palpation: normal PMI Vessels: normal carotid upstroke and radial pulses present; no JVD and no carotid bruit Extremities: no edema Gastrointestinal (Abdomen): normal bowel sounds, soft, nontender, no hepatosplenomegaly Musculoskeletal: no cyanosis or clubbing, extremities motor strength 5/5 Skin: no rashes, warm and dry Neurologic: PERRL, EOMI, accommodation nl, no face palsy, no dysarthria Psychiatric: A+Ox3, euthymic affect Results & Data Vital Signs (Past 12 Hours) Vital Signs Temp Pulse Pulse Resp BP BP Pulse Ox 10/28/18 14:20 133 H 15 98 10/28/18 14:18 136 H 18 116/87 97 10/28/18 14:15 142 H 18 118/82 98 10/28/18 14:05 149 H 20 106/84 97 10/28/18 14:01 98 10/28/18 14:00 98 10/28/18 13:59 37.0 C 151 H 20 118/97 98 Laboratory Results Laboratory Results - last 24 hr 10/28/18 10/28/18 10/28/18 14:00 14:00 14:00 WBC 9.91 RBC 4.65 Hgb 13.8 Hct 38.9 MCV 83.7 MCH 29.7 MCHC 35.5 RDW Std Deviation 45.6 RDW Coeff of Sara 14.8 H Plt Count 250 MPV 10.9 H Immature Gran % (Auto) 0.1 Neut % (Auto) 75.9 Lymph % (Auto) 16.9 Williamson % (Auto) 5.8 Eos % (Auto) 1.0 Baso % (Auto) 0.3 Immature Gran # (Auto) 0.01 Neut # (Auto) 7.53 H Lymph # (Auto) 1.67 Williamson # (Auto) 0.57 Eos # (Auto) 0.10 Baso # (Auto) 0.03 PT Pending INR Pending APTT Pending PTT Ratio Pending Sodium 141 Potassium 3.1 L Chloride 113 H Carbon Dioxide 16 L Anion Gap 12.0 H BUN 36 H Creatinine 1.89 H Est Cr Clr Drug Dosing 20.4 Est GFR ( Amer) 30.0 Est GFR (Non-Af Amer) 25.9 BUN/Creatinine Ratio 19.3 Glucose 162 H Calcium 9.4 Total Bilirubin 0.3 AST 18 ALT 17 Alkaline Phosphatase 93 Total Creatine Kinase 227 H CK-MB (CK-2) 12.8 H CK/CKMB % Calc 5.6 H Troponin I 0.296 H* Total Protein 7.6 Albumin 3.6 Globulin 4.0 Albumin/Globulin Ratio 0.9 Lipase 294 Diagnostic Findings Initial EKG wide-complex tachycardia with left bundle branch block configuration rate 149 bpm Baseline EKG last performed 10/10/2018 sinus bradycardia with first-degree AV block left bundle branch block
--- NOTE | 2018-10-28 14:33 | XRay Report ---
XR chest 1V portable CLINICAL HISTORY: Chest Pain dyspnea COMPARISON STUDY: 08/01/2018 FINDINGS: Mild stable cardia megaly. Prior median sternotomy. Diaphragms smooth. Lungs are clear. IMPRESSION: No acute process. The above report was generated using voice recognition software. It may contain grammatical, syntax or spelling errors. Electronically signed by: Feliz Marquis M.D. 10/28/2018 2:31 PM
[2018-10-28 14:36] LABS: Albumin Globulin Ratio 0.9 (0.9-2); Bilirubin,Total 0.3 mg/dl (0.2-1); Creatine Kinase MB 12.8 ng/ml (0.5-3.6); Total Protein 7.6 gm/dl (6.4-8.2); Troponin I 0.296 ng/ml (0-0.045)
[2018-10-28] MEDS ORDERED: METOPROLOL TARTRATE 1 MG/ML VIAL IV ONE (14:46)
[2018-10-28] MEDS ORDERED: POTASSIUM CHLORIDE 10 MEQ TABCR PO STA (14:48)
[2018-10-28] MEDS ORDERED: POTASSIUM CHLORIDE 20 MEQ TABCR PO STA ×3 (14:48→22:02)
[2018-10-28] MEDS ORDERED: ADENOSINE IV SOLN 3 MG/ML 2 ML VIAL IV ONE (14:53)
[2018-10-28] MEDS ORDERED: Heparin IV Low Dose WITH Bolus STA (14:55)
[2018-10-28] MEDS ORDERED: METOPROLOL TARTRATE 50 MG TAB PO STA (15:05)
[2018-10-28] MEDS: POTASSIUM CHLORIDE / WTR 10 MEQ/100 ML PLCT IV SCH ×2 (15:08→16:12)
[2018-10-28] MEDS: Heparin Adult STANDARD Wt-Based Dextrose 5% 25,000 units/500 mL IV SCH ×2 (15:15→19:14)
[2018-10-28] MEDS: HEPARIN 25000 UNIT/500 ML D5W IV ONE ×2 (15:15→15:16)
[2018-10-28] MEDS: HEPARIN SOD (PORCINE) 1000 UNIT/ML 10 ML VIAL ONE ×2 (15:15)
[2018-10-28 15:20] LABS: INR 1.1 (0.9-1.1); Partial Thromboplastin Time 27.3 Seconds (21.0-31.0); Prothrombin Time 10.8 Seconds (9.0-12.0)
[2018-10-28] MEDS ORDERED: SODIUM CHLORIDE 0.9% 1000ML 500 ML IV ONE (15:21)
--- NOTE | 2018-10-28 16:05 | History & Physical Report ---
Date of Service October 28, 2018 Assessment & Plan (1) SVT (supraventricular tachycardia): Pt with h/o SVT and NSTEMI in 12/2015 presented to ER with c/o chest heaviness, SOB, dizziness, palpitations this morning. In ER found to have wide-complex tachycardia rate of 149 and patient was started on amiodarone and patient converted to sinus rhythm however return to tachycardia. K: 3.1, magnesium: 2.3 Cardiology was consulted-Dr. Andre. SVT with aberrancy. Amiodarone drip was stopped secondary to history of bradycardia in the past. Patient was given adenosine 6 mg IV with conversion to sinus rhythm rate in the 60s. Patient was given metoprolol 5 mg IV, Lopressor 50 mg p.o as missed her morning dose, 1 L NSS, magnesium 1 g, total 20meq K IV, potassium 40 mEq p.o. Patient was started on heparin drip secondary to troponin 0.29. Hx echo 07/2017: EF: 50-54%, small size inferior wall motion abnormality with hypokinesis basal inferior segment, mild mitral regurgitation. No significant change from prior study 05/2017 -Current sinus rhythm, rate in 60's -Tele to continue to monitor -Lopressor decreased from 50mg BID to 25mg BID per cardiology recommendations secondary to hx bradycardia noted on prior EKG -monitor electrolytes -cardiology consulted, appreciate recommendations (2) Elevated troponin: Patient was started on heparin drip secondary to troponin 0.29. May be secondary to demand ischemia or SVT -trend troponin -continue heparin drip -cardiology consulted, appreciate recommendations (3) Hypokalemia: K: 3.1 In ER pt given potassium 10meq IV x 2, potassium 40 mEq p.o -monitor electrolytes and replace as needed (4) Hypertrophic cardiomyopathy: S/P myomectomy in 09/1999 (5) Coronary artery disease: Hx cardiac cath with occlusion to right coronary artery with retrograde fill via collaterals in 2015 -hold aspirin as on heparin drip per cardiology recommendations -lopressor decreased from 50mg BID to 25mg BID per cardiology recommendations -continue statin, imdur -trending troponins, heparin drip as above (6) CKD (chronic kidney disease), stage III: Cr: 1.89. Baseline Cr: 1.4-1.6 -gentle IVF -avoid nephrotoxic agents -monitor renal functions (7) Cerebrovascular disease: H/O recurrent 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 No increased extremity weakness, ASHLEY or focal deficit -continue plavix, statin -holding aspirin as above (8) Diabetes mellitus, type II: A1c: 7.3 on 07/2018 -hold glimepiride -NovoLog sliding scale per protocol (9) HTN (hypertension): Hydralazine dosage was recently decreased by PCP -Continue hydralazine, losartan/HCTZ -Lopressor decreased to 25 mg twice daily as per above -Monitor BP (10) Dyslipidemia: -Continue statin, gemfibrozil (11) Restless leg syndrome: -Continue with ropinirole DVT Prophylaxis -On heparin IV Full Code as per discussion with pt, however reports would not want prolonged life support if poor prognosis Follows with Dr Roberts for routine care Pt was seen with Dr Carvajal. See addendum History of Present Illness Chief Complaint: Pt is 72 y/o F with PMH labile HTN, hypertrophic obstructive cardiomyopathy s/p myomectomy 09/1999, LBBB, HLD, DM II, recurrent lacunar CVA with residual left extremity weakness, h/o SVT and NSTEMI in 12/2015, cardiac cath with occlusion to right coronary artery presented to ER with complaint of chest heaviness. Patient states this morning started with chest heaviness, shortness of breath, dizziness, palpitations. Denies fever/chills, diaphoresis, N/V/D/C, ASHLEY, syncope, vision changes, neck pain, orthopnea, cough, sore throat, choking, otalgia, rhinorrhea, abdominal pain, paresthesias, increased extremity weakness, extremity edema, rashes, urinary symptoms. History echo 07/2017: EF: 50-54%, small size inferior wall motion abnormality with hypokinesis basal inferior segment, mild mitral regurgitation. No significant change from prior study 05/2017 Patient reports did not have her medications today. In ER found to have wide-complex tachycardia and patient was started on amiodarone and patient converted to sinus rhythm however return to tachycardia. Cardiology was consulted-Dr. Andre. SVT with aberrancy and left bundle branch block. Amiodarone drip was stopped secondary to history of bradycardia in the past. Patient was given adenosine 6 mg IV with conversion to sinus rhythm rate in the 60s. Patient was given metoprolol 5 mg IV, Lopressor 50 mg p.o., 1 L NSS, magnesium 1 g, 2K riders, potassium 40 mEq p.o. Patient was started on heparin drip secondary to troponin 0.29. Primary Care Provider: Asad Roberts MD Allergies Allergy/AdvReac Type Severity Reaction Status Date / Time niacin Allergy Mild RASH Verified 10/28/18 14:57 clonidine Allergy Unknown RASH Verified 10/28/18 14:57 spironolactone Allergy Unknown RASH Verified 10/28/18 14:57 Home Medications Home Medications Medication Instructions Recorded Confirmed Type aspirin [Aspirin Low Dose] 81 mg PO DAILY 08/01/18 10/28/18 History atorvastatin 80 mg PO DAILY 08/01/18 10/28/18 History calcitriol 0.25 mg PO 2XWK 08/01/18 10/28/18 History clopidogrel [Plavix] 75 mg PO QAM 08/01/18 10/28/18 History fish,bora,flax oils-om3,6,9no1 1 cap PO QAM 08/01/18 10/28/18 History [[place] 3-6-9 Complex] folic acid 1 mg PO QAM 08/01/18 10/28/18 History gemfibrozil 600 mg PO QAM 08/01/18 10/28/18 History isosorbide mononitrate 60 mg PO QAM 08/01/18 10/28/18 History metoprolol tartrate 50 mg PO BID 08/01/18 10/28/18 History ropinirole 5 mg PO HS 08/01/18 10/28/18 History gemfibrozil 300 mg PO QPM 10/10/18 10/28/18 History losartan-hydrochlorothiazide 1 tab PO DAILY 10/10/18 10/28/18 History [Hyzaar] Lactobacillus acidoph-L.bulgar 1 packet PO TID 10/28/18 10/28/18 History [Floranex] calcium carbonate-vitamin D3 1 cap PO DAILY 10/28/18 10/28/18 History [Calcium 600 + D(3)] coenzyme Q10 [CoQ-10] 100 mg PO DAILY 10/28/18 10/28/18 History fish,bora,flax oils-om3,6,9no1 2 cap PO HS 10/28/18 10/28/18 History glimepiride [Amaryl] 1 mg PO QAM 10/28/18 10/28/18 History hydralazine 25 mg PO TID 10/28/18 10/28/18 History Past Med/Surg History Medical History HTN (hypertension) (Chronic) LBBB (left bundle branch block) (Chronic) History of paroxysmal supraventricular tachycardia (Chronic) Restless leg syndrome (Chronic) Urinary, incontinence, stress female (Chronic) Coronary artery disease (Chronic) status post non-STEMI 2016; cath showed RCA occlusion CKD (chronic kidney disease), stage III (Chronic) Essential hypertension (Chronic) Diabetes mellitus type 2 with complications (Chronic) Dyslipidemia (Chronic) Mitral insufficiency (Chronic) Hypertrophic cardiomyopathy (Chronic) Cerebrovascular disease (Chronic) status post ischemic stroke Surgical History Status post myomectomy (Chronic) Status post tonsillectomy (Chronic) Status post appendectomy (Chronic) Status post cardiac catheterization (Chronic) 2016, occlusion RCA Family History Father Coronary heart disease Mother Heart disease Hypertension Social History Preferred Language: Bruneian Communication Ability: 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 Beliefs That Will Affect Care: None Current Living Situation: Spouse Other Information That Helps Us Care for You: No Feels Safe at Home: Yes Safety Concerns: Feels Safe At This Time Smoking Status: Never smoker Do You Dip or Chew Tobacco: No Second Hand Exposure: No Tobacco Cessation Education Requested by Patient: No Hx Alcohol Use: No Hx Substance Use: No Review of Systems Review of Systems: All systems reviewed & are unremarkable except as noted in HPI & below Physical Exam Physical Exam: General: no acute distress at this time, resting supine in bed, WDWN Head: normocephalic, atraumatic Eyes: PERRL, EOM's intact, conjunctiva non-injected, anicteric ENT: normal inspection external ears, nose, mucous membranes moist Neck: supple, trachea midline Lungs: clear, no respiratory distress, no wheezing/rhonchi/rales CV: RRR, no murmur, no pretibial edema Abd: normal BS, soft, non-tender Ext: no cyanosis, no calf tenderness Neuro: A&O x 3, no focal deficits noted, normal affect Skin: warm, dry Results & Data Vital Signs (Past 12 Hours) Vital Signs Temp Pulse Pulse Resp BP BP Pulse Ox 10/28/18 15:40 63 18 153/77 H 100 10/28/18 15:35 64 18 152/84 H 100 10/28/18 15:30 64 18 132/79 100 10/28/18 15:25 62 18 144/77 H 99 10/28/18 15:21 63 20 144/79 H 100 10/28/18 15:20 63 62 18 144/79 H 98 10/28/18 15:15 62 63 18 151/80 H 151/80 H 98 10/28/18 15:10 62 63 17 156/83 H 156/83 H 100 10/28/18 15:05 64 18 148/77 H 100 10/28/18 15:00 130 H 25 H 147/110 H 98 10/28/18 14:50 131 H 17 126/87 98 10/28/18 14:48 135 H 105/81 10/28/18 14:46 133 H 15 105/81 99 10/28/18 14:41 66 17 137/72 99 10/28/18 14:40 60 16 99 10/28/18 14:36 64 15 135/79 99 10/28/18 14:32 62 20 99 10/28/18 14:31 63 22 130/83 99 10/28/18 14:30 63 18 99 10/28/18 14:25 66 19 127/69 97 10/28/18 14:21 132 H 17 103/84 97 10/28/18 14:20 133 H 15 98 10/28/18 14:18 136 H 18 116/87 97 10/28/18 14:15 142 H 18 118/82 98 10/28/18 14:05 149 H 20 106/84 97 10/28/18 14:01 98 10/28/18 14:00 98 10/28/18 13:59 37.0 C 151 H 20 118/97 98 Laboratory Results Short CBC 10/28/18 Range/Units 14:00 WBC 9.91 (4.8-10.8) K/uL Hgb 13.8 (12.0-16.0) g/dL Hct 38.9 (37-47) % Plt Count 250 (130-400) K/uL BMP 10/28/18 14:00 Sodium 141 Potassium 3.1 L Chloride 113 H Carbon Dioxide 16 L BUN 36 H Creatinine 1.89 H Glucose 162 H Calcium 9.4 Cardiac Enzymes 10/28/18 Range/Units 14:00 Total Creatine Kinase 227 H (26-192) U/L CK-MB (CK-2) 12.8 H (0.5-3.6) ng/ml Troponin I 0.296 H* (0-0.045) ng/ml Liver Function 10/28/18 Range/Units 14:00 Total Bilirubin 0.3 (0.2-1) mg/dl AST 18 (15-37) U/L ALT 17 (12-78) U/L Alkaline Phosphatase 93 (45-117) U/L Albumin 3.6 (3.4-5.0) gm/dl Diagnostic Findings CXR: IMPRESSION: No acute process. ECG Rate (beats per minute): 149 Rhythm: other (wide complex tachycardia) Findings: + LBBB Supervising Physician Co-Signing Physician Notes Attending addendum Patient is seen and examined in telemetry unit Pt is 72 y/o F with PMH labile HTN, hypertrophic obstructive cardiomyopathy s/p myomectomy 09/1999, LBBB, HLD, DM II, recurrent lacunar CVA with residual left extremity weakness, h/o SVT and NSTEMI in 12/2015, cardiac cath with occlusion to right coronary artery presented to ER with complaint of chest heaviness. Her symptoms has been going on for last few days She complained to have chest tightness and palpitation when she was thinking that she is going to have a heart attack She has noted to have wide-complex tachycardia in the emergency room Initially she was given intravenous amiodarone, her heart rate went down significantly and then better discontinued and started with oral beta-blessing She has been feeling much better during examination telemetry unit On examination No apparent distress at rest Hemodynamically stable Chest-clear to auscultate bilaterally Heart-S1-S2, regular with tachycardia Abdomen-benign Extremities-negative Admission labs, EKG and imaging studies noted She has complex SVT with history of cardiomyopathy with myomectomy and CAD Reverted to sinus rhythm with beta-blessing with episodes of sinus tachycardia Cardiology consulted We will try small dose of intravenous beta-blessing on top of oral now We will supplement electrolytes and the patient is anticoagulated Agree with assessment and plan as outlined above by JACY James Dr
[2018-10-28] MEDS ORDERED: NITROGLYCERIN SL 0.4 MG/TAB TAB SL PRN (16:50)
[2018-10-28] MEDS ORDERED: ACETAMINOPHEN 325 MG TAB PO PRN (16:50)
[2018-10-28] MEDS ORDERED: CARBOHYDRATES FOR HYPOGLYCEMIA PO PRN (16:59)
[2018-10-28] MEDS ORDERED: DEXTROSE 50% 50 ML SYRINGE IV PRN (16:59)
[2018-10-28] MEDS ORDERED: GLUCOSE 10 TABS/TUBE PO PRN (16:59)
[2018-10-28] MEDS ORDERED: GLUCAGON FOR INJ 1 MG VIAL SQ PRN (16:59)
[2018-10-28] MEDS ORDERED: GLUCOSE 40% GEL 15 GM TUBE PO PRN (16:59)
[2018-10-28 17:22] LABS: Magnesium 2.3 mg/dl (1.8-2.4)
[2018-10-28] MEDS ORDERED: METOPROLOL TARTRATE 1 MG/ML VIAL IV PRN (18:25)
[2018-10-28] MEDS ORDERED: SODIUM CHLORIDE 0.9% 1000ML 1,000 ML IV SCH (18:30)
[2018-10-28] MEDS: ROPINIROLE HCL 5 MG TABLET PO PRN (19:32)
[2018-10-28] MEDS: CALCITRIOL 0.25 MCG CAPSULE PO SCH (19:33)
[2018-10-28] MEDS: GEMFIBROZIL 600 MG TAB PO SCH (19:34)
[2018-10-28] MEDS: OMEGA-3 (PURIFIED FISH OIL) 1 GM CAP PO SCH (19:34)
[2018-10-28] MEDS ORDERED: METOPROLOL TARTRATE 25 MG TAB PO SCH (21:00)
[2018-10-28] MEDS: INSULIN ASPART 100 UNITS/ML 3 ML PEN SC SCH (21:32)
[2018-10-28 21:48] LABS: Partial Thromboplastin Ratio 2.2
[2018-10-28 21:50] LABS: BUN Creatinine Ratio 19.4 (10-20); Calcium 9.5 mg/dl (8.5-10.1); Creatinine Clr Calc Pharmacy 21.4 ml/min; Est GFR (African American) 31.6; Est GFR (Non-African American) 27.3; Potassium 3.6 mmol/L (3.5-5.1); Troponin I 18.7 ng/ml (0-0.045)
[2018-10-28 21:55] LABS: Partial Thromboplastin Time 60.7 Seconds (21.0-31.0)
[2018-10-28] MEDS ORDERED: LACTATED RINGER'S 1,000 ML IV ONE (22:02)
--- NOTE | 2018-10-28 22:10 | Emergency Department Note ---
Entered by Melissa Lim acting as a scribe for Johny Mckinney DO History of Present Illness General Chief complaint: Chest Pain Stated complaint: CHEST PAIN, SENT BY DR. WEBB Home Medications Home Medications Medication Instructions Recorded Confirmed Type aspirin [Aspirin Low Dose] 81 mg PO DAILY 08/01/18 10/10/18 History atorvastatin 80 mg PO DAILY 08/01/18 10/10/18 History calcitriol 0.25 mg PO 2XWK 08/01/18 10/10/18 History clopidogrel [Plavix] 75 mg PO QAM 08/01/18 10/10/18 History fish,bora,flax oils-om3,6,9no1 1 cap PO TID 08/01/18 10/10/18 History [[place] 3-6-9 Complex] folic acid 1 mg PO QAM 08/01/18 10/10/18 History gemfibrozil 600 mg PO QAM 08/01/18 10/10/18 History hydralazine 50 mg PO TID 08/01/18 10/10/18 History isosorbide mononitrate 60 mg PO QAM 08/01/18 10/10/18 History lisinopril 10 mg PO DAILY 08/01/18 10/10/18 History metoprolol tartrate 50 mg PO BID 08/01/18 10/10/18 History ropinirole 5 mg PO HS 08/01/18 10/10/18 History gemfibrozil 300 mg PO QPM 10/10/18 10/10/18 History glimepiride 4 mg PO QAM 10/10/18 10/10/18 History losartan-hydrochlorothiazide 1 tab PO DAILY 10/10/18 10/10/18 History [Hyzaar] potassium chloride 20 meq PO DAILY #5 tab 10/10/18 Rx Allergies Allergy/AdvReac Type Severity Reaction Status Date / Time niacin Allergy Mild RASH Verified 10/10/18 17:38 clonidine Allergy Unknown RASH Verified 10/10/18 17:38 spironolactone Allergy Unknown RASH Verified 10/10/18 17:38 Past Med/Surg History Social History Preferred Language: Hong Konger Communication Ability: Effective Beliefs That Will Affect Care: None Current Living Situation: Spouse Feels Safe at Home: Yes Smoking Status: Never smoker Second Hand Exposure: No Hx Alcohol Use: No Hx Substance Use: No Discharge Plan Visit Data Chief Complaint: Chest Pain Stated Complaint: CHEST PAIN, SENT BY DR. WEBB ED Provider: DAT PALMER Prescriptions Prescriptions: No Action atorvastatin 80 mg Tablet 80 mg PO DAILY RF: 0 clopidogrel [Plavix] 75 mg Tablet 75 mg PO QAM RF: 0 aspirin [Aspirin Low Dose] 81 mg Tablet,Delayed Release (Dr/Ec) 81 mg PO DAILY RF: 0 isosorbide mononitrate 60 mg Tablet Extended Release 24 Hr 60 mg PO QAM RF: 0 gemfibrozil 600 mg Tablet 600 mg PO QAM RF: 0 lisinopril 10 mg Tablet 10 mg PO DAILY RF: 0 metoprolol tartrate 50 mg Tablet 50 mg PO BID RF: 0 folic acid 1 mg Tablet 1 mg PO QAM RF: 0 hydralazine 50 mg tablet 50 mg PO TID RF: 0 ropinirole 5 mg tablet 5 mg PO HS RF: 0 calcitriol 0.25 mcg capsule 0.25 mg PO 2XWK RF: 0 fish,bora,flax oils-om3,6,9no1 [[place] 3-6-9 Complex] 400-400-400 mg Capsule 1 cap PO TID RF: 0 gemfibrozil 600 mg Tablet 300 mg PO QPM RF: 0 glimepiride 4 mg Tablet 4 mg PO QAM RF: 0 losartan-hydrochlorothiazide [Hyzaar] 50-12.5 mg Tablet 1 tab PO DAILY RF: 0 potassium chloride 20 mEq tablet extended release 20 meq PO DAILY Qty: 5 RF: 0
[2018-10-28 22:36] LABS: Magnesium 2.5 mg/dl (1.8-2.4)
[2018-10-29] MEDS ORDERED: DIGOXIN 250 MCG in SYRINGE 9 ML IV STA (01:11)
[2018-10-29 02:20] LABS: Hematocrit (blood only) 36.1 % (37-47); Hemoglobin 13.2 g/dL (12.0-16.0); Mean Corpuscular Hgb Conc 36.6 g/dL (32-36); Mean Corpuscular Volume 83.2 fL (80-100); Platelet Count 210 K/uL (130-400); RDW Standard Deviation 46.2 fL (36.4-46.3); Red Blood Count 4.34 M/uL (4.2-5.4); White Blood Count 10.89 K/uL (4.8-10.8)
[2018-10-29 02:41] LABS: BUN Creatinine Ratio 20.4 (10-20); Calcium 8.8 mg/dl (8.5-10.1); Creatinine Clr Calc Pharmacy 22.1 ml/min; Est GFR (African American) 32.9; Est GFR (Non-African American) 28.4; Magnesium 2.3 mg/dl (1.8-2.4); Potassium 3.4 mmol/L (3.5-5.1)
[2018-10-29 02:45] LABS: Partial Thromboplastin Ratio 2.1
[2018-10-29 02:46] LABS: Partial Thromboplastin Time 56.3 Seconds (21.0-31.0)
[2018-10-29 02:47] LABS: Troponin I 21.3 ng/ml (0-0.045)
[2018-10-29] MEDS ORDERED: LACTATED RINGER'S 1,000 ML IV ONE (02:51)
[2018-10-29] MEDS ORDERED: METOPROLOL TARTRATE 1 MG/ML VIAL IV STA (02:57)
[2018-10-29] MEDS ORDERED: SODIUM CHLOR 0.45% + 20MEQ KCL 20 MEQ/1,000 ML BAG IV ONE (03:00)
[2018-10-29 03:04] LABS: Basophils # (auto) 0.04 K/uL (0-0.2); Basophils % (auto) 0.4 %; Echinocytes 1+; Eosinophils # (auto) 0.14 K/uL (0-0.5); Eosinophils % (auto) 1.3 %; Immature Granulocytes # (auto) 0.04 K/uL (0.00-0.02); Immature Granulocytes % (auto) 0.4 %; Lymphocytes # (auto) 2.69 K/uL (1.2-3.4); Lymphocytes % (auto) 24.7 %; Monocytes # (auto) 0.68 K/uL (0.11-0.59); Monocytes % (auto) 6.2 %
[2018-10-29] MEDS: METOPROLOL TARTRATE 25 MG TAB PO SCH ×4 (04:06→19:21)
[2018-10-29] MEDS: POTASSIUM CHLORIDE / WTR 10 MEQ/100 ML PLCT IV SCH ×6 (04:07→09:08)
[2018-10-29] MEDS ORDERED: dilTIAZem HCl 5 MG/ML 5 ML VIAL IV STA (04:22)
[2018-10-29 04:29] LABS: Appearance Urine Clear (Clear); Bacteria Urine Automated Negative (Negative); Bilirubin Urine Negative (Negative); Blood Urine Negative (Negative); Color Urine Yellow; Glucose Urine UA Negative (Negative); Ketones Urine Negative (Negative); Leukocyte Esterase Urine Negative (Negative); Nitrite Urine Negative (Negative); Protein Urine 1+ (Negative); RBC Urine Automated 0-4 /hpf (0-4); Specific Gravity Urine 1.016 (1.000-1.030); Urobilinogen Urine Negative (Negative)
[2018-10-29] MEDS: CALCIUM 600MG + VIT D 400 IU TAB PO SCH (07:54)
[2018-10-29] MEDS: ATORVASTATIN 40 MG TAB PO SCH (07:54)
[2018-10-29] MEDS: FOLIC ACID 1 MG TAB PO SCH (07:54)
[2018-10-29] MEDS: ISOSORBIDE MONO EXTENDED REL 60 MG TABCR PO SCH (07:54)
[2018-10-29] MEDS: GEMFIBROZIL 600 MG TAB PO SCH ×2 (07:54→19:20)
[2018-10-29] MEDS: OMEGA-3 (PURIFIED FISH OIL) 1 GM CAP PO SCH ×2 (07:55→19:21)
[2018-10-29] MEDS: CLOPIDOGREL BISULFATE 75 MG TAB PO SCH (07:55)
[2018-10-29] MEDS: INSULIN ASPART 100 UNITS/ML 3 ML PEN SC SCH ×4 (07:59→20:33)
[2018-10-29] MEDS ORDERED: LOSARTAN/HCTZ 50/12.5MG TAB PO SCH (09:00)
[2018-10-29] MEDS ORDERED: FUROSEMIDE 40 MG/4 ML VIAL IV ONE (09:13)
--- NOTE | 2018-10-29 09:13 | Hospitalist Progress Note ---
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 May be secondary to demand ischemia or SVT -continue heparin drip -cardiology consulted, appreciate recommendations (3) Hypokalemia: K: 3.1 In ER pt given potassium 10meq IV x 2, potassium 40 mEq p.o - replaced (4) Hypertrophic cardiomyopathy: S/P myomectomy in 09/1999 (5) Coronary artery disease: Hx cardiac cath with occlusion to right coronary artery with retrograde fill via collaterals in 2016 -hold aspirin as on heparin drip per cardiology recommendations -lopressor decreased from 50mg BID to 25mg BID per cardiology recommendations -continue statin, imdur -trending troponins, heparin drip as above (6) CKD (chronic kidney disease), stage III: Cr: 1.89. 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 No increased extremity weakness, ASHLEY or focal deficit -continue plavix, statin -holding aspirin as above (8) Diabetes mellitus, type II: A1c: 7.3 on 07/2018 -hold glimepiride -NovoLog sliding scale per protocol (9) HTN (hypertension): Hydralazine dosage was recently decreased by PCP -Continue hydralazine, losartan/HCTZ -Lopressor decreased to 25 mg twice daily as per above -Monitor BP (10) Dyslipidemia: -Continue statin, gemfibrozil (11) Restless leg syndrome: -Continue with ropinirole DVT Prophylaxis -On heparin IV Full Code as per discussion with pt, however reports would not want prolonged life support if poor prognosis Follows with Dr Roberts for routine care Subjective ff up for SVT seen resting in bed, not in distress does report increased dyspnea, wheezing intermittent cough no chest pain, dizziness, palpitations, nausea no other symptoms Review of Systems Review of Systems: All systems reviewed & are unremarkable except as noted in HPI & below Physical Exam Physical Exam: General- oriented x 3, not in distress, speaks in sentences with no effort or accessory muscle use Head- atraumatic Eyes- PERRL, EOMI, anicteric ENT- oropharynx clear Neck- supple, no JVD, no adenopathy, no thyromegaly; carotids +2/2, no bruits appreciated Lungs-(+) scattered wheeze b/l Heart- normal rate, regular rhythm; no murmur, no gallop, no rub appreciated Abdomen- normal bowel sounds, nondistended, soft, nontender, no masses or hepatosplenomegaly Extremities- no pretibial edema, no calf tenderness; peripheral pulses intact Neuro- alert, oriented x 3; CN 2-12 grossly intact; motor 5/5 bilaterally;sensation 100% on all extremities; no other gross focal neurologic deficits Skin- warm & dry Results & Data Vital Signs (Past 12 Hours) Vital Signs Temp Pulse Pulse Pulse Resp BP BP 10/29/18 07:48 36.6 C 125 H 20 160/105 H 10/29/18 04:48 56 L 134/76 10/29/18 04:21 36.4 C L 130 H 16 140/92 10/29/18 04:06 131 H 140/92 10/29/18 01:21 135 H 10/29/18 00:22 36.7 C 133 H 18 108/68 10/28/18 22:21 135 H 124/92 Pulse Ox 10/29/18 07:48 90 10/29/18 04:48 10/29/18 04:21 97 10/29/18 04:06 10/29/18 01:21 10/29/18 00:22 99 10/28/18 22:21 Laboratory Results Laboratory Results - last 24 hr 10/28/18 10/28/18 10/28/18 14:00 20:31 21:10 WBC RBC Hgb Hct MCV MCH MCHC RDW Std Deviation RDW Coeff of Sara Plt Count MPV Immature Gran % (Auto) Neut % (Auto) Lymph % (Auto) [place] % (Auto) Eos % (Auto) Baso % (Auto) Immature Gran # (Auto) Neut # (Auto) Lymph # (Auto) [place] # (Auto) Eos # (Auto) Baso # (Auto) Echinocytes APTT PTT Ratio Sodium 146 H Potassium 3.6 D Chloride 117 H Carbon Dioxide 17 L Anion Gap 11.0 BUN 35 H Creatinine 1.81 H Est Cr Clr Drug Dosing 21.4 Est GFR ( Amer) 31.6 Est GFR (Non-Af Amer) 27.3 BUN/Creatinine Ratio 19.4 Glucose 106 H POC Glucose 114 H Calcium 9.5 Magnesium 2.3 2.5 H Troponin I 18.700 H* TSH 1.640 Urine Color Urine Appearance Urine pH Ur Specific [place] Urine Protein Urine Glucose (UA) Urine Ketones Urine Blood Urine Nitrite Urine Bilirubin Urine Urobilinogen Ur Leukocyte Esterase Urine WBC (Auto) Urine RBC (Auto) U Hyaline Cast (Auto) U Epithel Cells (Auto) Urine Bacteria (Auto) 10/28/18 10/28/18 10/29/18 21:10 21:10 01:56 WBC RBC Hgb Hct MCV MCH MCHC RDW Std Deviation RDW Coeff of Sara Plt Count MPV Immature Gran % (Auto) Neut % (Auto) Lymph % (Auto) [place] % (Auto) Eos % (Auto) Baso % (Auto) Immature Gran # (Auto) Neut # (Auto) Lymph # (Auto) [place] # (Auto) Eos # (Auto) Baso # (Auto) Echinocytes APTT 60.7 H* PTT Ratio 2.2 Sodium 141 Potassium 3.4 L Chloride 115 H Carbon Dioxide 17 L Anion Gap 9.0 BUN 36 H Creatinine 1.75 H Est Cr Clr Drug Dosing 22.1 Est GFR ( Amer) 32.9 Est GFR (Non-Af Amer) 28.4 BUN/Creatinine Ratio 20.4 H Glucose 120 H POC Glucose Calcium 8.8 Magnesium Cancelled 2.3 Troponin I 21.300 H* TSH Urine Color Urine Appearance Urine pH Ur Specific [place] Urine Protein Urine Glucose (UA) Urine Ketones Urine Blood Urine Nitrite Urine Bilirubin Urine Urobilinogen Ur Leukocyte Esterase Urine WBC (Auto) Urine RBC (Auto) U Hyaline Cast (Auto) U Epithel Cells (Auto) Urine Bacteria (Auto) 10/29/18 10/29/18 10/29/18 01:56 01:56 04:15 WBC 10.89 H RBC 4.34 Hgb 13.2 Hct 36.1 L MCV 83.2 MCH 30.4 MCHC 36.6 H RDW Std Deviation 46.2 RDW Coeff of Sara 15.0 H Plt Count 210 MPV 11.0 H Immature Gran % (Auto) 0.4 Neut % (Auto) 67.0 Lymph % (Auto) 24.7 [place] % (Auto) 6.2 Eos % (Auto) 1.3 Baso % (Auto) 0.4 Immature Gran # (Auto) 0.04 H Neut # (Auto) 7.30 H Lymph # (Auto) 2.69 [place] # (Auto) 0.68 H Eos # (Auto) 0.14 Baso # (Auto) 0.04 Echinocytes 1+ APTT 56.3 H* PTT Ratio 2.1 Sodium Potassium Chloride Carbon Dioxide Anion Gap BUN Creatinine Est Cr Clr Drug Dosing Est GFR ( Amer) Est GFR (Non-Af Amer) BUN/Creatinine Ratio Glucose POC Glucose Calcium Magnesium Troponin I TSH Urine Color Yellow Urine Appearance Clear Urine pH 5.0 Ur Specific [place] 1.016 Urine Protein 1+ H Urine Glucose (UA) Negative Urine Ketones Negative Urine Blood Negative Urine Nitrite Negative Urine Bilirubin Negative Urine Urobilinogen Negative Ur Leukocyte Esterase Negative Urine WBC (Auto) 1-5 Urine RBC (Auto) 0-4 U Hyaline Cast (Auto) 1-5 U Epithel Cells (Auto) 10-20 H Urine Bacteria (Auto) Negative 10/29/18 10/29/18 10/29/18 07:18 08:38 11:58 WBC RBC Hgb Hct MCV MCH MCHC RDW Std Deviation RDW Coeff of Sara Plt Count MPV Immature Gran % (Auto) Neut % (Auto) Lymph % (Auto) [place] % (Auto) Eos % (Auto) Baso % (Auto) Immature Gran # (Auto) Neut # (Auto) Lymph # (Auto) [place] # (Auto) Eos # (Auto) Baso # (Auto) Echinocytes APTT PTT Ratio Sodium 140 Potassium 4.9 D Chloride 115 H Carbon Dioxide 14 L Anion Gap 11.0 BUN 32 H Creatinine 1.69 H Est Cr Clr Drug Dosing 23.5 Est GFR ( Amer) 34.3 Est GFR (Non-Af Amer) 29.6 BUN/Creatinine Ratio 18.8 Glucose 198 H POC Glucose 126 H 202 H Calcium 9.4 Magnesium Troponin I TSH Urine Color Urine Appearance Urine pH Ur Specific [place] Urine Protein Urine Glucose (UA) Urine Ketones Urine Blood Urine Nitrite Urine Bilirubin Urine Urobilinogen Ur Leukocyte Esterase Urine WBC (Auto) Urine RBC (Auto) U Hyaline Cast (Auto) U Epithel Cells (Auto) Urine Bacteria (Auto) 10/29/18 16:49 WBC RBC Hgb Hct MCV MCH MCHC RDW Std Deviation RDW Coeff of Sara Plt Count MPV Immature Gran % (Auto) Neut % (Auto) Lymph % (Auto) [place] % (Auto) Eos % (Auto) Baso % (Auto) Immature Gran # (Auto) Neut # (Auto) Lymph # (Auto) [place] # (Auto) Eos # (Auto) Baso # (Auto) Echinocytes APTT PTT Ratio Sodium Potassium Chloride Carbon Dioxide Anion Gap BUN Creatinine Est Cr Clr Drug Dosing Est GFR ( Amer) Est GFR (Non-Af Amer) BUN/Creatinine Ratio Glucose POC Glucose 82 Calcium Magnesium Troponin I TSH Urine Color Urine Appearance Urine pH Ur Specific [place] Urine Protein Urine Glucose (UA) Urine Ketones Urine Blood Urine Nitrite Urine Bilirubin Urine Urobilinogen Ur Leukocyte Esterase Urine WBC (Auto) Urine RBC (Auto) U Hyaline Cast (Auto) U Epithel Cells (Auto) Urine Bacteria (Auto)
--- NOTE | 2018-10-29 09:20 | XRay Report ---
XR chest 1V portable CLINICAL HISTORY: wheezing, r/o pulmonary edema dyspnea COMPARISON STUDY: 10/28/2018 FINDINGS: Moderate cardiomegaly. Prior median sternotomy. Increased pulmonary vasculature. Diaphragms remain smooth. IMPRESSION: Developing pulmonary edema versus changes of congestive heart failure The above report was generated using voice recognition software. It may contain grammatical, syntax or spelling errors. Electronically signed by: Feliz Marquis M.D. 10/29/2018 9:18 AM
[2018-10-29] MEDS ORDERED: FUROSEMIDE 20 MG in SYRINGE 0 ML IV ONE ×2 (09:30→10:00)
[2018-10-29 09:35] LABS: BUN Creatinine Ratio 18.8 (10-20); Calcium 9.4 mg/dl (8.5-10.1); Creatinine Clr Calc Pharmacy 23.5 ml/min; Est GFR (African American) 34.3; Est GFR (Non-African American) 29.6; Potassium 4.9 mmol/L (3.5-5.1)
--- NOTE | 2018-10-29 12:01 | Cardiology Progress Note ---
Date of Service October 29, 2018 Assessment & Plan (1) Wide-complex tachycardia: Rhythm once again appears to be SVT with aberrant conduction. 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 wide variation of rates overnight, concerned for tachybrady syndrome unable to uptitrate AV rosy blocking agents given episodes of bradycardia would absolutely avoid antiarrhythmics given underlying conduction system disease will ultimately likely require PPM placement and I've discussed this with her will cont to monitor for now Troponins are elevated on presentation possibly secondary to tachyarrhythmias versus demand based ischemia known chronic right coronary occlusion. Will initiate IV heparin (2) History of paroxysmal supraventricular tachycardia: As above (3) LBBB (left bundle branch block): Patient with first-degree AV block as well will need to monitor closely for significant bradycardia arrhythmias recent symptoms of dizziness question tachycardia versus bradycardia mediated (4) Coronary artery disease: Continue beta-blessing, clopidogrel with addition of IV heparin initially. Hold aspirin after 24 hours (5) CKD (chronic kidney disease), stage III: (6) Mitral insufficiency: (7) Hypertrophic cardiomyopathy: (8) Status post myomectomy: (9) History of CVA (cerebrovascular accident): (10) Dizziness: Patient has a history of long-standing labile hypertension brittle. Notes blood pressures been recently controlled as well as have been lower extremity edema issues Subjective Pt seen and examined, states that she's feeling well, overall. Did have some lightheadedness upon ambulating this AM. Also, sparse palpitations overnight. Denies cp, sob, or syncope. tele reviewed: alternating sinus bradycardia in 50's with wide complex SVT into 140's Review of Systems Review of Systems: All systems reviewed & are unremarkable except as noted in HPI & below Physical Exam Physical Exam: General: Awake, alert and oriented x 3. No acute distress. HEENT: Normocephalic, atraumatic. Pupils equal, round and reactive to light and accommodation. Extraocular muscles are intact. Anicteric sclera. Moist mucous membranes. Neck: No JVD. No bruit. Cardiovascular: Regular. Positive S-4. Normal S-1 and S-2. No S-3. 3/6 mid to late systolic ejection murmur, greatest at the right sternal border, second intercostal space with radiation to the bilateral carotids. No rubs. Pulmonary: Clear to auscultation bilaterally. No rales, rhonchi, or wheezing. Abdomen: Bowel sounds x 4, soft. No rebound, guarding or tenderness. No organomegaly. Extremities: No clubbing, cyanosis or edema. +2 pedal pulses bilaterally. Skin: Warm and dry. Results & Data Vital Signs (Past 12 Hours) Vital Signs Temp Pulse Pulse Pulse Resp BP BP 10/29/18 11:38 36.3 C L 67 16 177/78 H 10/29/18 07:48 36.6 C 125 H 20 160/105 H 10/29/18 04:48 56 L 134/76 10/29/18 04:21 36.4 C L 130 H 16 140/92 10/29/18 04:06 131 H 140/92 10/29/18 01:21 135 H 10/29/18 00:22 36.7 C 133 H 18 108/68 Pulse Ox 10/29/18 11:38 97 10/29/18 07:48 90 10/29/18 04:48 10/29/18 04:21 97 10/29/18 04:06 10/29/18 01:21 10/29/18 00:22 99
[2018-10-29] MEDS: LOSARTAN/HCTZ 50/12.5MG TAB PO SCH (13:05)
[2018-10-29] MEDS: ROPINIROLE HCL 5 MG TABLET PO PRN (18:02)
[2018-10-29] MEDS ORDERED: LEVALBUTEROL HCL 0.63 MG/3 ML NEB NEB PRN (18:52)
[2018-10-29] MEDS ORDERED: LEVALBUTEROL HCL 0.63 MG/3 ML NEB NEB STA (18:52)
[2018-10-29] MEDS: Heparin Adult STANDARD Wt-Based Dextrose 5% 25,000 units/500 mL IV SCH (19:24)
[2018-10-30 06:29] LABS: Partial Thromboplastin Ratio 1.6; Partial Thromboplastin Time 43.3 Seconds (21.0-31.0)
[2018-10-30] MEDS ORDERED: HEPARIN IV BOLUS 2,000 UNITS in SYRINGE 0 ML IV ONE (07:00)
[2018-10-30] MEDS: ISOSORBIDE MONO EXTENDED REL 60 MG TABCR PO SCH (07:47)
[2018-10-30] MEDS: LOSARTAN/HCTZ 50/12.5MG TAB PO SCH (07:47)
[2018-10-30] MEDS: ATORVASTATIN 40 MG TAB PO SCH (07:47)
[2018-10-30] MEDS: CLOPIDOGREL BISULFATE 75 MG TAB PO SCH (07:48)
[2018-10-30] MEDS: METOPROLOL TARTRATE 25 MG TAB PO SCH ×3 (07:48→21:08)
[2018-10-30] MEDS: GEMFIBROZIL 600 MG TAB PO SCH ×2 (07:48→21:06)
[2018-10-30] MEDS: FOLIC ACID 1 MG TAB PO SCH (07:48)
[2018-10-30] MEDS: OMEGA-3 (PURIFIED FISH OIL) 1 GM CAP PO SCH ×2 (07:49→21:08)
[2018-10-30] MEDS: CALCIUM 600MG + VIT D 400 IU TAB PO SCH (07:49)
--- NOTE | 2018-10-30 07:50 | Emergency Department Note ---
Entered by Alejandra Perkins acting as a scribe for History of Present Illness General Chief complaint: Chest Pain Stated complaint: CHEST PAIN, SENT BY DR. ANDRE Time Seen by Provider: 10/28/18 13:56 Source: patient Limitations: no limitations History of Present Illness Provider complaint: chest pain Onset (ago): hour(s) 3 Location: chest Severity: mild Current Pain Intensity: 3 Associated symptoms: + shortness of breath Treatments prior to arrival: aspirin (4 baby Aspirin ) The patient is a 72 year old female who presents to the Emergency Room with complaints of chest pain that began 3 hours prior to arrival. The patient describes her pain as a pressure and rates it a 3/10 in severity upon arrival. The patient states that she has shortness of breath. The patient states that she saw at Dr. Roberts-Internal Medicine for a follow-up appointment 1 day prior to arrival and states that her blood pressure was low at 90/78. The patient states that she was given 4 baby Aspirin at [facility] prior to arrival. The patient states that she has a history of a heart attack and 1 stent placed. The patient denies a history of smoking tobacco. Home Medications Home Medications Medication Instructions Recorded Confirmed Type aspirin [Aspirin Low Dose] 81 mg PO DAILY 08/01/18 10/28/18 History atorvastatin 80 mg PO DAILY 08/01/18 10/28/18 History calcitriol 0.25 mg PO 2XWK 08/01/18 10/28/18 History clopidogrel [Plavix] 75 mg PO QAM 08/01/18 10/28/18 History fish,bora,flax oils-om3,6,9no1 1 cap PO QAM 08/01/18 10/28/18 History [[place] 3-6-9 Complex] folic acid 1 mg PO QAM 08/01/18 10/28/18 History gemfibrozil 600 mg PO QAM 08/01/18 10/28/18 History isosorbide mononitrate 60 mg PO QAM 08/01/18 10/28/18 History metoprolol tartrate 50 mg PO BID 08/01/18 10/28/18 History ropinirole 5 mg PO HS 08/01/18 10/28/18 History gemfibrozil 300 mg PO QPM 10/10/18 10/28/18 History losartan-hydrochlorothiazide 1 tab PO DAILY 10/10/18 10/28/18 History [Hyzaar] Lactobacillus acidoph-L.bulgar 1 packet PO TID 10/28/18 10/28/18 History [Floranex] calcium carbonate-vitamin D3 1 cap PO DAILY 10/28/18 10/28/18 History [Calcium 600 + D(3)] coenzyme Q10 [CoQ-10] 100 mg PO DAILY 10/28/18 10/28/18 History fish,bora,flax oils-om3,6,9no1 2 cap PO HS 10/28/18 10/28/18 History glimepiride [Amaryl] 1 mg PO QAM 10/28/18 10/28/18 History hydralazine 25 mg PO TID 10/28/18 10/28/18 History Allergies Allergy/AdvReac Type Severity Reaction Status Date / Time niacin Allergy Mild RASH Verified 10/28/18 14:57 clonidine Allergy Unknown RASH Verified 10/28/18 14:57 spironolactone Allergy Unknown RASH Verified 10/28/18 14:57 Past Med/Surg History Medical History HTN (hypertension) (Chronic) LBBB (left bundle branch block) (Chronic) History of paroxysmal supraventricular tachycardia (Chronic) Restless leg syndrome (Chronic) Urinary, incontinence, stress female (Chronic) Coronary artery disease (Chronic) status post non-STEMI 2015; cath showed RCA occlusion CKD (chronic kidney disease), stage III (Chronic) Essential hypertension (Chronic) Diabetes mellitus type 2 with complications (Chronic) Dyslipidemia (Chronic) Mitral insufficiency (Chronic) Hypertrophic cardiomyopathy (Chronic) Cerebrovascular disease (Chronic) status post ischemic stroke Surgical History Status post myomectomy (Chronic) Status post tonsillectomy (Chronic) Status post appendectomy (Chronic) Status post cardiac catheterization (Chronic) 2016, occlusion RCA Family History Father Coronary heart disease Mother Heart disease Hypertension Social History Preferred Language: Italian Communication Ability: Effective Newcomer Hostess Required: No Beliefs That Will Affect Care: None Current Living Situation: Spouse Other Information That Helps Us Care for You: No Feels Safe at Home: Yes Safety Concerns: Feels Safe At This Time Smoking Status: Never smoker Do You Dip or Chew Tobacco: No Second Hand Exposure: No Tobacco Cessation Education Requested by Patient: No Hx Alcohol Use: No Hx Substance Use: No Review of Systems See HPI for pertinent positives & negatives. and A total of 10 systems reviewed and were otherwise negative Physical Exam Vital Signs Vital Signs - 24 hr 10/28/18 13:59 10/28/18 14:00 10/28/18 14:01 Temperature 98.6 F Temperature Source Oral Sepsis Recent Fever Within 48 Hours No Sepsis New/Unexplained Change in Mental Status No Sepsis Action Taken by Nursing No Action Required Pulse Rate 151 H Pulse Rate [Apical] Pulse Rate from SpO2 Sensor Respiratory Rate 20 Respiratory Effort / Characteristics Blood Pressure 118/97 Blood Pressure [Right Arm] Blood Pressure Mean 104 Blood Pressure Mean [Right Arm] Pulse Oximetry 98 98 98 Oxygen Delivery Method Room Air Nasal Cannula Nasal Cannula Oxygen Flow Rate 2 2 10/28/18 14:05 10/28/18 14:15 10/28/18 14:18 Temperature Temperature Source Sepsis Recent Fever Within 48 Hours Sepsis New/Unexplained Change in Mental Status Sepsis Action Taken by Nursing Pulse Rate 142 H 136 H Pulse Rate [Apical] 149 H Pulse Rate from SpO2 Sensor 142 H 137 H Respiratory Rate 20 18 18 Respiratory Effort / Characteristics Non-Labored Spontaneous Blood Pressure 118/82 116/87 Blood Pressure [Right Arm] 106/84 Blood Pressure Mean 94 96 Blood Pressure Mean [Right Arm] 91 Pulse Oximetry 97 98 97 Oxygen Delivery Method Nasal Cannula Nasal Cannula Nasal Cannula Oxygen Flow Rate 2 2 10/28/18 14:20 Temperature Temperature Source Sepsis Recent Fever Within 48 Hours Sepsis New/Unexplained Change in Mental Status Sepsis Action Taken by Nursing Pulse Rate 133 H Pulse Rate [Apical] Pulse Rate from SpO2 Sensor 130 H Respiratory Rate 15 Respiratory Effort / Characteristics Blood Pressure Blood Pressure [Right Arm] Blood Pressure Mean Blood Pressure Mean [Right Arm] Pulse Oximetry 98 Oxygen Delivery Method Nasal Cannula Oxygen Flow Rate 2 GENERAL: Awake, alert, well-appearing, in no acute distress HENT: Normocephalic, atraumatic. Oropharynx unremarkable. EYES: Normal conjunctiva. Sclera non-icteric. NECK: Supple. No nuchal rigidity. FROM. No JVD. RESPIRATORY: Clear to auscultation. CARDIAC: Regular rate, normal rhythm. Extremities warm and well perfused. Pulses equal. ABDOMEN: Soft, non-distended. No tenderness to palpation. No rebound or guarding. No masses. RECTAL: Deferred. MUSCULOSKELETAL: Chest examination reveals no tenderness. The back is symmetrical on inspection without obvious abnormality. There is no CVA t enderness to palpation. No joint edema. LOWER EXTREMITIES: Calves are equal size bilaterally and non-tender. No edema. No discoloration. NEURO: Normal sensorium. No sensory or motor deficits noted. SKIN: No rash or jaundice noted. Course 1354: The patient was evaluated in room B1, and a complete history and physical examination were performed. 1419: I discussed the patient's case with Dr. Andre- Cardiology who states that he will be down to see the patient. Consultations Consultation #1: Dr. Beck Cardiology Time: 14:19 Administered Medications Atorvastatin Calcium (Lipitor) 80 mg PO DAILY [facility] Stop: 11/28/18 08:59 Last Admin: 10/29/18 07:54 Dose: 80 mg Documented by: [id number] Calcitriol (Racaltrol) 0.25 mcg PO TuFr@0900 [facility] Stop: 11/27/18 17:59 Last Admin: 10/28/18 19:33 Dose: 0.25 mcg Documented by: [id number] Clopidogrel Bisulfate (Plavix) 75 mg PO QAM [facility] Stop: 11/28/18 08:59 Last Admin: 10/29/18 07:55 Dose: 75 mg Documented by: [id number] Fish Oil ([place]-3 (Purified Fish Oil)) 2 gm PO HS [facility] Stop: 11/27/18 20:59 Last Admin: 10/29/18 19:21 Dose: 2 gm Documented by: [id number] Admin: 10/28/18 19:34 Dose: 2 gm Documented by: [id number] Fish Oil ([place]-3 (Purified Fish Oil)) 1 gm PO QAM [facility] Stop: 11/28/18 08:59 Last Admin: 10/29/18 07:55 Dose: 1 gm Documented by: [id number] Folic Acid (Folvite) 1 mg PO QAM [facility] Stop: 11/28/18 08:59 Last Admin: 10/29/18 07:54 Dose: 1 mg Documented by: [id number] Gemfibrozil (Lopid) 300 mg PO QPM [facility] Stop: 11/27/18 20:59 Last Admin: 10/29/18 19:20 Dose: 300 mg Documented by: [id number] Admin: 10/28/18 19:34 Dose: 300 mg Documented by: [id number] Gemfibrozil (Lopid) 600 mg PO QAM [facility] Stop: 11/28/18 08:59 Last Admin: 10/29/18 07:54 Dose: 600 mg Documented by: [id number] HCTZ/Losartan Potassium (Hyzaar 50/12.5mg) [facility] Stop: 11/28/18 12:14 Last Admin: 10/29/18 13:05 Dose: 1 tab Documented by: [id number] Hydralazine HCl (Apresoline) 25 mg PO TID [facility] Stop: 11/27/18 20:59 Last Admin: 10/29/18 19:21 Dose: 25 mg Documented by: [id number] Admin: 10/29/18 15:43 Dose: 25 mg Documented by: [id number] Admin: 10/29/18 07:53 Dose: 25 mg Documented by: [id number] Admin: 10/28/18 19:33 Dose: 25 mg Documented by: [id number] Heparin Sodium/Dextrose (Heparin Sodium/Dextrose) 25,000 units in 500 mls @ 18 mls/hr IV .Q24H [facility]; Protocol Stop: 11/27/18 18:44 Last Titration: 10/30/18 06:44 Dose: 900 units/hr, 18 mls/hr Documented by: [id number] Cosigned by: [id number] Admin: 10/29/18 19:24 Dose: 800 units/hr, 16 mls/hr Documented by: [id number] Cosigned by: [id number] Titration: 10/29/18 19:24 Dose: 800 units/hr, 16 mls/hr Documented by: [id number] Cosigned by: [id number] Titration: 10/29/18 18:55 Dose: 800 units/hr, 16 mls/hr Documented by: [id number] Cosigned by: [id number] Titration: 10/29/18 07:21 Dose: 800 units/hr, 16 mls/hr Documented by: [id number] Cosigned by: [id number] Titration: 10/28/18 22:12 Dose: 800 units/hr, 16 mls/hr Documented by: [id number] Cosigned by: [id number] Admin: 10/28/18 19:14 Dose: Not Given Documented by: [id number] Admin: 10/28/18 15:15 Dose: 800 units/hr, 16 mls/hr Documented by: [id number] Cosigned by: [id number] Insulin Aspart (Novolog Flexpen) 0 units SC ACHS [facility] Stop: 11/27/18 20:59 Last Admin: 10/29/18 20:33 Dose: Not Given Documented by: [id number] Cosigned by: [id number] Admin: 10/29/18 17:29 Dose: 3 units Documented by: [id number] Cosigned by: [id number] Admin: 10/29/18 12:29 Dose: 4 units Documented by: [id number] Cosigned by: [id number] Admin: 10/29/18 07:59 Dose: 2 units Documented by: [id number] Cosigned by: [id number] Admin: 10/28/18 21:32 Dose: Not Given Documented by: [id number] Cosigned by: [id number] Isosorbide Mononitrate (Imdur Extended Rel) 60 mg PO QAM [facility] Stop: 11/28/18 08:59 Last Admin: 10/29/18 07:54 Dose: 60 mg Documented by: [id number] Metoprolol Tartrate (Lopressor) 2.5 mg IV Q6 PRN PRN Reason: Tachycardia Stop: 11/28/18 00:00 Last Admin: 10/28/18 20:17 Dose: 2.5 mg Documented by: [id number] Metoprolol Tartrate (Lopressor) 25 mg PO TID [facility] Stop: 11/28/18 02:14 Last Admin: 10/29/18 19:21 Dose: 25 mg Documented by: [id number] Admin: 10/29/18 15:43 Dose: 25 mg Documented by: [id number] Admin: 10/29/18 07:53 Dose: 25 mg Documented by: [id number] Admin: 10/29/18 04:06 Dose: 25 mg Documented by: [id number] Multivitamins/Minerals (Caltrate Plus) 1 tab PO DAILY [facility] Stop: 11/28/18 08:59 Last Admin: 10/29/18 07:54 Dose: 1 tab Documented by: [id number] Ropinirole HCl (Requip) 2.5 mg PO HS PRN PRN Reason: Restless legs Stop: 11/27/18 20:59 Last Admin: 10/29/18 18:02 Dose: 2.5 mg Documented by: [id number] Admin: 10/28/18 19:32 Dose: 2.5 mg Documented by: [id number] Discontinued Medications Adenosine (Adenosine) Confirm Administered Dose 6 mg IV .STK-MED ONE Stop: 10/28/18 14:54 Last Admin: 10/28/18 15:03 Dose: 6 mg Documented by: [id number] Amiodarone HCl (Cordarone Iv Bolus / Drip) 1 ea IV NOW STA; Protocol Stop: 10/28/18 14:08 Last Admin: 10/28/18 14:15 Dose: 1 ea Documented by: [id number] Diltiazem HCl (Cardizem) 10 mg IV NOW STA Stop: 10/29/18 04:23 Last Admin: 10/29/18 04:38 Dose: 10 mg Documented by: [id number] Cosigned by: [id number] Etomidate (Amidate) Confirm Administered Dose 40 mg IV .STK-MED ONE Stop: 10/28/18 14:10 Last Admin: 10/28/18 14:39 Dose: Not Given Documented by: [id number] Etomidate (Amidate) 6 mg IV NOW ONE Stop: 10/28/18 14:16 Last Admin: 10/28/18 14:40 Dose: Not Given Documented by: [id number] Furosemide (Lasix) Confirm Administered Dose 40 mg IV .STK-MED ONE Stop: 10/29/18 09:14 Last Admin: 10/29/18 09:15 Dose: 40 mg Documented by: [id number] Heparin Sodium (Porcine) (Heparin Iv Bolus) Confirm Administered Dose 10,000 units .ROUTE .STK-MED ONE Stop: 10/28/18 15:13 Last Admin: 10/28/18 15:15 Dose: 4,000 units Documented by: [id number] Cosigned by: [id number] Heparin Sodium/Dextrose () 1 ea N/A NOW [facility]; Protocol Stop: 10/28/18 14:56 Last Admin: 10/28/18 15:15 Dose: 1 ea Documented by: [id number] Heparin Sodium/Dextrose (Heparin Sodium/Dextrose) Confirm Administered Dose 25,000 units IV .STK-MED ONE Stop: 10/28/18 15:13 Last Admin: 10/28/18 15:15 Dose: 800 units Documented by: [id number] Cosigned by: [id number] Amiodarone HCl/Dextrose (Nexterone / D5w) 150 mg in 100 mls @ 600 mls/hr IV ONE STA Stop: 10/28/18 14:16 Last Infusion: 10/28/18 14:27 Dose: 0 mls/hr Documented by: [id number] Cosigned by: [id number] Admin: 10/28/18 14:16 Dose: 600 mls/hr Documented by: [id number] Cosigned by: [id number] Amiodarone HCl/Dextrose (Nexterone / D5w) 360 mg in 200 mls @ 33.333 mls/hr IV .Q6H [facility] Stop: 10/28/18 20:14 Last Infusion: 10/28/18 14:44 Dose: 0 mg/min, 0 mls/hr Documented by: [id number] Cosigned by: [id number] Admin: 10/28/18 14:26 Dose: 1 mg/min, 33.3 mls/hr Documented by: [id number] Cosigned by: [id number] Potassium Chloride (K Ritesh / Wtr) 10 meq in 100 mls @ 100 mls/hr IV Q1H [facility] Stop: 10/28/18 16:29 Last Infusion: 10/28/18 18:25 Dose: 0 mls/hr Documented by: [id number] Admin: 10/28/18 16:12 Dose: 100 mls/hr Documented by: [id number] Infusion: 10/28/18 16:07 Dose: 0 mls/hr Documented by: [id number] Admin: 10/28/18 15:08 Dose: 100 mls/hr Documented by: [id number] Magnesium Sulfate/Dextrose (Magnesium Sulfate / D5w) 1 gm in 100 mls @ 100 mls/hr IV NOW STA Stop: 10/28/18 15:28 Last Infusion: 10/28/18 16:07 Dose: 0 mls/hr Documented by: [id number] Admin: 10/28/18 15:07 Dose: 100 mls/hr Documented by: [id number] Sodium Chloride (Nss 1000ml) 500 mls @ 999 mls/hr IV .Q31M ONE Stop: 10/28/18 15:51 Last Infusion: 10/28/18 18:25 Dose: 0 mls/hr Documented by: [id number] Admin: 10/28/18 15:22 Dose: 50 mls/hr Documented by: [id number] Sodium Chloride (Nss 1000ml) 1,000 mls @ 75 mls/hr IV .[id number] [facility] Stop: 10/29/18 07:49 Last Infusion: 10/28/18 22:09 Dose: 0 mls/hr Documented by: [id number] Admin: 10/28/18 19:32 Dose: 75 mls/hr Documented by: [id number] Lactated Ringer's (Lr) 1,000 mls @ 250 mls/hr IV .Q4H ONE Stop: 10/29/18 02:01 Last Infusion: 10/29/18 01:43 Dose: 0 mls/hr Documented by: [id number] Admin: 10/28/18 22:09 Dose: 250 mls/hr Documented by: [id number] Potassium Chloride/Sodium Chloride (1/2 Nss + 20meq Kcl 1000ml) 20 meq in 1,000 mls @ 75 mls/hr IV .[id number] ONE Stop: 10/29/18 16:19 Last Infusion: 10/29/18 02:56 Dose: 0 mls/hr Documented by: [id number] Admin: 10/29/18 01:43 Dose: 75 mls/hr Documented by: [id number] Digoxin 250 mcg/ Syringe 10 mls @ 2 mls/min IV NOW STA Stop: 10/29/18 01:15 Last Admin: 10/29/18 01:21 Dose: 2 mls/min Documented by: [id number] Potassium Chloride (K Ritesh / Wtr) 10 meq in 100 mls @ 100 mls/hr IV Q1H [facility] Stop: 10/29/18 09:29 Last Infusion: 10/29/18 10:10 Dose: 0 mls/hr Documented by: [id number] Admin: 10/29/18 09:08 Dose: 100 mls/hr Documented by: [id number] Infusion: 10/29/18 09:00 Dose: 100 mls/hr Documented by: [id number] Admin: 10/29/18 08:00 Dose: 100 mls/hr Documented by: [id number] Infusion: 10/29/18 07:56 Dose: 100 mls/hr Documented by: [id number] Admin: 10/29/18 06:56 Dose: 100 mls/hr Documented by: [id number] Infusion: 10/29/18 06:56 Dose: 100 mls/hr Documented by: [id number] Admin: 10/29/18 06:14 Dose: 100 mls/hr Documented by: [id number] Infusion: 10/29/18 06:11 Dose: 100 mls/hr Documented by: [id number] Admin: 10/29/18 05:11 Dose: 100 mls/hr Documented by: [id number] Infusion: 10/29/18 05:07 Dose: 100 mls/hr Documented by: [id number] Admin: 10/29/18 04:07 Dose: 100 mls/hr Documented by: [id number] Lactated Ringer's (Lr) 1,000 mls @ 250 mls/hr IV .Q4H ONE Stop: 10/29/18 06:50 Last Infusion: 10/29/18 07:10 Dose: 0 mls/hr Documented by: [id number] Admin: 10/29/18 03:00 Dose: 250 mls/hr Documented by: [id number] Furosemide 20 mg/ Syringe 2 mls @ 4 mls/min IV NOW ONE Stop: 10/29/18 09:31 Last Admin: 10/29/18 12:24 Dose: Not Given Documented by: [id number] Furosemide 20 mg/ Syringe 2 mls @ 4 mls/min IV NOW ONE Stop: 10/29/18 10:01 Last Admin: 10/29/18 12:24 Dose: Not Given Documented by: [id number] Levalbuterol HCl (Xopenex 0.63 Mg/3 Ml Neb) 0.63 mg NEB NOW STA Stop: 10/29/18 18:53 Last Admin: 10/29/18 19:27 Dose: 0.63 mg Documented by: [id number] Metoprolol Tartrate (Lopressor) 5 mg IV NOW STA Stop: 10/28/18 14:47 Last Admin: 10/28/18 15:04 Dose: Not Given Documented by: [id number] Metoprolol Tartrate (Lopressor) Confirm Administered Dose 5 mg IV .STK-MED ONE Stop: 10/28/18 14:47 Last Admin: 10/28/18 14:48 Dose: 5 mg Documented by: [id number] Metoprolol Tartrate (Lopressor) 50 mg PO NOW STA Stop: 10/28/18 15:06 Last Admin: 10/28/18 15:16 Dose: 50 mg Documented by: [id number] Metoprolol Tartrate (Lopressor) 25 mg PO BID [facility] Stop: 11/27/18 20:59 Last Admin: 10/28/18 19:34 Dose: 25 mg Documented by: [id number] Metoprolol Tartrate (Lopressor) 2.5 mg IV NOW STA Stop: 10/28/18 22:03 Last Admin: 10/28/18 22:21 Dose: 2.5 mg Documented by: [id number] Metoprolol Tartrate (Lopressor) 2.5 mg IV NOW STA Stop: 10/29/18 02:58 Last Admin: 10/29/18 04:06 Dose: 2.5 mg Documented by: [id number] Potassium Chloride (Klor-Con M20) 40 meq PO NOW STA Stop: 10/28/18 14:49 Last Admin: 10/28/18 15:07 Dose: Not Given Documented by: [id number] Potassium Chloride (Klor-Con M10) 40 meq PO NOW STA Stop: 10/28/18 14:49 Last Admin: 10/28/18 15:07 Dose: Not Given Documented by: [id number] Potassium Chloride (Klor-Con M20) 40 meq PO NOW STA Stop: 10/28/18 14:55 Last Admin: 10/28/18 15:03 Dose: 40 meq Documented by: [id number] Potassium Chloride (Klor-Con M20) 40 meq PO NOW STA Stop: 10/28/18 22:03 Last Admin: 10/29/18 00:24 Dose: 40 meq Documented by: [id number] Medical Decision Making Differential Diagnosis Differential diagnoses includes acute coronary syndrome, pulmonary embolus, aortic dissection, musculoskeletal pain, pneumonia, pleural effusion, pneumothorax, gastritis, peptic ulcer disease. Medical Records Attestation: I reviewed the patient's medical records. Home Medications Current Medication List: was personally reviewed by me Laboratory Data Attestation: I reviewed the patient's lab results. Result diagrams: 10/29/18 01:56 10/29/18 08:38 Lab Results 10/28/18 10/28/18 10/28/18 Range/Units 14:00 14:00 14:00 WBC 9.91 (4.8-10.8) K/uL RBC 4.65 (4.2-5.4) M/uL Hgb 13.8 (12.0-16.0) g/dL Hct 38.9 (37-47) % MCV 83.7 (80-100) fL MCH 29.7 (25-34) pg MCHC 35.5 (32-36) g/dL RDW Std Deviation 45.6 (36.4-46.3) fL RDW Coeff of Sara 14.8 H (11.5-14.5) % Plt Count 250 (130-400) K/uL MPV 10.9 H (7.4-10.4) fL Immature Gran % (Auto) 0.1 % Neut % (Auto) 75.9 % Lymph % (Auto) 16.9 % [place] % (Auto) 5.8 % Eos % (Auto) 1.0 % Baso % (Auto) 0.3 % Immature Gran # (Auto) 0.01 (0.00-0.02) K/uL Neut # (Auto) 7.53 H (1.4-6.5) K/uL Lymph # (Auto) 1.67 (1.2-3.4) K/uL [place] # (Auto) 0.57 (0.11-0.59) K/uL Eos # (Auto) 0.10 (0-0.5) K/uL Baso # (Auto) 0.03 (0-0.2) K/uL PT 10.8 (9.0-12.0) Seconds INR 1.1 (0.9-1.1) APTT 27.3 (21.0-31.0) Seconds PTT Ratio 1.0 Sodium 141 (136-145) mmol/L Potassium 3.1 L (3.5-5.1) mmol/L Chloride 113 H (98-107) mmol/L Carbon Dioxide 16 L (21-32) mmol/L Anion Gap 12.0 H (3-11) BUN 36 H (7-18) mg/dl Creatinine 1.89 H (0.6-1.2) mg/dl Est Cr Clr Drug Dosing 20.4 ml/min Est GFR ( Amer) 30.0 Est GFR (Non-Af Amer) 25.9 BUN/Creatinine Ratio 19.3 (10-20) Glucose 162 H (70-99) mg/dl Calcium 9.4 (8.5-10.1) mg/dl Magnesium (1.8-2.4) mg/dl Total Bilirubin 0.3 (0.2-1) mg/dl AST 18 (15-37) U/L ALT 17 (12-78) U/L Alkaline Phosphatase 93 (45-117) U/L Total Creatine Kinase 227 H (26-192) U/L CK-MB (CK-2) 12.8 H (0.5-3.6) ng/ml CK/CKMB % Calc 5.6 H (0-3.0) Troponin I 0.296 H* (0-0.045) ng/ml Total Protein 7.6 (6.4-8.2) gm/dl Albumin 3.6 (3.4-5.0) gm/dl Globulin 4.0 (2.5-4.0) gm/dl Albumin/Globulin Ratio 0.9 (0.9-2) Lipase 294 (73-393) U/L TSH (0.300-4.500) uIu/ml 10/28/18 Range/Units 14:00 WBC (4.8-10.8) K/uL RBC (4.2-5.4) M/uL Hgb (12.0-16.0) g/dL Hct (37-47) % MCV (80-100) fL MCH (25-34) pg MCHC (32-36) g/dL RDW Std Deviation (36.4-46.3) fL RDW Coeff of Sara (11.5-14.5) % Plt Count (130-400) K/uL MPV (7.4-10.4) fL Immature Gran % (Auto) % Neut % (Auto) % Lymph % (Auto) % [place] % (Auto) % Eos % (Auto) % Baso % (Auto) % Immature Gran # (Auto) (0.00-0.02) K/uL Neut # (Auto) (1.4-6.5) K/uL Lymph # (Auto) (1.2-3.4) K/uL [place] # (Auto) (0.11-0.59) K/uL Eos # (Auto) (0-0.5) K/uL Baso # (Auto) (0-0.2) K/uL PT (9.0-12.0) Seconds INR (0.9-1.1) APTT (21.0-31.0) Seconds PTT Ratio Sodium (136-145) mmol/L Potassium (3.5-5.1) mmol/L Chloride (98-107) mmol/L Carbon Dioxide (21-32) mmol/L Anion Gap (3-11) BUN (7-18) mg/dl Creatinine (0.6-1.2) mg/dl Est Cr Clr Drug Dosing ml/min Est GFR ( Amer) Est GFR (Non-Af Amer) BUN/Creatinine Ratio (10-20) Glucose (70-99) mg/dl Calcium (8.5-10.1) mg/dl Magnesium 2.3 (1.8-2.4) mg/dl Total Bilirubin (0.2-1) mg/dl AST (15-37) U/L ALT (12-78) U/L Alkaline Phosphatase (45-117) U/L Total Creatine Kinase (26-192) U/L CK-MB (CK-2) (0.5-3.6) ng/ml CK/CKMB % Calc (0-3.0) Troponin I (0-0.045) ng/ml Total Protein (6.4-8.2) gm/dl Albumin (3.4-5.0) gm/dl Globulin (2.5-4.0) gm/dl Albumin/Globulin Ratio (0.9-2) Lipase (73-393) U/L TSH 1.640 (0.300-4.500) uIu/ml Imaging Data Radiologist's Impression: Radiology results as stated below per my review and the radiologist's interpretation: XR chest 1V portable CLINICAL HISTORY: Chest Pain dyspnea COMPARISON STUDY: 08/01/2018 FINDINGS: Mild stable cardia megaly. Prior median sternotomy. Diaphragms smooth. Lungs are clear. IMPRESSION: No acute process. The above report was generated using voice recognition software. It may contain grammatical, syntax or spelling errors. Electronically signed by: Feliz Marquis M.D. 10/28/2018 2:31 PM ECG Data Attestation: I personally reviewed and interpreted this ECG as follows: Indication: chest pain Rate (beats per minute): 149 Rhythm: sinus tachycardia Findings: + other (+Wide QRS complex, +Premature ventricular complex) and + LBBB Additional Comments: REPEAT ECG: Indication: chest pain Rate: 62 Rhythm: sinus rhythm Findings: LBBB, 1st degree AV block Blood Pressure Blood Pressure Findings: Normal blood pressure MDM Narrative This is a 72-year-old female who presents the emergency department and what appears to be a wide-complex tachycardia with heart rate of 170. The patient is complaining of chest pressure while this is going on. Because of the appearance of the EKG the patient was given amiodarone bolus. This caused her to convert to a normal sinus rhythm. Over concerns about the EKG I did discuss the case with Dr. Andre the patient's precipitation equipment tender who felt it was in SVT. Patient did go back into this rhythm and it was easily broken with adenosine. Patient's potassium was found to be low therefore she was started on magnesium and given potassium both orally and via IV. Her troponin was found to be elevated. I did discuss the case with the hospitalist service. She was placed on a heparin drip. Impression & Plan SVT (supraventricular tachycardia), Chest pain Critical Care Time I have personally spent 30 minutes of critical care time in the direct management of this patient. This includes bedside care, interpretation of diagnostic studies, and testing, discussion with consultants, patient, and family members, and other required patient management activities. This 30 minutes is in excess of all separately billable procedures. Critical Care Time: Yes Total Critical Care Time: 30 Discharge Plan Visit Data *Final* Discharge Date/Time: 10/28/18 16:06 Chief Complaint: Chest Pain Stated Complaint: CHEST PAIN, SENT BY DR. ANDRE ED Provider: Zachary Huston Discharge Problem: SVT (supraventricular tachycardia), Chest pain Patient Disposition: Admitted As Inpatient Discharge Instructions Interventions: ED Discharge Assessment Last Done: 10/28/18 16:06 Discharge Problem: Chest pain Qualifiers: Chest pain type: unspecified Qualified Code(s): R07.9 - Chest pain, unspecified The scribe's documentation has been prepared under my direction and personally reviewed by me in its entirety. I confirm that the note above accurately reflects all work, treatment, procedures, and medical decision making performed by me.
[2018-10-30] MEDS: INSULIN ASPART 100 UNITS/ML 3 ML PEN SC SCH ×4 (07:52→21:09)
--- NOTE | 2018-10-30 10:34 | Cardiology Progress Note ---
Date of Service October 30, 2018 Assessment & Plan (1) Wide-complex tachycardia: Rhythm once again appears to be SVT with aberrant conduction. 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 will d/c heparin at this point (2) History of paroxysmal supraventricular tachycardia: As above (3) LBBB (left bundle branch block): Patient with first-degree AV block as well will need to monitor closely for significant bradycardia arrhythmias recent symptoms of dizziness question tachycardia versus bradycardia mediated (4) Coronary artery disease: Continue beta-blessing, clopidogrel with addition of IV heparin initially. Hold aspirin after 24 hours (5) CKD (chronic kidney disease), stage III: (6) Mitral insufficiency: (7) Hypertrophic cardiomyopathy: (8) Status post myomectomy: (9) History of CVA (cerebrovascular accident): (10) Dizziness: Patient has a history of long-standing labile hypertension brittle. Notes blood pressures been recently controlled as well as have been lower extremity edema issues (11) HTN (hypertension): consistently elevated I restarted Hyzaar yesterday without improvement will give amlodipine 5mg po now avoid av rosy blocking agents Subjective Pt seen and examined, states that she's feeling well but has not ambulated yet this AM. Denies cp, sob, palpitations, lightheadedness or dizziness. tele reviewed: sinus rhythm with rates consistently in the 40's Review of Systems Review of Systems: All systems reviewed & are unremarkable except as noted in HPI & below Physical Exam Physical Exam: General: Awake, alert and oriented x 3. No acute distress. HEENT: Normocephalic, atraumatic. Pupils equal, round and reactive to light and accommodation. Extraocular muscles are intact. Anicteric sclera. Moist mucous membranes. Neck: No JVD. No bruit. Cardiovascular: Regular. Positive S-4. Normal S-1 and S-2. No S-3. 3/6 mid to late systolic ejection murmur, greatest at the right sternal border, second intercostal space with radiation to the bilateral carotids. No rubs. Pulmonary: Clear to auscultation bilaterally. No rales, rhonchi, or wheezing. Abdomen: Bowel sounds x 4, soft. No rebound, guarding or tenderness. No organomegaly. Extremities: No clubbing, cyanosis or edema. +2 pedal pulses bilaterally. Skin: Warm and dry. Results & Data Vital Signs (Past 12 Hours) Vital Signs Temp Pulse Pulse Resp BP Pulse Ox 10/30/18 06:52 36.7 C 63 17 178/83 H 97 10/30/18 03:44 36.8 C 68 18 179/78 H 97 10/29/18 23:15 37.0 C 65 19 171/87 H 97 10/29/18 23:07 65
[2018-10-30 10:51] LABS: BUN Creatinine Ratio 20.5 (10-20); Calcium 9.7 mg/dl (8.5-10.1); Creatinine Clr Calc Pharmacy 23.4 ml/min; Est GFR (African American) 35.1; Est GFR (Non-African American) 30.3; Potassium 3.3 mmol/L (3.5-5.1)
[2018-10-30] MEDS: AMLODIPINE BESYLATE 5 MG TAB PO SCH (10:56)
[2018-10-30 13:25] LABS: Partial Thromboplastin Ratio 1.4; Partial Thromboplastin Time 39.2 Seconds (21.0-31.0)
[2018-10-30] MEDS ORDERED: dilTIAZem HCl 5 MG/ML 5 ML VIAL IV ONE (17:27)
[2018-10-30] MEDS ORDERED: Nursing to Pharmacy Communication ONE (17:38)
[2018-10-30] MEDS ORDERED: dilTIAZem HCl 5 MG/ML 5 ML VIAL IV PRN (17:57)
--- NOTE | 2018-10-30 18:12 | Hospitalist Progress Note ---
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 May be secondary to demand ischemia or SVT - off heparin drip -cardiology consulted, appreciate recommendations (3) Hypokalemia: K: 3.1 In ER pt given potassium 10meq IV x 2, potassium 40 mEq p.o - replace (4) Hypertrophic cardiomyopathy: S/P myomectomy in 09/1999 (5) Coronary artery disease: Hx cardiac cath with occlusion to right coronary artery with retrograde fill via collaterals in 2016 -hold aspirin as on heparin drip per cardiology recommendations -lopressor decreased from 50mg BID to 25mg BID per cardiology recommendations -continue statin, imdur (6) CKD (chronic kidney disease), stage III: Cr: 1.89. 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 No increased extremity weakness, ASHLEY or focal deficit -continue plavix, statin -holding aspirin as above (8) Diabetes mellitus, type II: A1c: 7.3 on 07/2018 -hold glimepiride -NovoLog sliding scale per protocol (9) HTN (hypertension): Hydralazine dosage was recently decreased by PCP -Continue hydralazine, losartan/HCTZ -Lopressor decreased to 25 mg twice daily as per above -Monitor BP (10) Dyslipidemia: -Continue statin, gemfibrozil (11) Restless leg syndrome: -Continue with ropinirole DVT Prophylaxis -heparin SC Full Code as per discussion with pt, however reports would not want prolonged life support if poor prognosis Follows with Dr Roberts for routine care Subjective ff up for svt seen resting in bed, comfortable states she feels improved today no dyspnea, cough no chest pain, palpitations, dizziness no other symptoms Review of Systems Review of Systems: All systems reviewed & are unremarkable except as noted in HPI & below Physical Exam Physical Exam: General- oriented x 3, not in distress, speaks in sentences with no effort or accessory muscle use Eyes- anicteric Neck- no JVD Lungs- clear BS BL no wheezing Heart- normal rate, regular rhythm; no murmurs Abdomen- normal bowel sounds, nondistended, soft, nontender Extremities- no pretibial edema, no calf tenderness Neuro- alert, oriented x 3; no gross focal neurologic deficits Skin- warm & dry Results & Data Vital Signs (Past 12 Hours) Vital Signs Temp Pulse Resp BP Pulse Ox 10/30/18 15:33 36.6 C 50 L 16 160/82 H 98 10/30/18 11:13 36.5 C 44 L 18 179/73 H 98 10/30/18 06:52 36.7 C 63 17 178/83 H 97 Laboratory Results Laboratory Results - last 24 hr 10/29/18 10/30/18 10/30/18 20:06 05:34 05:36 APTT 43.3 H PTT Ratio 1.6 Sodium 140 Potassium 3.3 L D Chloride 109 H Carbon Dioxide 19 L Anion Gap 12.0 H BUN 34 H Creatinine 1.66 H Est Cr Clr Drug Dosing 23.4 Est GFR ( Amer) 35.1 Est GFR (Non-Af Amer) 30.3 BUN/Creatinine Ratio 20.5 H Glucose 112 H POC Glucose 109 H Calcium 9.7 10/30/18 10/30/18 10/30/18 07:28 11:31 13:04 APTT 39.2 H PTT Ratio 1.4 Sodium Potassium Chloride Carbon Dioxide Anion Gap BUN Creatinine Est Cr Clr Drug Dosing Est GFR ( Amer) Est GFR (Non-Af Amer) BUN/Creatinine Ratio Glucose POC Glucose 131 H 130 H Calcium 10/30/18 16:15 APTT PTT Ratio Sodium Potassium Chloride Carbon Dioxide Anion Gap BUN Creatinine Est Cr Clr Drug Dosing Est GFR ( Amer) Est GFR (Non-Af Amer) BUN/Creatinine Ratio Glucose POC Glucose 133 H Calcium
[2018-10-30] MEDS ORDERED: POTASSIUM CHLORIDE 10 MEQ TABCR PO STA (20:50)
[2018-10-30] MEDS: ROPINIROLE HCL 5 MG TABLET PO PRN (21:05)
[2018-10-30] MEDS: HEPARIN SOD 5,000 UNIT/0.5 ML VIAL SQ SCH (21:09)
[2018-10-31] MEDS: HEPARIN SOD 5,000 UNIT/0.5 ML VIAL SQ SCH ×2 (06:15→12:38)
[2018-10-31 06:23] LABS: Partial Thromboplastin Time 27.2 Seconds (21.0-31.0)
[2018-10-31 06:46] LABS: BUN Creatinine Ratio 18.8 (10-20); Calcium 9.1 mg/dl (8.5-10.1); Creatinine Clr Calc Pharmacy 23.8 ml/min; Est GFR (African American) 36.1; Est GFR (Non-African American) 31.2; Potassium 3.7 mmol/L (3.5-5.1)
[2018-10-31] MEDS: METOPROLOL TARTRATE 25 MG TAB PO SCH ×3 (09:18→20:37)
[2018-10-31] MEDS: ISOSORBIDE MONO EXTENDED REL 60 MG TABCR PO SCH (09:19)
[2018-10-31] MEDS: CLOPIDOGREL BISULFATE 75 MG TAB PO SCH (09:19)
[2018-10-31] MEDS: GEMFIBROZIL 600 MG TAB PO SCH ×2 (09:19→20:35)
[2018-10-31] MEDS: ATORVASTATIN 40 MG TAB PO SCH (09:19)
[2018-10-31] MEDS: LOSARTAN/HCTZ 50/12.5MG TAB PO SCH (09:20)
[2018-10-31] MEDS: AMLODIPINE BESYLATE 5 MG TAB PO SCH (09:20)
[2018-10-31] MEDS: FOLIC ACID 1 MG TAB PO SCH (09:21)
[2018-10-31] MEDS: CALCIUM 600MG + VIT D 400 IU TAB PO SCH (09:21)
[2018-10-31] MEDS: OMEGA-3 (PURIFIED FISH OIL) 1 GM CAP PO SCH ×2 (09:21→20:34)
[2018-10-31] MEDS: INSULIN ASPART 100 UNITS/ML 3 ML PEN SC SCH ×4 (09:26→20:39)
--- NOTE | 2018-10-31 13:22 | Cardiology Progress Note ---
Date of Service October 31, 2018 Assessment & Plan (1) Wide-complex tachycardia: No recurrent SVT with aberrancy overnight. Patient telemetry scheduled for pacemaker implantation in a.m. 11/01/2018. Continue metoprolol 25 mg 3 times daily. (2) History of paroxysmal supraventricular tachycardia: As above (3) LBBB (left bundle branch block): Also with first-degree AV block. Continue to monitor telemetry. (4) Coronary artery disease: Continue beta-blessing, clopidogrel . Aspirin placed on hold due to addition of IV heparin. Restart aspirin post pacemaker implantation. (5) HTN (hypertension): Trolled. Continue Hyzaar, amlodipine, metoprolol, hydralazine, and isosorbide monohydrate. (6) Mitral insufficiency: (7) Hypertrophic cardiomyopathy: (8) Status post myomectomy: Subjective Patient seen and examined the bedside. No recurrent paroxysmal supraventricular tachycardia overnight. Resting comfortably. Denies chest pain or palpitations. Offers no complaints at this time. is present at bedside. Review of Systems Review of Systems: All systems reviewed & are unremarkable except as noted in HPI & below Physical Exam Physical Exam: General: NAD, AAO x3, well nourished. HEENT: Normocephalic. Atraumatic. Conjunctiva pink, no scleral icterus. Neck: No carotid bruits, the carotid upstrokes are brisk. No JVD. No HJR Heart: Regular normal S-1 and S-2 no S-3 or S-4 gallop. No murmurs or rub appreciated. PMI is not displaced. No RV heave. Lungs: Clear bilateral without rales , rhonchi, or wheeze. Abdomen: Normal bowel sounds. Soft. Nontender. No masses or organomegaly. No abdominal bruits. Extremities: No clubbing, cyanosis, or edema. Pulses: radial=2/4, Dorsalis pedis =2/4, posterior tibial=2/4. Neuro: Cranial nerves grossly intact. No focal motor deficit. Results & Data Vital Signs (Past 12 Hours) Vital Signs Temp Pulse Pulse Resp BP Pulse Ox 10/31/18 11:40 36.3 C L 54 L 18 128/75 98 10/31/18 08:00 46 L 10/31/18 07:01 36.4 C L 51 L 18 146/55 H 97 05/27/19 03:52 36.7 C 42 L 17 134/72 98 Laboratory Results Laboratory Results - last 24 hr 10/30/18 10/30/18 10/30/18 13:04 16:15 20:19 APTT 39.2 H PTT Ratio 1.4 Sodium Potassium Chloride Carbon Dioxide Anion Gap BUN Creatinine Est Cr Clr Drug Dosing Est GFR ( Amer) Est GFR (Non-Af Amer) BUN/Creatinine Ratio Glucose POC Glucose 133 H 110 H Calcium 10/31/18 10/31/18 10/31/18 06:02 06:02 07:24 APTT 27.2 PTT Ratio 1.0 Sodium 137 Potassium 3.7 Chloride 107 Carbon Dioxide 19 L Anion Gap 11.0 BUN 30 H Creatinine 1.62 H Est Cr Clr Drug Dosing 23.8 Est GFR ( Amer) 36.1 Est GFR (Non-Af Amer) 31.2 BUN/Creatinine Ratio 18.8 Glucose 113 H POC Glucose 109 H Calcium 9.1 10/31/18 11:36 APTT PTT Ratio Sodium Potassium Chloride Carbon Dioxide Anion Gap BUN Creatinine Est Cr Clr Drug Dosing Est GFR ( Amer) Est GFR (Non-Af Amer) BUN/Creatinine Ratio Glucose POC Glucose 133 H Calcium
--- NOTE | 2018-10-31 18:07 | Hospitalist Progress Note ---
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 May be secondary to demand ischemia or SVT - off heparin drip -cardiology consulted, appreciate recommendations (3) Hypokalemia: K: 3.1 In ER pt given potassium 10meq IV x 2, potassium 40 mEq p.o -Replaced (4) Hypertrophic cardiomyopathy: S/P myomectomy in 09/1999 (5) Coronary artery disease: Hx cardiac cath with occlusion to right coronary artery with retrograde fill via collaterals in 2016 -hold aspirin as on heparin drip per cardiology recommendations -lopressor decreased from 50mg BID to 25mg BID per cardiology recommendations -continue statin, imdur (6) CKD (chronic kidney disease), stage III: Cr: 1.89. 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 No increased extremity weakness, ASHLEY or focal deficit -continue plavix, statin -holding aspirin as above (8) Diabetes mellitus, type II: A1c: 7.3 on 07/2018 -hold glimepiride -NovoLog sliding scale per protocol (9) HTN (hypertension): Hydralazine dosage was recently decreased by PCP -Continue hydralazine, losartan/HCTZ -Lopressor decreased to 25 mg twice daily as per above Amlodipine added (10) Dyslipidemia: -Continue statin, gemfibrozil (11) Restless leg syndrome: -Continue with ropinirole DVT Prophylaxis -heparin SC hold in light of procedure tomorrow Full Code as per discussion with pt, however reports would not want prolonged life support if poor prognosis Follows with Dr Roberts for routine care Subjective Tachybradycardia syndrome Seen resting in bed, comfortable, in good spirits Denies chest pain, shortness of breath, dizziness, palpitations, nausea No SVT episodes today Denies other symptoms Review of Systems Review of Systems: All systems reviewed & are unremarkable except as noted in HPI & below Physical Exam Physical Exam: General- oriented x 3, not in distress, speaks in sentences with no effort or accessory muscle use Eyes- anicteric Neck- no JVD Lungs- clear BS BL Wheezing, no crackles Heart- normal rate, regular rhythm; no murmurs Abdomen- normal bowel sounds, nondistended, soft, nontender Extremities- no pretibial edema, no calf tenderness Neuro- alert, oriented x 3; no gross focal neurologic deficits Skin- warm & dry Results & Data Vital Signs (Past 12 Hours) Vital Signs Temp Pulse Pulse Resp BP Pulse Ox 10/31/18 16:00 58 L 10/31/18 15:36 36.5 C 53 L 18 126/73 97 10/31/18 11:40 36.3 C L 54 L 18 128/75 98 10/31/18 08:00 46 L 10/31/18 07:01 36.4 C L 51 L 18 146/55 H 97 Laboratory Results Laboratory Results - last 24 hr 10/30/18 10/31/18 10/31/18 20:19 06:02 06:02 APTT 27.2 PTT Ratio 1.0 Sodium 137 Potassium 3.7 Chloride 107 Carbon Dioxide 19 L Anion Gap 11.0 BUN 30 H Creatinine 1.62 H Est Cr Clr Drug Dosing 23.8 Est GFR ( Amer) 36.1 Est GFR (Non-Af Amer) 31.2 BUN/Creatinine Ratio 18.8 Glucose 113 H POC Glucose 110 H Calcium 9.1 10/31/18 10/31/18 10/31/18 07:24 11:36 16:18 APTT PTT Ratio Sodium Potassium Chloride Carbon Dioxide Anion Gap BUN Creatinine Est Cr Clr Drug Dosing Est GFR ( Amer) Est GFR (Non-Af Amer) BUN/Creatinine Ratio Glucose POC Glucose 109 H 133 H 111 H Calcium
[2018-10-31] MEDS: ROPINIROLE HCL 5 MG TABLET PO PRN (20:33)
[2018-11-01 07:21] LABS: Partial Thromboplastin Time 27.5 Seconds (21.0-31.0)
[2018-11-01 07:48] LABS: BUN Creatinine Ratio 23.7 (10-20); Calcium 9.6 mg/dl (8.5-10.1); Creatinine Clr Calc Pharmacy 22.5 ml/min; Est GFR (African American) 33.8; Est GFR (Non-African American) 29.2; Potassium 3.8 mmol/L (3.5-5.1)
[2018-11-01 09:45] LABS: Basophils # (auto) 0.03 K/uL (0-0.2); Basophils % (auto) 0.4 %; Eosinophils # (auto) 0.31 K/uL (0-0.5); Eosinophils % (auto) 3.9 %; Hematocrit (blood only) 37.6 % (37-47); Hemoglobin 13.6 g/dL (12.0-16.0); Immature Granulocytes # (auto) 0.04 K/uL (0.00-0.02); Immature Granulocytes % (auto) 0.5 %; Lymphocytes # (auto) 2.35 K/uL (1.2-3.4); Lymphocytes % (auto) 29.2 %; Mean Corpuscular Volume 83.9 fL (80-100); Mean Platelet Volume 10.9 fL (7.4-10.4); Monocytes # (auto) 0.82 K/uL (0.11-0.59); Monocytes % (auto) 10.2 %; Neutrophils % (auto) 55.8 %; Platelet Count 227 K/uL (130-400); RDW Coefficient of Variation 14.5 % (11.5-14.5); RDW Standard Deviation 44.7 fL (36.4-46.3); Red Blood Count 4.48 M/uL (4.2-5.4); White Blood Count 8.05 K/uL (4.8-10.8)
[2018-11-01 09:50] LABS: Mean Corpuscular Hgb Conc 36.2 g/dL (32-36)
[2018-11-01] MEDS ORDERED: BUPIVACAINE 0.25% 30 ML VIAL ONE (10:04)
[2018-11-01] MEDS ORDERED: LIDOCAINE HCL 1% 20 ML VIAL ONE (10:04)
[2018-11-01] MEDS ORDERED: BACITRACIN INJ 50,000 UNIT VIAL ONE (10:04)
--- NOTE | 2018-11-01 10:05 | History & Physical Bridge Note ---
Date of Service November 01, 2018 History & Physical Bridge Note I have examined the patient, reviewed the History & Physical and in the interval since the performance of the History & Physical I have noted the following changes of clinical significance: Pt with Sick sinus syndrome and SVT so evidence of TBS. Her WBC are normal today; she is for a dual chamber pacemaker today. I discussed the procedure and potential risks with the patient and consent obtained.
--- NOTE | 2018-11-01 10:05 | Pre Anesthesia Assessment ---
Date of Service November 01, 2018 Pre Sedation Assessment Vital Signs Temp Pulse Pulse Pulse Resp BP BP 11/01/18 07:27 36.3 C L 50 L 20 158/49 H 11/01/18 02:55 36.4 C L 45 L 19 166/67 H 11/01/18 00:01 60 10/31/18 23:09 36.5 C 64 16 154/87 H 10/31/18 19:11 36.5 C 65 18 132/76 10/31/18 16:00 58 L 10/31/18 15:36 36.5 C 53 L 18 126/73 10/31/18 11:40 36.3 C L 54 L 18 128/75 Pulse Ox 11/01/18 07:27 94 11/01/18 02:55 97 11/01/18 00:01 10/31/18 23:09 96 10/31/18 19:11 96 10/31/18 16:00 10/31/18 15:36 97 10/31/18 11:40 98 Cardiovascular + bradycardic Respiratory normal respiratory effort, lungs clear to auscultation Pre-Sedation Airway Assessment Smoking Status: Never smoker Hx Sleep Apnea: No Hx Difficult Intubation: No Short, Thick Neck: No Thyromental Distance: < 3.5 Finger Breadths Oral Cavity: + WNL Mallampati Class: II ASA: ASA3 NPO Status Date of Last Intake of Fluids: 10/31/18 Date of Last Intake of Solid Food: 10/31/18 Procedure Planning Contraindications for Sedation: none Current Medications Reviewed: Yes Notes The planned sedation has been discussed with the patient. Informed Consent was obtained. I have identified the patient, determined the appropriateness of sedation and have assessed the patient immediately prior to the procedure. All medicine(s) and interventions are by my order.
[2018-11-01] MEDS ORDERED: fentaNYL citrate 100 MCG/2 ML VIAL ONE (10:21)
[2018-11-01] MEDS ORDERED: MIDAZOLAM HCL 5 MG/ML 1 ML VIAL ONE (10:21)
[2018-11-01] MEDS ORDERED: CEFAZOLIN 250 MG/ML 1 GM VIAL ONE (10:22)
[2018-11-01] MEDS: INSULIN ASPART 100 UNITS/ML 3 ML PEN SC SCH ×4 (10:56→21:42)
--- NOTE | 2018-11-01 11:41 | Post Anesthesia Assessment ---
Date of Service November 01, 2018 Post Sedation Assessment Vital Signs Temp Pulse Pulse Pulse Resp BP BP 11/01/18 08:00 55 L 11/01/18 07:27 36.3 C L 50 L 20 158/49 H 11/01/18 02:55 36.4 C L 45 L 19 166/67 H 11/01/18 00:01 60 10/31/18 23:09 36.5 C 64 16 154/87 H 10/31/18 19:11 36.5 C 65 18 132/76 10/31/18 16:00 58 L 10/31/18 15:36 36.5 C 53 L 18 126/73 Pulse Ox 11/01/18 08:00 11/01/18 07:27 94 11/01/18 02:55 97 11/01/18 00:01 10/31/18 23:09 96 10/31/18 19:11 96 10/31/18 16:00 10/31/18 15:36 97 Recovery Score Activity: Moves 4 extremities Respiration: Deep Breath/Cough Circulation: +/-20% PreAnes Value Consciousness: Fully Awake Oxygen Saturation: > 92% On Room Air Discharge Sedation Level of Care: Fast Track Phase II Post Sedation Plan On clinical assessment, the patient appears to have tolerated the sedation without complications. Patient is recovering as anticipated. Patient will continue to be monitored by nursing and may be discharged when sedation discharge criteria are met per below protocol. Upon Completions of procedure and additional 15 minutes continue every 5 minute vital signs and the P.A.R. score; then discharge to a Phase I or Fast Track to Phase II per the following guidelines: * Discharge Patient to appropriate Phase II area if PAR is 8 or greater or return to pre- procedure baseline. The post - procedure orders will be as directed. * If PAR score is less than 8 or not return to pre-procedure baseline then patient will follow Phase I monitoring till PAR is reached for Phase II. The Phase I may be done in procedure room or may call to secure a Phase I area. * If naloxone or flumazenil are used for reversal, hold in Phase I for continued monitoring from when last reversal dose was given for a minimum of 60 minutes or longer pending the nurse and/or physician discretion of patient condition before discharge to Phase II. Please call the Sedation Physician to re-evaluate and complete post-note for discharge to Phase II area. Do NOT discharge from procedure sedation or Phase 1 until post- sedation evaluation note is complete by procedure /sedation MD Sedation Discharge Instructions to be given to the patient at discharge to home.
--- NOTE | 2018-11-01 11:43 | Operative Report ---
Post Operative Report Pre & Post Diagnosis SSS and TBS Operation Date: 11/01/18 11:00 <No data on this case meets the specified criteria> Procedure Operation Date: 11/01/18 11:00 Actual Procedures p Pacemaker Insertion-dual chamber - Marsha Cervantes DO Surgeon Marsha Cervantes, Screw Down none Estimated Blood Loss 20 Findings Consistent with Post-Op Diagnosis Specimens none Description of Procedure see official report I attest to the content of the Intraoperative Record and any orders documented therein. Any exceptions are noted below.
[2018-11-01] MEDS: ATORVASTATIN 40 MG TAB PO SCH (12:53)
[2018-11-01] MEDS: AMLODIPINE BESYLATE 5 MG TAB PO SCH (12:53)
[2018-11-01] MEDS: CLOPIDOGREL BISULFATE 75 MG TAB PO SCH (12:53)
[2018-11-01] MEDS: ISOSORBIDE MONO EXTENDED REL 60 MG TABCR PO SCH (12:54)
[2018-11-01] MEDS: METOPROLOL TARTRATE 25 MG TAB PO SCH (12:54)
[2018-11-01] MEDS: OMEGA-3 (PURIFIED FISH OIL) 1 GM CAP PO SCH ×2 (12:55→21:44)
[2018-11-01] MEDS: CALCITRIOL 0.25 MCG CAPSULE PO SCH (12:55)
[2018-11-01] MEDS: LOSARTAN/HCTZ 50/12.5MG TAB PO SCH (12:55)
[2018-11-01] MEDS: GEMFIBROZIL 600 MG TAB PO SCH ×2 (12:55→21:43)
[2018-11-01] MEDS: CALCIUM 600MG + VIT D 400 IU TAB PO SCH (12:55)
[2018-11-01] MEDS: FOLIC ACID 1 MG TAB PO SCH (12:55)
[2018-11-01] MEDS: ROPINIROLE HCL 5 MG TABLET PO PRN (12:57)
[2018-11-01] MEDS ORDERED: METOPROLOL TARTRATE 50 MG TAB PO STA (13:02)
[2018-11-01] MEDS ORDERED: TRAMADOL HCL 50 MG TABLET PO PRN (14:41)
--- NOTE | 2018-11-01 17:08 | Cardiology Progress Note ---
Date of Service November 01, 2018 Assessment & Plan (1) Wide-complex tachycardia: No recurrent SVT with aberrancy overnight. 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 Aspirin placed on hold due to addition of IV heparin. Restart aspirin post pacemaker implantation. (5) HTN (hypertension): controlled Continue Hyzaar, amlodipine, metoprolol, hydralazine, and isosorbide monohydrate. (6) Mitral insufficiency: (7) Hypertrophic cardiomyopathy: (8) Status post myomectomy: Subjective Pt seen and examined, s/p pacer. A little sore at pocket site. Otherwise, denies cp, sob, palpitations, lightheadedness or dizziness. Tele reviewed: intermittent a-pacing. Review of Systems Review of Systems: All systems reviewed & are unremarkable except as noted in HPI & below Physical Exam Physical Exam: General: Awake, alert and oriented x 3. No acute distress. HEENT: Normocephalic, atraumatic. Pupils equal, round and reactive to light and accommodation. Extraocular muscles are intact. Anicteric sclera. Moist mucous membranes. Neck: No JVD. No bruit. Cardiovascular: Regular. Positive S-4. Normal S-1 and S-2. No S-3. No murmurs or rubs. Pulmonary: Clear to auscultation B/L. No rales, rhonchi or wheezing Abdomen: Bowel sounds x 4, soft. No rebound, guarding or tenderness. No organomegaly. Extremities: No clubbing, cyanosis or edema. +2 pedal pulses bilaterally. Skin: Warm and dry. Results & Data Vital Signs (Past 12 Hours) Vital Signs Temp Pulse Pulse Resp BP BP Pulse Ox 11/01/18 15:53 36.4 C L 66 17 172/81 H 98 11/01/18 13:59 36.8 C 60 18 156/78 H 98 11/01/18 13:29 36.5 C 61 18 154/74 H 97 11/01/18 12:59 36.7 C 62 18 155/76 H 97 11/01/18 12:29 36.7 C 64 18 152/79 H 97 11/01/18 12:14 36.8 C 59 L 18 157/85 H 97 11/01/18 11:59 36.4 C L 60 18 158/92 H 96 11/01/18 11:44 36.4 C L 62 20 166/94 H 95 11/01/18 08:00 55 L 11/01/18 07:27 36.3 C L 50 L 20 158/49 H 94
--- NOTE | 2018-11-01 18:54 | Hospitalist Progress Note ---
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 May be secondary to demand ischemia or SVT - off heparin drip -cardiology consulted, appreciate recommendations (3) Hypokalemia: K: 3.1 In ER pt given potassium 10meq IV x 2, potassium 40 mEq p.o -Replaced (4) Hypertrophic cardiomyopathy: S/P myomectomy in 09/1999 (5) Coronary artery disease: Hx cardiac cath with occlusion to right coronary artery with retrograde fill via collaterals in 2016 -hold aspirin as on heparin drip per cardiology recommendations -continue statin, imdur (6) CKD (chronic kidney disease), stage III: Cr: 1.89. 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 No increased extremity weakness, ASHLEY or focal deficit -continue plavix, statin -holding aspirin as above (8) Diabetes mellitus, type II: A1c: 7.3 on 07/2018 -hold glimepiride -NovoLog sliding scale per protocol (9) HTN (hypertension): Hydralazine dosage was recently decreased by PCP -Continue hydralazine, losartan/HCTZ Amlodipine added (10) Dyslipidemia: -Continue statin, gemfibrozil (11) Restless leg syndrome: -Continue with ropinirole DVT Prophylaxis -heparin SC hold in light of procedure tomorrow Full Code as per discussion with pt, however reports would not want prolonged life support if poor prognosis Follows with Dr Roberts for routine care Discharge to home when medically stable today by cardiology Subjective Follow-up for tachybradycardia syndrome Seen resting in bed, not in distress, status post pacemaker placement Feels sore over the pacemaker insertion site But denies chest pain shortness of breath, dizziness, palpitations no other symptoms Review of Systems Review of Systems: All systems reviewed & are unremarkable except as noted in HPI & below Physical Exam Physical Exam: General- oriented x 3, not in distress, speaks in sentences with no effort or accessory muscle use Eyes- anicteric Neck- no JVD Lungs- clear breath sounds bilaterally, no rales/wheezes Heart- normal rate, regular rhythm; no murmurs Chest: Positive pacemaker site with dressing in place, no bleeding or discharge; sling in place Abdomen- normal bowel sounds, nondistended, soft, nontender Extremities- no pretibial edema, no calf tenderness Neuro- alert, oriented x 3; no gross focal neurologic deficits Skin- warm & dry Results & Data Vital Signs (Past 12 Hours) Vital Signs Temp Pulse Pulse Resp BP BP Pulse Ox 11/01/18 15:53 36.4 C L 66 17 172/81 H 98 11/01/18 13:59 36.8 C 60 18 156/78 H 98 11/01/18 13:29 36.5 C 61 18 154/74 H 97 11/01/18 12:59 36.7 C 62 18 155/76 H 97 11/01/18 12:29 36.7 C 64 18 152/79 H 97 11/01/18 12:14 36.8 C 59 L 18 157/85 H 97 11/01/18 11:59 36.4 C L 60 18 158/92 H 96 11/01/18 11:44 36.4 C L 62 20 166/94 H 95 11/01/18 08:00 55 L 11/01/18 07:27 36.3 C L 50 L 20 158/49 H 94 Laboratory Results Laboratory Results - last 24 hr 10/31/18 11/01/18 11/01/18 20:26 06:49 06:49 WBC RBC Hgb Hct MCV MCH MCHC RDW Std Deviation RDW Coeff of Sara Plt Count MPV Immature Gran % (Auto) Neut % (Auto) Lymph % (Auto) Howell % (Auto) Eos % (Auto) Baso % (Auto) Immature Gran # (Auto) Neut # (Auto) Lymph # (Auto) Howell # (Auto) Eos # (Auto) Baso # (Auto) APTT 27.5 PTT Ratio 1.0 Sodium 138 Potassium 3.8 Chloride 108 H Carbon Dioxide 18 L Anion Gap 12.0 H BUN 41 H Creatinine 1.71 H Est Cr Clr Drug Dosing 22.5 Est GFR ( Amer) 33.8 Est GFR (Non-Af Amer) 29.2 BUN/Creatinine Ratio 23.7 H Glucose 120 H POC Glucose 117 H Calcium 9.6 11/01/18 11/01/18 11/01/18 06:49 07:22 12:03 WBC 8.05 RBC 4.48 Hgb 13.6 Hct 37.6 MCV 83.9 MCH 30.4 MCHC 36.2 H RDW Std Deviation 44.7 RDW Coeff of Sara 14.5 Plt Count 227 MPV 10.9 H Immature Gran % (Auto) 0.5 Neut % (Auto) 55.8 Lymph % (Auto) 29.2 Howell % (Auto) 10.2 Eos % (Auto) 3.9 Baso % (Auto) 0.4 Immature Gran # (Auto) 0.04 H Neut # (Auto) 4.50 Lymph # (Auto) 2.35 Howell # (Auto) 0.82 H Eos # (Auto) 0.31 Baso # (Auto) 0.03 APTT PTT Ratio Sodium Potassium Chloride Carbon Dioxide Anion Gap BUN Creatinine Est Cr Clr Drug Dosing Est GFR ( Amer) Est GFR (Non-Af Amer) BUN/Creatinine Ratio Glucose POC Glucose 121 H 97 Calcium 11/01/18 16:32 WBC RBC Hgb Hct MCV MCH MCHC RDW Std Deviation RDW Coeff of Sara Plt Count MPV Immature Gran % (Auto) Neut % (Auto) Lymph % (Auto) Howell % (Auto) Eos % (Auto) Baso % (Auto) Immature Gran # (Auto) Neut # (Auto) Lymph # (Auto) Howell # (Auto) Eos # (Auto) Baso # (Auto) APTT PTT Ratio Sodium Potassium Chloride Carbon Dioxide Anion Gap BUN Creatinine Est Cr Clr Drug Dosing Est GFR ( Amer) Est GFR (Non-Af Amer) BUN/Creatinine Ratio Glucose POC Glucose 109 H Calcium
[2018-11-01] MEDS: METOPROLOL SUCC 50MG EXT REL TAB PO SCH (21:44)
--- NOTE | 2018-11-02 06:32 | XRay Report ---
XR chest 2V routine CLINICAL HISTORY: post implant COMPARISON STUDY: 10/29/2018 FINDINGS: There are postsurgical changes of midline sternotomy. There is a left subclavian dual-chamb er central venous pacemaker. Electrodes position is unremarkable. No pneumothorax is visualized. Ther e is no failure. There is no focal pulmonary consolidation. There is minimal blunting of the right po sterior costophrenic angle suggesting a trace effusion.[ IMPRESSION: 1. No evidence of pneumothorax status post placement of a left subclavian dual-chamber central venous pacemaker 2. Suspected trace right pleural effusion Electronically signed by: Rip Lantigua M.D. 11/02/2018 6:31 AM
[2018-11-02 07:48] LABS: BUN Creatinine Ratio 23.2 (10-20); Calcium 9.7 mg/dl (8.5-10.1); Creatinine Clr Calc Pharmacy 19.6 ml/min; Est GFR (Non-African American) 24.2
[2018-11-02] MEDS: OMEGA-3 (PURIFIED FISH OIL) 1 GM CAP PO SCH (08:07)
[2018-11-02] MEDS: GEMFIBROZIL 600 MG TAB PO SCH (08:07)
[2018-11-02] MEDS: METOPROLOL SUCC 50MG EXT REL TAB PO SCH (08:07)
[2018-11-02] MEDS: CALCIUM 600MG + VIT D 400 IU TAB PO SCH (08:07)
[2018-11-02] MEDS: ATORVASTATIN 40 MG TAB PO SCH (08:07)
[2018-11-02] MEDS: AMLODIPINE BESYLATE 5 MG TAB PO SCH (08:07)
[2018-11-02] MEDS: FOLIC ACID 1 MG TAB PO SCH (08:07)
[2018-11-02] MEDS: CLOPIDOGREL BISULFATE 75 MG TAB PO SCH (08:07)
[2018-11-02] MEDS: ISOSORBIDE MONO EXTENDED REL 60 MG TABCR PO SCH (08:08)
[2018-11-02] MEDS: LOSARTAN/HCTZ 50/12.5MG TAB PO SCH (08:08)
[2018-11-02] MEDS: INSULIN ASPART 100 UNITS/ML 3 ML PEN SC SCH ×2 (08:10→12:56)
[2018-11-02] MEDS ORDERED: ASPIRIN 81 MG ECTAB PO SCH (09:00)
--- NOTE | 2018-11-02 13:14 | Cardiology Progress Note ---
Date of Service November 02, 2018 Assessment & Plan (1) Wide-complex tachycardia: No recurrent SVT with aberrancy overnight. 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 Aspirin placed on hold due to addition of IV heparin. Restart aspirin post pacemaker implantation. (5) HTN (hypertension): controlled Continue Hyzaar, amlodipine, metoprolol, hydralazine, and isosorbide monohydrate. (6) Mitral insufficiency: (7) Hypertrophic cardiomyopathy: (8) Status post myomectomy: Subjective Pt seen and examined, at bedside. No complaint at pocket site. Otherwise, denies cp, sob, palpitations, lightheadedness or dizziness. Tele reviewed: intermittent a-pacing. Review of Systems Review of Systems: All systems reviewed & are unremarkable except as noted in HPI & below Physical Exam Physical Exam: General: Awake, alert and oriented x 3. No acute distress. HEENT: Normocephalic, atraumatic. Pupils equal, round and reactive to light and accommodation. Extraocular muscles are intact. Anicteric sclera. Moist mucous membranes. Neck: No JVD. No bruit. Cardiovascular: Regular. Positive S-4. Normal S-1 and S-2. No S-3. No murmurs or rubs. Pulmonary: Clear to auscultation B/L. No rales, rhonchi or wheezing Abdomen: Bowel sounds x 4, soft. No rebound, guarding or tenderness. No organomegaly. Extremities: No clubbing, cyanosis or edema. +2 pedal pulses bilaterally. Skin: Warm and dry. Results & Data Vital Signs (Past 12 Hours) Vital Signs Temp Pulse Resp BP BP Pulse Ox 11/02/18 10:47 36.7 C 71 20 112/68 95 11/02/18 07:00 36.6 C 62 17 119/68 97 11/02/18 04:04 36.5 C 60 19 132/80 97
--- NOTE | 2018-11-02 14:23 | Hospitalist Progress Note ---
Date of Service November 02, 2018 Assessment & Plan (1) Wide-complex tachycardia: Pt with h/o SVT and NSTEMI in 12/2015 presented to ER with c/o chest heaviness, SOB, dizziness, palpitations. In ER found to have wide-complex tachycardia rate of 149 and patient was started on amiodarone and patient converted to sinus rhythm however return to tachycardia -s/p pacemaker placement on this admission on 11/01/18 for wide complex tachycardia -Discharge to home with pacemaker in place -patient can shower 11/03 just let water run over the incision do not lift the left elbow over the left shoulder for 1 month do not lift the left elbow over the left shoulder for 1 month -[facility] was checked and patient does not have active narcotic medications prior to this hospital stay in at least 1 year Patient may take acetaminophen 325 mg every 6 hours as needed for mild pain for 4 days Patient may take tramadol every 6 hours as needed for moderate pain for 4 days -Patient should take amlodipine 5 mg daily and metoprolol succinate 50 mg twice a day as prescribed -Follow up appointments -11/07/2018 11:20 AM Provider Asad Roberts MD Department Family Practice [facility] -device and wound check in [facility] Cardiology If patient notice any swelling, patient should call [facility] Cardiology immediately 11/18/2018 1:00 PM Provider Pacer Clinic [facility] Department Cardiology, [facility] -02/17/2019 3:00 PM Provider [facility] Department Pharmacy, [facility] -02/17/2019 3:30 PM Provider Hosea Andre MD Department Cardiology, [facility] Pulmonary Edema -likely from initial arrythmia; received Lasix during this hospital stay -resolved Coronary artery disease: Elevated troponin on this admission -elevated troponins likely from initial arrhythmia -Patient was started on heparin drip secondary to troponin 0.29 on this admission -Patient does not require further systemic anticoagulation as per cardiology service -continue home dose aspirin and plavix on discharge, continue home dose statin and imdur Hypertrophic cardiomyopathy: -S/P myomectomy in 09/1999 Hypokalemia: resolved on this admission after potassium supplementation Chronic kidney disease stage III -outpatient follow up Cerebrovascular disease: -H/O recurrent 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 No increased extremity weakness, ASHLEY or focal deficit -continue plavix and aspirin on discharge, continue home dose statin Diabetes mellitus, type II: A1c: 7.3 on 07/2018 -resume home dose glimepiride on discharge HTN (hypertension): -Continue hydralazine, losartan/HCTZ -continue Amlodipine 5mg daily which was started on this hospital stay Dyslipidemia: -Continue statin, gemfibrozil Restless leg syndrome: -Continue with ropinirole Discharge Diagnosis Wide-complex tachycardia, status post pacemaker placement on this admission, Hypokalemia (resolved), Hypertension, Pulmonary Edema, Elevated troponin on this admission, Coronary artery disease, Hypertrophic cardiomyopathy S/P myomectomy in 09/1999, Diabetes mellitus type II, CKD (chronic kidney disease), stage III Subjective Patient awake and alert. Paced rhythm. denies chest pain. denies shortness of breath. no vomiting. no lightheadedness. no dizziness. medically cleared by cardiology service for discharge Physical Exam Constitutional: WD/WN, vitals as above Eyes: PERRL, conjunctivae normal, anicteric sclerae EOM intact bilaterally ENMT: external ear and nose normal, oropharynx normal Neck: trachea midline, no thyromegaly Respiratory: normal respiratory effort, lungs clear to auscultation Cardiovascular: Rate/Rhythm: regular rate and regular rhythm Chest (Breasts): Chest: + pacemaker (with dressing) Gastrointestinal (Abdomen): normal bowel sounds, soft, nontender, no hepatosplenomegaly Musculoskeletal: Head/Neck/Chest: normocephalic and head atraumatic Extremities: + upper extremity abnormal to inspection (left arm in sling) Neurologic: PERRL, EOMI, accommodation nl, no face palsy, no dysarthria CN's II-XI intact bilaterally Psychiatric: A+Ox3, euthymic affect Results & Data Vital Signs (Past 12 Hours) Vital Signs Temp Pulse Resp BP BP Pulse Ox 11/02/18 10:47 36.7 C 71 20 112/68 95 11/02/18 07:00 36.6 C 62 17 119/68 97 11/02/18 04:04 36.5 C 60 19 132/80 97
--- NOTE | 2018-11-02 14:35 | Discharge Summary ---
Date of Service November 02, 2018 Admission HPI Per Admitting Provider Chief Complaint: Pt is 72 y/o F with PMH labile HTN, hypertrophic obstructive cardiomyopathy s/p myomectomy 09/1999, LBBB, HLD, DM II, recurrent lacunar CVA with residual left extremity weakness, h/o SVT and NSTEMI in 12/2015, cardiac cath with occlusion to right coronary artery presented to ER with complaint of chest heaviness. Patient states this morning started with chest heaviness, shortness of breath, dizziness, palpitations. Denies fever/chills, diaphoresis, N/V/D/C, ASHLEY, syncope, vision changes, neck pain, orthopnea, cough, sore throat, choking, otalgia, rhinorrhea, abdominal pain, paresthesias, increased extremity weakness, extremity edema, rashes, urinary symptoms. History echo 07/2017: EF: 50-54%, small size inferior wall motion abnormality with hypokinesis basal inferior segment, mild mitral regurgitation. No significant change from prior study 05/2017 Patient reports did not have her medications today. In ER found to have wide-complex tachycardia and patient was started on amiodarone and patient converted to sinus rhythm however return to tachycardia. Cardiology was consulted-Dr. Andre. SVT with aberrancy and left bundle branch block. Amiodarone drip was stopped secondary to history of bradycardia in the past. Patient was given adenosine 6 mg IV with conversion to sinus rhythm rate in the 60s. Patient was given metoprolol 5 mg IV, Lopressor 50 mg p.o., 1 L NSS, magnesium 1 g, 2K riders, potassium 40 mEq p.o. Patient was started on heparin drip secondary to troponin 0.29. Admission Exam Per Admitting Provider General: no acute distress at this time, resting supine in bed, WDWN Head: normocephalic, atraumatic Eyes: PERRL, EOM's intact, conjunctiva non-injected, anicteric ENT: normal inspection external ears, nose, mucous membranes moist Neck: supple, trachea midline Lungs: clear, no respiratory distress, no wheezing/rhonchi/rales CV: RRR, no murmur, no pretibial edema Abd: normal BS, soft, non-tender Ext: no cyanosis, no calf tenderness Neuro: A&O x 3, no focal deficits noted, normal affect Skin: warm, dry Principal Diagnosis Wide-complex tachycardia, status post pacemaker placement on this admission, Hypokalemia (resolved), Hypertension, Pulmonary Edema, Elevated troponin on this admission, Coronary artery disease, Hypertrophic cardiomyopathy S/P myomectomy in 09/1999, Diabetes mellitus type II, CKD (chronic kidney disease), stage III Discharge Exam Constitutional WD/WN, vitals as above Eyes PERRL, conjunctivae normal, anicteric sclerae EOM intact bilaterally ENMT external ear and nose normal, oropharynx normal Neck trachea midline, no thyromegaly Respiratory normal respiratory effort, lungs clear to auscultation Cardiovascular Rate/Rhythm: regular rate and regular rhythm Chest (Breasts) Chest: + pacemaker (with dressing) Gastrointestinal (Abdomen) normal bowel sounds, soft, nontender, no hepatosplenomegaly Musculoskeletal Head/Neck/Chest: normocephalic and head atraumatic Extremities: + upper extremity abnormal to inspection (left arm in sling) Neurologic PERRL, EOMI, accommodation nl, no face palsy, no dysarthria CN's II-XI intact bilaterally Psychiatric A+Ox3, euthymic affect Discharge Data Allergies Allergy/AdvReac Type Severity Reaction Status Date / Time niacin Allergy Mild RASH Verified 10/28/18 14:57 clonidine Allergy Unknown RASH Verified 10/28/18 14:57 spironolactone Allergy Unknown RASH Verified 10/28/18 14:57 Consultations 10/28/18 14:38 Consult Cardiology Stat 10/28/18 14:48 ED Decision to Admit Stat 10/28/18 16:50 Consult Cardiology Routine Consult Case Management - Discharge Planning Routine Procedures Performed Operation Date: 11/01/18 11:00 Actual Procedures p Pacer with A/V Leads (Dual) - Marsha Cervantes, DO s Venogram, Unilateral - Gagandeep Weeks MD Ordered Studies 11/01/18 09:45 EP Lab Images for PACS ONCE Hospital Course (1) Wide-complex tachycardia: Pt with h/o SVT and NSTEMI in 12/2015 presented to ER with c/o chest heaviness, SOB, dizziness, palpitations. In ER found to have wide-complex tachycardia rate of 149 and patient was started on amiodarone and patient converted to sinus rhythm however return to tachycardia -s/p pacemaker placement on this admission on 11/01/18 for wide complex tachycardia -Discharge to home with pacemaker in place -patient can shower 11/03 just let water run over the incision do not lift the left elbow over the left shoulder for 1 month do not lift the left elbow over the left shoulder for 1 month -[facility] was checked and patient does not have active narcotic medications prior to this hospital stay in at least 1 year Patient may take acetaminophen 325 mg every 6 hours as needed for mild pain for 4 days Patient may take tramadol every 6 hours as needed for moderate pain for 4 days -Patient should take amlodipine 5 mg daily and metoprolol succinate 50 mg twice a day as prescribed -Follow up appointments -11/07/2018 11:20 AM Provider Asad Roberts MD Department Family Practice [facility] -device and wound check in [facility] Cardiology If patient notice any swelling, patient should call [facility] Cardiology immediately 11/18/2018 1:00 PM Provider Pacer Clinic [facility] Department Cardiology, [facility] -02/17/2019 3:00 PM Provider [facility] Department Pharmacy, [facility] -02/17/2019 3:30 PM Provider Hosea Andre MD Department Cardiology, [facility] Pulmonary Edema -likely from initial arrythmia; received Lasix during this hospital stay -resolved Coronary artery disease: Elevated troponin on this admission -elevated troponins likely from initial arrhythmia -Patient was started on heparin drip secondary to troponin 0.29 on this admission -Patient does not require further systemic anticoagulation as per cardiology service -continue home dose aspirin and plavix on discharge, continue home dose statin and imdur Hypertrophic cardiomyopathy: -S/P myomectomy in 09/1999 Hypokalemia: resolved on this admission after potassium supplementation Chronic kidney disease stage III -outpatient follow up Cerebrovascular disease: -H/O recurrent 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 No increased extremity weakness, ASHLEY or focal deficit -continue plavix and aspirin on discharge, continue home dose statin Diabetes mellitus, type II: A1c: 7.3 on 07/2018 -resume home dose glimepiride on discharge HTN (hypertension): -Continue hydralazine, losartan/HCTZ -continue Amlodipine 5mg daily which was started on this hospital stay Dyslipidemia: -Continue statin, gemfibrozil Restless leg syndrome: -Continue with ropinirole Discharge Diagnosis Wide-complex tachycardia, status post pacemaker placement on this admission, Hypokalemia (resolved), Hypertension, Pulmonary Edema, Elevated troponin on this admission, Coronary artery disease, Hypertrophic cardiomyopathy S/P myomectomy in 09/1999, Diabetes mellitus type II, CKD (chronic kidney disease), stage III Total Time Total Time Spent Total Time Spent (In Minutes): 40 minutes Total Time Includes: Examination of the Patient, Discharge Planning, Medication Reconciliation and Communication With Other Providers Discharge Plan Discharge Items Patient Disposition: Home - Self-Care Reason For Visit: SVT Discharge Diagnosis: Wide-complex tachycardia, status post pacemaker placement on this admission, Hypokalemia (resolved), Hypertension, Pulmonary Edema, Elevated troponin on this admission, Coronary artery disease, Hypertrophic cardiomyopathy S/P myomectomy in 09/1999, Diabetes mellitus type II, CKD (chronic kidney disease), stage III Condition: Good Discharge Goals: Improve disease control Activity: As commented below Activity Comment: do not lift the left elbow over the left shoulder for 1 month Lifting: No more than 10 pounds Lifting Comment: do not lift more than 10 pounds with the left arm for 2 weeks Bathing: Keep incision dry Bathing Comment: you can shower thurs 5/30 just let water run over the incision Non-emergency contact: Primary Care Provider and [employer] Call non-emergency contact if: you have any medication questions Follow-up/Referrals: Asad Roberts MD [Primary Care Provider] - Diet: Carb Consistent or DM2 and Heart Healthy Addtl Provider Instructions: Discharge to home with pacemaker in place patient can shower thurs 5/30 just let water run over the incision do not lift the left elbow over the left shoulder for 1 month do not lift the left elbow over the left shoulder for 1 month [place] PDMP was checked and patient does not have active narcotic medications prior to this hospital stay in at least 1 year Patient may take acetaminophen 325 mg every 6 hours as needed for mild pain for 4 days Patient may take tramadol every 6 hours as needed for moderate pain for 4 days Patient should take amlodipine 5 mg daily and metoprolol succinate 50 mg twice a day as prescribed Follow up appointments 11/07/2018 11:20 AM Provider Asad Roberts MD Department Family Practice [facility] device and wound check in [facility] Cardiology If patient notice any swelling, patient should call [facility] Cardiology immediately 11/18/2018 1:00 PM Provider Pacer Clinic [facility] Department Cardiology, [facility] 02/17/2019 3:00 PM Provider [facility] Department Pharmacy, [facility] 02/17/2019 3:30 PM Provider Hosea Andre MD Department Cardiology, [facility] Prescriptions: New metoprolol succinate 50 mg Tablet Extended Release 24 Hr 50 mg PO BID 30 Days Qty: 60 RF: 0 amlodipine [Norvasc] 5 mg Tablet 5 mg PO QAM 30 Days Qty: 30 RF: 0 acetaminophen [Mapap (acetaminophen)] 325 mg Tablet 325 mg PO Q6H PRN (Reason: mild pain) 4 Days Qty: 16 RF: 0 tramadol 50 mg Tablet 50 mg PO Q6H PRN (Reason: moderate pain) 4 Days Qty: 16 RF: 0 Continued atorvastatin 80 mg Tablet 80 mg PO DAILY RF: 0 clopidogrel [Plavix] 75 mg Tablet 75 mg PO QAM RF: 0 aspirin [Aspirin Low Dose] 81 mg Tablet,Delayed Release (Dr/Ec) 81 mg PO DAILY RF: 0 isosorbide mononitrate 60 mg Tablet Extended Release 24 Hr 60 mg PO QAM RF: 0 gemfibrozil 600 mg Tablet 600 mg PO QAM RF: 0 folic acid 1 mg Tablet 1 mg PO QAM RF: 0 ropinirole 5 mg tablet 5 mg PO HS RF: 0 calcitriol 0.25 mcg capsule 0.25 mg PO 2XWK RF: 0 fish,bora,flax oils-om3,6,9no1 [[place] 3-6-9 Complex] 400-400-400 mg Capsule 1 cap PO QAM RF: 0 gemfibrozil 600 mg Tablet 300 mg PO QPM RF: 0 losartan-hydrochlorothiazide [Hyzaar] 50-12.5 mg Tablet 1 tab PO DAILY RF: 0 glimepiride [Amaryl] 2 mg Tablet 1 mg PO QAM RF: 0 coenzyme Q10 [CoQ-10] 100 mg Capsule 100 mg PO DAILY RF: 0 Floranex 100 million cell Granules In Packet 1 packet PO TID RF: 0 Calcium 600 + D(3) 600 mg calcium- 200 unit Capsule 1 cap PO DAILY RF: 0 fish,bora,flax oils-om3,6,9no1 400-400-400 mg Capsule 2 cap PO HS RF: 0 hydralazine 25 mg Tablet 25 mg PO TID RF: 0 Discontinued metoprolol tartrate 50 mg Tablet 50 mg PO BID RF: 0 Stand-Alone Forms: Call Back Authorization, [facility] Discharge Orders: Discharge Order (Routine); Ordered 11/02/18 Ordered By: Dennis Cormier Admission Data Admit Date/Time: 10/28/18 15:49 Attending Provider: Dennis Cormier Admit Provider: Primitivo Carvajal Primary Care Provider: Asad Roberts Other Providers: Hosea Andre ; Primitivo Carvajal Service: Telemetry
--- NOTE | 2018-11-04 00:08 | Operative Report ---
DATE OF OPERATION: 11/01/2018 PREOPERATIVE DIAGNOSES: Sick sinus syndrome and tachybrady syndrome. POSTOPERATIVE DIAGNOSES: Sick sinus syndrome and tachybrady syndrome. PROCEDURE: Dual chamber rate responsive permanent pacemaker under fluoroscopic guidance. SURGEON: Marsha Cervantes DO FLOOR COVERING PRINTER: None. ANESTHESIA: Moderate conscious sedation administered under my supervision by Celina Choudhury. Start time 10:37, end time 11:38. A total of 2 mg of Versed and 50 mcg of fentanyl. INTRAVENOUS FLUIDS: 76 mL. INTRAVENOUS CONTRAST: 10 mL. ANTIBIOTICS: One gram of Ancef. BLOOD LOSS: Less than 20 mL. URINE OUTPUT: Not applicable. SPECIMENS: None. FINDINGS: See below. DRAINS: None. 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 She had a non-STEMI back in 12/2015 at the time of SVT the cath at that time showed that there was occluded RCA with left to right collaterals, chronic kidney disease stage III, mitral regurgitation, hypertrophic obstructive cardiomyopathy, status post myomectomy, history of cerebrovascular accident, diabetes, restless legs syndrome, hypertension and hyperlipidemia. She was admitted to [facility] and found to have evidence of tachybrady. Informed consent was obtained: The patient was explained the procedure and potential risks which include but not limited to , arrhythmia, myocardial infarction, stroke, injury to blood vessels, lung or cardiac chambers and bleeding and infection. She expressed an understanding to these risks and agreed to undergo the procedure as planned. Informed consent was obtained. Description of the procedure: The patient was identified, and the procedure was verified. 10 mL of 1% lidocaine/bupivacaine mixture were given in the left deltopectoral groove. Incision was made in left deltopectoral upper groove. Blunt dissection was performed down to identify the cephalic vein, the cephalic vein was identified and isolated using 0 Silk ties. The vein was knicked with an 11 blade and a glide wire was inserted without any resistance. A 7-Danish sheath was inserted over the guidewire without resistance, the dilator was removed. A second guidewire was inserted through the 7-Danish sheath to allow for retained venous access. The sheath was removed, flushed, dilator reinserted over it and then reinserted over 1 of the guidewires. The guidewire and dilator were removed, then the right ventricular lead was advanced into right ventricular apex under fluoroscopic guidance. Of note I did have to reposition it one time but the BP remained stable. There was adequate pacing and sensing thresholds. There was no diaphragmatic stimulation with high-output pacing. The 7-Danish sheath was peeled away. The lead was fixated to pectoralis muscle using 0-silk suture. The second 7-Danish sheath was inserted over the retained guidewire without resistance. Guidewire and dilator removed. The right atrial lead was then advanced into right atrium, positioned to right atrial appendage using a preformed J-curve because that was the only one that seemed to work the best. There was no diaphragmatic stimulation with high-output pacing. The 7-Danish sheath was peeled away, and the lead was fixated to pectoralis muscle using 0- silk suture. A pacemaker pocket was created using blunt dissection of the pectoralis muscle within the pectoral fascia. A pursestring was placed around the venous access site to stop the backbleeding. Then, the device was attached to the leads making sure that the pins were appropriate and the past set screws were all tightened. The device was placed in the pocket making sure that the leads were lying flat in the device and a stay stitch using 0-silk suture was used to secure it to the pectoralis muscle. The incision was then closed in 3 layer fashion with 2-0 Vicryl suture followed by 3-0 Vicryl suture followed by 4-0 Monocryl sutures and Dermabond was applied. EQUIPMENT: The pulse generator is a MedNubef[employer] Lula [id number] SureScan [id number], serial number [id number]. Right atrial lead: Medtronic 5076-52 cm number. Serial number [id number]. Right ventricular lead: Medtronic 5076-58 cm. Serial number [id number]. INTRAOPERATIVE TESTIN. Right atrial lead: P-wave 1.7 millivolts, impedance 757 ohms, threshold 1.9 volts at 3.2 milliamps. 2. Right ventricular lead: R-wave 18.4 millivolts, impedance 1287 ohms, threshold 0.3 volts at 0.2 milliamps. FINAL MEASUREMENTS FOR THE DEVICE: Right atrial lead: P-wave 2.0 mV, impedance 589 ohms, threshold 1.25 V at 0.4 ms. Right ventricular lead: R-wave 20 mV, impedance 969 ohms, threshold 0.75 V at 0.4 msec. FINAL PARAMETERS: MVP 60/130, right atrial amplitude 3.5 V, pulse width 0.4 msec, sensitivity 0.3 mV. Right ventricular amplitude 3.5 V, pulse width 0.4 msec, sensitivity 1.2 mV. IMPRESSION: Successful dual chamber rate responsive permanent pacemaker under fluoroscopic guidance implant secondary to tachybrady syndrome PLAN: Monitor patient overnight, 12-lead ECG, chest X ray. He is not to lift the left elbow or left shoulder for 1 month. He cannot lift more than 10 pounds with the left arm for 2 weeks. He can shower in 2 days, let water run over the incision, do not scrub it. He should follow up in our [facility] office for device and wound check in 1 week's time. I attest to the content of the Intraoperative Record and any orders documented therein. Any exceptions are noted below. LUPE
== END 2018-11-02 16:00 | disposition home or self-care (01) | DRG 243 ==
LOC: ED 13:43 → SUATTDRO 15:49 → 2S 15:49
DX: Z79.02 Long term (current) use of antithrombotics/antiplatelets; I69.954 Hemiplegia and hemiparesis following unspecified cerebrovascular disease affecting left non-dominant side; I42.2 Other hypertrophic cardiomyopathy; E87.6 Hypokalemia; Z79.82 Long term (current) use of aspirin; Z82.49 Family history of ischemic heart disease and other diseases of the circulatory system; G25.81 Restless legs syndrome; E78.5 Hyperlipidemia, unspecified; I12.9 Hypertensive chronic kidney disease with stage 1 through stage 4 chronic kidney disease, or unspecified chronic kidney disease; I34.0 Nonrheumatic mitral (valve) insufficiency; I25.2 Old myocardial infarction; N18.3 Chronic kidney disease, stage 3 (moderate); E11.22 Type 2 diabetes mellitus with diabetic chronic kidney disease; I25.10 Atherosclerotic heart disease of native coronary artery without angina pectoris; I49.5 Sick sinus syndrome

== ENCOUNTER 2018-12-21 17:27 | Inpatient (IN) ==
--- NOTE | 2018-12-21 17:52 | Emergency Department Note ---
Entered by Connie Frederick acting as a scribe for Miki Dupree DO History of Present Illness General Chief complaint: TIA Symptoms Stated complaint: POSSIBLE STROKE Source: patient and family Mode of arrival: ambulatory History of Present Illness Onset (ago): hour(s) 2 Location: head, upper extremity (left arm), lower extremity (leg) and left (left unilateral numbness in arm and leg) Pain Consistency: + other (episode ) Exacerbated By: + none Associated symptoms: + other (slurring of speech); no headaches The patient is a 73 year old female who reports to the ED with complaints of an episode of slurred speech and unilateral numbness for 2 hours now. The patient reports that the left side of her body feels number than the right side. She also reports that her left leg is weaker than her left arm. The patient states that she began feeling the symptoms 2 hours ago when she was in the car with her and noticed her speech slurring. The patient denies a headache and recent fall. She claims that she had villatoro in 2006, 2011, and 2012. The patient states that she had a pacemaker placed 2 months ago for an arrhythmia. The patient reports that she has hypertension, diabetes, and incontinent bladder. Home Medications Home Medications Medication Instructions Recorded Confirmed Type aspirin [Aspirin Low Dose] 81 mg PO DAILY 08/01/18 12/21/18 History atorvastatin 80 mg PO DAILY 08/01/18 12/21/18 History calcitriol 0.25 mg PO 2XWK 08/01/18 12/21/18 History clopidogrel [Plavix] 75 mg PO QAM 08/01/18 12/21/18 History fish,bora,flax oils-om3,6,9no1 1 cap PO QAM 08/01/18 12/21/18 History [Allen 3-6-9 Complex] folic acid 1 mg PO QAM 08/01/18 12/21/18 History gemfibrozil 600 mg PO QAM 08/01/18 12/21/18 History isosorbide mononitrate 60 mg PO QAM 08/01/18 12/21/18 History ropinirole 5 mg PO HS 08/01/18 12/21/18 History gemfibrozil 300 mg PO QPM 10/10/18 12/21/18 History losartan-hydrochlorothiazide 1 tab PO DAILY 10/10/18 12/21/18 History [Hyzaar] Calcium 600 + D(3) 1 cap PO DAILY 10/28/18 12/21/18 History Floranex 1 packet PO TID 10/28/18 12/21/18 History coenzyme Q10 [CoQ-10] 100 mg PO DAILY 10/28/18 12/21/18 History fish,bora,flax oils-om3,6,9no1 2 cap PO HS 10/28/18 12/21/18 History glimepiride [Amaryl] 1 mg PO QAM 10/28/18 12/21/18 History hydralazine 25 mg PO TID 10/28/18 12/21/18 History amlodipine 2.5 mg PO DAILY 12/21/18 12/21/18 History metoprolol tartrate 75 mg PO DAILY 12/21/18 12/21/18 History Allergies Allergy/AdvReac Type Severity Reaction Status Date / Time niacin Allergy Mild RASH Verified 10/28/18 14:57 clonidine Allergy Unknown RASH Verified 10/28/18 14:57 spironolactone Allergy Unknown RASH Verified 10/28/18 14:57 Past Med/Surg History Medical History HTN (hypertension) (Chronic) LBBB (left bundle branch block) (Chronic) History of paroxysmal supraventricular tachycardia (Chronic) Restless leg syndrome (Chronic) Urinary, incontinence, stress female (Chronic) Coronary artery disease (Chronic) status post non-STEMI 2016; cath showed RCA occlusion CKD (chronic kidney disease), stage III (Chronic) Essential hypertension (Chronic) Diabetes mellitus type 2 with complications (Chronic) Dyslipidemia (Chronic) Mitral insufficiency (Chronic) Hypertrophic cardiomyopathy (Chronic) Cerebrovascular disease (Chronic) status post ischemic stroke Surgical History Status post myomectomy (Chronic) Status post tonsillectomy (Chronic) Status post appendectomy (Chronic) Status post cardiac catheterization (Chronic) 2016, occlusion RCA Family History Father Coronary heart disease Mother Heart disease Hypertension Social History Preferred Language: Romansh Communication Ability: Effective Flower Cutter Required: No Beliefs That Will Affect Care: None Current Living Situation: Spouse Other Information That Helps Us Care for You: No Feels Safe at Home: Yes Safety Concerns: Feels Safe At This Time Smoking Status: Never smoker Do You Dip or Chew Tobacco: No Second Hand Exposure: No Hx Alcohol Use: No Hx Substance Use: No Review of Systems See HPI for pertinent positives & negatives. and A total of 10 systems reviewed and were otherwise negative Physical Exam Vital Signs Vital Signs - 24 hr 12/21/18 17:31 12/21/18 18:10 12/21/18 18:19 Temperature 36.7 C Temperature Source Oral Sepsis Recent Fever Within 48 Hours No Sepsis New/Unexplained Change in Mental Status No Sepsis Action Taken by Nursing MD Previously Notified Pulse Rate 60 Pulse Rate [Apical] 65 Pulse Rate from SpO2 Sensor Pulse Rhythm Regular Pulse Strength Normal Respiratory Rate 20 16 Respiratory Effort / Characteristics Non-Labored Spontaneous Respiratory Depth Normal Respiratory Pattern Regular Blood Pressure 190/81 H Blood Pressure [Left Arm] 204/88 H 179/86 H Blood Pressure Mean 117 Blood Pressure Mean [Left Arm] 126 117 Blood Pressure Position Sitting Pulse Oximetry 99 97 Oxygen Delivery Method Room Air Room Air 12/21/18 18:32 12/21/18 18:34 12/21/18 18:48 Temperature Temperature Source Sepsis Recent Fever Within 48 Hours Sepsis New/Unexplained Change in Mental Status Sepsis Action Taken by Nursing Pulse Rate Pulse Rate [Apical] 66 64 62 Pulse Rate from SpO2 Sensor Pulse Rhythm Pulse Strength Respiratory Rate 18 18 18 Respiratory Effort / Characteristics Respiratory Depth Respiratory Pattern Blood Pressure Blood Pressure [Left Arm] 191/84 H 168/86 H 180/76 H Blood Pressure Mean Blood Pressure Mean [Left Arm] 119 113 110 Blood Pressure Position Pulse Oximetry 97 98 98 Oxygen Delivery Method Room Air Room Air 12/21/18 19:01 12/21/18 19:05 12/21/18 19:15 Temperature Temperature Source Sepsis Recent Fever Within 48 Hours Sepsis New/Unexplained Change in Mental Status Sepsis Action Taken by Nursing Pulse Rate 60 60 60 Pulse Rate [Apical] Pulse Rate from SpO2 Sensor 56 L 56 L 60 Pulse Rhythm Pulse Strength Respiratory Rate 17 17 15 Respiratory Effort / Characteristics Respiratory Depth Respiratory Pattern Blood Pressure 158/78 H 181/81 H 163/81 H Blood Pressure [Left Arm] Blood Pressure Mean 104 114 108 Blood Pressure Mean [Left Arm] Blood Pressure Position Pulse Oximetry 98 96 98 Oxygen Delivery Method 12/21/18 19:30 12/21/18 20:00 Temperature Temperature Source Sepsis Recent Fever Within 48 Hours Sepsis New/Unexplained Change in Mental Status Sepsis Action Taken by Nursing Pulse Rate 60 60 Pulse Rate [Apical] Pulse Rate from SpO2 Sensor 55 L 60 Pulse Rhythm Pulse Strength Respiratory Rate 17 15 Respiratory Effort / Characteristics Respiratory Depth Respiratory Pattern Blood Pressure 159/79 H 154/77 H Blood Pressure [Left Arm] Blood Pressure Mean 105 102 Blood Pressure Mean [Left Arm] Blood Pressure Position Pulse Oximetry 97 97 Oxygen Delivery Method GENERAL: Patient is awake alert in no acute distress patient is resting comfortably and showing no signs of anxiety EYES: The conjunctivae are clear. The pupils are round and reactive. EARS, NOSE, MOUTH AND THROAT: The nose is without any evidence of any deformity. Mucous membranes are moist tongue is midline NECK: The neck is nontender and supple. RESPIRATORY: Normal respiratory effort is noted there is no evidence of wheezing rhonchi or rales CARDIOVASCULAR: Regular rate and rhythm noted there no murmurs rubs or gallops normal S1 normal S2 GASTROINTESTINAL: The abdomen is soft. Bowel sounds are present in all quadrants. Abdomen is nontender MUSCULOSKELETAL/EXTREMITIES: There is no evidence of gross deformity full range of motion is noted in the hips and shoulders SKIN: There is no obvious evidence of any rash. There are no petechiae, pallor or cyanosis noted. NEUROLOGIC: Patient is oriented to person place and situation. There is a left facial droop with forehead sparing. 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 There is no drift. Patient is able to hold each leg off the bed for 5 seconds however there is subjective diminished strength in the left lower examinee compared to the right. Course 174: Past medical records reviewed. The patient was evaluated in room B12. A complete history and physical exam was performed. 1754: I discussed the patients case with the Kayleigh Chau Neurologist. She wants me to discuss TPA with the patient. 1821: I reevaluated the patient at his time and discussed the treatment plan sug gested by Dr. Gomez and her family. 184: After I had multiple rounds of conversations with the patient, has decided that she would not like TPA. 19:03 I discussed the patients case with Dr. Garcia [facility], and they believe she would not be a good candidate for interventional treatment because of her NIH score. 1911: I reevaluated the patient at this time and updated them on her test results and treatment plan. 1931: I discussed the patients case with Adan Streeter. He will accept the patient for further management. Consultations Consultation #1: I discussed the patients case with the Kayleigh Chau Neurologist. She wants me to discuss TPA with the patient. Time: 17:54 Consultation #2: I discussed the patients case with [facility], and they believe she would not be a good candidate for interventional treatment because of her NIH score. Time: 19:03 Consultation #3: I discussed the patients case with Adan Streeter. He will accept the patient for further management. Time: 19:32 Administered Medications Aspirin (Ecotrin Ectab) 81 mg PO DAILY [facility] Stop: 01/20/19 22:01 Last Admin: 12/22/18 12:30 Dose: 81 mg Documented by: [id number] Admin: 12/21/18 22:02 Dose: Not Given Documented by: [id number] Atorvastatin Calcium (Lipitor) 80 mg PO DAILY [facility] Stop: 01/20/19 22:01 Last Admin: 12/22/18 12:32 Dose: 80 mg Documented by: [id number] Admin: 12/21/18 22:02 Dose: Not Given Documented by: [id number] Clopidogrel Bisulfate (Plavix) 75 mg PO QAM [facility] Stop: 01/20/19 22:01 Last Admin: 12/22/18 12:31 Dose: 75 mg Documented by: [id number] Admin: 12/21/18 22:02 Dose: Not Given Documented by: [id number] Fish Oil (Allen-3 (Purified Fish Oil)) 2 gm PO HS [facility] Stop: 01/20/19 22:01 Last Admin: 12/21/18 22:02 Dose: Not Given Documented by: [id number] Fish Oil (Allen-3 (Purified Fish Oil)) 1 gm PO QAM [facility] Stop: 01/21/19 08:59 Last Admin: 12/22/18 12:29 Dose: 1 gm Documented by: [id number] Folic Acid (Folvite) 1 mg PO QAM [facility] Stop: 01/21/19 08:59 Last Admin: 12/22/18 12:32 Dose: 1 mg Documented by: [id number] Gemfibrozil (Lopid) 300 mg PO QPM [facility] Stop: 01/20/19 22:01 Last Admin: 12/21/18 22:02 Dose: Not Given Documented by: [id number] Gemfibrozil (Lopid) 600 mg PO QAM [facility] Stop: 01/21/19 08:59 Last Admin: 12/22/18 12:29 Dose: 600 mg Documented by: [id number] HCTZ/Losartan Potassium (Hyzaar 50/12.5mg) 1 tab PO DAILY [facility] Stop: 01/21/19 08:59 Last Admin: 12/22/18 12:30 Dose: 1 tab Documented by: [id number] Heparin Sodium (Porcine) (Heparin Sodium (Porcine)) 5,000 units SQ Q8 [facility] Stop: 01/20/19 22:01 Last Admin: 12/22/18 06:12 Dose: 5,000 units Documented by: [id number] Cosigned by: [id number] Admin: 12/21/18 23:00 Dose: 5,000 units Documented by: [id number] Cosigned by: [id number] Hydralazine HCl (Apresoline) 25 mg PO TID [facility] Stop: 01/20/19 22:01 Last Admin: 12/22/18 12:31 Dose: 25 mg Documented by: [id number] Admin: 12/21/18 22:02 Dose: Not Given Documented by: [id number] Acetaminophen (Ofirmev) 65 mls @ 260 mls/hr IV Q6H PRN PRN Reason: Pain Stop: 01/21/19 02:27 Last Infusion: 12/22/18 04:00 Dose: 0 mls/hr Documented by: [id number] Admin: 12/22/18 03:41 Dose: 260 mls/hr Documented by: [id number] Insulin Aspart (Novolog Flexpen) 0 units SC ACHS [facility] Stop: 01/21/19 07:29 Last Admin: 12/22/18 12:49 Dose: 3 units Documented by: [id number] Cosigned by: [id number] Admin: 12/22/18 07:45 Dose: Not Given Documented by: [id number] Cosigned by: [id number] Ioversol (Optiray 320 125ml) 119 ml IV ONCE PRN PRN Reason: Interaction Checking Stop: 12/25/18 18:07 Last Admin: 12/21/18 18:08 Dose: 119 ml Documented by: [id number] Isosorbide Mononitrate (Imdur Extended Rel) 60 mg PO QAM [facility] Stop: 01/21/19 08:59 Last Admin: 12/22/18 12:33 Dose: 60 mg Documented by: [id number] Lactobacillus Acidophilus (Floranex Granules/Powder Packet) 1 gm PO TID [facility] Stop: 01/20/19 22:01 Last Admin: 12/22/18 12:29 Dose: 1 gm Documented by: [id number] Admin: 12/21/18 22:02 Dose: Not Given Documented by: [id number] Multivitamins/Minerals (Caltrate Plus) 1 tab PO DAILY [facility] Stop: 01/20/19 22:01 Last Admin: 12/22/18 12:30 Dose: 1 tab Documented by: [id number] Admin: 12/21/18 22:02 Dose: Not Given Documented by: [id number] Ropinirole HCl (Requip) 5 mg PO HS [facility] Stop: 01/20/19 22:01 Last Admin: 12/22/18 12:34 Dose: 2.5 mg Documented by: [id number] Admin: 12/21/18 22:02 Dose: Not Given Documented by: [id number] Discontinued Medications Insulin Aspart (Novolog Flexpen) 0 units SC 0200 [facility] Stop: 12/22/18 02:01 Last Admin: 12/22/18 02:08 Dose: Not Given Documented by: [id number] Cosigned by: [id number] Labetalol HCl (Normodyne) Confirm Administered Dose 10 mg IV .STK-MED ONE Stop: 12/21/18 18:13 Last Admin: 12/21/18 18:14 Dose: 10 mg Documented by: [id number] Cosigned by: [id number] Labetalol HCl (Normodyne) 10 mg IV NOW STA Stop: 12/21/18 18:31 Last Admin: 12/21/18 18:30 Dose: 10 mg Documented by: [id number] Cosigned by: [id number] Potassium Chloride (Klor-Con M10) 40 meq PO 0930 ONE Stop: 12/22/18 09:31 Last Admin: 12/22/18 12:29 Dose: 40 meq Documented by: [id number] Medical Decision Making Differential Diagnosis Differential Diagnosis includes but is not limited to dehydration, stroke, anemia, hypoglycemia, hyponatremia, hypernatremia, urinary tract infection, pneumonia, bronchitis, sepsis, gastroenteritis, additional abdominal pathology, metabolic abnormalities and infections. Medical Records Attestation: I reviewed the patient's medical records. Home Medications Current Medication List: was personally reviewed by me Laboratory Data Attestation: I reviewed the patient's lab results. Result diagrams: 12/22/18 05:59 12/22/18 05:59 Lab Results 12/21/18 12/21/18 12/21/18 Range/Units 17:45 17:45 17:45 WBC 7.11 (4.8-10.8) K/uL RBC 4.59 (4.2-5.4) M/uL Hgb 13.8 (12.0-16.0) g/dL Hct 39.3 (37-47) % MCV 85.6 (80-100) fL MCH 30.1 (25-34) pg MCHC 35.1 (32-36) g/dL RDW Std Deviation 45.5 (36.4-46.3) fL RDW Coeff of Sara 14.6 H (11.5-14.5) % Plt Count 259 (130-400) K/uL MPV 10.9 H (7.4-10.4) fL Immature Gran % (Auto) 0.1 % Neut % (Auto) 58.2 % Lymph % (Auto) 31.1 % Pinal % (Auto) 7.0 % Eos % (Auto) 3.2 % Baso % (Auto) 0.4 % Immature Gran # (Auto) 0.01 (0.00-0.02) K/uL Neut # (Auto) 4.13 (1.4-6.5) K/uL Lymph # (Auto) 2.21 (1.2-3.4) K/uL Pinal # (Auto) 0.50 (0.11-0.59) K/uL Eos # (Auto) 0.23 (0-0.5) K/uL Baso # (Auto) 0.03 (0-0.2) K/uL PT 10.7 (9.0-12.0) Seconds INR 1.0 (0.9-1.1) APTT 27.2 (21.0-31.0) Seconds PTT Ratio 1.0 Sodium 140 (136-145) mmol/L Potassium 3.3 L (3.5-5.1) mmol/L Chloride 112 H (98-107) mmol/L Carbon Dioxide 20 L (21-32) mmol/L Anion Gap 8.0 (3-11) BUN 36 H (7-18) mg/dl Creatinine 1.68 H (0.6-1.2) mg/dl Est Cr Clr Drug Dosing Not Reportable Est GFR ( Amer) 34.3 Est GFR (Non-Af Amer) 29.6 BUN/Creatinine Ratio 21.6 H (10-20) Glucose 146 H (70-99) mg/dl POC Glucose (70-99) Calcium 9.4 (8.5-10.1) mg/dl Magnesium 2.3 (1.8-2.4) mg/dl Total Bilirubin 0.4 (0.2-1) mg/dl AST 13 L (15-37) U/L ALT 16 (12-78) U/L Alkaline Phosphatase 100 (45-117) U/L Troponin I 0.026 (0-0.045) ng/ml Total Protein 7.9 (6.4-8.2) gm/dl Albumin 4.0 (3.4-5.0) gm/dl Globulin 3.9 (2.5-4.0) gm/dl Albumin/Globulin Ratio 1.0 (0.9-2) Blood Type Antibody Screen 12/21/18 12/21/18 Range/Units 17:45 17:47 WBC (4.8-10.8) K/uL RBC (4.2-5.4) M/uL Hgb (12.0-16.0) g/dL Hct (37-47) % MCV (80-100) fL MCH (25-34) pg MCHC (32-36) g/dL RDW Std Deviation (36.4-46.3) fL RDW Coeff of Sara (11.5-14.5) % Plt Count (130-400) K/uL MPV (7.4-10.4) fL Immature Gran % (Auto) % Neut % (Auto) % Lymph % (Auto) % Pinal % (Auto) % Eos % (Auto) % Baso % (Auto) % Immature Gran # (Auto) (0.00-0.02) K/uL Neut # (Auto) (1.4-6.5) K/uL Lymph # (Auto) (1.2-3.4) K/uL Pinal # (Auto) (0.11-0.59) K/uL Eos # (Auto) (0-0.5) K/uL Baso # (Auto) (0-0.2) K/uL PT (9.0-12.0) Seconds INR (0.9-1.1) APTT (21.0-31.0) Seconds PTT Ratio Sodium (136-145) mmol/L Potassium (3.5-5.1) mmol/L Chloride (98-107) mmol/L Carbon Dioxide (21-32) mmol/L Anion Gap (3-11) BUN (7-18) mg/dl Creatinine (0.6-1.2) mg/dl Est Cr Clr Drug Dosing Est GFR ( Amer) Est GFR (Non-Af Amer) BUN/Creatinine Ratio (10-20) Glucose (70-99) mg/dl POC Glucose 141 H (70-99) Calcium (8.5-10.1) mg/dl Magnesium (1.8-2.4) mg/dl Total Bilirubin (0.2-1) mg/dl AST (15-37) U/L ALT (12-78) U/L Alkaline Phosphatase (45-117) U/L Troponin I (0-0.045) ng/ml Total Protein (6.4-8.2) gm/dl Albumin (3.4-5.0) gm/dl Globulin (2.5-4.0) gm/dl Albumin/Globulin Ratio (0.9-2) Blood Type O Positive Antibody Screen NEGATIVE Imaging Data Radiologist's Impression: Radiology results as stated below per my review and the radiologist's interpretation: CT ANGIOGRAM OF THE BRAIN; CT ANGIOGRAM OF THE NECK CLINICAL HISTORY: Strokelike symptoms. COMPARISON STUDY: Unenhanced CT of the brain performed concurrently on 12/21/2018. MR angiogram of the brain dated 04/30/2013. Carotid artery ultrasound dated 08/02/2018. Chest CT dated 01/09/2014. TECHNIQUE: Following the IV administration of 119 of Optiray 320, CT angiogram of the head and neck was performed from the aortic arch to the vertex. Images are reviewed in the axial, sagittal, and coronal planes. 3-D MIPS images are created and assessed. IV contrast was administered without complication. All measurements were calculated based on NASCET criteria. A dose lowering techn ique was utilized adhering to the principles of ALARA. FINDINGS: Brain parenchyma: There is mild subcortical and periventricular microangiopathic disease. Chronic lacunar infarcts are identified within the right alan radiata and the right internal capsule. There is no hemorrhage, mass effect, or evidence of acute territorial ischemia by CT criteria. There is no evidence of enhancing mass lesion on the angiogram phase images. The ventricles, sulci, and cisterns are normal in configuration. Law-white matter differentiation is preserved. No extra-axial fluid collection is seen. Thoracic aorta: There is atherosclerotic calcification of the thoracic aorta. Visualized portions of the thoracic aorta are normal in caliber. The aortic arch demonstrates standard 3-vessel anatomy. Right carotid arterial system: The right common carotid artery is widely patent, as are the right internal and external carotid arteries. Atherosclerotic calcification is noted in the carotid bulb. Left carotid arterial system: The left common carotid artery is widely patent, as are the left internal and external carotid arteries. Mild atherosclerotic plaque is noted in the carotid bulb. Vertebral arteries: The vertebral arteries are patent bilaterally noting left- sided dominance. Subclavian arteries: Widely patent bilaterally. Intracranial vasculature: There is atherosclerotic calcification of the ca vernous carotid and vertebral arteries. There is origin of the right posterior cerebral artery. The internal carotid arteries are patent at the skull base. There is approximately 50% focal stenosis of the M2 segment of the right middle cerebral artery (axial image #70). The anterior and middle cerebral arteries are otherwise clear bilaterally. The left vertebral artery and the basilar artery are widely patent. The right vertebral artery at the skull base is diminutive, and thrombosed just below the basilar. The posterior cerebral arteries are clear. The left vertebral artery is dominant. There is no aneurysm identified throughout the intracranial circulation. Jugular veins: Widely patent bilaterally. Dural sinuses: Patent. Upper chest: The patient is status post midline sternotomy. A cardiac pacemaker is noted in the left chest wall. A 3 mm left apical pulmonary nodule is seen on image #46. This is unchanged from 2014 and of doubtful significance. Partially visualized upper lobe lung parenchyma is otherwise clear. Soft tissues: The visualized pharyngeal soft tissues are normal in appearance noting angiographic phase technique. The oropharyngeal airway appears widely patent. Low-attenuation thyroid nodules measure up to 8 mm. The salivary glands are normal in appearance. No cervical lymphadenopathy is seen. Orbits: The bony orbits are intact. Orbital contents are normal in appearance. Skeletal structures: The skeletal structures are osteopenic. The calvarium appears intact. The cervical spine is maintained noting mild spondylosis. No lytic or blastic lesion is seen. Sinuses and mastoids: The paranasal sinuses are clear. The mastoid air cells are well pneumatized. IMPRESSION: 1. There is no hemorrhage, mass effect, or evidence of acute territorial ischemia by CT criteria noting angiographic phase technique. 2. Unremarkable CT angiogram of the neck. 3. The right vertebral artery at the skull base is diminutive, and is thrombosed just below the basilar artery. This is of indeterminant chronicity and clinical significance, but represents a change from the 04/30/2013 examination. 4. There is approximately 50% focal stenosis of the M2 segment of the right middle cerebral artery. Electronically signed by: Gilson Ramesh M.D. 12/21/2018 6:[address] ANGIOGRAM OF THE BRAIN; CT ANGIOGRAM OF THE NECK CLINICAL HISTORY: Strokelike symptoms. COMPARISON STUDY: Unenhanced CT of the brain performed concurrently on 12/21/2018. MR angiogram of the brain dated 04/30/2013. Carotid artery ultrasound dated 08/02/2018. Chest CT dated 01/09/2014. TECHNIQUE: Following the IV administration of 119 of Optiray 320, CT angiogram of the head and neck was performed from the aortic arch to the vertex. Images are reviewed in the axial, sagittal, and coronal planes. 3-D MIPS images are created and assessed. IV contrast was administered without complication. All measurements were calculated based on NASCET criteria. A dose lowering technique was utilized adhering to the principles of ALARA. FINDINGS: Brain parenchyma: There is mild subcortical and periventricular microangiopathic disease. Chronic lacunar infarcts are identified within the right alan radiata and the right internal capsule. There is no hemorrhage, mass effect, or evidence of acute territorial ischemia by CT criteria. There is no evidence of enhancing mass lesion on the angiogram phase images. The ventricles, sulci, and cisterns are normal in configuration. Law-white matter differentiation is preserved. No extra-axial fluid collection is seen. Thoracic aorta: There is atherosclerotic calcification of the thoracic aorta. Visualized portions of the thoracic aorta are normal in caliber. The aortic arch demonstrates standard 3-vessel anatomy. Right carotid arterial system: The right common carotid artery is widely patent, as are the right internal and external carotid arteries. Atherosclerotic calcification is noted in the carotid bulb. Left carotid arterial system: The left common carotid artery is widely patent, as are the left internal and external carotid arteries. Mild atherosclerotic plaque is noted in the carotid bulb. Vertebral arteries: The vertebral arteries are patent bilaterally noting left- sided dominance. Subclavian arteries: Widely patent bilaterally. Intracranial vasculature: There is atherosclerotic calcification of the cavernous carotid and vertebral arteries. There is origin of the right posterior cerebral artery. The internal carotid arteries are patent at the skull base. There is approximately 50% focal stenosis of the M2 segment of the right middle cerebral artery (axial image #70). The anterior and middle cerebral arteries are otherwise clear bilaterally. The left vertebral artery and the basilar artery are widely patent. The right vertebral artery at the skull base is diminutive, and thrombosed just below the basilar. The posterior cerebral arteries are clear. The left vertebral artery is dominant. There is no aneurysm identified throughout the intracranial circulation. Jugular veins: Widely patent bilaterally. Dural sinuses: Patent. Upper chest: The patient is status post midline sternotomy. A cardiac pacemaker is noted in the left chest wall. A 3 mm left apical pulmonary nodule is seen on image #46. This is unchanged from 2014 and of doubtful significance. Partially visualized upper lobe lung parenchyma is otherwise clear. Soft tissues: The visualized pharyngeal soft tissues are normal in appearance noting angiographic phase technique. The oropharyngeal airway appears widely patent. Low-attenuation thyroid nodules measure up to 8 mm. The salivary glands are normal in appearance. No cervical lymphadenopathy is seen. Orbits: The bony orbits are intact. Orbital contents are normal in appearance. Skeletal structures: The skeletal structures are osteopenic. The calvarium appears intact. The cervical spine is maintained noting mild spondylosis. No lytic or blastic lesion is seen. Sinuses and mastoids: The paranasal sinuses are clear. The mastoid air cells are well pneumatized. IMPRESSION: 1. There is no hemorrhage, mass effect, or evidence of acute territorial ischemia by CT criteria noting angiographic phase technique. 2. Unremarkable CT angiogram of the neck. 3. The right vertebral artery at the skull base is diminutive, and is thrombosed just below the basilar artery. This is of indeterminant chronicity and clinical significance, but represents a change from the 04/30/2013 examination. 4. There is approximately 50% focal stenosis of the M2 segment of the right middle cerebral artery. Electronically signed by: Gilson Ramesh M.D. 12/21/2018 6:[address] SCAN OF THE BRAIN WITHOUT IV CONTRAST CLINICAL HISTORY: Strokelike symptoms. COMPARISON STUDY: CT of the brain dated 08/01/2018. MRI of the brain dated 10/10/2018. TECHNIQUE: Unenhanced axial CT scan of the brain is performed from the vertex to the skull base. A dose lowering technique was utilized adhering to the principles of ALARA. FINDINGS: Brain parenchyma: There are age-related involutional changes noting mild subcortical and periventricular microangiopathic change. There is no hemorrhage, mass effect, or evidence of acute territorial ischemia by CT criteria. There are chronic lacunar infarcts identified within the right internal capsule and the right alan radiata. Law-white matter differentiation is preserved. No extra-a xial fluid collection is seen. Ventricles, sulci, cisterns: Prominent secondary to involutional change. Intracranial vasculature: There is atherosclerotic calcification of the cavernous carotid and vertebral arteries. Calvarium: Unremarkable. Sinuses and mastoids: The visualized paranasal sinuses are clear. The mastoid air cells are well pneumatized. Orbits: The bony orbits are grossly intact. IMPRESSION: There is no hemorrhage, mass effect, or evidence of acute territorial ischemia by CT criteria. Electronically signed by: Gilson Ramesh M.D. 12/21/2018 6:03 PM SINGLE VIEW CHEST CLINICAL HISTORY: Generalized weakness. FINDINGS: An AP, portable, upright chest radiograph is compared to study dated 11/02/2018. The examination is degraded by portable technique and patient rotation. A 2-lead cardiac pacemaker is unchanged in position. The patient is status post midline sternotomy. The heart is enlarged and there is atherosclerotic calcification of the thoracic aorta. The pulmonary vasculature is noncongested. Chronic interstitial thickening is similar to previous. The lungs and pleural spaces are clear. No pneumothorax is seen. The skeletal structures are osteopenic. The bony thorax is grossly intact. IMPRESSION: 1. Cardiomegaly and cardiac pacemaker. There is no radiographic evidence of congestive failure. 2. The lungs are clear. Electronically signed by: Gilson Ramesh M.D. 12/21/2018 7:25 PM ECG Data Attestation: I personally reviewed and interpreted this ECG as follows: Indication: weakness Rate (beats per minute): 64 Rhythm: sinus rhythm Findings: + 1st degree AV block and + LBBB Comparison ECG Date: from (11/01/17) Change: no significant change MDM Narrative The patient is a 73-year-old female who presented to the emergency department for an evaluation of facial droop and slurred speech. The patient has a history of multiple strokes. She was brought to room B12 but I was alerted by the nursing staff that the patient was a possible stroke alert. Upon my evaluation the patient was made a stroke alert immediately. She initially had left-sided facial droop with forehead sparing and some pressured speech. She also appeared to have some weakness in her left upper and left lower extremity. Subsequent evaluation as well as interview with the patient's were done and it does appear that her left-sided weakness is not completely new. It may be from her previous strokes. The patient was thought to be a good candidate for TPA given her onset of symptoms within 3 hours. Her initial CAT scan was read as no acute disease so TPA was mixed and we started to have further conversations with the patient about TPA. Initially she was agreeable to TPA but wanted us to obtain the opinion of the tele-stroke neurologist. The neurologist from [facility] was already involved with the case and further conversation was done between myself, the neurologist, and the patient and her . Ultima teldarrian the patient did not wish to have TPA as she felt the risk would outweigh the benefits. The patient's symptoms appear to be limited to the facial droop and the slurred speech at this time. The patient's CT angiography was also obtained and did show a lesion in the vertebral artery which could be consistent with a thrombosed artery as well as a 50% M2 middle cerebral segment. It is possible that this is more inside sales account representative of the patient's current symptoms. For this reason I discussed her case with the interventional neurologist at [facility]. This was done because of the patient's request of tertiary center if she needed transfer. At this time given the patient's NIH score of 1-2 she was not felt to be a candidate for interventional procedure at this time. The patient's blood pressure was found to be elevated multiple times. This was treated with IV labetalol. The patient was reevaluated multiple times. Her symptoms appear to be consistent but she felt as though her symptoms were starting to improve slowly. I discussed her case with the on-call [facility] hospitalist group. They have agreed to evaluate patient in the emergency department for further management disposition. Impression & Plan Ischemic cerebrovascular accident (CVA), HTN (hypertension), Facial droop Critical Care Time Critical Care Time: Yes Total Critical Care Time: 60 I have personally spent 60 minutes of critical care time in the direct management of this patient. This includes bedside care, interpretation of diagnostic studies, and testing, discussion with consultants, patient, and family members, and other required patient management activities. This 60 minutes is in excess of all separately billable procedures. Discharge Plan Visit Data *Final* Discharge Date/Time: 12/21/18 21:07 Chief Complaint: TIA Symptoms Stated Complaint: POSSIBLE STROKE ED Provider: Miki Dupree Discharge Problem: Ischemic cerebrovascular accident (CVA), HTN (hypertension), Facial droop Patient Disposition: Admitted As Inpatient Discharge Instructions Interventions: ED Discharge Assessment Last Done: 12/21/18 21:07 Discharge Problem: HTN (hypertension) Qualifiers: Hypertension type: unspecified Qualified Code(s): I10 - Essential (primary) hypertension The scribe's documentation has been prepared under my direction and personally reviewed by me in its entirety. I confirm that the note above accurately reflects all work, treatment, procedures, and medical decision making performed by me.
[2018-12-21 18:01] LABS: Basophils # (auto) 0.03 K/uL (0-0.2); Basophils % (auto) 0.4 %; Eosinophils # (auto) 0.23 K/uL (0-0.5); Eosinophils % (auto) 3.2 %; Hematocrit (blood only) 39.3 % (37-47); Hemoglobin 13.8 g/dL (12.0-16.0); Immature Granulocytes # (auto) 0.01 K/uL (0.00-0.02); Immature Granulocytes % (auto) 0.1 %; Lymphocytes # (auto) 2.21 K/uL (1.2-3.4); Lymphocytes % (auto) 31.1 %; Mean Corpuscular Hgb Conc 35.1 g/dL (32-36); Mean Corpuscular Volume 85.6 fL (80-100); Mean Platelet Volume 10.9 fL (7.4-10.4); Neutrophils # (auto) 4.13 K/uL (1.4-6.5); Neutrophils % (auto) 58.2 %; Platelet Count 259 K/uL (130-400); RDW Coefficient of Variation 14.6 % (11.5-14.5); RDW Standard Deviation 45.5 fL (36.4-46.3); Red Blood Count 4.59 M/uL (4.2-5.4); White Blood Count 7.11 K/uL (4.8-10.8)
--- NOTE | 2018-12-21 18:04 | CT Scan Report ---
CT SCAN OF THE BRAIN WITHOUT IV CONTRAST CLINICAL HISTORY: Strokelike symptoms. COMPARISON STUDY: CT of the brain dated 08/01/2018. MRI of the brain dated 10/10/2018. TECHNIQUE: Unenhanced axial CT scan of the brain is performed from the vertex to the skull base. A do se lowering technique was utilized adhering to the principles of ALARA. FINDINGS: Brain parenchyma: There are age-related involutional changes noting mild subcortical and periventric ular microangiopathic change. There is no hemorrhage, mass effect, or evidence of acute territorial i schemia by CT criteria. There are chronic lacunar infarcts identified within the right internal capsu le and the right alan radiata. Law-white matter differentiation is preserved. No extra-axial fluid collection is seen. Ventricles, sulci, cisterns: Prominent secondary to involutional change. Intracranial vasculature: There is atherosclerotic calcification of the cavernous carotid and vertebr al arteries. Calvarium: Unremarkable. Sinuses and mastoids: The visualized paranasal sinuses are clear. The mastoid air cells are well pneu matized. Orbits: The bony orbits are grossly intact. IMPRESSION: There is no hemorrhage, mass effect, or evidence of acute territorial ischemia by CT asmanthat coreen. Electronically signed by: Gilson Ramesh M.D. 12/21/2018 6:03 PM
[2018-12-21] MEDS ORDERED: OPTIRAY 320 125ml IV PRN (18:08)
[2018-12-21] MEDS ORDERED: LABETALOL HCL IV 5 MG/ML 20ML IV ONE (18:12)
[2018-12-21 18:18] LABS: Alanine Aminotransferase 16 U/L (12-78); Aspartate Aminotransferase 13 U/L (15-37); BUN Creatinine Ratio 21.6 (10-20); Blood Urea Nitrogen 36 mg/dl (7-18); Calcium 9.4 mg/dl (8.5-10.1); Carbon Dioxide 20 mmol/L (21-32); Chloride 112 mmol/L (98-107); Est GFR (African American) 34.3; Est GFR (Non-African American) 29.6; Glucose 146 mg/dl (70-99); Magnesium 2.3 mg/dl (1.8-2.4); Potassium 3.3 mmol/L (3.5-5.1); Sodium 140 mmol/L (136-145)
[2018-12-21 18:23] LABS: Alkaline Phosphatase 100 U/L (45-117); Bilirubin,Total 0.4 mg/dl (0.2-1); Globulin 3.9 gm/dl (2.5-4.0); Total Protein 7.9 gm/dl (6.4-8.2); Troponin I 0.026 ng/ml (0-0.045)
[2018-12-21 18:24] LABS: Partial Thromboplastin Time 27.2 Seconds (21.0-31.0); Prothrombin Time 10.7 Seconds (9.0-12.0)
[2018-12-21] MEDS ORDERED: LABETALOL HCL IV 5 MG/ML 20ML IV STA (18:30)
--- NOTE | 2018-12-21 18:39 | CT Scan Report ---
CT ANGIOGRAM OF THE BRAIN; CT ANGIOGRAM OF THE NECK CLINICAL HISTORY: Strokelike symptoms. COMPARISON STUDY: Unenhanced CT of the brain performed concurrently on 12/21/2018. MR angiogram of th e brain dated 04/30/2013. Carotid artery ultrasound dated 08/02/2018. Chest CT dated 01/09/2014. TECHNIQUE: Following the IV administration of 119 of Optiray 320, CT angiogram of the head and neck w as performed from the aortic arch to the vertex. Images are reviewed in the axial, sagittal, and og nal planes. 3-D MIPS images are created and assessed. IV contrast was administered without complicati on. All measurements were calculated based on NASCET criteria. A dose lowering technique was utilize d adhering to the principles of ALARA. FINDINGS: Brain parenchyma: There is mild subcortical and periventricular microangiopathic disease. Chronic lac unar infarcts are identified within the right alan radiata and the right internal capsule. There is no hemorrhage, mass effect, or evidence of acute territorial ischemia by CT criteria. There is no ev idence of enhancing mass lesion on the angiogram phase images. The ventricles, sulci, and cisterns ar e normal in configuration. Law-white matter differentiation is preserved. No extra-axial fluid colle ction is seen. Thoracic aorta: There is atherosclerotic calcification of the thoracic aorta. Visualized portions of the thoracic aorta are normal in caliber. The aortic arch demonstrates standard 3-vessel anatomy. Right carotid arterial system: The right common carotid artery is widely patent, as are the right int ernal and external carotid arteries. Atherosclerotic calcification is noted in the carotid bulb. Left carotid arterial system: The left common carotid artery is widely patent, as are the left international relations teacher al and external carotid arteries. Mild atherosclerotic plaque is noted in the carotid bulb. Vertebral arteries: The vertebral arteries are patent bilaterally noting left-sided dominance. Subclavian arteries: Widely patent bilaterally. Intracranial vasculature: There is atherosclerotic calcification of the cavernous carotid and vertebr al arteries. There is origin of the right posterior cerebral artery. The internal carotid arter ies are patent at the skull base. There is approximately 50% focal stenosis of the M2 segment of the right middle cerebral artery (axial image #70). The anterior and middle cerebral arteries are otherwi se clear bilaterally. The left vertebral artery and the basilar artery are widely patent. The right v ertebral artery at the skull base is diminutive, and thrombosed just below the basilar. The posterior cerebral arteries are clear. The left vertebral artery is dominant. There is no aneurysm identified throughout the intracranial circulation. Jugular veins: Widely patent bilaterally. Dural sinuses: Patent. Upper chest: The patient is status post midline sternotomy. A cardiac pacemaker is noted in the left chest wall. A 3 mm left apical pulmonary nodule is seen on image #46. This is unchanged from 2014 and of doubtful significance. Partially visualized upper lobe lung parenchyma is otherwise clear. Soft tissues: The visualized pharyngeal soft tissues are normal in appearance noting angiographic pha se technique. The oropharyngeal airway appears widely patent. Low-attenuation thyroid nodules measure up to 8 mm. The salivary glands are normal in appearance. No cervical lymphadenopathy is seen. Orbits: The bony orbits are intact. Orbital contents are normal in appearance. Skeletal structures: The skeletal structures are osteopenic. The calvarium appears intact. The cervic al spine is maintained noting mild spondylosis. No lytic or blastic lesion is seen. Sinuses and mastoids: The paranasal sinuses are clear. The mastoid air cells are well pneumatized. IMPRESSION: 1. There is no hemorrhage, mass effect, or evidence of acute territorial ischemia by CT criteria noti ng angiographic phase technique. 2. Unremarkable CT angiogram of the neck. 3. The right vertebral artery at the skull base is diminutive, and is thrombosed just below the basil ar artery. This is of indeterminant chronicity and clinical significance, but represents a change fro m the 04/30/2013 examination. 4. There is approximately 50% focal stenosis of the M2 segment of the right middle cerebral artery. Electronically signed by: Gilson Ramesh M.D. 12/21/2018 6:36 PM
--- NOTE | 2018-12-21 19:26 | XRay Report ---
SINGLE VIEW CHEST CLINICAL HISTORY: Generalized weakness. FINDINGS: An AP, portable, upright chest radiograph is compared to study dated 11/02/2018. The examina tion is degraded by portable technique and patient rotation. A 2-lead cardiac pacemaker is unchange d in position. The patient is status post midline sternotomy. The heart is enlarged and there is athe rosclerotic calcification of the thoracic aorta. The pulmonary vasculature is noncongested. Chronic i nterstitial thickening is similar to previous. The lungs and pleural spaces are clear. No pneumothora x is seen. The skeletal structures are osteopenic. The bony thorax is grossly intact. IMPRESSION: 1. Cardiomegaly and cardiac pacemaker. There is no radiographic evidence of congestive failure. 2. The lungs are clear. Electronically signed by: Gilson Ramesh M.D. 12/21/2018 7:25 PM
--- NOTE | 2018-12-21 20:22 | History & Physical Report ---
Date of Service December 21, 2018 Assessment & Plan (1) CVA (cerebral vascular accident): (2) TIA (transient ischemic attack): (3) HTN (hypertension): (4) Diabetes mellitus, type II: (5) LBBB (left bundle branch block): (6) History of paroxysmal supraventricular tachycardia: (7) Sick sinus syndrome: (8) CKD (chronic kidney disease), stage III: (9) Dyslipidemia: (10) Mitral insufficiency: (11) Hypertrophic cardiomyopathy: (12) DVT prophylaxis: Plan is to have cardiology and neurology see the patient, will get a 2D echo with bubble study, permissive hypertension, continue outpatient medications where appropriate, sliding scale insulin, it seems that her symptoms have resolved, will get PT and OT to see her. She is already on aspirin, Plavix, and a statin. We will put parameters on her blood pressure medications. She is currently inpatient status likely to be here more than 2 midnights. ROS-No Headache, No Visual Changes, No Nausea, No Vomiting, No Fever, No Chills, No Neck Pain or Stiffness, No Chest Pain, No Palpitations, No SOB, No GOMEZ, No Cough, No Sputum, No Wheezing, No Abdominal Pain, No Diarrhea, No Hematemesis, No Hemoptysis, No Unexpected Weight Loss, No Flank pain, No Melena, No Hematochezia, No Frequency, No Urgency, No Burning, No Hematuria, No Rashes, No Diaphoresis. Appetite is Normal, complains of some left-sided weakness but that is her baseline. Mild right facial droop per . Physical Exam Gen-AAO x 3, NAD, Afebrile Head-NCAT, EOMI, PERRLA, Anicteric Sclera, No Posterior Pharyngeal Erythema Neck-Supple, No JVD, No Thyromegaly, No Masses, No LAD, No Bruits Lungs-Clear to Auscultation Bilaterally, No Rales, No Rhonchi, No Wheezing, No Crepitus Chest-No S4, +S1, +S2, No S3, No Murmurs, No Rubs, No Gallops, No Ectopy Abdomen-Soft, Bowel Sounds Present, Non Tender, Non Distended, No Hepatomegaly, No Splenomegaly, No Palpable Masses, No Rebound, No Rigidity, No Guarding Musculoskeletal-Full Range of Motion Bilaterally, No CVAT Extremities-No Cyanosis, No Clubbing, No Edema Nuero-mild weakness on the left, right facial droop very subtle, DTRs WNL Psych-Normal Mood History of Present Illness 73-year-old female with a past medical history of recent pacemaker placement for sick sinus syndrome, hypertrophic cardiomyopathy, coronary disease, chronic kidney disease, CVA, type 2 diabetes, hypertension, hyperlipidemia, restless leg syndrome, mitral insufficiency, and left bundle branch block presents the emergency room tonight with strokelike symptoms. She was driving down the road with her on her way to [place] when she started to slur her speech and she had a right facial droop which was pronounced. brought her right to the emergency room this happened around 330 the case was discussed with Kayleigh and with [facility] and they elected not to do TPA. She is currently on aspirin Plavix and a statin for recent stroke. We do not know whether her pacemaker is MRI compatible so an MRI was not done yet. Dr. Andre and Dr. Fuentes have been consulted to see the patient in the morning and to investigate as to whether this pacemaker is MRI compatible. Her CTA was negative, she had a small thrombus in the vertebral artery which we think is old scan showed 50% M2 segment right MCA. PMH-pacemaker for sick sinus syndrome, hypertrophic cardia myopathy, coronary disease, chronic kidney disease, CVA, type 2 diabetes, hypertension, hyperlipidemia, restless leg syndrome, mitral insufficiency, left bundle branch block. PSH-pacemaker placement on October 28, 2018, myomectomy, tonsils and adenoids, appendectomy and left heart catheterization. FH-Father had coronary disease, mother had coronary disease and hypertension Medications are as below, allergies are as below, Social history, no tobacco drugs or alcohol she is lives with her . Primary Care Provider: Asad Roberts MD Allergies Allergy/AdvReac Type Severity Reaction Status Date / Time niacin Allergy Mild RASH Verified 10/28/18 14:57 clonidine Allergy Unknown RASH Verified 10/28/18 14:57 spironolactone Allergy Unknown RASH Verified 10/28/18 14:57 Home Medications Home Medications Medication Instructions Recorded Confirmed Type aspirin [Aspirin Low Dose] 81 mg PO DAILY 08/01/18 12/21/18 History atorvastatin 80 mg PO DAILY 08/01/18 12/21/18 History calcitriol 0.25 mg PO 2XWK 08/01/18 12/21/18 History clopidogrel [Plavix] 75 mg PO QAM 08/01/18 12/21/18 History fish,bora,flax oils-om3,6,9no1 1 cap PO QAM 08/01/18 12/21/18 History [[place] 3-6-9 Complex] folic acid 1 mg PO QAM 08/01/18 10/28/18 History gemfibrozil 600 mg PO QAM 08/01/18 10/28/18 History isosorbide mononitrate 60 mg PO QAM 08/01/18 10/28/18 History ropinirole 5 mg PO HS 08/01/18 10/28/18 History gemfibrozil 300 mg PO QPM 10/10/18 10/28/18 History losartan-hydrochlorothiazide 1 tab PO DAILY 10/10/18 10/28/18 History [Hyzaar] Calcium 600 + D(3) 1 cap PO DAILY 10/28/18 12/21/18 History Floranex 1 packet PO TID 10/28/18 10/28/18 History coenzyme Q10 [CoQ-10] 100 mg PO DAILY 10/28/18 12/21/18 History fish,bora,flax oils-om3,6,9no1 2 cap PO HS 10/28/18 10/28/18 History glimepiride [Amaryl] 1 mg PO QAM 10/28/18 10/28/18 History hydralazine 25 mg PO TID 10/28/18 10/28/18 History Past Med/Surg History Medical History HTN (hypertension) (Chronic) LBBB (left bundle branch block) (Chronic) History of paroxysmal supraventricular tachycardia (Chronic) Restless leg syndrome (Chronic) Urinary, incontinence, stress female (Chronic) Coronary artery disease (Chronic) status post non-STEMI 2015; cath showed RCA occlusion CKD (chronic kidney disease), stage III (Chronic) Essential hypertension (Chronic) Diabetes mellitus type 2 with complications (Chronic) Dyslipidemia (Chronic) Mitral insufficiency (Chronic) Hypertrophic cardiomyopathy (Chronic) Cerebrovascular disease (Chronic) status post ischemic stroke Surgical History Status post myomectomy (Chronic) Status post tonsillectomy (Chronic) Status post appendectomy (Chronic) Status post cardiac catheterization (Chronic) 2016, occlusion RCA Social History Preferred Language: Upper Sorbian Communication Ability: Effective Beliefs That Will Affect Care: None Current Living Situation: Spouse Feels Safe at Home: Yes Smoking Status: Never smoker Second Hand Exposure: No Hx Alcohol Use: No Hx Substance Use: No Results & Data Vital Signs (Past 12 Hours) Vital Signs Temp Pulse Pulse Resp BP BP Pulse Ox 12/21/18 20:00 60 15 154/77 H 97 12/21/18 19:30 60 17 159/79 H 97 12/21/18 19:15 60 15 163/81 H 98 12/21/18 19:05 60 17 181/81 H 96 12/21/18 19:01 60 17 158/78 H 98 12/21/18 18:48 62 18 180/76 H 98 12/21/18 18:34 64 18 168/86 H 98 12/21/18 18:32 66 18 191/84 H 97 12/21/18 18:19 65 16 179/86 H 97 12/21/18 18:10 204/88 H 12/21/18 17:31 36.7 C 60 20 190/81 H 99 Allergies niacin Allergy (Mild, Verified 10/28/18 14:57) RASH clonidine Allergy (Unknown, Verified 10/28/18 14:57) RASH spironolactone Allergy (Unknown, Verified 10/28/18 14:57) RASH Height/Weight/Isolation Weight 62.5 kg Chemistry 12/21/18 17:45 Sodium 140 Potassium 3.3 L Chloride 112 H Carbon Dioxide 20 L Anion Gap 8.0 BUN 36 H Creatinine 1.68 H Glucose 146 H Code Status & VTE Plan Code Status Full
[2018-12-21] MEDS ORDERED: CARBOHYDRATES FOR HYPOGLYCEMIA PO PRN (22:02)
[2018-12-21] MEDS ORDERED: ACETAMINOPHEN 325 MG TAB PO PRN (22:02)
[2018-12-21] MEDS ORDERED: GLUCAGON FOR INJ 1 MG VIAL SQ PRN (22:02)
[2018-12-21] MEDS: CLOPIDOGREL BISULFATE 75 MG TAB PO SCH (22:02)
[2018-12-21] MEDS ORDERED: GLUCOSE 10 TABS/TUBE PO PRN (22:02)
[2018-12-21] MEDS: ATORVASTATIN 40 MG TAB PO SCH (22:02)
[2018-12-21] MEDS: LACTOBACILLUS ACIDOPHILUS 1 GM PACK PO SCH (22:02)
[2018-12-21] MEDS: ASPIRIN 81 MG ECTAB PO SCH (22:02)
[2018-12-21] MEDS: OMEGA-3 (PURIFIED FISH OIL) 1 GM CAP PO SCH (22:02)
[2018-12-21] MEDS: GEMFIBROZIL 600 MG TAB PO SCH (22:02)
[2018-12-21] MEDS ORDERED: DEXTROSE 50% 50 ML SYRINGE IV PRN (22:02)
[2018-12-21] MEDS: CALCIUM 600MG + VIT D 400 IU TAB PO SCH (22:02)
[2018-12-21] MEDS ORDERED: POLYETHYLENE (MIRALAX) 17 GM PACK PO PRN (22:02)
[2018-12-21] MEDS: ROPINIROLE HCL 5 MG TABLET PO SCH (22:02)
[2018-12-21] MEDS ORDERED: GLUCOSE 40% GEL 15 GM TUBE PO PRN (22:02)
[2018-12-21] MEDS ORDERED: PHARMACY GLYCEMIC MGMT CONSULT PRN (22:13)
[2018-12-21] MEDS: HEPARIN SOD 5,000 UNIT/0.5 ML VIAL SQ SCH (23:00)
[2018-12-22] MEDS ORDERED: Nursing to Pharmacy Communication ONE (01:58)
[2018-12-22] MEDS ORDERED: INSULIN ASPART 100 UNITS/ML 3 ML PEN SC SCH (02:00)
[2018-12-22] MEDS ORDERED: ACETAMINOPHEN 65 ML IV PRN (02:28)
[2018-12-22] MEDS: HEPARIN SOD 5,000 UNIT/0.5 ML VIAL SQ SCH ×2 (06:12→14:20)
[2018-12-22 06:22] LABS: Hematocrit (blood only) 39.7 % (37-47); Hemoglobin 13.6 g/dL (12.0-16.0); Mean Corpuscular Hgb Conc 34.3 g/dL (32-36); Mean Corpuscular Volume 86.1 fL (80-100); Mean Platelet Volume 10.9 fL (7.4-10.4); Platelet Count 227 K/uL (130-400); RDW Coefficient of Variation 14.5 % (11.5-14.5); RDW Standard Deviation 45.3 fL (36.4-46.3); Red Blood Count 4.61 M/uL (4.2-5.4); White Blood Count 5.61 K/uL (4.8-10.8)
[2018-12-22 07:02] LABS: Albumin Level 3.5 gm/dl (3.4-5.0); BUN Creatinine Ratio 19.1 (10-20); Calcium 9.4 mg/dl (8.5-10.1); Creatinine Clr Calc Pharmacy 25.1 ml/min; Est GFR (African American) 38.1; Est GFR (Non-African American) 32.9; Potassium 3.2 mmol/L (3.5-5.1)
[2018-12-22 07:05] LABS: Bilirubin,Total 0.4 mg/dl (0.2-1); Globulin 3.4 gm/dl (2.5-4.0); Total Protein 6.9 gm/dl (6.4-8.2)
[2018-12-22 07:12] LABS: Estimated Average Glucose 146 mg/dl
[2018-12-22] MEDS: INSULIN ASPART 100 UNITS/ML 3 ML PEN SC SCH ×5 (07:45→20:35)
--- NOTE | 2018-12-22 08:34 | Pharmacy Report ---
Glycemic Control Consultation - Date of Service December 22, 2018 - Scope Scope: Glycemic Pharmacist consulted by Dr Doyle on 12/21/18 for glycemic control and to write orders per [facility] inpatient glycemic control protocol - Objective Weight: 59.1 kg Accuchecks BSG (last 24hrs): 12/21/18 12/21/18 12/21/18 17:45 17:47 21:51 Glucose 146 H POC Glucose 141 H 74 12/21/18 12/22/18 12/22/18 23:53 01:54 05:59 Glucose 104 H POC Glucose 73 78 Laboratory Data (last 24hrs): 12/21/18 12/22/18 17:45 05:59 Potassium 3.3 L 3.2 L Carbon Dioxide 20 L 23 Anion Gap 8.0 7.0 Creatinine 1.68 H 1.54 H Est Cr Clr Drug Dosing Not Reportable 25.1 HbA1c: Hemoglobin A1c 6.7 % (4.5-5.6) H 12/22/18 05:59 - Recent Pertinent Medications Outpatient Anti-diabetic Regimen: * Glimepiride 1mg Daily * A1c = 6.7 % 12/21/18 Risk Factors for Insulin Resistance: * Diet: Type 2 DM - Assessment & Plan Assessment & Plan: ASSESSMENT: * 73 year old female admitted with stroke like symptoms, PMH significant for CVA, Type 2 DM * Well controlled on minimal oral medications as outpatient, A1c 6.7% * Oral agents are not recommended for inpatient use d/t drug interactions, changing PO intake, and difficulty titrating for acute hyper/hypoglycemia. ADA recommends re-initiating outpatient oral agents 1-2 days prior to discharge if/when appropriate if they were held on admission. * Will hold oral agents for admission and utilize SQ bolus insulin regimen which is the recommended regimen for inpatient glycemic control. * Will initiate weight based insulin dosing for insulin kathryn patient and titrate based on BSG trends. * No basal insulin at this time, will add if blood sugars are above goal with CF and CR PLAN FOR INPATIENT GLYCEMIC CONTROL: * Holding outpatient oral diabetes medications * Bolus insulin * NovoLog per scale ACHS or Q6hrs while NPO * Goal Range: Low 110 mg/dL - High 140 mg/dL * Correction Factor: 40 mg/dL/unit * Nutritional / Prandial insulin per carb ratio of 1 unit per 15 grams CHO consumed * Please note that the plan above was derived based on current level of insulin resistance and hospital stress. These recommendations are appropriate for inpatient admission only. Plan of care upon discharge will need to be reassessed to avoid potential outpatient hypo/hyperglycemia. Thank you.
[2018-12-22] MEDS ORDERED: NON-FORMULARY MEDICATION (Coenzyme Q10 [Coq-10] 100 MG) PO SCH (09:00)
[2018-12-22] MEDS ORDERED: POTASSIUM CHLORIDE 10 MEQ TABCR PO ONE (09:30)
--- NOTE | 2018-12-22 11:47 | XRay Report ---
XR foot RT 2V CLINICAL HISTORY: Right first and second toe pain following trauma. Evaluate for fracture. COMPARISON: None FINDINGS: Note is made of transverse sclerosis within the right third metatarsal neck. There is righ t first toe soft tissue swelling. No acute fracture is identified. Note is made of moderate posterior and plantar calcaneal spurring. IMPRESSION: 1. No acute fracture or dislocation within the right foot. 2. Right first toe soft tissue swelling. 3. Transverse sclerosis within the right third metatarsal neck which may reflect a subacute to chroni c nondisplaced fracture. Electronically signed by: Aleks Keith M.D. 12/22/2018 11:46 AM
[2018-12-22] MEDS: GEMFIBROZIL 600 MG TAB PO SCH ×2 (12:29→20:25)
[2018-12-22] MEDS: LACTOBACILLUS ACIDOPHILUS 1 GM PACK PO SCH ×3 (12:29→20:24)
[2018-12-22] MEDS: OMEGA-3 (PURIFIED FISH OIL) 1 GM CAP PO SCH ×2 (12:29→20:23)
[2018-12-22] MEDS: ASPIRIN 81 MG ECTAB PO SCH (12:30)
[2018-12-22] MEDS: LOSARTAN/HCTZ 50/12.5MG TAB PO SCH (12:30)
[2018-12-22] MEDS: CALCIUM 600MG + VIT D 400 IU TAB PO SCH (12:30)
[2018-12-22] MEDS: CLOPIDOGREL BISULFATE 75 MG TAB PO SCH (12:31)
[2018-12-22] MEDS: FOLIC ACID 1 MG TAB PO SCH (12:32)
[2018-12-22] MEDS: ATORVASTATIN 40 MG TAB PO SCH (12:32)
[2018-12-22] MEDS: ISOSORBIDE MONO EXTENDED REL 60 MG TABCR PO SCH (12:33)
[2018-12-22] MEDS: ROPINIROLE HCL 5 MG TABLET PO SCH ×2 (12:34→20:23)
--- NOTE | 2018-12-22 14:13 | Neurology Consultation ---
Date of Consultation December 22, 2018 Assessment & Plan (1) TIA (transient ischemic attack): 1. CT head- no acute findings 2. MRI brain would be helpful but recently placed pacemaker in OCTOBER 3. CTA head and neck with right vert artery thrombus- likely cause of episode in July 4. TTE pending 5. continue plavix 75 mg and aspirin 81 mg daily for now 6. cardiology for rate control and management and possible switch to coumadin 7. PT/OT speech for discharged needs 8. questions of early parkinson's will further evaluate in office after discharge. 9. interrogate pacemaker Supervising Physician Co-Signing Physician Notes I have seen and discussed above patient with Dr Hayden Fuentes, neurology I know Najma well from outpatient visits and today I find her basically very little change from what I recall from our most recent visit. She does have a chronic left hemiparesis, variable dysarthric speech but now presents in the setting of a prior transient episode of diplopia back in July and now a 2- hour interval of time during which her speech was clearly worse in her left upper motor neuron facial paresis was worse. She has a pacemaker on board for treatment of tachybradycardia syndrome and does apparently have a hypertrophic cardiomyopathy. Her only platelet anticoagulation is with aspirin and Plavix but she is been on this for years. 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 Knox, she might be a candidate for Coumadin plus aspirin based purely on the presence of her hypertrophic cardiomyopathy. Neurology is going to sign off her case at this point really have no further recommendations and agreed to defer totally to cardiology on their evaluation 1 of the question she asked today is whether or not she has Parkinson's disease primarily because her mother suffered from a disorder but I have reassured her that there is actually nothing about her exam that suggest Parkinson's and that her motor deficits are all explicable on the basis of her multifocal vascular infarction syndrome Hayden Fuentes MD History of Present Illness Reason for Consultation: CVA, TIA Requesting Physician: Daryl Jacobson MD Attending Physician: Daryl Jacobson MD History of Present Illness Najma is a 73 year old female has a PMH CVA, HTN, SSS, TIA, DM2, LBBB RLS, CAD, CKD III, SVT who presented with an episode of slurred speech and facial droop. Her left side of her body feels numb. She also reports that her left leg is weaker than her left arm. She was driving in the care with her who noticed her speech slurring. She has had villatoro in 2006, 2011, and 2012. she had a pacemaker placed 2 months ago for an arrhythmia. Currently she is sitting bed side and states she is doing better but she still is slurring her speech. Her states she is not back to her baseline. From her previous stroke she does have some left sided weakness. She is also complaining that the symptoms she had from her previous stroke seem to be getting worse and she is wondering if she is developing parkinson's disease. denies CP, SOB, abdominal pain, swallowing issues vision changes, N, V. Allergies Allergy/AdvReac Type Severity Reaction Status Date / Time niacin Allergy Mild RASH Verified 10/28/18 14:57 clonidine Allergy Unknown RASH Verified 10/28/18 14:57 spironolactone Allergy Unknown RASH Verified 10/28/18 14:57 Home Medications Home Medications Medication Instructions Recorded Confirmed Type aspirin [Aspirin Low Dose] 81 mg PO DAILY 08/01/18 12/21/18 History atorvastatin 80 mg PO DAILY 08/01/18 12/21/18 History calcitriol 0.25 mg PO 2XWK 08/01/18 12/21/18 History clopidogrel [Plavix] 75 mg PO QAM 08/01/18 12/21/18 History fish,bora,flax oils-om3,6,9no1 1 cap PO QAM 08/01/18 12/21/18 History [[place] 3-6-9 Complex] folic acid 1 mg PO QAM 08/01/18 12/21/18 History gemfibrozil 600 mg PO QAM 08/01/18 12/21/18 History isosorbide mononitrate 60 mg PO QAM 08/01/18 12/21/18 History ropinirole 5 mg PO HS 08/01/18 12/21/18 History gemfibrozil 300 mg PO QPM 10/10/18 12/21/18 History losartan-hydrochlorothiazide 1 tab PO DAILY 10/10/18 12/21/18 History [Hyzaar] Calcium 600 + D(3) 1 cap PO DAILY 10/28/18 12/21/18 History Floranex 1 packet PO TID 10/28/18 12/21/18 History coenzyme Q10 [CoQ-10] 100 mg PO DAILY 10/28/18 12/21/18 History fish,bora,flax oils-om3,6,9no1 2 cap PO HS 10/28/18 12/21/18 History glimepiride [Amaryl] 1 mg PO QAM 10/28/18 12/21/18 History hydralazine 25 mg PO TID 10/28/18 12/21/18 History amlodipine 2.5 mg PO DAILY 12/21/18 12/21/18 History metoprolol tartrate 75 mg PO DAILY 12/21/18 12/21/18 History Patient History Medical History HTN (hypertension) (Chronic) LBBB (left bundle branch block) (Chronic) History of paroxysmal supraventricular tachycardia (Chronic) Restless leg syndrome (Chronic) Urinary, incontinence, stress female (Chronic) Coronary artery disease (Chronic) status post non-STEMI 2015; cath showed RCA occlusion CKD (chronic kidney disease), stage III (Chronic) Essential hypertension (Chronic) Diabetes mellitus type 2 with complications (Chronic) Dyslipidemia (Chronic) Mitral insufficiency (Chronic) Hypertrophic cardiomyopathy (Chronic) Cerebrovascular disease (Chronic) status post ischemic stroke Surgical History Status post myomectomy (Chronic) Status post tonsillectomy (Chronic) Status post appendectomy (Chronic) Status post cardiac catheterization (Chronic) 2016, occlusion RCA Family History Father Coronary heart disease Mother Heart disease Hypertension Social History Preferred Language: Khmer Communication Ability: Effective Pickle Pumper Required: No Beliefs That Will Affect Care: None Current Living Situation: Spouse Other Information That Helps Us Care for You: No Feels Safe at Home: Yes Safety Concerns: Feels Safe At This Time Smoking Status: Never smoker Do You Dip or Chew Tobacco: No Second Hand Exposure: No Hx Alcohol Use: No Hx Substance Use: No Physical Exam Physical Exam: Physical Exam: Constitutional: appearance over nourished, healthy Ears, Nose, Mouth and Throat: mucous membranes moist, no injection and skin normal, eyes normal Cardiovascular: elisha cardia Respiratory: clear to auscultation (CTA) and no rales, ronchi or wheeze Musculoskeletal: no peripheral edema and good distal pulses Skin: no stigmata of neurocutaneous disease noted and normal and intact Eyes: extraocular muscles intact (EOMI) and pupils equal, round and reactive to light (PERRL), peripheral vision intact NEUROLOGIC EXAMINATION: Mental status: Alert and interactive Oriented to full date and location Oriented to person Speech slurred speech with some words Cranial Nerves left subtle droop Reflexes: Deep tendon reflexes were symmetrical and graded 2/5. Sensory: light and cool touch intact Coordination: finger to nose no bi pass,slight dysmetric on left Gait/Stance: Posture sitting up bedside Gait no assessed. Motor: Negative for pronator drift of out stretched arms with eyes closed. Strength: biceps triceps hand horse trekking guide right 5/5 left 4+/5 hip flex right 5/5 left 4+/5 Results & Data Vital Signs (Past 12 Hours) Vital Signs Temp Pulse Pulse Resp BP BP Pulse Ox 12/22/18 11:03 36.4 C L 55 L 17 163/76 H 100 12/22/18 07:21 36.6 C 59 L 18 168/70 H 100 12/22/18 04:49 150/80 H 12/22/18 03:45 36.5 C 63 24 98 Laboratory Results Abnormal lab results 12/21/18 12/21/18 12/21/18 Range/Units 17:45 17:45 17:47 RDW Coeff of Sara 14.6 H (11.5-14.5) % MPV 10.9 H (7.4-10.4) fL Potassium 3.3 L (3.5-5.1) mmol/L Chloride 112 H (98-107) mmol/L Carbon Dioxide 20 L (21-32) mmol/L BUN 36 H (7-18) mg/dl Creatinine 1.68 H (0.6-1.2) mg/dl BUN/Creatinine Ratio 21.6 H (10-20) Glucose 146 H (70-99) mg/dl POC Glucose 141 H (70-99) Hemoglobin A1c (4.5-5.6) % AST 13 L (15-37) U/L 12/22/18 12/22/18 12/22/18 Range/Units 05:59 05:59 05:59 RDW Coeff of Sara (11.5-14.5) % MPV 10.9 H (7.4-10.4) fL Potassium 3.2 L (3.5-5.1) mmol/L Chloride 110 H (98-107) mmol/L Carbon Dioxide (21-32) mmol/L BUN 29 H (7-18) mg/dl Creatinine 1.54 H (0.6-1.2) mg/dl BUN/Creatinine Ratio (10-20) Glucose 104 H (70-99) mg/dl POC Glucose (70-99) Hemoglobin A1c 6.7 H (4.5-5.6) % AST 14 L (15-37) U/L 12/22/18 12/22/18 Range/Units 07:29 11:31 RDW Coeff of Asra (11.5-14.5) % MPV (7.4-10.4) fL Potassium (3.5-5.1) mmol/L Chloride (98-107) mmol/L Carbon Dioxide (21-32) mmol/L BUN (7-18) mg/dl Creatinine (0.6-1.2) mg/dl BUN/Creatinine Ratio (10-20) Glucose (70-99) mg/dl POC Glucose 106 H 102 H (70-99) Hemoglobin A1c (4.5-5.6) % AST (15-37) U/L Diagnostic Findings CXR-Cardiomegaly and cardiac pacemaker. There is no radiographic evidence of congestive failure. The lungs are clear. CT head-Cardiomegaly and cardiac pacemaker. There is no radiographic evidence of congestive failure. The lungs are clear. CTA head- CTA neck-There is no hemorrhage, mass effect, or evidence of acute territorial ischemia by CT criteria noting angiographic phase technique. Unremarkable CT angiogram of the neck. The right vertebral artery at the skull base is diminutive, and is thrombosed just below the basilar artery. This is of indeterminant chronicity and clinical significance, but represents a change from the 04/30/2013 examination. There is approximately 50% focal stenosis of the M2 segment of the right middle cerebral artery. xray foot-No acute fracture or dislocation within the right foot. Right first toe soft tissue swelling. Transverse sclerosis within the right third metatarsal neck which may reflect a subacute to chronic nondisplaced fracture.
--- NOTE | 2018-12-22 15:28 | Cardiology Consultation ---
Date of Consultation December 22, 2018 Assessment & Plan (1) Ischemic cerebrovascular accident (CVA): Patient presents with signs and symptoms consistent with new ischemic stroke. This is a recurrent stroke, and has occurred despite treatment with aspirin and clopidogrel as well as blood pressure medication and intense statin therapy. Telemetry reveals sinus rhythm with left bundle branch block morphology in the range of 60-80 beats per minute without evidence of atrial fibrillation. I am going to ask [employer] to interrogate her device. This will be helpful in determining if the patient is having occult episodes of atrial fibrillation in addition to her known diagnosis of supraventricular tachycardia. Will also request assistance regarding candidacy for MRI with her pacemaker. Given her history of hypertrophic cardiomyopathy, plus recurrent stroke events despite aspirin and clopidogrel, and no findings of intracranial hemorrhage on CT, I recommend transitioning her to aspirin plus Coumadin. Patient is at fall risk. In the past she is declined Coumadin but today she seems agreeable to it. For the time being we will start to cautiously loaded with Coumadin, loading dose of 2.5 mg given treatment with gemfibrozil which reduces the dose requirement of Coumadin. I plan to continue the clopidogrel for the first 1-3 doses of coumadin, until INR starts to increase. Discussed with Dr. Fuentes and Yelena Ribeiro of neurology. (2) History of paroxysmal supraventricular tachycardia: Continue current dose of metoprolol. (3) LBBB (left bundle branch block): Sinus rhythm with left bundle branch block noted on EKG. (4) Hypertrophic cardiomyopathy: History of septal myectomy. Echocardiogram performed this admission reveals stable findings without obstructive physiology. History of Present Illness Attending Physician: Daryl Jacobson MD History of Present Illness Najma Kamara is a 73 year old female seen in cardiology consultation per the request of Dr Jacobson due to concerns of recurrent stroke in the setting of a history of hypertrophic cardiomyopathy. The patient's primary fruit sprayer is Dr. Andre. The patient was observed by her yesterday to have slurred speech and right facial droop. He subsequently brought her to the emergency department. It was determined that she was not a candidate for TPA and she was subsequently admitted for further observation. A CT of the brain revealed no acute intracranial pathology. There are chronic lacunar infarcts identified within the right internal capsule in the right alan radiata. A CT angiogram of the head and neck revealed diminutive right vertebral artery that is thrombosed just below the basilar artery of undetermined chronicity, but was new compared to a 2013 exam. A 50% focal stenosis was noted in the M2 segment of the right middle cerebral artery. An MRI is yet to been performed due to the patient's history of permanent pacemaker. Patiently recently underwent implantation of a dual-chamber Medtronic permanent pacemaker at [facility] in Oct, 2018 for the diagnosis of tachycardia-bradycardia syndrome with frequent episodes of SVT with a bare conduction and rapid ventricular rates. Cardiology Problem List 1.Hypertrophic obstructive cardiomyopathy status post surgical myomectomy, September 1999. 2.Longstanding labile hypertension 3.Intermittent left bundle branch block. 4.Marked hyperlipidemia with elevated triglycerides. 5.History of recurrent lacunar stroke, most recent January 2012. 6.Diabetes mellitus. 7.History restless leg syndrome 8.Hospitalization with [id number] elevation myocardial infarction on 12/24/2015, after presenting with supraventricular tachycardia, rates 170-180. 9.Cardiac catheterization demonstrating occlusion of the right coronary artery with retrograde fill via left collaterals. 10.Sick sinus syndrome status post November 01, 2018 dual-chamber (Medtronic) pacemaker implantation at [facility]. 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 Allergies Allergy/AdvReac Type Severity Reaction Status Date / Time niacin Allergy Mild RASH Verified 10/28/18 14:57 clonidine Allergy Unknown RASH Verified 10/28/18 14:57 spironolactone Allergy Unknown RASH Verified 10/28/18 14:57 Home Medications Home Medications Medication Instructions Recorded Confirmed Type aspirin [Aspirin Low Dose] 81 mg PO DAILY 08/01/18 12/21/18 History atorvastatin 80 mg PO DAILY 08/01/18 12/21/18 History calcitriol 0.25 mg PO 2XWK 08/01/18 12/21/18 History clopidogrel [Plavix] 75 mg PO QAM 08/01/18 12/21/18 History fish,bora,flax oils-om3,6,9no1 1 cap PO QAM 08/01/18 12/21/18 History [[place] 3-6-9 Complex] folic acid 1 mg PO QAM 08/01/18 12/21/18 History gemfibrozil 600 mg PO QAM 08/01/18 12/21/18 History isosorbide mononitrate 60 mg PO QAM 08/01/18 12/21/18 History ropinirole 5 mg PO HS 08/01/18 12/21/18 History gemfibrozil 300 mg PO QPM 10/10/18 12/21/18 History losartan-hydrochlorothiazide 1 tab PO DAILY 10/10/18 12/21/18 History [Hyzaar] Calcium 600 + D(3) 1 cap PO DAILY 10/28/18 12/21/18 History Floranex 1 packet PO TID 10/28/18 12/21/18 History coenzyme Q10 [CoQ-10] 100 mg PO DAILY 10/28/18 12/21/18 History fish,bora,flax oils-om3,6,9no1 2 cap PO HS 10/28/18 12/21/18 History glimepiride [Amaryl] 1 mg PO QAM 10/28/18 12/21/18 History hydralazine 25 mg PO TID 10/28/18 12/21/18 History amlodipine 2.5 mg PO DAILY 12/21/18 12/21/18 History metoprolol tartrate 75 mg PO DAILY 12/21/18 12/21/18 History Patient History Medical History HTN (hypertension) (Chronic) LBBB (left bundle branch block) (Chronic) History of paroxysmal supraventricular tachycardia (Chronic) Restless leg syndrome (Chronic) Urinary, incontinence, stress female (Chronic) Coronary artery disease (Chronic) status post non-STEMI 2015; cath showed RCA occlusion CKD (chronic kidney disease), stage III (Chronic) Essential hypertension (Chronic) Diabetes mellitus type 2 with complications (Chronic) Dyslipidemia (Chronic) Mitral insufficiency (Chronic) Hypertrophic cardiomyopathy (Chronic) Cerebrovascular disease (Chronic) status post ischemic stroke Surgical History Status post myomectomy (Chronic) Status post tonsillectomy (Chronic) Status post appendectomy (Chronic) Status post cardiac catheterization (Chronic) 2016, occlusion RCA Family History Father Coronary heart disease Mother Heart disease Hypertension Social History Preferred Language: Indonesian Communication Ability: Effective Scrap Worker Required: No Beliefs That Will Affect Care: None Current Living Situation: Spouse Other Information That Helps Us Care for You: No Feels Safe at Home: Yes Safety Concerns: Feels Safe At This Time Smoking Status: Never smoker Do You Dip or Chew Tobacco: No Second Hand Exposure: No Hx Alcohol Use: No Hx Substance Use: No Review of Systems Review of Systems: All systems reviewed & are unremarkable except as noted in HPI & below Physical Exam Physical Exam: Temp Pulse Resp BP Pulse Ox 36.5 C 57 L 18 145/76 H 97 12/22/18 15:31 12/22/18 15:31 12/22/18 15:31 12/22/18 15:31 12/22/18 15:31 Constitutional: WD/WN, vitals as above Respiratory: normal respiratory effort, lungs clear to auscultation Cardiovascular: RRR, no murmur, no edema Heart Sounds: no murmur Vessels: no JVD Chest (Breasts): Chest: + pacemaker (Well-healing left subclavicular pacemaker pocket, incision is clean dry and intact, no drainage) Additional Comments: Well-healed midline sternotomy incision Neurologic: Slurred speech is resolved. Patient notes some degree of weakness in both of her legs which she states is some degree of a chronic problem. Results & Data Laboratory Results Cardiac Enzymes 12/21/18 12/22/18 Range/Units 17:45 05:59 AST 13 L 14 L (15-37) U/L Troponin I 0.026 (0-0.045) ng/ml Coagulation 12/21/18 Range/Units 17:45 PT 10.7 (9.0-12.0) Seconds APTT 27.2 (21.0-31.0) Seconds CBC 12/21/18 12/22/18 Range/Units 17:45 05:59 WBC 7.11 5.61 (4.8-10.8) K/uL RBC 4.59 4.61 (4.2-5.4) M/uL Hgb 13.8 13.6 (12.0-16.0) g/dL Hct 39.3 39.7 (37-47) % Plt Count 259 227 (130-400) K/uL Neut # (Auto) 4.13 (1.4-6.5) K/uL Lymph # (Auto) 2.21 (1.2-3.4) K/uL [place] # (Auto) 0.50 (0.11-0.59) K/uL Eos # (Auto) 0.23 (0-0.5) K/uL Baso # (Auto) 0.03 (0-0.2) K/uL Comprehensive Metabolic Panel 12/21/18 12/22/18 Range/Units 17:45 05:59 Sodium 140 140 (136-145) mmol/L Potassium 3.3 L 3.2 L (3.5-5.1) mmol/L Chloride 112 H 110 H (98-107) mmol/L Carbon Dioxide 20 L 23 (21-32) mmol/L BUN 36 H 29 H (7-18) mg/dl Creatinine 1.68 H 1.54 H (0.6-1.2) mg/dl Glucose 146 H 104 H (70-99) mg/dl Calcium 9.4 9.4 (8.5-10.1) mg/dl AST 13 L 14 L (15-37) U/L ALT 16 15 (12-78) U/L Alkaline Phosphatase 100 86 (45-117) U/L Total Protein 7.9 6.9 (6.4-8.2) gm/dl Albumin 4.0 3.5 (3.4-5.0) gm/dl Intake and Output 12/22/18 12/22/18 12/22/18 06:59 14:59 22:59 Intake Total 65 / 65 540 / 540 Output Total 875 / 875 500 / 500 Balance -810 / -810 40 / 40 Intake: IV 65 / 65 Ofirmev 65 ml @ 260 mls/hr IV 65 / 65 Q6H PRN Rx#:[id number] Oral 540 / 540 Output: Urine 875 / 875 500 / 500 Other: Other Intake Source NPO Weight 59.1 kg
[2018-12-22] MEDS ORDERED: WARFARIN SOD 2.5 MG TAB PO SCH (16:00)
--- NOTE | 2018-12-22 16:26 | Hospitalist Progress Note ---
Date of Service December 22, 2018 Assessment & Plan (1) TIA (transient ischemic attack): TIA: --CT Head:There is no hemorrhage, mass effect, or evidence of acute territorial ischemia by CT criteria. --Head CTA:There is no hemorrhage, mass effect, or evidence of acute territorial ischemia by CT criteria noting angiographic phase technique. Unremarkable CT angiogram of the neck. The right vertebral artery at the skull base is diminutive, and is thrombosed just below the basilar artery. This is of indeterminant chronicity and clinical significance, but represents a change from the 04/30/2013 examination. There is approximately 50% focal stenosis of the M2 segment of the right middle cerebral artery. --Neck CTA:Unremarkable CT angiogram of the neck. --Will get MRI head if Pacemaker is compatible --H/O hypertrophic cardiomyopathy, recurrent CVAs while on aspirin, plavix--Pt is being transitioned to aspirin plus Coumadin --Continue Plavix for now until INR elevates --Appreciate Cardiology/Neurology Input --Speech/PT/OT eval --Pacemaker Interrogation --Continue Lipitor, gemfibrozil --Needs follow-up with neurology upon discharge Hypokalemia: Replace and monitor for electrolyte CKD III: Creatinine at baseline Monitor renal function Hypertension: Stable Continue current medications DM II: A1c 6.7 Hold p.o. meds Continuous insulin therapy while hospitalized H/O Paroxysmal supraventricular tachycardia LBBB Hypertrophic cardiomyopathy Continue current meds DVT Px: On Warfarin Disposition: Likely discharge home when stable Subjective Patient is seen and examined at bedside Slurred speech, facial droop improving Chronic left leg weakness from prior CVA as per patient Denies any chest pain, shortness of breath, dizziness, nausea, abd pain No other complaints Review of Systems Review of Systems: All systems reviewed & are unremarkable except as noted in HPI & below Physical Exam Physical Exam: Physical Exam: Vitals signs as noted above General Appearance:Moderately built and nourished, no apparent distress Head: normocephalic, Atraumatic Eyes: normal inspection, EOMI Neck: supple, Trachea midline Respiratory/Chest: Normal breath sounds, CTA, +Pacemaker on Left side Cardiovascular: S1, S2, No murmur Abdomen/GI:Soft, Non tender, Bowel sounds present Extremities/Musculoskelatal:normal inspection, no edema Neurologic/Psych:AAOX3, Left leg minimal weakness, R 1st toe tender, slurred speech improved Skin: normal color, warm Results & Data Vital Signs (Past 12 Hours) Vital Signs Temp Pulse Resp BP BP Pulse Ox 12/22/18 15:31 36.5 C 57 L 18 145/76 H 97 12/22/18 11:03 36.4 C L 55 L 17 163/76 H 100 12/22/18 07:21 36.6 C 59 L 18 168/70 H 100 12/22/18 04:49 150/80 H Laboratory Results Short CBC 12/21/18 12/22/18 Range/Units 17:45 05:59 WBC 7.11 5.61 (4.8-10.8) K/uL Hgb 13.8 13.6 (12.0-16.0) g/dL Hct 39.3 39.7 (37-47) % Plt Count 259 227 (130-400) K/uL BMP 12/21/18 12/22/18 17:45 05:59 Sodium 140 140 Potassium 3.3 L 3.2 L Chloride 112 H 110 H Carbon Dioxide 20 L 23 BUN 36 H 29 H Creatinine 1.68 H 1.54 H Glucose 146 H 104 H Calcium 9.4 9.4 Cardiac Enzymes 12/21/18 Range/Units 17:45 Troponin I 0.026 (0-0.045) ng/ml Liver Function 12/21/18 12/22/18 Range/Units 17:45 05:59 Total Bilirubin 0.4 0.4 (0.2-1) mg/dl AST 13 L 14 L (15-37) U/L ALT 16 15 (12-78) U/L Alkaline Phosphatase 100 86 (45-117) U/L Albumin 4.0 3.5 (3.4-5.0) gm/dl
--- NOTE | 2018-12-22 20:28 | Magnetic Resonance Report ---
MRI OF THE BRAIN WITHOUT CONTRAST CLINICAL HISTORY: New stroke. Slurred speech. Facial droop. COMPARISON STUDY: CT scan dated 12/21/2018, MRI of the brain dated 10/10/2018 FINDINGS: Sagittal T1, axial diffusion, proton density and T2 weighted axial, coronal FLAIR, and axial T1-weigh ho images were acquired. No intra or extra-axial mass lesions are visualized Axial diffusion-weighted images reveal no evidence of acute or subacute infarction. There is no evidence of ventricular dilatation. Proton density T2-weighted and FLAIR images reveal scattered foci of increased T2 signal within the w delfino matter, likely on a small vessel basis. There is an old area of infarction in the region of the right alan radiata and right basal ganglia. There are no abnormal flow voids. IMPRESSION: 1. No acute intracranial findings 2. No evidence of acute or subacute infarction 3. No evidence of intracranial mass in this noncontrast study 4. Old ischemic changes Electronically signed by: Rip Lantigua M.D. 12/22/2018 8:26 PM
[2018-12-23 06:04] LABS: Prothrombin Time 10.5 Seconds (9.0-12.0)
[2018-12-23 06:20] LABS: BUN Creatinine Ratio 18.8 (10-20); Calcium 9.6 mg/dl (8.5-10.1); Creatinine Clr Calc Pharmacy 22.5 ml/min; Est GFR (African American) 33.8; Est GFR (Non-African American) 29.2; Potassium 4.3 mmol/L (3.5-5.1)
[2018-12-23] MEDS: CALCIUM 600MG + VIT D 400 IU TAB PO SCH (07:47)
[2018-12-23] MEDS: CLOPIDOGREL BISULFATE 75 MG TAB PO SCH (07:47)
[2018-12-23] MEDS: ATORVASTATIN 40 MG TAB PO SCH (07:47)
[2018-12-23] MEDS: LACTOBACILLUS ACIDOPHILUS 1 GM PACK PO SCH ×2 (07:48→13:40)
[2018-12-23] MEDS: GEMFIBROZIL 600 MG TAB PO SCH (07:48)
[2018-12-23] MEDS: FOLIC ACID 1 MG TAB PO SCH (07:49)
[2018-12-23] MEDS: LOSARTAN/HCTZ 50/12.5MG TAB PO SCH (07:49)
[2018-12-23] MEDS: ASPIRIN 81 MG ECTAB PO SCH (07:49)
[2018-12-23] MEDS: OMEGA-3 (PURIFIED FISH OIL) 1 GM CAP PO SCH (07:49)
[2018-12-23] MEDS: ISOSORBIDE MONO EXTENDED REL 60 MG TABCR PO SCH (07:49)
[2018-12-23] MEDS: INSULIN ASPART 100 UNITS/ML 3 ML PEN SC SCH ×2 (07:52→13:19)
[2018-12-23] MEDS ORDERED: CALCITRIOL 0.25 MCG CAPSULE PO SCH (09:00)
--- NOTE | 2018-12-23 10:16 | Cardiology Progress Note ---
Date of Service December 23, 2018 Assessment & Plan (1) Ischemic cerebrovascular accident (CVA): Recurrent transient ischemic attack despite aspirin, clopidogrel, blood pressure medication, and statin. No significant atrial fibrillation observed. Given her history of hypertrophic cardiomyopathy plus recurrent TIA despite aspirin and clopidogrel will transition clopidogrel to aspirin plus Coumadin. Clopidogrel is being continued until her INR starts to increase. (2) History of paroxysmal supraventricular tachycardia: Quiescent Continue metoprolol. (3) LBBB (left bundle branch block): Sinus rhythm with left bundle branch block noted on EKG. (4) Hypertrophic cardiomyopathy: Status post septal myectomy. Echocardiography performed this admission reveals stable findings without obstructive physiology. (5) Labile hypertension: Increase metoprolol to 100 mg twice a day Follow (6) Sick sinus syndrome: Status post November 01, 2018 dual-chamber ([employer]) pacemaker implantation at [facility]. Device interrogation on 12/22/2018 demonstrated appropriate function with adequate battery reserve as detailed above. (7) Coronary artery disease: Patient hospitalized with a NSTEMI in 12/24/2015, after presenting with supraventricular tachycardia, rates 170-180. Cardiac catheterization demonstrated occlusion of the RCA with retrograde fill via left collaterals. Asymptomatic Follow (8) SVT (supraventricular tachycardia): Follow Continue metoprolol without interruption Subjective Patient seen and examined. Chart, medications, telemetry reviewed. Patient notes riding as a passenger in the car with her to sweet pickle maker Danyell from work yesterday afternoon. She had not had any of her medications except for Requip which she took around 3:30 PM due to restless legs. While sitting in a car she noted that both sides of her mouth (left greater than right) felt funny. Symptoms lasted approximately 4 hours. Inpatient work-up thus far has been fairly unyielding. CT scan of the head showed no acute findings. CT angiogram of the neck was unremarkable. The right vertebral artery at the base of the skull was noted to be diminutive with thrombus just below the basilar artery. 50% right middle cerebral artery stenosis noted. MRI of the brain without contrast yesterday showed no acute intracranial findings, no evidence of acute or subacute infarction, no evidence of intracranial mass. Old ischemic changes noted. Continuous telemetry monitoring revealed paced rhythm with PVCs. Resting echocardiography and pacemaker interrogation have been completed this admission and are summarized below. December 22, 2018 TTE Interpretation Summary ([facility], Dr. Wren): Compared to prior study dated August 02, 2018 there is no significant interval change. Normal LV size. Moderate concentric LVH. Isolated basal septal hypertrophy with maximal thickness of 2.3 cm. No LV thrombus. Small size inferior wall motion abnormality with hypokinesis to akinesis of the basal inferior segment. EF 50 to 55%. Normal RV size and function. Normal left atrial size. The interatrial septum was noted to be intact without evidence of atrial septal defect. Mild aortic valve sclerosis without significant stenosis. Mild mitral annular calcification. Mild mitral regurgitation. No mitral stenosis. Pacemaker interrogation performed by the [employer] outside energy sales representatives on December 22, 2018 demonstrated appropriate function with adequate battery reserve. Estimated remaining longevity was 13.6 years. Two seconds of atrial fibrillation observed. One second of ventricular tachycardia noted on December 10, 2018. Atrial paced 52.4% of the time. The patient has not had any ongoing symptoms since admission. No chest pain, palpitations, unusual shortness of breath. Lower extremity peripheral edema has improved following recent reduction in amlodipine dosing. No current headache. No dizziness. No near syncope or syncope. No fevers or chills. No excessive bruising or bleeding Physical Exam Physical Exam: Examined in the bedside chair General: A&Ox3. NAD. HEENT: Normocephalic. Atraumatic. PER. Conjunctiva pink, sclera clear. Neck: Bilateral carotid bruits. No overt JVD. Heart: RRR, 60 bpm. Soft systolic ejection murmur. Gallop. No rub. PMI is nondisplaced. Lungs: Clear to auscultation. Abdomen: +BS. Soft. Nontender. No masses or organomegaly. Extremities: Minimal left lower extremity edema. No edema on the right. No clubbing. No cyanosis. Limited neurological examination is without new deficit from when I saw her last in the office Pulses: radial=2/4, posterior tibial=2/4. Results & Data Vital Signs (Past 12 Hours) Vital Signs Temp Pulse Resp BP BP Pulse Ox 12/23/18 07:22 36.5 C 61 18 160/73 H 98 12/23/18 05:04 161/74 H 12/23/18 04:24 36.4 C L 60 20 181/69 H 99 12/22/18 23:29 36.4 C L 60 20 148/69 H 99 Laboratory Results - last 24 hr 12/22/18 12/22/18 12/22/18 07:29 11:31 16:12 PT INR Sodium Potassium Chloride Carbon Dioxide Anion Gap BUN Creatinine Est Cr Clr Drug Dosing Est GFR ( Amer) Est GFR (Non-Af Amer) BUN/Creatinine Ratio Glucose POC Glucose 106 H 102 H 141 H Calcium 12/22/18 12/23/18 12/23/18 20:34 05:17 05:17 PT 10.5 INR 1.0 Sodium 139 Potassium 4.3 D Chloride 106 Carbon Dioxide 25 Anion Gap 8.0 BUN 32 H Creatinine 1.70 H Est Cr Clr Drug Dosing 22.5 Est GFR ( Amer) 33.8 Est GFR (Non-Af Amer) 29.2 BUN/Creatinine Ratio 18.8 Glucose 119 H POC Glucose 74 Calcium 9.6 12/23/18 07:18 PT INR Sodium Potassium Chloride Carbon Dioxide Anion Gap BUN Creatinine Est Cr Clr Drug Dosing Est GFR ( Amer) Est GFR (Non-Af Amer) BUN/Creatinine Ratio Glucose POC Glucose 106 H Calcium
[2018-12-23] MEDS ORDERED: AMLODIPINE BESYLATE 5 MG TAB PO SCH (13:00)
[2018-12-23] MEDS ORDERED: METOPROLOL TARTRATE 50 MG TAB PO SCH ×2 (13:00→13:15)
--- NOTE | 2018-12-23 13:49 | Hospitalist Progress Note ---
Date of Service December 23, 2018 Assessment & Plan (1) TIA (transient ischemic attack): TIA: --CT Head:There is no hemorrhage, mass effect, or evidence of acute territorial ischemia by CT criteria. --Head CTA:There is no hemorrhage, mass effect, or evidence of acute territorial ischemia by CT criteria noting angiographic phase technique. Unremarkable CT angiogram of the neck. The right vertebral artery at the skull base is diminutive, and is thrombosed just below the basilar artery. This is of indeterminant chronicity and clinical significance, but represents a change from the 04/30/2013 examination. There is approximately 50% focal stenosis of the M2 segment of the right middle cerebral artery. --Neck CTA:Unremarkable CT angiogram of the neck. --MRI head: No acute intracranial findings No evidence of acute or subacute infarction No evidence of intracranial mass in this noncontrast study Old ischemic changes --ECHO: Patient has a history of hypertrophic cardiomyopathy with past septal myectomy. Compared to the prior study dated 08/02/2018 there is been no significant interval change. --H/O hypertrophic cardiomyopathy, recurrent CVAs while on aspirin, plavix--Pt is being transitioned to aspirin plus Coumadin --Continue Plavix for now until INR elevates --Appreciate Cardiology/Neurology Input --Speech/PT/OT eval --Pacemaker Interrogation done --Continue Lipitor, gemfibrozil --Needs follow-up with neurology upon discharge --INR:1.0 today --Plan to discontinue plavix upon discharge --Plan to continue Aspirin and coumadin upon discharge Hypokalemia: Replace and monitor for electrolyte CKD III: Creatinine at baseline Monitor renal function Hypertension: Metoprolol dose increased to 100mg BID Resume amlodipine today Continue Losartan, HCTZ DM II: A1c 6.7 Hold p.o. meds Continuous insulin therapy while hospitalized H/O Paroxysmal supraventricular tachycardia LBBB Hypertrophic cardiomyopathy Continue current meds DVT Px: On Warfarin Disposition: Plan Likely discharge home today Subjective Patient is seen and examined at bedside Slurred speech resolved Facial droop slowly improving No new weakness Chronic left leg weakness from prior CVA as per patient Denies any chest pain, shortness of breath, dizziness, nausea, abd pain No other complaints Discussed with Cardiology today Review of Systems Review of Systems: All systems reviewed & are unremarkable except as noted in HPI & below Physical Exam Physical Exam: Physical Exam: Vitals signs as noted above General Appearance:Moderately built and nourished, no apparent distress Head: normocephalic, Atraumatic Eyes: normal inspection, EOMI Neck: supple, Trachea midline Respiratory/Chest: Normal breath sounds, CTA, +Pacemaker on Left side Cardiovascular: S1, S2, No murmur Abdomen/GI:Soft, Non tender, Bowel sounds present Extremities/Musculoskelatal:normal inspection, no edema Neurologic/Psych:AAOX3, Left leg minimal weakness, R 1st toe tender, slurred speech improved Skin: normal color, warm Results & Data Vital Signs (Past 12 Hours) Vital Signs Temp Pulse Resp BP Pulse Ox 12/23/18 11:07 36.4 C L 67 18 149/79 H 100 12/23/18 07:22 36.5 C 61 18 160/73 H 98 12/23/18 05:04 161/74 H 12/23/18 04:24 36.4 C L 60 20 181/[address] [facility] 12/23/18 05:17 Sodium 139 Potassium 4.3 D Chloride 106 Carbon Dioxide 25 BUN 32 H Creatinine 1.70 H Glucose 119 H Calcium 9.6
--- NOTE | 2018-12-23 14:03 | Discharge Summary ---
Date of Service December 23, 2018 Admission HPI Per Admitting Provider 73-year-old female with a past medical history of recent pacemaker placement for sick sinus syndrome, hypertrophic cardiomyopathy, coronary disease, chronic kidney disease, CVA, type 2 diabetes, hypertension, hyperlipidemia, restless leg syndrome, mitral insufficiency, and left bundle branch block presents the emergency room tonight with strokelike symptoms. She was driving down the road with her on her way to [place] when she started to slur her speech and she had a right facial droop which was pronounced. brought her right to the emergency room this happened around 330 the case was discussed with Kayleigh and with [facility] and they elected not to do TPA. She is currently on aspirin Plavix and a statin for recent stroke. We do not know whether her pacemaker is MRI compatible so an MRI was not done yet. Dr. Andre and Dr. Fuentes have been consulted to see the patient in the morning and to investigate as to whether this pacemaker is MRI compatible. Her CTA was negative, she had a small thrombus in the vertebral artery which we think is old scan showed 50% M2 segment right MCA. PMH-pacemaker for sick sinus syndrome, hypertrophic cardia myopathy, coronary disease, chronic kidney disease, CVA, type 2 diabetes, hypertension, hyperlipidemia, restless leg syndrome, mitral insufficiency, left bundle branch block. PSH-pacemaker placement on October 28, 2018, myomectomy, tonsils and adenoids, appendectomy and left heart catheterization. FH-Father had coronary disease, mother had coronary disease and hypertension Medications are as below, allergies are as below, Social history, no tobacco drugs or alcohol she is lives with her . Primary Care Provider: Asad Roberts MD Admission Exam Per Admitting Provider Physical Exam Gen-AAO x 3, NAD, Afebrile Head-NCAT, EOMI, PERRLA, Anicteric Sclera, No Posterior Pharyngeal Erythema Neck-Supple, No JVD, No Thyromegaly, No Masses, No LAD, No Bruits Lungs-Clear to Auscultation Bilaterally, No Rales, No Rhonchi, No Wheezing, No Crepitus Chest-No S4, +S1, +S2, No S3, No Murmurs, No Rubs, No Gallops, No Ectopy Abdomen-Soft, Bowel Sounds Present, Non Tender, Non Distended, No Hepatomegaly, No Splenomegaly, No Palpable Masses, No Rebound, No Rigidity, No Guarding Musculoskeletal-Full Range of Motion Bilaterally, No CVAT Extremities-No Cyanosis, No Clubbing, No Edema Nuero-mild weakness on the left, right facial droop very subtle, DTRs WNL Principal Diagnosis Discharge Information Discharge Diagnosis Transient Ischemic Attack (TIA) Discharge Goals Decrease discomfort,Improve disease control, Improve function Discharge Activity Limitations Resume your previous acti Discharge Data Allergies Allergy/AdvReac Type Severity Reaction Status Date / Time niacin Allergy Mild RASH Verified 10/28/18 14:57 clonidine Allergy Unknown RASH Verified 10/28/18 14:57 spironolactone Allergy Unknown RASH Verified 10/28/18 14:57 Consultations 12/21/18 19:25 ED Decision to Admit Stat 12/21/18 22:02 Consult Neurology Routine 12/22/18 15:12 Consult Cardiology Routine Procedures Performed --CT Head:There is no hemorrhage, mass effect, or evidence of acute territorial ischemia by CT criteria. --Head CTA:There is no hemorrhage, mass effect, or evidence of acute territorial ischemia by CT criteria noting angiographic phase technique. Unremarkable CT angiogram of the neck. The right vertebral artery at the skull base is diminutive, and is thrombosed just below the basilar artery. This is of indeterminant chronicity and clinical significance, but represents a change from the 04/30/2013 examination. There is approximately 50% focal stenosis of the M2 segment of the right middle cerebral artery. --Neck CTA:Unremarkable CT angiogram of the neck. --MRI head: No acute intracranial findings No evidence of acute or subacute infarction No evidence of intracranial mass in this noncontrast study Old ischemic changes --ECHO: Patient has a history of hypertrophic cardiomyopathy with past septal myectomy. Compared to the prior study dated 08/02/2018 there is been no significant interval change. Ordered Studies 12/21/18 17:42 CT angio head w con Stat CT angio neck with con Stat CT head/brain wo con Stat 12/22/18 18:25 MR brain wo con Stat Hospital Course (1) TIA (transient ischemic attack): TIA: --CT Head:There is no hemorrhage, mass effect, or evidence of acute territorial ischemia by CT criteria. --Head CTA:There is no hemorrhage, mass effect, or evidence of acute territorial ischemia by CT criteria noting angiographic phase technique. Unremarkable CT angiogram of the neck. The right vertebral artery at the skull base is diminutive, and is thrombosed just below the basilar artery. This is of indeterminant chronicity and clinical significance, but represents a change from the 04/30/2013 examination. There is approximately 50% focal stenosis of the M2 segment of the right middle cerebral artery. --Neck CTA:Unremarkable CT angiogram of the neck. --MRI head: No acute intracranial findings No evidence of acute or subacute infarction No evidence of intracranial mass in this noncontrast study Old ischemic changes --ECHO: Patient has a history of hypertrophic cardiomyopathy with past septal myectomy. Compared to the prior study dated 08/02/2018 there is been no significant interval change. --H/O hypertrophic cardiomyopathy, recurrent CVAs while on aspirin, plavix--Pt is being transitioned to aspirin plus Coumadin --Continue Plavix for now until INR elevates --Appreciate Cardiology/Neurology Input --Speech/PT/OT eval --Pacemaker Interrogation done --Continue Lipitor, gemfibrozil --Needs follow-up with neurology upon discharge --INR:1.0 today --Plan to discontinue plavix upon discharge --Plan to continue Aspirin and coumadin upon discharge Hypokalemia: Replace and monitor for electrolyte CKD III: Creatinine at baseline Monitor renal function Hypertension: Metoprolol dose increased to 100mg BID Resume amlodipine today Continue Losartan, HCTZ DM II: A1c 6.7 Hold p.o. meds Continuous insulin therapy while hospitalized H/O Paroxysmal supraventricular tachycardia LBBB Hypertrophic cardiomyopathy Continue current meds DVT Px: On Warfarin Disposition: Plan Likely discharge home today Total Time Total Time Spent Total Time Spent (In Minutes): 43 minutes Total Time Includes: Examination of the Patient, Discharge Planning, Medication Reconciliation, Communication With Other Providers and Other Discharge Plan Discharge Items Patient Disposition: Home - Self-Care Reason For Visit: CVA/TIA Discharge Diagnosis: Transient Ischemic Attack (TIA) Discharge Goals: Decrease discomfort, Improve disease control and Improve function Activity: Resume your previous activity Exercise/Sports: Gradually increase as tolerated Driving/Machine Use Comment: No driving until cleared by your primary care physician/neurologist Non-emergency contact: Primary Care Provider, Senior Statistical Programmer and Neurologist Call non-emergency contact if: you have any medication questions, your symptoms worsen, your pain is not controlled, your pain is worsening, your pain is unusual for you, your pain is concerning for you and you have a fever Follow-up/Referrals: Asad Roberts MD [Primary Care Provider] - Diet: Carb Consistent or DM2 and Heart Healthy Other Ambulatory Orders: Prothrombin Time INR (Routine) Timeframe: 2 Days Location: Determined by Patient Ordered By: Daryl Herrera Provider Instructions: Follow-up with your primary care physician Dr. Roberts on December 26, 2018 at 12:45 PM Follow-up with your mill tender second operator Dr. Wren/ in 4 weeks Follow-up with your neurologist Dr. Fuentes in 4-6 weeks Follow up with Coumadin clinic for management of your PT/INR and Coumadin dosing Take 2.5mg Coumadin today (12/23/18) and tomorrow (12/24/18). Further recommendations as per Coumadin Clinic Get Blood Test (PT/INR) in 2 days and follow up with Coumadin clinic for management of coumadin Stop take PLavix as advised by your Senior Statistical Programmer. Seek immediate medical attention if your symptoms reoccur or worsen Risk Factors for Stroke: You can reduce your chances of stroke by working with your medical provider to adopt a healthy lifestyle. Some specific ways to lower your chance of stroke are: * If you are a smoker, now is the time to stop smoking cigarettes * If you are diabetic, improve the control of your blood sugars * Avoid excessive amounts of alcohol * Control high blood pressure * Lose weight if you are overweight * Be sure to lead an active lifestyle * Eat a healthy diet low in salt, cholesterol and fat You should know about other risk factors for stroke that you are unable to control. These include: * Age 55 years or older * Male gender * Certain racial groups: , or / * Family History of Stroke, Mini stroke or Heart Attack * Sickle Cell Disease Follow Up: It is important for you to keep your follow up appointments with your medical provider. Who to Call and When: Medical Emergencies: Call 911 immediately if you experience any of the following warning signs and symptoms of Stroke: * Sudden numbness or weakness of the face, arm or leg, especially on one side of the body * Sudden confusion, trouble speaking or understanding * Sudden trouble seeing in one or both eyes * Sudden trouble walking, dizziness, loss of balance or coordination * Sudden severe headache with no cause Do not delay calling 911 if you experience any warning signs or symptoms of a stroke. Delay in seeking medical attention may affect what treatments can be given to you. . Prescriptions: New warfarin [Coumadin] 2.5 mg Tablet 2.5 mg PO UD Qty: 100 RF: 0 metoprolol tartrate 100 mg tablet 100 mg PO BID Qty: 60 RF: 0 warfarin 5 mg tablet 5 mg PO UD Qty: 100 RF: 0 warfarin [Coumadin] 1 mg tablet 1 mg PO UD Qty: 100 RF: 0 Continued atorvastatin 80 mg Tablet 80 mg PO DAILY RF: 0 aspirin [Aspirin Low Dose] 81 mg Tablet,Delayed Release (Dr/Ec) 81 mg PO DAILY RF: 0 isosorbide mononitrate 60 mg Tablet Extended Release 24 Hr 60 mg PO QAM RF: 0 gemfibrozil 600 mg Tablet 600 mg PO QAM RF: 0 folic acid 1 mg Tablet 1 mg PO QAM RF: 0 ropinirole 5 mg tablet 5 mg PO HS RF: 0 fish,bora,flax oils-om3,6,9no1 [[place] 3-6-9 Complex] 400-400-400 mg Capsule 1 cap PO QAM RF: 0 amlodipine 2.5 mg Tablet 2.5 mg PO DAILY RF: 0 gemfibrozil 600 mg Tablet 300 mg PO QPM RF: 0 losartan-hydrochlorothiazide [Hyzaar] 50-12.5 mg Tablet 1 tab PO DAILY RF: 0 glimepiride [Amaryl] 2 mg Tablet 1 mg PO QAM RF: 0 coenzyme Q10 [CoQ-10] 100 mg Capsule 100 mg PO DAILY RF: 0 Floranex 100 million cell Granules In Packet 1 packet PO TID RF: 0 Calcium 600 + D(3) 600 mg calcium- 200 unit Capsule 1 cap PO DAILY RF: 0 fish,bora,flax oils-om3,6,9no1 400-400-400 mg Capsule 2 cap PO HS RF: 0 hydralazine 25 mg Tablet 25 mg PO TID RF: 0 Discontinued clopidogrel [Plavix] 75 mg Tablet 75 mg PO QAM RF: 0 metoprolol tartrate 50 mg Tablet 75 mg PO BID RF: 0 Stand-Alone Forms: Medications to Prevent Stroke, [facility] Discharge Orders: Discharge Order (Routine); Ordered 12/23/18 Ordered By: Daryl Jacobson Admission Data Admit Date/Time: 12/21/18 20:09 Attending Provider: Daryl Jacobson Admit Provider: Dennis Doyle Primary Care Provider: Asad Roberts Other Providers: Dennis Doyle ; Hayden Fuentes ; Jamie Wren Service: Telemetry Other Interventions: Discharge Summary Assessment (RN) Last Done: 12/23/18 14:59 Pending Studies at Discharge: No DC Date/Time DO NOT enter until pt leaves facility: 12/23/18 16:07
[2018-12-23] MEDS ORDERED: STROKE PATIENT DISCHARGE PRN (14:14)
--- NOTE | 2018-12-23 15:37 | Pharmacy Report ---
Pharmacist Stroke Counseling - Date of Service December 23, 2018 - Scope: Pharmacy has been consulted to provide medication discharge counseling for this patient admitted with [ischemic stroke] [hemorrhagic stroke] [transient ischemic attack] as per the Pharmacist Discharge Counseling for Stroke Patients [facility] - Medications on Discharge: Home Medications Medication Instructions Recorded Confirmed aspirin [Aspirin Low Dose] 81 mg PO DAILY 08/01/18 12/21/18 atorvastatin 80 mg PO DAILY 08/01/18 12/21/18 calcitriol 0.25 mg PO 2XWK 08/01/18 12/21/18 fish,bora,flax oils-om3,6,9no1 1 cap PO QAM 08/01/18 12/21/18 [[place] 3-6-9 Complex] folic acid 1 mg PO QAM 08/01/18 12/21/18 gemfibrozil 600 mg PO QAM 08/01/18 12/21/18 isosorbide mononitrate 60 mg PO QAM 08/01/18 12/21/18 ropinirole 5 mg PO HS 08/01/18 12/21/18 gemfibrozil 300 mg PO QPM 10/10/18 12/21/18 losartan-hydrochlorothiazide 1 tab PO DAILY 10/10/18 12/21/18 [Hyzaar] Calcium 600 + D(3) 1 cap PO DAILY 10/28/18 12/21/18 Floranex 1 packet PO TID 10/28/18 12/21/18 coenzyme Q10 [CoQ-10] 100 mg PO DAILY 10/28/18 12/21/18 fish,bora,flax oils-om3,6,9no1 2 cap PO HS 10/28/18 12/21/18 glimepiride [Amaryl] 1 mg PO QAM 10/28/18 12/21/18 hydralazine 25 mg PO TID 10/28/18 12/21/18 amlodipine 2.5 mg PO DAILY 12/21/18 12/21/18 New Rx's Medication Instructions Recorded metoprolol tartrate 100 mg PO BID #60 tab 12/23/18 warfarin 5 mg PO UD #100 tab 12/23/18 warfarin [Coumadin] 1 mg PO UD #100 tab 12/23/18 warfarin [Coumadin] 2.5 mg PO UD #100 tab 12/23/18 - Action: The above medications, specifically ones for stroke treatment/prophylaxis, have been reviewed in detail with the patient and/or patient primary care sales representative(s) prior to discharge. This includes indication, common adverse reactions, drug interactions, and medication administration. Medication counseling has been employed using the teach-back method to ensure understanding. - Outcome: The patient and/or patient primary care sales representative(s) have demonstrated understanding of the medications. Please note, they are aware that the pharmacist will call them within 72 hours post-discharge to confirm that the appropriate medications are being taken and answer any further medication related questions the patient might have at that time. Contact information Individual to be contacted: Najma (patient) Relationship to patient (if applicable): n/a Phone number: [phone] Best time to call: 9am-9pm Additional comments: Spoke with patient regarding medication changes, increase in metoprolol from 75 mg BID to 100 mg BID and starting warfarin. Discussed food/medication interactions, side effects and things to watch out for, also importance of following up with the coumadin clinic and getting blood work to monitor. Also discussed her atorvastatin and aspirin and stopping the plavix. She was able to name and give doses of medications. Thank you for allowing pharmacy to be involved in the care of this patient. Please call [phone] or [phone] with any additional questions
--- NOTE | 2018-12-26 09:47 | Pharmacy Report ---
Pharmacist Post D/C Phone Note - Phone Note: Date of phone call: December 26, 2018. Individual with whom pharmacist spoke to: NAJMA RIBEIRO The following questions were reviewed during the phone call with responses listed below each: Can you tell me the medications that you are currently taking as well as when and how you take each medication? * Najma was able to accurately relate 100% of her medication changes including but not limited to the following: * Increase in metroprolol to 100 mg po BID * Initiation of warfarin at 2.5 mg po daily * Continue "baby aspirin" qAM * Discontinue clopidogrel What side effects are you having from your medications, specifically, the new medications you were started on? - None What questions do you have about your medications? - None What problems are you having obtaining your medications? - None When is your next appointment with your primary care doctor? * PCP - today * Coumadin clinic - today * Dr. Sims - Jan 24 * Per patient, appointment was made for her prior to discharge. * Cardiology in 4 weeks * Per patient, she was instructed to make an appointment with cardiology ([facility]) in 4 weeks. She noted she originally believed that this was the appointment with Dr. Sims. I instructed that Dr. Sims was the neurologist following her case as an inpatient and that she would need to call for an appointment with cardiology. Patient acknowledged understanding. Additional comments: - Patient noted she was going to the [facility]madin Clinic today. She also noted that she has not yet taken her AM medications. I counseled to take all of her AM medications, with the exception of her warfarin as the Coumadin clinic may adjust the amount she takes today based on results of her INR. I also counseled to have her notify the Coumadin Clinic that she has not yet taken her warfarin today. Per patient request, I briefly discussed INR and also the anticipated frequency of INR checks with the Coumadin Clinic - more frequently at initiation with eventual lengthening to (hopefully) once monthly checks. As per the Pharmacist Discharge Counseling for Stroke Patients Protocol, this phone call has been completed within 72 hours of discharge. Thank you for allowing us to be involved in the care of this patient. - Home Medications: Home Medications Medication Instructions Recorded Confirmed aspirin [Aspirin Low Dose] 81 mg PO DAILY 08/01/18 12/21/18 atorvastatin 80 mg PO DAILY 08/01/18 12/21/18 fish,bora,flax oils-om3,6,9no1 1 cap PO QAM 08/01/18 12/21/18 [[place] 3-6-9 Complex] folic acid 1 mg PO QAM 08/01/18 12/21/18 gemfibrozil 600 mg PO QAM 08/01/18 12/21/18 isosorbide mononitrate 60 mg PO QAM 08/01/18 12/21/18 ropinirole 5 mg PO HS 08/01/18 12/21/18 gemfibrozil 300 mg PO QPM 10/10/18 12/21/18 losartan-hydrochlorothiazide 1 tab PO DAILY 10/10/18 12/21/18 [Hyzaar] Calcium 600 + D(3) 1 cap PO DAILY 10/28/18 12/21/18 Floranex 1 packet PO TID 10/28/18 12/21/18 coenzyme Q10 [CoQ-10] 100 mg PO DAILY 10/28/18 12/21/18 fish,bora,flax oils-om3,6,9no1 2 cap PO HS 10/28/18 12/21/18 glimepiride [Amaryl] 1 mg PO QAM 10/28/18 12/21/18 hydralazine 25 mg PO TID 10/28/18 12/21/18 amlodipine 2.5 mg PO DAILY 12/21/18 12/21/18 New Rx's Medication Instructions Recorded metoprolol tartrate 100 mg PO BID #60 tab 12/23/18 warfarin 5 mg PO UD #100 tab 12/23/18 warfarin [Coumadin] 1 mg PO UD #100 tab 12/23/18 warfarin [Coumadin] 2.5 mg PO UD #100 tab 12/23/18
== END 2018-12-23 16:07 | disposition home or self-care (01) | DRG 69 ==
LOC: ED 17:27 → 2S 20:09